=== PATIENT | male | born 1950 | race Caucasian/White ===

== ENCOUNTER 2020-03-07 14:01 | Outpatient (REF) | payer MEDICARE, OTHER, SELFPAY ==
[2020-03-07 15:26] LABS: Prostate Specific Antigen 0.39 ng/mL (<0.05-4.0)
[2020-03-13 20:18] LABS: Testosterone, Total <1 ng/dL (250-1100)
== END 2020-03-07 14:02 | disposition home or self-care (01) ==
LOC: HO.LAB 14:01
PROVIDERS: PCP Physician Assistant; Visit Provider Urology
DX: C61 Malignant neoplasm of prostate (principal)
CPT/HCPCS: 84153; 84403

== ENCOUNTER → 2020-03-20 15:09 | Outpatient (BNVA) | payer MEDICARE, OTHER, SELFPAY | PROVIDERS: PCP Physician Assistant; Visit Provider Urology | DX: C61 Malignant neoplasm of prostate (principal); C79.51 Secondary malignant neoplasm of bone; N13.30 Unspecified hydronephrosis | CPT/HCPCS: Q3014 ==

== ENCOUNTER 2020-06-08 15:48 | Outpatient (REF) | payer MEDICARE, OTHER, SELFPAY ==
[2020-06-08 16:59] LABS: Prostate Specific Antigen 0.42 ng/mL (<0.05-4.0)
[2020-06-14 02:31] LABS: Testosterone, Total <1 ng/dL (250-1100)
== END 2020-06-08 15:49 | disposition home or self-care (01) ==
LOC: HO.LAB 15:48
PROVIDERS: PCP Physician Assistant; Visit Provider Urology
DX: N40.1 Benign prostatic hyperplasia with lower urinary tract symptoms (principal); N13.8 Other obstructive and reflux uropathy; C61 Malignant neoplasm of prostate
CPT/HCPCS: 36415; 84153; 84403

== ENCOUNTER → 2020-06-13 10:55 | Outpatient (REF) | payer MEDICARE, OTHER, SELFPAY ==
--- NOTE | ~2020-06-13 | NM_ITS ---
EXAMINATION: NM BONE SCAN OF THE WHOLE BODY CLINICAL INFORMATION: Malignant neoplasm of prostate. COMPARISON: The previous bone scans dated 12/15/2019 and 12/02/2018 are available for comparison. No recent radiographs are available for comparison. TECHNIQUE: Multiple gamma scintillation camera images of the whole body were performed 3 hours following the intravenous administration of 35 mCi Tc-99m MDP. FINDINGS: In the head, there is a small mild focus of increased activity present in the left frontal skull bilaterally. Mild foci of increased activity are present bilaterally in the mandible, likely due to dental disease. In the thoracic cage and upper extremities, small foci of mildly increased activity are present in adjacent regions in the posterior left eighth and ninth ribs and the posterior medial right 10th rib. Another small mild focus is present in the anterolateral aspect of the left seventh rib, well seen only on the GUYANESE spot view. There is a focus of moderately increased activity along lateral margin of the lower sternum at the level of the fourth rib. In the spine, a mild thoracolumbar scoliosis is present with lumbar convexity to the left. There is mildly increased activity in the mid thoracic spine diffusely without a discrete focal component, involving approximately the T7-T10 levels. In the pelvis, there is a small focus of mildly increased activity present in the lateral aspect of the left iliac crest. There is a minimal Bilateral prominence of the medial aspects of the superior pubic rami bilaterally is suggested. In the lower extremities, a tiny small focus of mildly increased activity is present in the medial compartment of the left knee. No other definite bony abnormalities are noted. The urinary bladder and faint visualization of both kidneys are noted. Compared to the previous bone scan dated 12/15/2019, there has not been a significant change except for bilaterally increased activity in foci in the mandible which are most likely due to dental disease and much more prominent than minimal abnormalities possibly present in these regions previously. NM/NM bone scan whole body IMPRESSION: Stable metastatic tumor involvement of bone. There has not been a significant change in the bone scan appearance since 12/15/2019, but the bone scan appearance on both the current and most recent study are markedly improved compared to the less recent 12/02/2018 bone scan. No new metastases are visualized. Increased activity in foci in the mandible bilaterally are likely due to dental disease.
== END ==
LOC: HO.NUCMED 10:55
PROVIDERS: Visit Provider Urology
DX: C61 Malignant neoplasm of prostate (principal); C79.51 Secondary malignant neoplasm of bone
CPT/HCPCS: 78306; A9503

== ENCOUNTER → 2020-06-14 08:59 | Outpatient (BNVA) | payer MEDICARE, OTHER, SELFPAY | PROVIDERS: Visit Provider Urology | DX: M85.80 Other specified disorders of bone density and structure, unspecified site (principal) | CPT/HCPCS: 96402; 99212; J9217 ==

== ENCOUNTER 2020-09-25 09:31 | Outpatient (REF) | payer MEDICARE, OTHER, SELFPAY ==
[2020-09-25 10:52] LABS: Hematocrit 37.1 % (42-52); Hemoglobin 11.7 g/dl (14.0-18.0); Mean Corpuscular HGB Conc 31.5 g/dl (31.0-36.0); Mean Corpuscular Hemoglobin 29.2 pg (27.0-33.0); Mean Corpuscular Volume 92.5 fL (80-98); Mean Platelet Volume 9.4 fL (9.4-12.4); Platelet Count 245 X10*3/uL (160-400); Red Blood Count 4.01 X10*6/uL (4.60-5.80); Red Cell Distribution Width 17.3 % (11.0-16.0); White Blood Count 6.3 X10*3/uL (4.8-10.8)
[2020-09-25 10:55] LABS: Estimated Average Glucose 114 mg/dL; Hemoglobin A1c % 5.6 %
[2020-09-25 11:20] LABS: Alanine Aminotransferase 12 U/L (0-40); Albumin Level 3.9 g/dL (3.5-5.0); Alkaline Phosphatase 98 U/L (39-117); Anion Gap 12 (12-20); Aspartate Amino Transferase 13 U/L (5-37); Bilirubin Total 0.2 mg/dL (0.0-1.0); Blood Urea Nitrogen 14 mg/dL (9-16); Carbon Dioxide 28 mmol/L (22-29); Chloride 106 mmol/L (96-108); Cholesterol 233 mg/dL; Estimated Glomerular Filt Rate > 60; Glucose Fasting 95 mg/dL (60-99); HDL Cholesterol 61 mg/dL; LDL Cholesterol Calculated 145 mg/dl; Potassium 4.2 mmol/L (3.3-5.1); Sodium 142 mmol/L (135-145); Total Protein 6.2 g/dL (6.5-8.0); Triglycerides 138 mg/dL
[2020-09-25 11:33] LABS: Prostate Specific Antigen 0.32 ng/mL (<0.05-4.0)
[2020-09-25 11:38] LABS: TSH reflex Free T4 1.45 uIU/mL (0.32-4.0)
[2020-09-29 11:32] LABS: Testosterone, Total 6 ng/dL (250-1100)
== END 2020-09-25 09:32 | disposition home or self-care (01) ==
LOC: HO.LAB 09:31
PROVIDERS: Absent Provider Physician Assistant; PCP Physician Assistant; Visit Provider Urology
DX: Z12.5 Encounter for screening for malignant neoplasm of prostate (principal); Z13.29 Encounter for screening for other suspected endocrine disorder; Z13.220 Encounter for screening for lipoid disorders; C61 Malignant neoplasm of prostate; C79.51 Secondary malignant neoplasm of bone; N13.8 Other obstructive and reflux uropathy; N40.1 Benign prostatic hyperplasia with lower urinary tract symptoms; I10 Essential (primary) hypertension; Z00.00 Encounter for general adult medical examination without abnormal findings
CPT/HCPCS: 36415; 80053; 80061; 83036; 84153; 84403; 84443; 85027

== ENCOUNTER → 2020-12-21 13:56 | Outpatient (BNVA) | payer MEDICARE, OTHER, SELFPAY | PROVIDERS: PCP Physician Assistant; Visit Provider Urology | DX: C61 Malignant neoplasm of prostate (principal); C79.51 Secondary malignant neoplasm of bone | CPT/HCPCS: 96402; 99212; J9217 ==

== ENCOUNTER 2021-01-15 14:56 | Outpatient (REF) | payer MEDICARE, OTHER, SELFPAY ==
--- NOTE | ~2021-01-15 | MM_ITS ---
EXAMINATION: BONE DENSITOMETRY CLINICAL INDICATION: Other specified disorders of bone density and structure, unspecified site. COMPARISON: Baseline BD dated 06/17/2019. TECHNIQUE: Using a [employer] DXA System (software version: 13.1) manufactured by [employer], dual-energy x-ray absorptiometry was performed of the lumbar spine and left hip. The images are of good technical quality. Summary results are attached. FINDINGS: AP SPINE L1-L4: Current: BMD 1.245 g/cm2, Z-score 0.0, T-score 0.2, normal, 7.4% decrease from baseline (<5% change is not significant). Baseline: BMD 1.344 g/cm2. LEFT FEMUR, NECK: Current: BMD 0.942 g/cm2, Z-score -0.3, T-score -1.0, normal. Baseline: BMD 0.982 g/cm2. LEFT FEMUR, TOTAL: Current: BMD 1.004 g/cm2, Z-score -0.5, T-score -0.7, normal, 5.9% decrease from baseline (<5% change is not significant). Baseline: BMD 1.067 g/cm2. IDENTIFIED RISK FACTORS: History of fracture (adult), glucocorticoids (chronic). HISTORY OF FRACTURE: Ankle. MEDICATIONS: ERT/SERMS. MM/XR DEXA axial skeleton IMPRESSION: 1. DIAGNOSIS: Normal bone density based on the lowest T-score value of -1.0 in the femoral neck applying World Health Organization criteria. 2. 10-YEAR FRACTURE RISK PREDICTION, FRAX: Major osteoporotic fracture (clinical spine, forearm, hip or shoulder) 12.1%. Hip fracture 1.8%. 3. Treatment Recommendations: NOF guidelines recommend consideration for treatment in postmenopausal women and men age 50 and older presenting with the following: -A hip or vertebral (clinical or morphometric) fracture. -T-score less than or equal to -2.5 at the femoral neck or spine after appropriate evaluation to exclude secondary causes. -Low bone mass at the hip or spine and a 10-year fracture probability by FRAX of greater than or equal to 3% for hip fracture or greater than or equal to 20% for major osteoporotic fracture based on the [place] adapted WHO algorithm. 4. Other Recommendations: All treatment decisions require clinical judgment and consideration of individual patient factors, including patient preferences, comorbidities, previous drug use, risk factors not captured in the FRAX model (e.g. frailty, falls, vitamin D deficiency, increased bone turnover, interval significant decline in bone density) and possible under or overestimation of fracture risk by FRAX. FUTURE SCAN RECOMMENDATION: People with diagnosed cases of osteoporosis or at high risk for fracture should have regular bone mineral density tests. For patients eligible for Medicare, routine testing is allowed once every 2 years. The testing frequency can be increased to one year for patients who have rapidly progressing disease, those who are receiving or discontinuing medical therapy to restore bone mass, or have additional risk factors.
== END 2021-01-15 14:57 | disposition home or self-care (01) ==
LOC: HO.MAMMO 14:56
PROVIDERS: PCP Physician Assistant; Visit Provider Urology
DX: Z13.820 Encounter for screening for osteoporosis (principal); M85.88 Other specified disorders of bone density and structure, other site; C61 Malignant neoplasm of prostate; C79.51 Secondary malignant neoplasm of bone; E27.49 Other adrenocortical insufficiency; T38.905 Adverse effect of unspecified hormone antagonists; Z87.81 Personal history of (healed) traumatic fracture
CPT/HCPCS: 77080

== ENCOUNTER → 2021-02-14 10:53 | Outpatient (REF) | payer MEDICARE, OTHER, SELFPAY ==
--- NOTE | ~2021-02-14 | NM_ITS ---
EXAMINATION: NM BONE SCAN OF THE WHOLE BODY CLINICAL INFORMATION: Prostate cancer. Hip pain and lower back pain. COMPARISON: The previous bone scan dated 06/13/2020 is available for comparison. No recent radiographs are available for comparison. TECHNIQUE: Multiple gamma scintillation camera images of the whole body were performed 3 hours following the intravenous administration of 40 mCi Tc-99m MDP. FINDINGS: In the head, mild foci of increased activity in the frontal calvarium bilaterally present on the 06/13/2020 study are only equivocally visualized on the current study. Mild to moderately intense abnormalities in the mandible bilaterally likely due to dental disease are unchanged since 06/13/2020. In the thoracic cage and upper extremities, there is a focus of mildly increased activity along the left lateral margin of the lower sternum at the level of the fourth rib slightly less intense than on 06/13/2020. 2 faint foci of increased activity are present in the posterior left eighth and ninth ribs in the posterior medial right 10th rib, all slightly less intense than on the 06/13/2020 but the change is minimal. There is mildly increased activity stable from the prior study in the acromioclavicular joints bilaterally likely arthritic. In the spine, there is a mild thoracolumbar scoliosis with lumbar convexity to the left. There is a focus of mildly increased activity in the right paramidline region of L1, not present on 06/13/2020. No other spine abnormalities are present. In the pelvis, the previously visualized mild focus in the posterior left iliac crest is now only barely visualized and is considered now equivocal. No other pelvis abnormalities are present. In the lower extremities, a small tiny faint focus in the medial left tibial plateau is noted, unchanged from 06/13/2020. No other definite bony abnormalities are noted. The urinary bladder and faint visualization of both kidneys are noted. NM/NM bone scan whole body IMPRESSION: A single subtle new abnormality is suggested in the L1 vertebral body. This this is suspicious for a new metastasis at this site. No other new abnormalities are noted. The other abnormalities appear overall slightly decreased in intensity but the change is subtle.
== END ==
LOC: HO.NUCMED 10:53
PROVIDERS: PCP Physician Assistant; Visit Provider Urology
DX: C61 Malignant neoplasm of prostate (principal); C79.51 Secondary malignant neoplasm of bone
CPT/HCPCS: 78306; A9503

== ENCOUNTER 2021-03-15 11:29 | Outpatient (REF) | payer MEDICARE, OTHER, SELFPAY ==
[2021-03-15 12:59] LABS: Prostate Specific Antigen 0.27 ng/mL (<0.05-4.0)
[2021-03-24 08:16] LABS: Testosterone, Total <1 ng/dL (250-1100)
== END 2021-03-15 11:30 | disposition home or self-care (01) ==
LOC: HO.LAB 11:29
PROVIDERS: PCP Physician Assistant; Visit Provider Urology
DX: Z12.5 Encounter for screening for malignant neoplasm of prostate (principal); C61 Malignant neoplasm of prostate; C79.51 Secondary malignant neoplasm of bone
CPT/HCPCS: 36415; 84153; 84403

== ENCOUNTER → 2021-03-20 12:45 | Outpatient (BNVA) | payer MEDICARE, OTHER, SELFPAY | PROVIDERS: PCP Physician Assistant; Visit Provider Urology | DX: C61 Malignant neoplasm of prostate (principal); C79.51 Secondary malignant neoplasm of bone | CPT/HCPCS: Q3014 ==

== ENCOUNTER 2021-06-07 12:57 | Outpatient (REF) | payer MEDICARE, OTHER, SELFPAY ==
--- NOTE | ~2021-06-07 | CT_ITS ---
EXAMINATION: CT PELVIS WITHOUT CONTRAST CLINICAL INFORMATION: Prostate cancer COMPARISON: Previous CT of the abdomen and pelvis October 2018 and renal ultrasound November 2019 and bone scan January 2021 TECHNIQUE: Helical scanning was performed with submillimeter collimation through the pelvis. Sagittal and coronal multiplanar 2-D reconstructions were obtained. This CT examination was performed using dose optimization techniques as appropriate, variously including the following: *Automated exposure control *Adjustment of mA and/or kV according to patient size (this includes techniques or standardized protocols for targeted exams where dose is matched to indication/reason for exam; i.e. extremities or head) *Use of iterative reconstruction technique DLP: 74 mGy-cm FINDINGS: The prostate gland does not appear enlarged and is decreased in size from October 2018. No soft tissue mass in the pelvis is seen. There are small retroperitoneal lymph nodes. There are no enlarged lymph nodes. The bladder is not optimally distended. There is question of mild diffuse bladder wall thickening. There is diverticulosis of the colon. The visualized bowel is otherwise unremarkable. There is evidence of atherosclerotic disease. There is a small umbilical hernia containing fat and small bilateral inguinal hernias containing fat. There are degenerative changes of the spine. There is a 5 mm sclerotic lesion in the left inferior pubic ramus. This is unchanged from October 2018 and did not demonstrate increased uptake on bone scan. The previously identified small sclerotic lesions in the right iliac bone near the sacroiliac joint and right inferior pubic ramus and not appreciated. CT/CT pelvis wo con IMPRESSION: Normal size prostate gland. No pelvic mass or enlarged lymph nodes seen. Question diffuse bladder wall thickening. Diverticulosis.
== END 2021-06-07 12:58 | disposition home or self-care (01) ==
LOC: HO.CT 12:57
PROVIDERS: Visit Provider Urology
DX: C61 Malignant neoplasm of prostate (principal); C79.51 Secondary malignant neoplasm of bone
CPT/HCPCS: 72192

== ENCOUNTER 2021-06-25 14:10 | Outpatient (REF) | payer MEDICARE, OTHER, SELFPAY ==
[2021-06-25 14:58] LABS: Hematocrit 35.8 % (42.0-52.0); Hemoglobin 11.6 g/dl (14.0-18.0); Mean Corpuscular HGB Conc 32.4 g/dl (31.0-36.0); Mean Corpuscular Hemoglobin 32.3 pg (27.0-33.0); Mean Corpuscular Volume 99.7 fL (80.0-98.0); Mean Platelet Volume 9.1 fL (9.4-12.4); Platelet Count 275 X10*3/uL (160-400); Red Blood Count 3.59 X10*6/uL (4.60-5.80); Red Cell Distribution Width 13.2 % (11.0-16.0); White Blood Count 6.6 X10*3/uL (4.8-10.8)
[2021-06-25 15:25] LABS: Iron 111 mcg/dL (45-160)
[2021-06-25 15:26] LABS: Estimated Average Glucose 105 mg/dL; Hemoglobin A1c % 5.3 %
[2021-06-25 15:36] LABS: Percent Iron Saturation 30 % (15-50); Total Iron Binding Capacity 372 mcg/dL (228-428); Unsaturated Iron Binding 261 ug/dL
[2021-06-25 15:43] LABS: Prostate Specific Antigen 0.21 ng/mL (<0.05-4.0)
[2021-07-03 11:37] LABS: Testosterone, Total 4 ng/dL (250-1100)
== END 2021-06-25 14:11 | disposition home or self-care (01) ==
LOC: HO.LAB 14:10
PROVIDERS: PCP Physician Assistant; Visit Provider Urology
DX: Z12.5 Encounter for screening for malignant neoplasm of prostate (principal); Z13.29 Encounter for screening for other suspected endocrine disorder; C61 Malignant neoplasm of prostate; C79.51 Secondary malignant neoplasm of bone; D50.9 Iron deficiency anemia, unspecified; D64.9 Anemia, unspecified
CPT/HCPCS: 36415; 83036; 83540; 84153; 84403; 84443; 85027

== ENCOUNTER → 2021-06-27 10:53 | Outpatient (BNVA) | payer MEDICARE, OTHER, SELFPAY | PROVIDERS: PCP Physician Assistant; Visit Provider Urology | DX: C61 Malignant neoplasm of prostate (principal); C79.51 Secondary malignant neoplasm of bone | CPT/HCPCS: 96402; 99212; J9217 ==

== ENCOUNTER → 2021-09-05 10:52 | Outpatient (REF) | payer MEDICARE, OTHER, SELFPAY ==
--- NOTE | ~2021-09-05 | NM_ITS ---
EXAMINATION: NM BONE SCAN OF THE WHOLE BODY CLINICAL INFORMATION: Malignant neoplasm of the prostate. COMPARISON: CT of the pelvis dated 06/07/2020. Previous bone scan dated 02/14/2021. TECHNIQUE: Multiple gamma scintillation camera images of the whole body were performed 2.75 hours following the intravenous administration of 40 mCi Tc-99m MDP. FINDINGS: In the head there is once again uptake in the mandibular region, left greater than right, is similar to previous. This may well represent dental disease. In the thoracic cage and upper extremities there is once again uptake along the 10th rib posterior on the right and the 9th and 8th rib on the left posterior. Also, once again, uptake in an anterior low rib on the left similar to previous. Stable appearing uptake in the [id number]-ft-eiwyr sternum on the left. In the spine there is mottled uptake once again seen in thoracic spine, which is likely degenerative in nature. Similar mottled uptake in the lower lumbar sacral region is similar to previous. Previous visualized uptake in the L1 vertebral body is less conspicuous here. In the pelvis, no suspicious focus. In the lower extremities once again uptake in the medial compartment of the left knee is likely degenerative. No other definite bony abnormalities are noted. The urinary bladder and faint visualization of both kidneys are noted. NM/NM bone scan whole body IMPRESSION: This exam is felt to be stable from previous. Areas of uptake seen previously are once again visualized. No new focus is seen. Areas described at L1 on the last exam are less apparent here.
== END ==
LOC: HO.NUCMED 10:52
PROVIDERS: PCP Physician Assistant; Visit Provider Urology
DX: C61 Malignant neoplasm of prostate (principal); C79.51 Secondary malignant neoplasm of bone
CPT/HCPCS: 78306; A9503

== ENCOUNTER 2021-09-23 10:37 | Outpatient (REF) | payer MEDICARE, OTHER, SELFPAY ==
[2021-09-23 11:11] LABS: Hematocrit 35.5 % (42.0-52.0); Hemoglobin 11.5 g/dl (14.0-18.0); Mean Corpuscular HGB Conc 32.4 g/dl (31.0-36.0); Mean Corpuscular Hemoglobin 31.8 pg (27.0-33.0); Mean Corpuscular Volume 98.1 fL (80.0-98.0); Mean Platelet Volume 9.1 fL (9.4-12.4); Platelet Count 227 X10*3/uL (160-400); Red Blood Count 3.62 X10*6/uL (4.60-5.80); Red Cell Distribution Width 13.4 % (11.0-16.0); White Blood Count 5.2 X10*3/uL (4.8-10.8)
[2021-09-23 12:39] LABS: Prostate Specific Antigen 0.19 ng/mL (<0.05-4.0)
[2021-09-23 13:00] LABS: Alanine Aminotransferase 11 U/L (0-40); Albumin Level 3.9 g/dL (3.5-5.0); Alkaline Phosphatase 96 U/L (39-117); Anion Gap 13 (12-20); Aspartate Amino Transferase 12 U/L (5-37); Bilirubin Total 0.5 mg/dL (0.0-1.0); Blood Urea Nitrogen 17 mg/dL (9-16); Calcium 8.5 mg/dL (8.4-10.2); Carbon Dioxide 28 mmol/L (22-29); Chloride 105 mmol/L (96-108); Cholesterol 238 mg/dL; Estimated Glomerular Filt Rate > 60; Glucose Fasting 108 mg/dL (60-99); HDL Cholesterol 58 mg/dL; LDL Cholesterol Calculated 147 mg/dl; Potassium 4.7 mmol/L (3.3-5.1); Sodium 141 mmol/L (135-145); Total Protein 6.2 g/dL (6.5-8.0); Triglycerides 167 mg/dL
[2021-10-01 13:36] LABS: Testosterone, Total <1 ng/dL (250-1100)
== END 2021-09-23 10:38 | disposition home or self-care (01) ==
LOC: HO.LAB 10:37
PROVIDERS: Internal Medicine; Absent Provider Physician Assistant; PCP Physician Assistant; Visit Provider Urology
DX: C61 Malignant neoplasm of prostate (principal); C79.51 Secondary malignant neoplasm of bone; D64.9 Anemia, unspecified; E66.9 Obesity, unspecified; Z86.711 Personal history of pulmonary embolism; Z13.220 Encounter for screening for lipoid disorders; Z13.1 Encounter for screening for diabetes mellitus; Z12.5 Encounter for screening for malignant neoplasm of prostate
CPT/HCPCS: 36415; 80053; 80061; 84153; 84403; 85027

== ENCOUNTER → 2021-09-27 11:26 | Outpatient (BNVA) | payer MEDICARE, OTHER, SELFPAY | PROVIDERS: PCP Physician Assistant; Visit Provider Urology | DX: C61 Malignant neoplasm of prostate (principal); C79.51 Secondary malignant neoplasm of bone | CPT/HCPCS: Q3014 ==

== ENCOUNTER → 2021-12-20 09:54 | Outpatient (REF) | payer MEDICARE, OTHER, SELFPAY ==
--- NOTE | ~2021-12-20 | NM_ITS ---
EXAMINATION: NM BONE SCAN OF THE WHOLE BODY CLINICAL INFORMATION: Malignant neoplasm of the prostate. COMPARISON: CT of the pelvis done on 06/07/2021 and whole-body bone scan done on 09/15/2021, and 02/14/2021. TECHNIQUE: Multiple gamma scintillation camera images of the whole body were performed 3 hours following the intravenous administration of 41 mCi Tc-99m MDP. The radiotracer was injected through left antecubital superficial vein, without complications. FINDINGS: In the head, persistent mild focal increased radiotracer activities are noted on either side of the midline involving the mandible, may represent odontogenic disease. In the thoracic cage and upper extremities, persistent stable linear abnormal increased radiotracer activities are noted involving the left eighth and ninth and the right 10th ribs, remain suspicious for osseous metastasis. Persistent stable linear lower left parasternal increased radiotracer activity is also noted, remain suspicious for osseous metastasis as well. In the spine, persistent stable mild thoracolumbar dextroscoliosis without any superimposed suspicious focal lesion, unchanged since prior study. Previously described L1 vertebral body abnormality is not reproduced in the current study. In the pelvis, no focal abnormalities. In the lower extremities, persistent mild focal increased radiotracer activity along the medial subarticular aspect of the proximal tibia likely represent degenerative and/or posttraumatic changes, unchanged. No other definite bony abnormalities are noted. The urinary bladder and faint visualization of both kidneys are noted. NM/NM bone scan whole body IMPRESSION: Stable scintigraphic appearance of the skeleton, unchanged since 09/05/2021. Previously documented multifocal osseous abnormalities, presumably representing metastatic disease involving the thoracic cage including the sternum appear stable. No suspicious new focal osseous abnormalities since the prior study.
== END ==
LOC: HO.NUCMED 09:54
PROVIDERS: PCP Physician Assistant; Visit Provider Urology
DX: C61 Malignant neoplasm of prostate (principal); C79.51 Secondary malignant neoplasm of bone
CPT/HCPCS: 78306; A9503

== ENCOUNTER 2021-12-26 15:01 | Outpatient (REF) | payer MEDICARE, OTHER, SELFPAY ==
[2021-12-26 16:06] LABS: Prostate Specific Antigen 0.15 ng/mL (<0.05-4.0)
[2022-01-03 12:11] LABS: Testosterone, Total <1 ng/dL (250-1100)
== END 2021-12-26 15:02 | disposition home or self-care (01) ==
LOC: HO.LAB 15:01
PROVIDERS: PCP Physician Assistant; Visit Provider Urology
DX: Z12.5 Encounter for screening for malignant neoplasm of prostate (principal); C61 Malignant neoplasm of prostate; C79.51 Secondary malignant neoplasm of bone
CPT/HCPCS: 36415; 84153; 84403

== ENCOUNTER → 2022-01-01 15:09 | Outpatient (BNVA) | payer MEDICARE, OTHER, SELFPAY | PROVIDERS: PCP Physician Assistant; Visit Provider Urology | DX: C61 Malignant neoplasm of prostate (principal); C79.51 Secondary malignant neoplasm of bone; Z86.711 Personal history of pulmonary embolism; Z79.01 Long term (current) use of anticoagulants | CPT/HCPCS: 96402; 99212; J9217 ==

== ENCOUNTER 2022-01-04 11:16 | Emergency (ER) | payer MEDICARE, OTHER, SELFPAY ==
[2022-01-04 11:22] VITALS: BP 168/67; PULSE 65; RESP 17; TEMP 35.6; O2SAT 95; BMI 36.1
[2022-01-04 11:32] LABS: MANUAL DIFF FLAG NO
[2022-01-04 11:34] LABS: Basophils Percent Auto 0.5 % (0-2); Eosinophils Absolute Auto 0.1 X10*3/uL (0.0-0.4); Eosinophils Percent Auto 2.3 % (0-4); Hematocrit 36.2 % (42.0-52.0); Hemoglobin 11.8 g/dl (14.0-18.0); Imm Gran Abs Auto 0.03 X10*3/uL (0.00-0.03); Imm Gran Pct Auto 0.5 % (0.0-0.4); Lymphocytes Absolute Auto 0.7 X10*3/uL (1.2-4.9); Lymphocytes Percent Auto 11.7 % (20-40); Mean Corpuscular HGB Conc 32.6 g/dl (31.0-36.0); Mean Corpuscular Hemoglobin 31.7 pg (27.0-33.0); Mean Corpuscular Volume 97.3 fL (80.0-98.0); Mean Platelet Volume 8.8 fL (9.4-12.4); Monocytes Absolute Auto 0.4 X10*3/uL (0.1-1.2); Neutrophils Absolute Auto 4.3 x10*3/uL (2.0-8.3); Platelet Count 212 X10*3/uL (160-400); Red Blood Count 3.72 X10*6/uL (4.60-5.80); Red Cell Distribution Width 13.3 % (11.0-16.0); White Blood Count 5.6 X10*3/uL (4.8-10.8)
[2022-01-04 11:43] LABS: Partial Thromboplastin Time 40.3 SEC (26.0-36.4)
[2022-01-04 11:55] LABS: Alanine Aminotransferase 10 U/L (0-40); Alkaline Phosphatase 95 U/L (39-117); Anion Gap 14 (12-20); Aspartate Amino Transferase 17 U/L (5-37); Bilirubin Total 0.9 mg/dL (0.0-1.0); Blood Urea Nitrogen 9 mg/dL (9-16); Calcium 8.9 mg/dL (8.4-10.2); Carbon Dioxide 27 mmol/L (22-29); Chloride 103 mmol/L (96-108); Creatinine Clr Calc Pharmacy 114.6; Estimated Glomerular Filt Rate > 60; Glucose Random 101 mg/dL (60-115); Potassium 4.2 mmol/L (3.3-5.1); Sodium 140 mmol/L (135-145); Total Protein 6.3 g/dL (6.5-8.0)
--- NOTE | 2022-01-04 13:19 | ED.EXTPRO ---
HPI - Extremity Problem General Chief complaint: Extremity Problem Stated complaint: leg swollen, ultrasound Time Seen by Provider: 01/04/22 12:42 Source: patient Mode of arrival: ambulatory Limitations: no limitations History of Present Illness HPI Narrative: Patient presents to the emergency department as a referral from urgent care for evaluation of left lower extremity redness and swelling x2 days. Was advised to come to emergency department to evaluate for DVT. Patient states that there is some mild pain associated with this. He felt that it got significantly worse yesterday. Denies fevers, chills, chest pain, palpitations, shortness of breath, difficulty breathing, injury to the extremity, numbness or tingling to the extremity, cold sensation to the extremity or foot. Denies any known insect bite, or past history of cellulitis. States he has been compliant with his Eliquis, which he is on for a right lower extremity DVT and pulmonary embolism in June of 2020. Related Data Home Medications Medication Instructions Recorded Confirmed abiraterone 250 mg tablet 1,000 mg PO DAILY 03/20/20 01/01/22 prednisone 5 mg tablet mg PO 03/20/20 01/01/22 ferrous sulfate 325 mg (65 mg 325 mg PO DAILY 10/02/20 01/01/22 iron) tablet (FeroSul) omeprazole 20 mg capsule,delayed 20 mg PO DAILY 04/04/21 01/01/22 release cholecalciferol (vitamin D3) 10 20 mcg PO DAILY 06/27/21 01/01/22 mcg (400 unit) tablet (Vitamin D3) Previous Rx's Medication Instructions Recorded cholecalciferol (vitamin D3) 10 800 unit PO DAILY 90 days #180 caps 03/20/21 mcg (400 unit) capsule apixaban 5 mg tablet (Eliquis) 5 mg PO BID #180 tabs 07/24/21 calcium carbonate 500 mg calcium 500 mg PO BID Prostate cancer 90 09/26/21 (1,250 mg) chewable tablet days #180 tabs (Calcium 500) cephalexin 500 mg capsule 500 mg PO QID 7 days #28 caps 01/04/22 doxycycline hyclate 100 mg capsule 100 mg PO BID 7 days #14 caps 01/04/22 Allergies Allergy/AdvReac Type Severity Reaction Status Date / Time Iodinated Contrast Media Allergy Unknown Unknown Verified 12/30/21 11:33 Lobster Allergy Unknown unknown Verified 12/30/21 11:33 Review of Systems Review of Systems: Constitutional: No weight loss, fever, chills, weakness or fatigue. Skin: No rash or itching. Positive left lower extremity redness Cardiovascular: No chest pain, chest pressure or chest discomfort. No palpitations Respiratory: No shortness of breath, cough or sputum production. Gastrointestinal: No nausea, vomiting or diarrhea. No abdominal pain Genitourinary: No burning micturition. No urinary frequency or incontinence. Musculoskeletal: No muscle pain, back pain, joint pain or stiffness. Psychiatric: No depression or anxiety. Yes all other systems are reviewed and are negative [facility] Past Medical History Attestation statement: The following information was validated with the patient. Source: old records reviewed Medical History Anemia Prostate cancer Pulmonary embolism Surgical History History of cataract surgery History of colonoscopy History of endoscopy Family History Family History Father CVD (cardiovascular disease) Cancer Heart problem Mother Hypertension Brother Prostate cancer Sister No problems noted. Daughter In good health Social History Social History Housing: House Alcohol intake: current Alcohol intake frequency: a few times a week Patient Tobacco Use Status: Never used Tobacco e-Cigarette/Vaping Use: Never Used Advance Directives: No Advance Directives Information Provided: Yes Current occupational status: retired Physical Exam Vital Signs: Vital Signs: Last Vital Signs Temp 96.0 F L 01/04/22 11:22 Pulse 65 01/04/22 11:22 Resp 17 01/04/22 11:22 BP 168/67 H 01/04/22 11:22 Pulse Ox 95 01/04/22 11:22 O2 Del Method 01/04/22 11:22 BMI result Body Mass Index 36.1 Appearance: Alert.?Oriented to person, place and time. No acute distress.?Normal affect. Eyes: Pupils equal, round and reactive to light.? ENT: Pharynx normal.?? Neck: Normal inspection.? Neck supple.?? CVS: Heart sounds normal. Normal heart rate and rhythm.? Pulses normal.?? Respiratory: No respiratory distress.? Lung sounds clear to auscultation bilaterally?? Abdomen: Soft and non-tender. Normoactive bowel sounds. No pulsatile mass.?? Skin: Skin warm and dry.? Normal skin color.? Normal skin turgor.?? Extremities: No lower extremity edema.?Left lower extremity with circumferential erythema to the calf from just below the knee to above the ankle, warmth and mild tenderness upon palpation. Neuro: Moves all extremities spontaneously. Sensation intact bilaterally. Ambulates with normal steady gait. Course Course Course Narrative: Patient is a 71-year-old male with a past medical history pulmonary embolism, DVT, osteopenia, prostate cancer. Presents to the emergency department with referral from urgent care for rule out DVT. Physical exam notable for circumferential left lower extremity erythema and warmth between knee and ankle. Full AROM to left knee and left ankle. Extremities neurovascularly intact distally. Ultrasound obtained from triage reveals no evidence of DVT, subcutaneous tissue edema without local fluid collection, and there is incidental finding of a left popliteal fossa cyst. At this time appears most consistent with cellulitis. Discussed plan of care for discharge home, oral antibiotics, skin marked at line of erythema, reviewed worsening signs symptoms to return back to emergency department for. Outpatient follow-up with his primary care provider in 3-5 days. All questions were answered, patient was discharged home in stable condition. MDM - Extremity (Nontraumatic) Medical Records Attestation: I reviewed the patient's medical records. Lab Data Attestation: I reviewed the patient's lab results. Result diagrams: 01/04/22 11:28 01/04/22 11:28 Labs: Lab Results 01/04/22 01/04/22 01/04/22 Range/Units 11:28 11:28 11:28 WBC 5.6 (4.8-10.8) X10*3/uL RBC 3.72 L (4.60-5.80) X10*6/uL Hgb 11.8 L (14.0-18.0) g/dl Hct 36.2 L (42.0-52.0) % MCV 97.3 (80.0-98.0) fL MCH 31.7 (27.0-33.0) pg MCHC 32.6 (31.0-36.0) g/dl RDW 13.3 (11.0-16.0) % Plt Count 212 (160-400) X10*3/uL MPV 8.8 L (9.4-12.4) fL Immature Gran % (Auto) 0.5 H (0.0-0.4) % Neut % (Auto) 78.0 H (45-73) % Lymph % (Auto) 11.7 L (20-40) % Clinch % (Auto) 7.0 (2-11) % Eos % (Auto) 2.3 (0-4) % Baso % (Auto) 0.5 (0-2) % Lymph # (Auto) 0.7 L (1.2-4.9) X10*3/uL Clinch # (Auto) 0.4 (0.1-1.2) X10*3/uL Eos # (Auto) 0.1 (0.0-0.4) X10*3/uL Baso # (Auto) 0.0 (0.0-0.2) X10*3/uL Abs Immat Gran (auto) 0.03 (0.00-0.03) X10*3/uL Absolute Neuts (auto) 4.3 (2.0-8.3) x10*3/uL Absolute Nucleated RBC 0.000 (0.0-0.012) X10*3/uL Nucleated RBC % (auto) 0.0 (0.0-0.2) /100WBC APTT 40.3 H (26.0-36.4) SEC Sodium 140 (135-145) mmol/L Potassium 4.2 (3.3-5.1) mmol/L Chloride 103 (96-108) mmol/L Carbon Dioxide 27 (22-29) mmol/L Anion Gap 14 (12-20) BUN 9 (9-16) mg/dL Creatinine 0.77 (0.5-1.4) mg/dL Estim Creat Clear Calc 114.6 Estimated GFR > 60 Random Glucose 101 (60-115) mg/dL Calcium 8.9 (8.4-10.2) mg/dL Total Bilirubin 0.9 (0.0-1.0) mg/dL AST 17 D (5-37) U/L ALT 10 (0-40) U/L Alkaline Phosphatase 95 (39-117) U/L Total Protein 6.3 L (6.5-8.0) g/dL Albumin 4.0 (3.5-5.0) g/dL Imaging Data Venous US: Radiologist's impression: US/US venous duplex LE LT IMPRESSION: No DVT demonstrated in the left lower extremity. Edema of the subcutaneous tissue in the left, is seen without focal fluid collection. A 2.4 cm left popliteal fossa cyst. Discharge Plan Discharge Clinical Impression: Cellulitis of left lower extremity Patient Disposition: Home, Self-Care Instructions: Cellulitis (ED) Additional Instructions: You have a been given a prescription for two antibiotics, please complete this entire course to treat the cellulitis of your leg. As discussed, the ultrasound did not reveal evidence of a DVT. Your skin was marked at the line of redness, if the redness or swelling exceeds these markers, as discussed, it should be re-evaluated. You may return to the emergency department with any new or worsening symptoms or concerns, such as severe worsening pain, redness, fevers, chills, numbness or tingling of the leg. Follow-up with your primary care provider next week. Prescriptions: New cephalexin 500 mg capsule 500 mg PO QID 7 Days Qty: 28 0RF doxycycline hyclate 100 mg capsule 100 mg PO BID 7 Days Qty: 14 0RF No Action Eliquis 5 mg tablet 5 mg PO BID Qty: 180 1RF calcium carbonate [Calcium 500] 500 mg calcium (1,250 mg) tablet,chewable 500 mg PO BID 90 Days Qty: 180 1RF ferrous sulfate [FeroSul] 325 mg (65 mg iron) tablet 325 mg PO DAILY omeprazole 20 mg capsule,delayed release(DR/EC) 20 mg PO DAILY prednisone 5 mg tablet PO abiraterone 250 mg tablet 1,000 mg PO DAILY cholecalciferol (vitamin D3) 10 mcg (400 unit) capsule 800 unit PO DAILY 90 Days Qty: 180 1RF cholecalciferol (vitamin D3) [Vitamin D3] 10 mcg (400 unit) tablet 20 mcg PO DAILY Referrals: Celso Butterfield PA-C [Primary Care Provider] - Interventions: ED Discharge Assessment Last Done: 01/04/22 14:12 Discharge Date/Time: 01/04/22 14:28
== END 2022-01-04 14:28 | disposition home or self-care (01) ==
PROVIDERS: Emergency Provider Emergency Medicine; PCP Physician Assistant
DX: L03.116 Cellulitis of left lower limb (principal); M79.662 Pain in left lower leg; M71.22 Synovial cyst of popliteal space [Baker], left knee; C61 Malignant neoplasm of prostate; C79.51 Secondary malignant neoplasm of bone; Z86.718 Personal history of other venous thrombosis and embolism; Z79.01 Long term (current) use of anticoagulants
CPT/HCPCS: 36415; 80053; 85025; 85730; 93971; 99282; 99284

== ENCOUNTER 2022-01-22 20:41 | Inpatient (IN) | payer MEDICARE, OTHER, SELFPAY ==
--- NOTE | ~2022-01-22 | CT_ITS ---
EXAMINATION: CT ABDOMEN AND PELVIS WITHOUT CONTRAST CLINICAL INFORMATION: llq pain, diarrhea . COMPARISON: 06/07/2021 CT scan. TECHNIQUE: Multidetector volumetric imaging was performed from the superior aspect of the liver through the pubic symphysis without contrast per request. Sagittal and coronal reformatted images were obtained on the technologist workstation. This CT examination was performed using dose optimization techniques as appropriate, variously including the following: *Automated exposure control *Adjustment of mA and/or kV according to patient size (this includes techniques or standardized protocols for targeted exams where dose is matched to indication/reason for exam; i.e. extremities or head) *Use of iterative reconstruction technique DLP: 867 mGy-cm. FINDINGS: LUNG BASES: The visualized lung bases are unremarkable. Small moderate-sized hiatal hernia LIVER, GALLBLADDER, BILIARY TREE: Scattered low-attenuation probable cysts in the liver. No biliary ductal dilatation. The gallbladder is unremarkable with no evidence of radiopaque gallstones, gallbladder wall thickening, or obvious pericholecystic inflammatory changes. PANCREAS: Unremarkable. SPLEEN: Unremarkable. ADRENAL GLANDS: Unremarkable. KIDNEYS AND URETERS: Low-attenuation cortical cyst in the lateral aspect of the right kidney. Otherwise the kidneys are normal in size, shape, and attenuation. No hydronephrosis, hydroureter, or calculi seen. No perinephric stranding. BLADDER: Decompressed GASTROINTESTINAL TRACT: Scattered colonic diverticulosis more so in the sigmoid colon where there is focal colonic wall thickening and pericolonic inflammatory change consistent with focal diverticulitis. No obstructive changes seen to the more proximal bowel ABDOMINAL WALL: Tiny fat-containing umbilical hernia LYMPHOVASCULAR STRUCTURES: Vascular calcification within the aorta iliac system. PELVIC VISCERA: Unremarkable. OSSEUS STRUCTURES: Multilevel degenerative changes spine CT/CT abdomen pelvis wo IV con IMPRESSION: Scattered diverticulosis with focal diverticulitis in the sigmoid colon.
--- NOTE | ~2022-01-22 | XR_ITS ---
EXAMINATION: XR CHEST CLINICAL INFORMATION: Abdominal pain and edema COMPARISON: None TECHNIQUE: Frontal view of the chest was obtained. FINDINGS: The heart is mildly enlarged. A moderate-sized hiatal hernia may be present. No infiltrates, large effusions or lung masses are seen. XR/XR chest 1V IMPRESSION: Cardiomegaly. No acute intrathoracic disease.
[2022-01-22 20:49] VITALS: BP 162/78; PULSE 73; RESP 18; TEMP 36.6; O2SAT 94; BMI 35.9
--- NOTE | 2022-01-22 20:57 | ED_ITS ---
HPI - Abdominal Pain General Chief Complaint: Nausea/Vomiting/Diarrhea Stated Complaint: lower abdominal pain Time Seen by Provider: 01/22/22 20:51 Source: patient and EMS Mode of arrival: EMS Limitations: no limitations History of Present Illness HPI narrative: 71-year-old male presents for evaluation of abdominal pain, nausea, vomiting and diarrhea. Patient reports several days of abdominal pain however has had diarrhea for about 3 weeks. He was treated for cellulitis, which has resolved. Patient has not eaten any food today because of his nauseousness and abdominal pain. He feels weak, tired, but denies chest pain and pressure, palpitations, shortness of breath, abdominal distention, inability to pass flatus, dysuria, hematuria, and chills. MD elicited complaint: abdominal pain Pertinent past history: none Onset (ago): week(s) Pain Consistency: constant Location: LLQ Severity: moderate Pain scale (0-10): 6 Quality: aching Radiation: none Migration to: no migration Exacerbating factors: eating and vomiting Relieving factors: nothing Context: recent antibiotic use Associated symptoms: nausea, vomiting, diarrhea, chills and anorexia Related Data Home Medications Medication Instructions Recorded Confirmed abiraterone 250 mg tablet 1,000 mg PO DAILY 03/20/20 01/09/22 prednisone 5 mg tablet mg PO 03/20/20 01/09/22 ferrous sulfate 325 mg (65 mg 325 mg PO DAILY 10/02/20 01/09/22 iron) tablet (FeroSul) omeprazole 20 mg capsule,delayed 20 mg PO DAILY 04/04/21 01/09/22 release cholecalciferol (vitamin D3) 10 20 mcg PO DAILY 06/27/21 01/09/22 mcg (400 unit) tablet (Vitamin D3) Previous Rx's Medication Instructions Recorded cholecalciferol (vitamin D3) 10 800 unit PO DAILY 90 days #180 caps 03/20/21 mcg (400 unit) capsule apixaban 5 mg tablet (Eliquis) 5 mg PO BID #180 tabs 07/24/21 calcium carbonate 500 mg calcium 500 mg PO BID Prostate cancer 90 09/26/21 (1,250 mg) chewable tablet days #180 tabs (Calcium 500) cephalexin 500 mg capsule 500 mg PO QID 7 days #28 caps 01/04/22 doxycycline hyclate 100 mg capsule 100 mg PO BID 7 days #14 caps 01/04/22 Allergies Allergy/AdvReac Type Severity Reaction Status Date / Time Iodinated Contrast Media Allergy Unknown Unknown Verified 01/09/22 14:15 Lobster Allergy Unknown unknown Verified 01/09/22 14:15 Review of Systems Review of Systems Constitutional: No Weight loss, No Fever, positive Chills, No Night Sweats, positive Fatigue, No Malaise ENT/Mouth: No Hearing loss, No Ear Pain, No Nasal Congestion, No Sinus Pain, No Hoarseness, No sore throat, No Rhinorrhea, No Swallowing Difficulty Eyes: No Eye Pain, No Swelling, No Redness, No Foreign Body, No Discharge, No Vision Changes Cardiovascular: No Chest Pain, No SOB, No Dyspnea on Exertion, No Orthopnea, No Edema, No Palpitations Respiratory: No Cough, No Sputum, No Wheezing, No Smoke Exposure, No Dyspnea Gastrointestinal: Positive Nausea, Positive Vomiting, positive Diarrhea, positive abdominal Pain, No Hematochezia, No Melena Genitourinary: no irregular bleeding, No Dysuria, No Urinary Frequency, No Hematuria, No Urinary Incontinence, No Urgency, No Flank Pain, No Urinary Flow Changes, No Hesitancy Musculoskeletal: No joint pain, No Myalgias, No Joint Swelling Skin: No Skin Lesions, No rash Neuro: No Weakness, No Numbness, No Paresthesias, No Loss of Consciousness, No Dizziness, No Headache Psych: No Anxiety/Panic, No Depression, No SI/HI/AH/VH, No Social Issues Heme/Lymph: No Bruising, No Bleeding,No Lymphadenopathy Endocrine: No Polyuria, No Polydipsia, No Temperature Intolerance Yes all other systems are reviewed and are negative FORMERLY [facility], [facility] Past Medical History Attestation statement: The following information was validated with the patient. Source: old records reviewed Medical History Anemia Prostate cancer Pulmonary embolism Surgical History History of cataract surgery History of colonoscopy History of endoscopy Family History Family History Father CVD (cardiovascular disease) Cancer Heart problem Mother Hypertension Brother Prostate cancer Sister No problems noted. Daughter In good health Social History Social History Housing: House Alcohol intake: current Alcohol intake frequency: a few times a week Patient Tobacco Use Status: Never used Tobacco e-Cigarette/Vaping Use: Never Used Advance Directives: No Advance Directives Information Provided: No Current occupational status: retired Cognitive needs: No Hearing needs: No Vision needs: No Physical Exam ED Vital Signs: Vital Signs - 24 hr 01/22/22 20:49 01/22/22 22:23 01/23/22 00:06 Temperature 97.8 F 98.7 F 99.2 F Pulse Rate 73 76 88 Respiratory Rate 18 18 18 Blood Pressure 162/78 H 130/69 147/72 H Pulse Oximetry 94 94 93 Oxygen Delivery Method Room Air Room Air Room Air BMI result Body Mass Index 35.9 Appearance: Alert. Oriented X3. Moderate distress. Appears fatigued. Eyes: Pupils equal, round and reactive to light. Sclera nonicteric. ENT: Pharynx normal. Moist mucous membranes. Neck: Normal inspection. Neck supple. CVS: Normal heart rate and rhythm. Pulses normal. Respiratory: No respiratory distress. Breath sounds normal. Abdomen: Soft and left lower quadrant tenderness to palpation. Negative Espinal McBurney. No rigidity or distention. Skin: Skin warm and dry. Normal skin color. Normal skin turgor. Extremities: +1 bilateral lower extremity edema. Moves all extremities against resistance. Neuro: No motor deficit. No sensory deficit. Cranial nerves 2-12 intact Course Course Course Narrative: 71-year-old male with past medical history of PE on Eliquis, history of prostate cancer and osteopenia presents for evaluation for abdominal pain, nausea, vomiting, and chills. Was treated for cellulitis on 01/05/2020 to with doxycycline and Keflex and has had intermittent diarrhea since. Patient has had poor p.o. intake today, and appears tired, with hemodynamically stable vital signs. Physical exam positive for left lower quadrant abdominal tenderness to palpation, without rigidity or distention. Considering patient has had intermittent diarrhea, anorexia, chills, and weakness will order CT scan of abdomen and pelvis. Will order EKG, BNP, trop. 23:55 CT scan abdomen pelvis indicates diverticulitis. BNP 111, lactic 0.8, troponin 6.5 with a negative EKG, low likelihood of ACS at this time. Patient is not septic, afebrile, has white count of 9.8, patient does not feel well enough to go home, is having a difficult time walking because left lower quadrant abdominal pain and has significant fears of doing poorly and falling. Considering patient has not had adequate p.o. intake today, patient feels insecure about eating and drinking at this time. Patient states that his pain is manageable at this time and does not require IV pain medications. I did discuss this with the hospitalist. Plan of care is to give IV Levaquin, Flagyl, 1 L of fluids, and admit for observation for diverticulitis. Consultations Consultation #1: [place] Time: 23:55 MDM - Abdominal Pain Differential Diagnosis Differential diagnosis: Likely abdominal pain, acute appendicitis, bowel perforation, calculus of kidney, constipation, diverticulitis, pancreatitis and small bowel obstruction Medical Records Attestation: I reviewed the patient's medical records. Lab Data Attestation: I reviewed the patient's lab results. Result diagrams: 01/22/22 21:40 01/22/22 21:40 Labs: Lab Results 01/22/22 01/22/22 01/22/22 Range/Units 21:40 21:40 21:40 WBC 9.5 (4.8-10.8) X10*3/uL RBC 3.80 L (4.60-5.80) X10*6/uL Hgb 11.6 L (14.0-18.0) g/dl Hct 35.4 L (42.0-52.0) % MCV 93.2 (80.0-98.0) fL MCH 30.5 (27.0-33.0) pg MCHC 32.8 (31.0-36.0) g/dl RDW 12.7 (11.0-16.0) % Plt Count 276 D (160-400) X10*3/uL MPV 8.8 L (9.4-12.4) fL Immature Gran % (Auto) 0.4 (0.0-0.4) % Neut % (Auto) 79.1 H (45-73) % Lymph % (Auto) 12.8 L (20-40) % Door % (Auto) 5.9 (2-11) % Eos % (Auto) 1.4 (0-4) % Baso % (Auto) 0.4 (0-2) % Lymph # (Auto) 1.2 (1.2-4.9) X10*3/uL Door # (Auto) 0.6 (0.1-1.2) X10*3/uL Eos # (Auto) 0.1 (0.0-0.4) X10*3/uL Baso # (Auto) 0.0 (0.0-0.2) X10*3/uL Abs Immat Gran (auto) 0.04 H (0.00-0.03) X10*3/uL Absolute Neuts (auto) 7.5 (2.0-8.3) x10*3/uL Absolute Nucleated RBC 0.000 (0.0-0.012) X10*3/uL Nucleated RBC % (auto) 0.0 (0.0-0.2) /100WBC PT 14.1 H (10.0-13.1) SEC INR 1.2 H (0.9-1.1) APTT 37.2 H (26.0-36.4) SEC Sodium 141 (135-145) mmol/L Potassium 4.0 (3.3-5.1) mmol/L Chloride 104 (96-108) mmol/L Carbon Dioxide 25 (22-29) mmol/L Anion Gap 16 (12-20) BUN 8 L (9-16) mg/dL Creatinine 0.79 (0.5-1.4) mg/dL Estim Creat Clear Calc 111.2 Estimated GFR > 60 Random Glucose 108 (60-115) mg/dL Lactic Acid (0.5-2.0) mmol/L Calcium 9.0 (8.4-10.2) mg/dL Magnesium 1.9 (1.6-2.6) mg/dL Total Bilirubin 0.7 (0.0-1.0) mg/dL Direct Bilirubin 0.3 (0.0-0.5) mg/dL AST 17 (5-37) U/L ALT 14 (0-40) U/L Alkaline Phosphatase 72 D (39-117) U/L Troponin I High Sens (<3.5-35.0) ng/L B-Natriuretic Peptide (<100) pg/mL Total Protein 6.3 L (6.5-8.0) g/dL Albumin 3.8 (3.5-5.0) g/dL Lipase 27 (8-78) U/L Influenza Type A (PCR) (Negative) Influenza Type B (PCR) (Negative) RSV RNA Qual (PCR) (Negative) SARS-CoV-2 RNA (RT-PCR) (Negative) 01/22/22 01/22/22 01/22/22 Range/Units 21:40 21:40 22:14 WBC (4.8-10.8) X10*3/uL RBC (4.60-5.80) X10*6/uL Hgb (14.0-18.0) g/dl Hct (42.0-52.0) % MCV (80.0-98.0) fL MCH (27.0-33.0) pg MCHC (31.0-36.0) g/dl RDW (11.0-16.0) % Plt Count (160-400) X10*3/uL MPV (9.4-12.4) fL Immature Gran % (Auto) (0.0-0.4) % Neut % (Auto) (45-73) % Lymph % (Auto) (20-40) % Door % (Auto) (2-11) % Eos % (Auto) (0-4) % Baso % (Auto) (0-2) % Lymph # (Auto) (1.2-4.9) X10*3/uL Door # (Auto) (0.1-1.2) X10*3/uL Eos # (Auto) (0.0-0.4) X10*3/uL Baso # (Auto) (0.0-0.2) X10*3/uL Abs Immat Gran (auto) (0.00-0.03) X10*3/uL Absolute Neuts (auto) (2.0-8.3) x10*3/uL Absolute Nucleated RBC (0.0-0.012) X10*3/uL Nucleated RBC % (auto) (0.0-0.2) /100WBC PT (10.0-13.1) SEC INR (0.9-1.1) APTT (26.0-36.4) SEC Sodium (135-145) mmol/L Potassium (3.3-5.1) mmol/L Chloride (96-108) mmol/L Carbon Dioxide (22-29) mmol/L Anion Gap (12-20) BUN (9-16) mg/dL Creatinine (0.5-1.4) mg/dL Estim Creat Clear Calc Estimated GFR Random Glucose (60-115) mg/dL Lactic Acid 0.8 (0.5-2.0) mmol/L Calcium (8.4-10.2) mg/dL Magnesium (1.6-2.6) mg/dL Total Bilirubin (0.0-1.0) mg/dL Direct Bilirubin (0.0-0.5) mg/dL AST (5-37) U/L ALT (0-40) U/L Alkaline Phosphatase (39-117) U/L Troponin I High Sens 6.5 (<3.5-35.0) ng/L B-Natriuretic Peptide 111 H (<100) pg/mL Total Protein (6.5-8.0) g/dL Albumin (3.5-5.0) g/dL Lipase (8-78) U/L Influenza Type A (PCR) NEGATIVE (Negative) Influenza Type B (PCR) NEGATIVE (Negative) RSV RNA Qual (PCR) NEGATIVE (Negative) SARS-CoV-2 RNA (RT-PCR) NEGATIVE (Negative) Imaging Data CT scan - abdomen: Attestation: I personally reviewed and interpreted this imaging study as follows: Radiologist's impression: FINDINGS: LUNG BASES: The visualized lung bases are unremarkable. Small moderate-sized hiatal hernia LIVER, GALLBLADDER, BILIARY TREE: Scattered low-attenuation probable cysts in the liver. No biliary ductal dilatation.? The gallbladder is unremarkable with no evidence of radiopaque gallstones, gallbladder wall thickening, or obvious pericholecystic inflammatory changes. PANCREAS: Unremarkable. SPLEEN: Unremarkable. ADRENAL GLANDS: Unremarkable. KIDNEYS AND URETERS: Low-attenuation cortical cyst in the lateral aspect of the right kidney. Otherwise the kidneys are normal in size, shape, and attenuation. No hydronephrosis, hydroureter, or calculi seen. No perinephric stranding. BLADDER: Decompressed GASTROINTESTINAL TRACT: Scattered colonic diverticulosis more so in the sigmoid colon where there is focal colonic wall thickening and pericolonic inflammatory change consistent with focal diverticulitis. No obstructive changes seen to the more proximal bowel ABDOMINAL WALL: Tiny fat-containing umbilical hernia LYMPHOVASCULAR STRUCTURES: Vascular calcification within the aorta iliac system. PELVIC VISCERA: Unremarkable. OSSEUS STRUCTURES: Multilevel degenerative changes spine CT/CT abdomen pelvis wo IV con IMPRESSION: Scattered diverticulosis with focal diverticulitis in the sigmoid colon. ? Chest x-ray: Attestation: I personally reviewed and interpreted this imaging study as follows: Radiologist's impression: EXAMINATION: XR CHEST CLINICAL INFORMATION: Abdominal pain and edema COMPARISON: None TECHNIQUE: Frontal view of the chest was obtained. FINDINGS: The heart is mildly enlarged. A moderate-sized hiatal hernia may be present. No infiltrates, large effusions or lung masses are seen. XR/XR chest 1V IMPRESSION: Cardiomegaly. No acute intrathoracic disease ECG Data Attestation: I personally reviewed and interpreted this ECG as follows: ECG interpretation date: 01/22/22 ECG interpretation time: 21:38 Prior ECG tracings: not available for review Interpretation: Vent. rate 74 BPM VT interval 176 ms QRS duration 92 ms QT/QTc 382/424 ms P-R-T axes 19 -47 40 Normal sinus rhythm Left anterior fascicular block ST & T wave abnormality, consider anterior ischemia Abnormal ECG No previous ECGs available Critical Care Time Critical Care Time Critical Care Time: Yes Total Critical Care Time: 35 Attestation: I have personally provided critical care time exclusive of time spent on separately billable procedures. Time includes review of laboratory data, radiology results, discussion with consultants, and monitoring for potential decompensation. Interventions were performed as documented. Discharge Plan Discharge Clinical Impression: Diverticulitis Patient Disposition: Admitted as Observation
--- NOTE | 2022-01-22 20:58 | ECG_ITS ---
Test Reason : EDEMA Blood Pressure : / mmHG Vent. Rate : 074 BPM Atrial Rate : 074 BPM P-R Int : 176 ms QRS Dur : 092 ms QT Int : 382 ms P-R-T Axes : 019 -47 040 degrees QTc Int : 424 ms Normal sinus rhythm Left anterior fascicular block ST & T wave abnormality, consider anterior ischemia Abnormal ECG No previous ECGs available Referred By: Meghan Menendez Electronically Signed By:JACQUELINE PERALES MD
[2022-01-22 21:49] LABS: MANUAL DIFF FLAG NO
[2022-01-22 21:51] LABS: Basophils Percent Auto 0.4 % (0-2); Eosinophils Absolute Auto 0.1 X10*3/uL (0.0-0.4); Eosinophils Percent Auto 1.4 % (0-4); Hematocrit 35.4 % (42.0-52.0); Hemoglobin 11.6 g/dl (14.0-18.0); Imm Gran Abs Auto 0.04 X10*3/uL (0.00-0.03); Imm Gran Pct Auto 0.4 % (0.0-0.4); Lymphocytes Absolute Auto 1.2 X10*3/uL (1.2-4.9); Lymphocytes Percent Auto 12.8 % (20-40); Mean Corpuscular HGB Conc 32.8 g/dl (31.0-36.0); Mean Corpuscular Hemoglobin 30.5 pg (27.0-33.0); Mean Corpuscular Volume 93.2 fL (80.0-98.0); Mean Platelet Volume 8.8 fL (9.4-12.4); Monocytes Absolute Auto 0.6 X10*3/uL (0.1-1.2); Monocytes Percent Auto 5.9 % (2-11); Neutrophils Absolute Auto 7.5 x10*3/uL (2.0-8.3); Neutrophils Percent Auto 79.1 % (45-73); Platelet Count 276 X10*3/uL (160-400); Red Cell Distribution Width 12.7 % (11.0-16.0); White Blood Count 9.5 X10*3/uL (4.8-10.8)
[2022-01-22 21:57] LABS: INTERNATIONAL NORM RATIO 1.2 (0.9-1.1); Prothrombin Time 14.1 SEC (10.0-13.1)
[2022-01-22 22:00] LABS: Partial Thromboplastin Time 37.2 SEC (26.0-36.4)
[2022-01-22 22:16] LABS: Alanine Aminotransferase 14 U/L (0-40); Albumin Level 3.8 g/dL (3.5-5.0); Alkaline Phosphatase 72 U/L (39-117); Anion Gap 16 (12-20); Aspartate Amino Transferase 17 U/L (5-37); Bilirubin Direct 0.3 mg/dL (0.0-0.5); Bilirubin Total 0.7 mg/dL (0.0-1.0); Blood Urea Nitrogen 8 mg/dL (9-16); Carbon Dioxide 25 mmol/L (22-29); Chloride 104 mmol/L (96-108); Creatinine Clr Calc Pharmacy 111.2; Estimated Glomerular Filt Rate > 60; Glucose Random 108 mg/dL (60-115); Lipase 27 U/L (8-78); Magnesium 1.9 mg/dL (1.6-2.6); Sodium 141 mmol/L (135-145); Total Protein 6.3 g/dL (6.5-8.0)
[2022-01-22 22:23] VITALS: BP 130/69; PULSE 76; RESP 18; TEMP 37.1; O2SAT 94
[2022-01-22 22:25] LABS: B Type Natriuretic Peptide 111 pg/mL (<100); Troponin-I High Sensitivity 6.5 ng/L (<3.5-35.0)
[2022-01-22 22:28] LABS: Influenza A PCR NEGATIVE (Negative); Influenza B PCR NEGATIVE (Negative); Resp Syncy Virus RNA Qual PCR NEGATIVE (Negative); SARS COV2 PCR INHOUSE NEGATIVE (Negative)
[2022-01-22 22:33] LABS: Lactic Acid 0.8 mmol/L (0.5-2.0)
--- NOTE | 2022-01-22 23:49 | PC.NURSE ---
Patient endorsing +nausea and let-sided abdominal pain. MD made aware.
[2022-01-22] MEDS: levoFLOXacin/D5W 750 MG/150 ML PIGGYBACK 100 MG IV (23:59)
[2022-01-23] MEDS: ondansetron HCL 4 MG/2 ML VIAL IVPUSH ×2 (00:01→15:57)
[2022-01-23] MEDS: 0.9 % Sodium Chloride 1,000 ML 999 ML IVCONT (00:02)
[2022-01-23 00:06] VITALS: BP 147/72; PULSE 88; RESP 18; TEMP 37.3; O2SAT 93
--- NOTE | 2022-01-23 00:23 | P.HPHOSP_ITS ---
History of Present Illness Date of Service: 01/23/22 Chief Complaint: Abdominal Pain This is a 71-year-old male with a pertinent history of PE on Eliquis, prostate cancer who presents to the emergency department with complaints of abdominal pain. Patient states his abdominal pain worsened in the last 2 days, left- sided, constant and worse with p.o. intake. No relieving factors. Also had associated nonbloody diarrhea, about 4 episodes in a day. Denies fever or chills. Patient recently finished antibiotics for cellulitis of left lower extremity. Patient denies chest discomfort, palpitation, shortness of breath, nausea, vomiting, changes in urinary habits. No history of similar complaints in the past. Patient did not receive radiation or surgery for prostate cancer and is currently of abiraterone and prednisone. He is compliant with his Eliquis for PE In the emergency department, imaging was concerning for sigmoid diverticulitis. Review of Systems Review of Systems: All 13 review of systems are negative except as noted in [facility] Medical History Anemia Prostate cancer Pulmonary embolism Family History Father CVD (cardiovascular disease) Cancer Heart problem Mother Hypertension Brother Prostate cancer Sister No problems noted. Daughter In good health Surgical History History of cataract surgery History of colonoscopy History of endoscopy Social History Housing: House Alcohol intake: current Alcohol intake frequency: a few times a week Patient Tobacco Use Status: Never used Tobacco e-Cigarette/Vaping Use: Never Used Advance Directives: No Advance Directives Information Provided: No Current occupational status: retired Cognitive needs: No Hearing needs: No Vision needs: No Meds Allergies Allergy/AdvReac Type Severity Reaction Status Date / Time Iodinated Contrast Media Allergy Unknown Unknown Verified 01/09/22 14:15 Lobster Allergy Unknown unknown Verified 01/09/22 14:15 Active Medications: Current Medications Acetaminophen (Acetaminophen 325 Mg Tablet) 650 mg PO Q6H PRN PRN Reason: Pain, Mild (Pain Scale 1-3) Enoxaparin Sodium (Enoxaparin Sodium 40 Mg/0.4 Ml Syringe) 40 mg SUBCUT Q24H NORA Levofloxacin (Levaquin) 750 mg in 150 mls @ 100 mls/hr IV ONCE ONE Stop: 01/23/22 01:20 Last Admin: 01/22/22 23:59 Dose: 100 mls/hr Metronidazole (Flagyl) 500 mg in 100 mls @ 100 mls/hr IV ONCE ONE Stop: 01/23/22 00:50 Sodium Chloride (Ns) 1,000 mls @ 999 mls/hr IVCONT .Q1H1M [facility] Stop: 01/23/22 00:45 Last Admin: 01/23/22 00:02 Dose: 999 mls/hr Levofloxacin (Levaquin) 750 mg in 150 mls @ 100 mls/hr IV Q24H NORA Metronidazole (Flagyl) 500 mg in 100 mls @ 100 mls/hr IV Q8H NORA Melatonin (Melatonin 3 Mg Tablet) 6 mg PO BEDTIME PRN PRN Reason: Insomnia Morphine Sulfate (Morphine Sulfate 4 Mg/Ml Cartridge) 4 mg IVPUSH Q4H PRN; Protocol PRN Reason: Pain, Severe (Pain Scale 7-10) Ondansetron HCl (Ondansetron Hcl 4 Mg/2 Ml Vial) 4 mg IVPUSH Q8H PRN PRN Reason: Nausea and Vomiting Sodium Chloride (0.9 % Sodium Chloride Flush 3 Ml Syringe) 3 ml IVFLUSH QSHIFT [facility] Home Medications Medication Instructions Recorded Confirmed Last Taken Type abiraterone 250 mg tablet 1,000 mg PO DAILY 03/20/20 01/09/22 Unknown History prednisone 5 mg tablet mg PO 03/20/20 01/09/22 Unknown History ferrous sulfate 325 mg (65 mg 325 mg PO DAILY 10/02/20 01/09/22 Unknown History iron) tablet (FeroSul) omeprazole 20 mg capsule,delayed 20 mg PO DAILY 04/04/21 01/09/22 Unknown Hi story release cholecalciferol (vitamin D3) 10 20 mcg PO DAILY 06/27/21 01/09/22 Unknown Hist ory mcg (400 unit) tablet (Vitamin D3) Physical Exam Vital Signs and Narrative: Vital Signs: Last Vital Signs Temp 99.2 F 01/23/22 00:06 Pulse 88 01/23/22 00:06 Resp 18 01/23/22 00:06 BP 147/72 H 01/23/22 00:06 Pulse Ox 93 01/23/22 00:06 O2 Del Method 01/23/22 00:06 BMI result Body Mass Index 35.9 Middle-aged male lying in bed in no distress Neck supple, no JVD Regular rate and rhythm, S1-S2 heard Regular breath sounds bilaterally, no wheezing or crackles appreciated Left-sided abdominal tenderness with minimal palpation, no guarding, no rigidity, no rebound tenderness Patient is awake, alert and oriented to self, place, time and person ; no focal motor deficit Psych: Normal mood No pedal edema Results Labs CBC and Chem 7: 01/22/22 21:40 01/22/22 21:40 Labs: Laboratory Results - last 24 hr 01/22/22 01/22/22 01/22/22 21:40 21:40 21:40 MCV 93.2 MCH 30.5 MCHC 32.8 RDW 12.7 Plt Count 276 D MPV 8.8 L Immature Gran % (Auto) 0.4 Neut % (Auto) 79.1 H Lymph % (Auto) 12.8 L [place] % (Auto) 5.9 Eos % (Auto) 1.4 Baso % (Auto) 0.4 Lymph # (Auto) 1.2 Ross # (Auto) 0.6 Eos # (Auto) 0.1 Baso # (Auto) 0.0 Abs Immat Gran (auto) 0.04 H Absolute Neuts (auto) 7.5 Absolute Nucleated RBC 0.000 Nucleated RBC % (auto) 0.0 PT 14.1 H INR 1.2 H APTT 37.2 H Anion Gap 16 Estim Creat Clear Calc 111.2 Estimated GFR > 60 Random Glucose 108 Lactic Acid Calcium 9.0 Magnesium 1.9 Total Bilirubin 0.7 Direct Bilirubin 0.3 AST 17 ALT 14 Alkaline Phosphatase 72 D Troponin I High Sens B-Natriuretic Peptide Total Protein 6.3 L Albumin 3.8 Lipase 27 Influenza Type A (PCR) Influenza Type B (PCR) RSV RNA Qual (PCR) SARS-CoV-2 RNA (RT-PCR) 01/22/22 01/22/22 01/22/22 21:40 21:40 22:14 MCV MCH MCHC RDW Plt Count MPV Immature Gran % (Auto) Neut % (Auto) Lymph % (Auto) Ross % (Auto) Eos % (Auto) Baso % (Auto) Lymph # (Auto) Ross # (Auto) Eos # (Auto) Baso # (Auto) Abs Immat Gran (auto) Absolute Neuts (auto) Absolute Nucleated RBC Nucleated RBC % (auto) PT INR APTT Anion Gap Estim Creat Clear Calc Estimated GFR Random Glucose Lactic Acid 0.8 Calcium Magnesium Total Bilirubin Direct Bilirubin AST ALT Alkaline Phosphatase Troponin I High Sens 6.5 B-Natriuretic Peptide 111 H Total Protein Albumin Lipase Influenza Type A (PCR) NEGATIVE Influenza Type B (PCR) NEGATIVE RSV RNA Qual (PCR) NEGATIVE SARS-CoV-2 RNA (RT-PCR) NEGATIVE Imaging Radiologist's Impressions: Impressions Chest X-Ray 01/22/22 21:06 IMPRESSION: Cardiomegaly. No acute intrathoracic disease. Abdomen/Pelvis CT 01/22/22 21:26 IMPRESSION: Scattered diverticulosis with focal diverticulitis in the sigmoid colon. Assessment and Plan (1) Diverticulitis: Status: Acute (2) Pulmonary embolism: Qualifiers: Pulmonary embolism type: unspecified Chronicity: acute Acute cor pulmonale presence: without acute cor pulmonale Qualified Code(s): I26.99 - Other pulmonary embolism without acute cor pulmonale Status: Acute (3) Prostate cancer: Status: Acute Plan This is a 71-year-old male with a pertinent history of PE on Eliquis, prostate cancer who presents to the emergency department with complaints of abdominal pain. #. Acute uncomplicated sigmoid diverticulitis -will admit patient as he has significant abdominal discomfort. Initiate IV antibiotics to cover Gram-negative rods and anaerobic organisms. Symptomatic treatment with IV Zofran and IV morphine p.r.n.. Clear liquid diet and advanced as tolerated #. History of pulmonary embolism -continue Eliquis #. Chronic normocytic anemia -likely due to chronic inflammation in the setting of cancer. hemoglobin above transfusion threshold #. Prostate cancer -no longer on abiraterone or prednisone DVT prophylaxis: Eliquis Full code Diet: Clear liquid Patient will require two night minimum hospital stay for need for IV antibiotics and close monitoring with advancement of diet Quality Stroke Does the patient have a stroke diagnosis?: No VTE Prior VTE?: No VTE Risk Level:: Medical - moderate - high VTE Device Contraindication: Treatment Not Indicated VTE Drug Contraindication: N/A - Med Ordered
[2022-01-23] MEDS: Apixaban 5 MG TABLET PO ×3 (00:47→21:57)
[2022-01-23] MEDS: metroNIDAZOLE/NS 500 MG/100 ML PIGGYBACK 100 MG IV ×3 (01:36→17:56)
[2022-01-23 03:17] VITALS: BMI 37.2
[2022-01-23 04:00] VITALS: BP 137/64; PULSE 72; RESP 17; TEMP 36.3; O2SAT 93
[2022-01-23 07:16] LABS: MANUAL DIFF FLAG NO
[2022-01-23 07:22] LABS: Basophils Percent Auto 0.4 % (0-2); Eosinophils Absolute Auto 0.1 X10*3/uL (0.0-0.4); Hematocrit 32.4 % (42.0-52.0); Hemoglobin 10.6 g/dl (14.0-18.0); Imm Gran Abs Auto 0.03 X10*3/uL (0.00-0.03); Imm Gran Pct Auto 0.3 % (0.0-0.4); Lymphocytes Absolute Auto 1.2 X10*3/uL (1.2-4.9); Lymphocytes Percent Auto 13.8 % (20-40); Mean Corpuscular HGB Conc 32.7 g/dl (31.0-36.0); Mean Corpuscular Hemoglobin 30.8 pg (27.0-33.0); Mean Corpuscular Volume 94.2 fL (80.0-98.0); Mean Platelet Volume 9.2 fL (9.4-12.4); Monocytes Absolute Auto 0.7 X10*3/uL (0.1-1.2); Monocytes Percent Auto 7.3 % (2-11); Neutrophils Absolute Auto 6.9 x10*3/uL (2.0-8.3); Neutrophils Percent Auto 77.2 % (45-73); Platelet Count 278 X10*3/uL (160-400); Red Blood Count 3.44 X10*6/uL (4.60-5.80); Red Cell Distribution Width 12.9 % (11.0-16.0); White Blood Count 8.9 X10*3/uL (4.8-10.8)
[2022-01-23 07:40] LABS: Anion Gap 14 (12-20); Blood Urea Nitrogen 8 mg/dL (9-16); Calcium 8.4 mg/dL (8.4-10.2); Carbon Dioxide 25 mmol/L (22-29); Chloride 104 mmol/L (96-108); Creatinine Clr Calc Pharmacy 119.4; Estimated Glomerular Filt Rate > 60; Glucose Random 110 mg/dL (60-115); Potassium 3.9 mmol/L (3.3-5.1); Sodium 139 mmol/L (135-145)
[2022-01-23 08:00] VITALS: BP 145/74; PULSE 76; RESP 16; TEMP 38; O2SAT 94
[2022-01-23] MEDS: 0.9 % Sodium Chloride Flush 3 ML SYRINGE IVFLUSH ×2 (08:06→21:49)
[2022-01-23] MEDS: Acetaminophen 325 MG TABLET 650 MG PO ×2 (08:10→15:57)
--- NOTE | 2022-01-23 09:01 | PHA.MEDREC ---
Pharmacy Consult ? Medication Reconciliation Pharmacy has completed the medication reconciliation. Confirmed medication list with patient. Most of his prior medications have been dc'd and he is only currently on 2 maintenance medications at home.
[2022-01-23 12:00] VITALS: BP 132/74; PULSE 72; RESP 16; TEMP 36.6; O2SAT 95
--- NOTE | 2022-01-23 15:31 | P.PNIM_ITS ---
Subjective Subjective Date of Service: 01/23/22 Interval History: seen and examined this morning follow up for diverticulitis still with some left lower abdominal pain, low grade fever tolerating clear liquids without vomiting Review of Systems Review of Systems: Yes all other systems are reviewed and are negative Constitutional Constitutional: Denies chills and Denies fever(s) ENT Ears, Nose, Mouth, and Throat: Denies dizziness Cardiovascular Cardiovascular: Denies chest pain, Denies palpitations and Denies dyspnea Respiratory Respiratory: Denies cough and Denies dyspnea Gastrointestinal Gastrointestinal: Reports abdominal pain, Denies nausea and Denies vomiting Neurologic Neurologic: Denies dizziness Endocrine Endocrine: Denies palpitations Physical Exam Vital Signs: Vital Signs: Last Vital Signs Temp 97.8 F 01/23/22 12:00 Pulse 72 01/23/22 12:00 Resp 16 01/23/22 12:00 BP 132/74 01/23/22 12:00 Pulse Ox 95 01/23/22 12:00 O2 Del Method 01/23/22 12:00 BMI result Body Mass Index 37.2 Const: General: cooperative, comfortable, alert and awake Orientation/consciousness: patient oriented x3 Resp: Effort & Inspection: normal respiratory effort and able to speak in complete sentences Auscultation: clear to auscultation bilaterally Cardio: Rate: regular rate Heart sounds: S1 normal heart sound present and S2 normal heart sound present GI: Other: left lower quadrant Inspection: No distended Palpation (GI): Soft to palpation Neuro: General: patient oriented x3 Extrem: Other: able to move all 4 extremities General: Yes no pedal edema Objective Data Active Medications Acetaminophen (Acetaminophen 325 Mg Tablet) 650 mg PO Q6H PRN PRN Reason: Pain, Mild (Pain Scale 1-3) Last Admin: 01/23/22 08:10 Dose: 650 mg Documented By: JENNIFER Apixaban (Apixaban 5 Mg Tablet) 5 mg PO BID [facility] Last Admin: 01/23/22 08:07 Dose: 5 mg Documented By: JENNIFER Levofloxacin (Levaquin) 750 mg in 150 mls @ 100 mls/hr IV Q24H NORA Metronidazole (Flagyl) 500 mg in 100 mls @ 100 mls/hr IV Q8H [facility] Last Infusion: 01/23/22 10:57 Dose: 0 mls/hr Documented By: JENNIFER Melatonin (Melatonin 3 Mg Tablet) 6 mg PO BEDTIME PRN PRN Reason: Insomnia Morphine Sulfate (Morphine Sulfate 4 Mg/Ml Cartridge) 4 mg IVPUSH Q4H PRN; Pro tocol PRN Reason: Pain, Severe (Pain Scale 7-10) Ondansetron HCl (Ondansetron Hcl 4 Mg/2 Ml Vial) 4 mg IVPUSH Q8H PRN PRN Reason: Nausea and Vomiting Pharmacy Consult (Consult Rx Perform Med Rec) 1 each MISCELLANE ONCE PRN PRN Reason: Consult order Sodium Chloride (0.9 % Sodium Chloride Flush 3 Ml Syringe) 3 ml IVFLUSH QSHIFT [facility] Last Admin: 01/23/22 08:06 Dose: 3 ml Documented By: JENNIFER Labs CBC & Chem 7: 01/23/22 06:26 01/23/22 06:26 Labs: Laboratory Results - last 24 hr 01/22/22 01/22/22 01/22/22 21:40 21:40 21:40 MCV 93.2 MCH 30.5 MCHC 32.8 RDW 12.7 Plt Count 276 D MPV 8.8 L Immature Gran % (Auto) 0.4 Neut % (Auto) 79.1 H Lymph % (Auto) 12.8 L [place] % (Auto) 5.9 Eos % (Auto) 1.4 Baso % (Auto) 0.4 Lymph # (Auto) 1.2 [place] # (Auto) 0.6 Eos # (Auto) 0.1 Baso # (Auto) 0.0 Abs Immat Gran (auto) 0.04 H Absolute Neuts (auto) 7.5 Absolute Nucleated RBC 0.000 Nucleated RBC % (auto) 0.0 PT 14.1 H INR 1.2 H APTT 37.2 H Anion Gap 16 Estim Creat Clear Calc 111.2 Estimated GFR > 60 Random Glucose 108 Lactic Acid Calcium 9.0 Magnesium 1.9 Total Bilirubin 0.7 Direct Bilirubin 0.3 AST 17 ALT 14 Alkaline Phosphatase 72 D Troponin I High Sens B-Natriuretic Peptide Total Protein 6.3 L Albumin 3.8 Lipase 27 Influenza Type A (PCR) Influenza Type B (PCR) RSV RNA Qual (PCR) SARS-CoV-2 RNA (RT-PCR) 01/22/22 01/22/22 01/22/22 21:40 21:40 22:14 MCV MCH MCHC RDW Plt Count MPV Immature Gran % (Auto) Neut % (Auto) Lymph % (Auto) [place] % (Auto) Eos % (Auto) Baso % (Auto) Lymph # (Auto) [place] # (Auto) Eos # (Auto) Baso # (Auto) Abs Immat Gran (auto) Absolute Neuts (auto) Absolute Nucleated RBC Nucleated RBC % (auto) PT INR APTT Anion Gap Estim Creat Clear Calc Estimated GFR Random Glucose Lactic Acid 0.8 Calcium Magnesium Total Bilirubin Direct Bilirubin AST ALT Alkaline Phosphatase Troponin I High Sens 6.5 B-Natriuretic Peptide 111 H Total Protein Albumin Lipase Influenza Type A (PCR) NEGATIVE Influenza Type B (PCR) NEGATIVE RSV RNA Qual (PCR) NEGATIVE SARS-CoV-2 RNA (RT-PCR) NEGATIVE 01/23/22 01/23/22 06:26 06:26 MCV 94.2 MCH 30.8 MCHC 32.7 RDW 12.9 Plt Count 278 MPV 9.2 L Immature Gran % (Auto) 0.3 Neut % (Auto) 77.2 H Lymph % (Auto) 13.8 L [place] % (Auto) 7.3 Eos % (Auto) 1.0 Baso % (Auto) 0.4 Lymph # (Auto) 1.2 [place] # (Auto) 0.7 Eos # (Auto) 0.1 Baso # (Auto) 0.0 Abs Immat Gran (auto) 0.03 Absolute Neuts (auto) 6.9 Absolute Nucleated RBC 0.000 Nucleated RBC % (auto) 0.0 PT INR APTT Anion Gap 14 Estim Creat Clear Calc 119.4 Estimated GFR > 60 Random Glucose 110 Lactic Acid Calcium 8.4 D Magnesium Total Bilirubin Direct Bilirubin AST ALT Alkaline Phosphatase Troponin I High Sens B-Natriuretic Peptide Total Protein Albumin Lipase Influenza Type A (PCR) Influenza Type B (PCR) RSV RNA Qual (PCR) SARS-CoV-2 RNA (RT-PCR) Assessment and Plan (1) Diverticulitis: Status: Acute Plan This is a 71-year-old male with a pertinent history of PE on Eliquis, prostate cancer who presents to the emergency department with complaints of abdominal pain. Acute uncomplicated sigmoid diverticulitis no evidence of sepsis continue IV levofloxacin, IV Flagyl Clear liquid diet and advanced as tolerated blood cultures pending History of pulmonary embolism -continue Eliquis Chronic normocytic anemia H/H at baseline Prostate cancer -no longer on abiraterone or prednisone DVT prophylaxis: Shaheed Full code Attending - dr. forrester requires ongoing inpatient hospitalization for management diverticulitis in need for IV antibiotics Quality Stroke Does the patient have a stroke diagnosis?: No VTE Prior VTE?: No VTE Risk Level:: Medical - moderate - high VTE Device Contraindication: Treatment Not Indicated VTE Drug Contraindication: N/A - Med Ordered
[2022-01-23 16:00] VITALS: BP 183/79; PULSE 75; RESP 16; TEMP 37
--- NOTE | 2022-01-23 16:04 | MHC.CM.PN ---
EMR REVIEWED, CM MET W/PT W/ AND DTR AT BEDSIDE, PT REPORTS HE'S INDEPENDENT W/ALL CARE, DENIES USE OF DME/HOME SERVICES, PT DENIES NEED FOR VNA IF RECOMMENDED HIS DTR IS A NURSE, PT VERIFIES PFIZER X4, PCP [facility] AND PT COMPLETED A HCP W/CM NAMING HIS DTR ANTONIA GARSIA [phone] HIS [facility] AND HIS JAMES [phone] HIS ALTERNATE, PT RECEIVED EDUCATIONAL INFO, ORIGINAL AND TWO COPIES, COPY UPLOADED TO [facility] [place] AND PLACED IN CHART W/PT PERMISSION. ANTIC PT WILL D/C HOME NO SERVICES W/FAMILY FOR TRANSPORT WHEN MEDICALLY CLEARED.
[2022-01-23 19:00] VITALS: BP 147/69; PULSE 74; RESP 16; TEMP 37.1; O2SAT 91
[2022-01-23] MEDS: levoFLOXacin/D5W 750 MG/150 ML PIGGYBACK 100 MG IV (21:49)
[2022-01-24] VITALS: BP 132/67; PULSE 75; RESP 18; TEMP 36.5; O2SAT 94
[2022-01-24] MEDS: metroNIDAZOLE/NS 500 MG/100 ML PIGGYBACK 100 MG IV ×3 (02:04→17:09)
[2022-01-24 03:40] VITALS: BP 126/69; PULSE 70; RESP 18; TEMP 36.3; O2SAT 92
[2022-01-24 07:34] VITALS: BP 140/81; PULSE 70; RESP 18; TEMP 36.3; O2SAT 93
[2022-01-24] MEDS: 0.9 % Sodium Chloride Flush 3 ML SYRINGE IVFLUSH ×2 (07:36→21:09)
[2022-01-24] MEDS: Apixaban 5 MG TABLET PO ×2 (07:36→21:08)
[2022-01-24 11:01] VITALS: BP 155/85; PULSE 61; RESP 17; TEMP 36.3; O2SAT 94
[2022-01-24 16:00] VITALS: BP 152/70; PULSE 61; RESP 17; TEMP 36.3; O2SAT 95
--- NOTE | 2022-01-24 16:36 | P.PNIM_ITS ---
Subjective Subjective Date of Service: 01/24/22 Interval History: seen and examined this morning Follow-up for diverticulitis Denies fever, chills Still will left lower quadrant abdominal pain, improving. No diarrhea Review of Systems Review of Systems: Yes all other systems are reviewed and are negative Constitutional Constitutional: Denies chills and Denies fever(s) Cardiovascular Cardiovascular: Denies chest pain, Denies palpitations and Denies dyspnea Respiratory Respiratory: Denies cough and Denies dyspnea Gastrointestinal Gastrointestinal: Reports abdominal pain, Denies diarrhea, Denies nausea and Denies vomiting Endocrine Endocrine: Denies palpitations Physical Exam Vital Signs: Vital Signs: Last Vital Signs Temp 97.3 F 01/24/22 16:00 Pulse 61 01/24/22 16:00 Resp 17 01/24/22 16:00 BP 152/70 H 01/24/22 16:00 Pulse Ox 95 01/24/22 16:00 O2 Del Method 01/24/22 16:00 BMI result Body Mass Index 37.2 Const: General: cooperative, comfortable, alert and awake Orientation/consciousness: patient oriented x3 Resp: Effort & Inspection: normal respiratory effort and able to speak in complete sentences Auscultation: clear to auscultation bilaterally Cardio: Rate: regular rate Heart sounds: S1 normal heart sound present and S2 normal heart sound present GI: Other: left lower quadrant Inspection: No distended Palpation (GI): Soft to palpation Neuro: General: patient oriented x3 Extrem: Other: able to move all 4 extremities General: Yes no pedal edema Objective Data Active Medications Acetaminophen (Acetaminophen 325 Mg Tablet) 650 mg PO Q6H PRN PRN Reason: Pain, Mild (Pain Scale 1-3) Last Admin: 01/23/22 15:57 Dose: 650 mg Documented By: JENNIFER Apixaban (Apixaban 5 Mg Tablet) 5 mg PO BID [facility] Last Admin: 01/24/22 07:36 Dose: 5 mg Documented By: JENNIFER Levofloxacin (Levaquin) 750 mg in 150 mls @ 100 mls/hr IV Q24H [facility] Last Infusion: 01/23/22 23:27 Dose: 0 mls/hr Documented By: TIAN Metronidazole (Flagyl) 500 mg in 100 mls @ 100 mls/hr IV Q8H [facility] Last Infusion: 01/24/22 11:09 Dose: 0 mls/hr Documented By: JENNIFER Melatonin (Melatonin 3 Mg Tablet) 6 mg PO BEDTIME PRN PRN Reason: Insomnia Morphine Sulfate (Morphine Sulfate 4 Mg/Ml Cartridge) 4 mg IVPUSH Q4H PRN; Protocol PRN Reason: Pain, Severe (Pain Scale 7-10) Ondansetron HCl (Ondansetron Hcl 4 Mg/2 Ml Vial) 4 mg IVPUSH Q8H PRN PRN Reason: Nausea and Vomiting Last Admin: 01/23/22 15:57 Dose: 4 mg Documented By: JENNIFER Pharmacy Consult (Consult Rx Perform Med Rec) 1 each MISCELLANE ONCE PRN PRN Reason: Consult order Sodium Chloride (0.9 % Sodium Chloride Flush 3 Ml Syringe) [facility] Last Admin: 01/24/22 07:36 Dose: 3 ml Documented By: JENNIFER Labs CBC & Chem 7: 01/23/22 06:26 01/23/22 06:26 Microbiology Microbiology Results: Microbiology 01/22/22 21:51 Blood Culture - Preliminary Blood - Venous No growth after 24 hours. 01/22/22 21:41 Blood Culture - Preliminary Blood - Venous No growth after 24 hours. Assessment and Plan (1) Diverticulitis: Status: Acute Plan This is a 71-year-old male with a pertinent history of PE on Eliquis, prostate cancer who presents to the emergency department with complaints of abdominal pain. Acute uncomplicated sigmoid diverticulitis no evidence of sepsis still with abdominal pain continue IV levofloxacin, IV Flagyl advance to bland diet blood cultures negative History of pulmonary embolism -continue Eliquis Chronic normocytic anemia H/H at baseline Prostate cancer -no longer on abiraterone or prednisone DVT prophylaxis: Eliquis Full code Attending - dr. forrester requires ongoing inpatient hospitalization for management diverticulitis in need for IV antibiotics Quality Stroke Does the patient have a stroke diagnosis?: No VTE Prior VTE?: No VTE Risk Level:: Medical - moderate - high VTE Device Contraindication: Treatment Not Indicated VTE Drug Contraindication: N/A - Med Ordered
--- NOTE | 2022-01-24 17:11 | PC.NURSE ---
Patient had diarrhea, reports less bloating and feels better. Denies pain, tolerating solids
[2022-01-24 20:00] VITALS: BP 147/70; PULSE 60; RESP 17; TEMP 36.3; O2SAT 95
[2022-01-24] MEDS: levoFLOXacin/D5W 750 MG/150 ML PIGGYBACK 100 MG IV (21:08)
[2022-01-25] VITALS: BP 144/77; PULSE 70; RESP 17; TEMP 36.2; O2SAT 95
[2022-01-25] MEDS: metroNIDAZOLE/NS 500 MG/100 ML PIGGYBACK 100 MG IV ×2 (01:24→08:10)
[2022-01-25 04:00] VITALS: BP 137/77; PULSE 62; RESP 17; TEMP 36.4; O2SAT 94
[2022-01-25 07:03] VITALS: BP 134/72; PULSE 60; RESP 14; TEMP 37.1; O2SAT 95
--- NOTE | 2022-01-25 07:38 | MHC.CM.PN ---
CM RECEIVED MESSAGE FROM [facility] THAT PT'S INSURANCE WILL NOT AUTH ACUTE REHAB, [facility] HAS REQUESTED [facility] RESUBMIT FOR AUTH, CM WILL CONTACT DTR TO UPDATE HER LATER THIS AM.
[2022-01-25] MEDS: Apixaban 5 MG TABLET PO (08:09)
[2022-01-25] MEDS: 0.9 % Sodium Chloride Flush 3 ML SYRINGE IVFLUSH (08:21)
[2022-01-25 11:17] VITALS: BP 140/63; PULSE 65; RESP 16; TEMP 36.9; O2SAT 95
--- NOTE | 2022-01-25 13:48 | PM.DS ---
DS: Providers Provider Date of Service: 01/25/22 Date of admission: 01/23/22 00:17 Primary care physician: Celso Butterfield PA-C Attending physician on discharge: Coleman Martinez Discharging clinician: Bere Velez DS: Diagnosis Discharge Diagnosis (1) Diverticulitis: Status: Acute DS: Summary Hospital Course Hospital Course: HP as per admitting provider This is a 71-year-old male with a pertinent history of PE on Eliquis, prostate cancer who presents to the emergency department with complaints of abdominal pain.? Patient states his abdominal pain worsened in the last 2 days, left-sided, constant and worse with p.o. intake.? No relieving factors.? Also had associated nonbloody diarrhea, about 4 episodes in a day.? Denies fever or chills.? Patient recently finished antibiotics for cellulitis of left lower extremity.? Patient denies chest discomfort, palpitation, shortness of breath, nausea, vomiting, changes in urinary habits.? No history of similar complaints in the past.? Patient did not receive radiation or surgery for prostate cancer and is currently of abiraterone and prednisone.? He is compliant with his Eliquis for PE. In the emergency department, imaging was concerning for sigmoid diverticulitis . Acute uncomplicated sigmoid diverticulitis no evidence of sepsis abd pain resolved Treated with IV levofloxacin, IV Flagyl, home with oral for total 10 days diet advanced blood cultures negative History of pulmonary embolism continue Eliquis Chronic normocytic anemia H/H at baseline Prostate cancer no longer on abiraterone or prednisone Time Spent with Patient Time attestation: Total time spent providing and/or coordinating discharge services: Discharge coordination time: Greater than 30 minutes Quality: Safe Use of Opioids Does Pt have an Active Cancer Diagnosis on the Problem List?: No Quality: Stroke Does the patient have a stroke diagnosis?: No Physical Exam Vital Signs: Vital Signs: Last Vital Signs Temp 98.5 F 01/25/22 11:17 Pulse 65 01/25/22 11:17 Resp 16 01/25/22 11:17 BP 140/63 H 01/25/22 11:17 Pulse Ox 95 01/25/22 11:17 O2 Del Method 01/25/22 11:17 BMI result Body Mass Index 37.2 Appearing in no acute distress head is normocephalic atraumatic eyes pupils are PERRLA sclera is anicteric mouth throat mucous membranes are intact and moist neck is supple no lymphadenopathy, no JVD noted lung sounds are clear to auscultation heart regular rate rhythm, clear S1, S2 positive bowel sounds, abdomen is soft, nontender neuro patient is alert x3, no focal deficits DS: Data Data Completed and Pending Labs on day of discharge: Preliminary micro results at discharge 01/22/22 21:51 Blood Culture - Preliminary Blood - Venous No growth after 48 hours. 01/22/22 21:41 Blood Culture - Preliminary Blood - Venous No growth after 48 hours. Discharge Plan Discharge Anticipated Discharge Date/Time: 01/25/22 13:41 Patient Disposition: Home, Self-Care Discharge Diagnosis: Diverticulitis Referrals: Celso Butterfield PA-C [Primary Care Provider] - 1 Week Discharge Medications: New levofloxacin 750 mg tablet 750 mg PO DAILY Qty: 7 0RF metronidazole 500 mg tablet 500 mg PO Q8H Qty: 21 0RF Continued Eliquis 5 mg tablet 5 mg PO BID Qty: 180 1RF omeprazole 20 mg capsule,delayed release(DR/EC) 20 mg PO Q OTHER DAY Discharge Orders: Discharge Order (Routine); Ordered 01/25/22 Ordered By: Bere Velez Diet: Advance to usual diet Activity on Discharge: As tolerated Stand Alone Forms: Patient Portal Discharge page Care Plan Goals: Complete resolution of symptoms Health Concerns: Diverticulitis Plan of Treatment: Follow up with your primary care provider Take all medications as prescribed including antibiotics Assessment: See discharge summary
== END 2022-01-25 14:24 | disposition home or self-care (01) | DRG 392 ==
LOC: HO.ED 01-23 01:25 → HO.EDOVER 01-23 01:45 → HO.S3 01-23 02:33
PROVIDERS: Nurse Practitioner Family; Admitting Provider Student in an Organized Health Care Education/Training Program; Emergency Provider Internal Medicine; PCP Physician Assistant; Visit Provider Nurse Practitioner Acute Care
DX: K57.32 Diverticulitis of large intestine without perforation or abscess without bleeding (principal); C61 Malignant neoplasm of prostate; D64.9 Anemia, unspecified; D63.0 Anemia in neoplastic disease; E66.9 Obesity, unspecified; Z68.37 Body mass index [BMI] 37.0-37.9, adult; Z20.822 Contact with and (suspected) exposure to COVID-19; Z86.711 Personal history of pulmonary embolism; Z91.041 Radiographic dye allergy status; Z91.013 Allergy to seafood; Z79.01 Long term (current) use of anticoagulants; Z79.899 Other long term (current) drug therapy
CPT/HCPCS: 0241U; 36415; 71045; 74176; 80048; 80076; 83605; 83690; 83735; 83880; 84484; 85025; 85610; 85730; 87040; 93005; 99285; J1956; J2405

== ENCOUNTER 2022-03-20 09:40 | Outpatient (REF) | payer MEDICARE, OTHER, SELFPAY ==
[2022-03-20 11:51] LABS: Prostate Specific Antigen < 0.10 ng/mL (<0.05-4.0)
[2022-03-26 12:39] LABS: Testosterone, Total 4 ng/dL (250-1100)
== END 2022-03-20 09:41 | disposition home or self-care (01) ==
LOC: HO.LAB 09:40
PROVIDERS: Absent Provider Urology; PCP Physician Assistant; Visit Provider Physician Assistant
DX: Z12.5 Encounter for screening for malignant neoplasm of prostate (principal); C61 Malignant neoplasm of prostate; C79.51 Secondary malignant neoplasm of bone
CPT/HCPCS: 36415; 84153; 84403

== ENCOUNTER → 2022-04-02 14:58 | Outpatient (BNVA) | payer MEDICARE, OTHER, SELFPAY | PROVIDERS: PCP Physician Assistant; Visit Provider Urology | DX: C61 Malignant neoplasm of prostate (principal); C79.51 Secondary malignant neoplasm of bone | CPT/HCPCS: 99212 ==

== ENCOUNTER 2022-04-03 15:25 | Outpatient (REF) | payer MEDICARE, OTHER, SELFPAY ==
--- NOTE | ~2022-04-03 | XR_ITS ---
EXAMINATION: XR KNEE AP STANDING CLINICAL INFORMATION: Primary osteoarthritis COMPARISON: None TECHNIQUE: AP bilateral standing view of the knees was obtained. FINDINGS: Mild-moderate medial compartment joint space narrowing bilaterally. No acute fractures seen. No destructive bony lesion seen. XR/XR knee standing BI IMPRESSION: Mild-moderate medial compartment arthritis in bilateral knees.
== END 2022-04-03 15:26 | disposition home or self-care (01) ==
LOC: HO.XRAY 15:25
PROVIDERS: PCP Physician Assistant; Visit Provider Physician Assistant
DX: M17.0 Bilateral primary osteoarthritis of knee (principal)
CPT/HCPCS: 73565

== ENCOUNTER 2022-06-09 15:00 | Outpatient (RCR) | payer MEDICARE, OTHER, SELFPAY ==
--- NOTE | 2022-04-25 12:50 | MHC.PT.EP ---
[facility] [place] Office [place] Office [place] Office [address] [phone] F: [phone] F: [phone] F: [phone] F: [phone] Physical Therapy Plan of Care Date of Evaluation: Date of Surgery: N/A Diagnosis: Unspecified thoracic, thoracolumbar and lumbosacral intervertebral disc disorder Bilateral primary osteoarthritis of knee Assessment: Pt is a pleasant and motivated 71yo M with PMH including anemia, prostate cancer and PE on Eliquis who presents to PT with back and B knee pain. He presents to PT with current impairments in pain, decreased lumbar ROM, decreased knee ROM, decreased LE strength, decreased core stabilization, decreased muscle length, decreased balance and impaired gait. He is limited functionally by sit<>stand transitions, prolonged standing, walking, and stair navigation. He is an excellent candidate for skilled PT in order to address current impairments to facilitate return to PLOF. He is recommended to be seen 2x/week for 4 weeks and will be reassessed at that time. Frequency and Duration: The patient will be seen 2x/week for 4 weeks Short Term Goals: Pt will be I with HEP to promote self management of symptoms Pt will improve L knee flexion by at least 5 degrees Longterm Goals: Pt will improve B quad strength to at least 4+/5 B to assist with stair navigation Pt will tolerate standing and walking > 30 min with minimal to no discomfort Treatment Plan: Modalities to reduce pain, spasms and effusion. Manual therapy to restore motion and function. Therapeutic exercise to improve strength and flexibility. Neuromuscular re-education for posture and balance. Therapeutic activities to return to functional activities of daily living. Electronically signed by: Poonam Silva, PT, DPT Please sign and return to therapist. Thank you for your referral.
--- NOTE | 2022-06-09 16:07 | MHC.PT.DC ---
[facility] [place] Office [place] Office [place] Office [address] Danica Jacobsen [address] [phone] F: [phone] F: [phone] F: [phone] F: [phone] Physical Therapy Discharge Report Diagnosis: Unspecified thoracic, thoracolumbar and lumbosacral intervertebral disc disorder Bilateral primary osteoarthritis of knee Date of Surgery: N/A Date of Evaluation: 04/24/22 Date of Discharge: 06/09/22 Treatments to Date: 10 Cancellations to Date: No Shows to Date: Discharge Status: Improved Function Independent with HEP Recommend MD Follow-up Discharge Summary: Pt has made good progress since SOC. He continues to have pain in B knees however he demonstrates improvements in LE strength and activity tolerance since SOC. Pt is I with HEP and performs with good mechanics. Pt is being D/C from skilled PT at this time as he has reached functional plateau. Provided pt with printed, updated copy of HEP and pt verbalized understanding. I recommend pt perform HEP consistently for a few weeks and if pain persists he should follow up with his doctor. Pt has no further questions or concerns for PT at this time. Electronically signed by: Poonam Silva, PT, DPT Please sign and return to therapist. Thank you for your referral.
== END 2022-06-09 16:07 | disposition home or self-care (01) ==
LOC: HO.PT 15:00
PROVIDERS: PCP Physician Assistant; Visit Provider Physician Assistant
DX: M51.9 Unspecified thoracic, thoracolumbar and lumbosacral intervertebral disc disorder (principal); M17.0 Bilateral primary osteoarthritis of knee
CPT/HCPCS: 97110; 97162

== ENCOUNTER → 2022-06-19 10:57 | Outpatient (REF) | payer MEDICARE, OTHER, SELFPAY ==
--- NOTE | ~2022-06-19 | NM_ITS ---
EXAMINATION: NM BONE SCAN OF THE WHOLE BODY CLINICAL INFORMATION: A 71-year-old male with known clinical diagnosis of prostate cancer and knee pain. COMPARISON: Baseline whole-body bone scan done on 12/02/2018 and most recent prior whole-body bone scan done on 12/20/2021. TECHNIQUE: Multiple gamma scintillation camera images of the whole body were performed 2.5 hours following the intravenous administration of 36 mCi Tc-99m MDP. FINDINGS: In the head, subtle focal area of increased radiotracer activity is noted at the left frontal skull, new since the prior study dated 12/20/2021. In the thoracic cage and upper extremities, linear increased radiotracer activity involving the left side of the body of the sternum and bilateral ribs appear less apparent without resolution on the current study. No new abnormalities. In the spine, mild increased radiotracer activity is present at L4 on the left, appear new since the prior study. In the pelvis, no new abnormalities. In the lower extremities, likely arthritic changes around both knees and both feet, appears to have progressed on the left and new on the right the prior study. No other definite bony abnormalities are noted. The urinary bladder and faint visualization of both kidneys are noted. NM/NM bone scan whole body IMPRESSION: 1. Interval development of subtle focal area of increased radiotracer activity is noted at the left frontal skull. 2. Interval development of mild increased radiotracer activity is noted at L4 to the left of the midline. 3. Mild interval increase in radiotracer activity involving the medial aspect of the left knee and disease involving the medial aspect of the right knee likely represent progressive arthritic changes. 4. Interval improvement without resolution at the sites of previously documented disease involving the sternum and bilateral ribs. Follow-up PSMA PET/CT study may be considered for further full detail evaluation, if clinically appropriate.
== END ==
LOC: HO.NUCMED 10:57
PROVIDERS: PCP Physician Assistant; Visit Provider Urology
DX: C61 Malignant neoplasm of prostate (principal); C79.51 Secondary malignant neoplasm of bone
CPT/HCPCS: 78306; A9503

== ENCOUNTER 2022-06-23 14:14 | Outpatient (REF) | payer MEDICARE, OTHER, SELFPAY ==
[2022-06-23 16:08] LABS: Prostate Specific Antigen < 0.10 ng/mL (<0.05-4.0)
[2022-06-27 15:28] LABS: Testosterone, Total 7 ng/dL (250-1100)
== END 2022-06-23 14:15 | disposition home or self-care (01) ==
LOC: HO.LAB 14:14
PROVIDERS: PCP Physician Assistant; Visit Provider Urology
DX: C61 Malignant neoplasm of prostate (principal); C79.51 Secondary malignant neoplasm of bone; Z12.5 Encounter for screening for malignant neoplasm of prostate
CPT/HCPCS: 36415; 84153; 84403

== ENCOUNTER → 2022-07-03 11:07 | Outpatient (BNVA) | payer MEDICARE, OTHER, SELFPAY | PROVIDERS: PCP Physician Assistant; Visit Provider Urology | DX: C61 Malignant neoplasm of prostate (principal); C79.51 Secondary malignant neoplasm of bone | CPT/HCPCS: 96402; 99212; J9217 ==

== ENCOUNTER → 2022-08-08 08:24 | Outpatient (BNVA) | payer MEDICARE, OTHER, SELFPAY | PROVIDERS: PCP Physician Assistant; Visit Provider Student in an Organized Health Care Education/Training Program | DX: M17.0 Bilateral primary osteoarthritis of knee (principal); M67.919 Unspecified disorder of synovium and tendon, unspecified shoulder; Z79.52 Long term (current) use of systemic steroids | CPT/HCPCS: 99202 ==

== ENCOUNTER 2022-09-25 10:49 | Outpatient (REF) | payer MEDICARE, OTHER, SELFPAY ==
[2022-09-25 11:13] LABS: Hematocrit 37.3 % (42.0-52.0); Hemoglobin 12.5 g/dl (14.0-18.0); Mean Corpuscular HGB Conc 33.5 g/dl (31.0-36.0); Mean Corpuscular Hemoglobin 30.3 pg (27.0-33.0); Mean Corpuscular Volume 90.3 fL (80.0-98.0); Mean Platelet Volume 9.1 fL (9.4-12.4); Platelet Count 252 X10*3/uL (160-400); Red Blood Count 4.13 X10*6/uL (4.60-5.80); Red Cell Distribution Width 14.6 % (11.0-16.0); White Blood Count 4.6 X10*3/uL (4.8-10.8)
[2022-09-25 11:32] LABS: Estimated Average Glucose 100 mg/dL; Hemoglobin A1c % 5.1 %
[2022-09-25 11:48] LABS: Alanine Aminotransferase 11 U/L (0-40); Alkaline Phosphatase 96 U/L (39-117); Anion Gap 12 (12-20); Aspartate Amino Transferase 15 U/L (5-37); Bilirubin Total 0.6 mg/dL (0.0-1.0); Blood Urea Nitrogen 10 mg/dL (9-16); Calcium 9.4 mg/dL (8.4-10.2); Carbon Dioxide 26 mmol/L (22-29); Chloride 107 mmol/L (96-108); Cholesterol 201 mg/dL; Estimated Glomerular Filt Rate > 60; Glucose Fasting 95 mg/dL (60-99); HDL Cholesterol 51 mg/dL; LDL Cholesterol Calculated 122 mg/dl; Potassium 4.1 mmol/L (3.3-5.1); Sodium 141 mmol/L (135-145); Total Protein 6.6 g/dL (6.5-8.0); Triglycerides 143 mg/dL
[2022-09-25 11:57] LABS: TSH reflex Free T4 2.31 uIU/mL (0.32-4.0)
== END 2022-09-25 10:50 | disposition home or self-care (01) ==
LOC: HO.LAB 10:49
PROVIDERS: PCP Physician Assistant; Visit Provider Physician Assistant
DX: R73.01 Impaired fasting glucose (principal); E78.9 Disorder of lipoprotein metabolism, unspecified; E78.00 Pure hypercholesterolemia, unspecified; E66.9 Obesity, unspecified; I48.91 Unspecified atrial fibrillation
CPT/HCPCS: 36415; 80053; 80061; 83036; 84443; 85027

== ENCOUNTER 2022-10-31 14:09 | Outpatient (AMB) | payer MEDICARE, OTHER, SELFPAY ==
--- NOTE | 2022-10-31 14:14 | A.OFFVIS_ITS ---
Intake Intake Visit Reasons: 3m/pet (set) /bone density Intake Note: Patient is present for Follow Up PET Urology Med: None Antibiotic Allergy: None Blood Thinner: Apixaban (Eliquis) [facility]acy: [facility] Allergies Iodinated Contrast Media Allergy (Unknown, Verified 11/10/22 16:27) Unknown Lobster Allergy (Unknown, Verified 11/10/22 16:27) unknown Medication List - Last Reconciled 10/31/22 by Sammy Ortega MD acetaminophen (Tylenol Extra Strength) 500 mg PO Q6H PRN apixaban (Eliquis) 5 mg PO BID diclofenac sodium 1% (Aspercreme Arthritis Pain) 2 grams topical QID hydroxyzine HCl 25 mg PO BEDTIME PRN omeprazole 20 mg PO Q OTHER DAY triamcinolone acetonide 0.1% 1 appl topical BID HPI HPI Comments History of Present Illness Details Rohan godoy is a pleasant male. He is a patient Dr. Butterfield. He is seen for the following urologic conditions. - prostate cancer - metastatic Stable disease on imaging. Will need updated DEXA Three month follow-up lab work 10/19 PET-CT no metabolically active lymp h nodes, prostate active 06/19 GnRH P <0.1, T 7 Imagin. Interval development of subtle focal area of increased radiotracer activity is noted at the left frontal skull. 2. Interval development of mild increased radiotracer activity is noted at L4 to the left of the midline. 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 Diagnosis was reached by needle biopsy, for elevated PSA, PSA at diagnosis 19, size at TRUS 60cc. The [place] grade is October 2018 - 03/10 cores Gl , 4+4 = 8, 4+5 = 9, 60- 90%, + PNI. TNM Classification of Malignant Tumours (TNM) T2b - palpable bilateral. The D'Amari (NCCN) risk category is High Risk (PSA > 20, Gl 8+, T3) - Group 5 on biopsy. Initial therapy included Primary treatment - bicalutamide, dutasteride, plan for GnRH 12/09/18 - GnRH 1xt dose given, stop bicalutamide in 7 days Recent labs included PSA 03/18 0.4 - T 03/18 <1 - 06/17 PSA .4, T <1, 12/18 PSA 0.3, T 6, 03/19 0.3, 06/18 0.2, 09/18 0.2, 12/19 0.15, 03/20 <0.1 Recent imaging included - 11/15 , a CT (computed tomography) scan - mild hydroureteronephrosis bilateral with 1cm sclerotic lesion in ileum, 1.5 cm iliac nodes, bladder wall thickening - 12/16 CT scan with bilateral mild to moderate hydroureteral nephrosis - 06/18 CT with minimal lymphadenopathy and resolution of majority of bone island sclerosis - 01/18 CT with no evidence of lymphadenopathy Dexa Scan - 06/16 NAD, 01/17 NAD Bone Scan - 12/16 , a bone scan sclerotic lesion on ileum and calvarium with scattered rib lesions - 12/17 bone scan. Improvement with sclerotic lesion on ileum and calvarium. Significant improvement compared to prior study. Renal ultrasound no evidence of calculus or bilateral hydronephrosis - 03/19 bone scan with overall relatively stable disease, question of subtle change on T1 - 12/19 bone scan with stable disease Associated conditions erectile dysfunction Yes hematuria No hot flashes Yes Therapeutic plan: Continue hormone therapy. 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 Lower Urinary Tract Symptoms: Doing well. Current visit is for further evaluation of, lower urinary tract symptoms, predominate obstructive symptoms. Prior treatments include 01/15 , procedure, laser procedure. Symptoms include 12/16 , nocturia (>2), weak stream, and are progressing. Prostate volume 50+gm. Treatment plan pvr each visit. 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 Daughter In good health Social History Household Members: Spouse Housing: House Do you presently have visiting nurse or other home services: No Alcohol intake: current Alcohol intake frequency: a few times a week Patient Tobacco Use Status: Never used Tobacco e-Cigarette/Vaping Use: Never Used Substance Use Type: Marijuana service: No Current occupational status: retired Cognitive needs: No Hearing needs: No Vision needs: Yes (glasses ) Review of Systems Const Denies chills and Denies fever(s) Card Reports no additional complaints and Denies syncope Resp Denies cough GI Denies abdominal pain and Denies heartburn Reports as per HPI and Denies change in libido Neuro Denies syncope Psych Denies change in libido Endo Denies change in libido Physical Exam Const General: cooperative, healthy appearing, comfortable and no acute distress Orientation/consciousness: patient oriented x3 HEENT Face and sinus: Yes normal facial exam Mouth: moist mucous membranes Neck Neck: Yes normal visual inspection, Yes full ROM and Yes trachea midline Chest Chest palpation & inspection: normal inspection of the chest Resp Effort & Inspection: normal respiratory effort, able to speak in complete sentences and no respiratory distress GI Inspection: Yes normal to inspection Back/Spine/Pelvis Cervical Spine: normal cervical lordosis Thoracic/Lumbar Spine: thoracic and lumbar spine normal to inspection Skin General skin exam: no rashes or lesions noted Neuro General: patient oriented x3, gait normal, tone normal and moves all extremities Extrem General: Yes normal to inspection and Yes capillary refill normal Assessment & Plan Assessment & Plan (1) Prostate cancer metastatic to bone: Comment: Group 5 metastatic to bone October 2018 Code(s): C61 - Malignant neoplasm of prostate; C79.51 - Secondary malignant neoplasm of bone Plan Continue 3 month labs surveillance Orders: Orders Prostate Specific Antigen 3 Months C61 - Malignant neoplasm of prostate, C79.51 - Secondary malignant neoplasm of bone Testosterone, Total 3 Months C61 - Malignant neoplasm of prostate, C79.51 - Secondary malignant neoplasm of bone Patient Instructions: Imaging studies, laboratory and physical exam results were discussed and reviewed in detail. No major barriers to patient understanding were identified. An opportunity to ask questions regarding the treatment plan was provided. All questions were answered. The patient expressed understanding and agreement with the above treatment plan. The patient is aware they should contact our office by phone for worsening of their current condition or the appearance of new urologic symptoms. Compliance is encouraged with any medications and followup testing that is ordered. It is a privilege to participate in the urologic care of your patient. If you have any questions or concerns regarding treatment for the above conditions, or other urologic issues, please do not hesitate to contact me. The office telephone contact is [phone]. This note is constructed using voice recognition software. While every effort has been made to ensure accuracy financial operations clerk errors may have been included. Yours sincerely, Dr Sammy Ortega MD, [facility] Providers of Expert, Compassionate Care for the Genitourinary System Coding Level of Care Code Est Pt Level 3 (85828) Diagnoses Prostate cancer metastatic to bone C61; C79.51
== END 2022-10-31 14:53 | disposition home or self-care (01) ==
PROVIDERS: Visit Provider Urology
DX: C61 Malignant neoplasm of prostate (principal); C79.51 Secondary malignant neoplasm of bone
CPT/HCPCS: 99213

== ENCOUNTER → 2022-10-31 14:09 | Outpatient (BNVA) | payer MEDICARE, OTHER, SELFPAY | PROVIDERS: Visit Provider Urology | DX: C61 Malignant neoplasm of prostate (principal); C79.51 Secondary malignant neoplasm of bone; Z79.899 Other long term (current) drug therapy | CPT/HCPCS: 99212 ==

== ENCOUNTER 2022-11-07 14:24 | Outpatient (AMB) | payer MEDICARE, OTHER, SELFPAY ==
--- NOTE | 2022-11-07 14:32 | A.OFFVIS_ITS ---
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: No Allergies Iodinated Contrast Media Allergy (Unknown, Verified 11/07/22 14:37) Unknown Lobster Allergy (Unknown, Verified 11/07/22 14:37) unknown Medication List - Last Reconciled 11/07/22 by Zehra Keene MD acetaminophen (Tylenol Extra Strength) 500 mg PO Q6H PRN apixaban (Eliquis) 5 mg PO BID diclofenac sodium 1% (Aspercreme Arthritis Pain) 2 grams topical QID hydroxyzine HCl 25 mg PO BEDTIME PRN omeprazole 20 mg PO Q OTHER DAY triamcinolone acetonide 0.1% 1 appl topical BID PRN HPI HPI Comments History of Present Illness Details 71-year-old male past medical history prostate cancer and bilateral knee osteoarthritis returns for follow-up. Most recent PET scan showed residual cancer and there is no metastasis. Patient states that he will be referred to [facility]. Continues to have bilateral knee pain, worse with walking. It does significantly interfere with his quality of life. Requesting bilateral knee cortisone injections. Initial history: This is a 71-year-old male who presents for evaluation of bilateral knee and shoulder pain. Of note patient was diagnosed with prostate cancer a few years ago and was started on hormonal treatment and prednisone 10 mg daily for about 3 years, course of treatment was discontinued in December of 2021. Patient stated that he has lost 35 lb since stopping the treatment. The knee pain started soon after prednisone was stopped. His knee pain is worse with standing up and walking for longer distances. He is unaware of any swelling. He has tried physical therapy for his knees without improvement. He takes Tylenol which provided some relief, cannot take NSAIDs as he is on Eliquis for DVT. Also applies Aspercreme and CBD oil which provide some relief. Denies any significant morning stiffness. He believes that prednisone was masking the pain. He also has bilateral shoulder pain worse with any activity. He has difficulty golfing due to the shoulder pain. His father had psoriasis and psoriatic arthritis. Patient does not have psoriasis. Unaware of any family history of autoimmune rheumatic disease other than his father. [facility] Medical History Anemia Prostate cancer Pulmonary embolism Surgical History History of cataract surgery History of colonoscopy History of endoscopy Family History Father CVD (cardiovascular disease) Cancer Heart problem Psoriatic arthritis Mother Hypertension Brother Prostate cancer Sister No problems noted. Daughter In good health Social History Household Members: Spouse Housing: House Do you presently have visiting nurse or other home services: No Alcohol intake: current Alcohol intake frequency: a few times a week Patient Tobacco Use Status: Never used Tobacco e-Cigarette/Vaping Use: Never Used Substance Use Type: Marijuana service: No Current occupational status: retired Cognitive needs: No Hearing needs: No Vision needs: Yes (glasses ) Review of Systems [facility] Reports arthralgias and Reports stiffness Physical Exam Vital Signs: Last Vital Signs Temp 97.9 F 11/07/22 14:33 Pulse 55 11/07/22 14:33 BP 136/74 11/07/22 14:33 Pulse Ox 95 11/07/22 14:33 Oxygen Delivery Method Room Air 11/07/22 14:33 BMI result Body Mass Index 33.5 Const General: cooperative, healthy appearing and comfortable Nutritional Appearance: obese Orientation/consciousness: patient oriented x3 Limitations: no limitations HEENT Head: Yes normocephalic and Yes atraumatic Mouth: moist mucous membranes Resp Effort & Inspection: normal respiratory effort and able to speak in complete sentences GI Inspection: No distended Palpation (GI): Soft to palpation and nontender Neuro General: patient oriented x3 Extrem Other: Bilateral knee pain with full flexion No swollen or tender joints Patient is kyphotic Office Procedures Joint Injection/Drain Joint Injection/Drain Primary Site: right knee Secondary Site: left knee Prep: site was prepped using sterile technique and ethochloride spray was applied Injected: 40 mg of, Kenalog and other (2 mL of 1% lidocaine) Procedure: The patient tolerated the procedure well Coding Details: With the patient's consent the right knee was prepped with ChloraPrep and alcohol. The skin was anesthetized with 2 cc of 1% lidocaine. The knee was then injected with 40 mg of triamcinolone and 1 cc of I % lidocaine. The patient tolerated the procedure with no immediate adverse effects. With the patient's consent the left knee was prepped with ChloraPrep and alcohol. The skin was anesthetized with 2 cc of 1% lidocaine. The knee was then injected with 40 mg of triamcinolone and 1 cc of I % lidocaine. The patient tolerated the procedure with no immediate adverse effects. 99866 - Large joint Procedure code (CPT) selection complete Assessment & Plan Assessment & Plan (1) Osteoarthritis, knee: Comment: Bilateral Code(s): M17.9 - Osteoarthritis of knee, unspecified Qualifiers: Osteoarthritis type: primary Laterality: bilateral Qualified Code(s): M17.0 - Bilateral primary osteoarthritis of knee Plan: This is a 71-year-old male who presents for evaluation of bilateral knee pain. Picture consistent with bilateral knee osteoarthritis. Physical therapy did not help. Patient tried using Voltaren gel and Tylenol Arthritis and continues to have significant bilateral knee pain. It does interfere with his quality of life. With patient's consent both knees were injected with Kenalog today Follow-up in 4 months Orders: Orders AMB Joint Injection/Aspiration Today M17.9 - Osteoarthritis of knee, unspecified Coding Level of Care Code Est Pt Level 3 (80272) Diagnoses Osteoarthritis, knee M17.0 Osteoarthritis type: primary Laterality: bilateral CPT Codes Coding - Large joint: 38203 - Large joint ([id number])
[2022-11-07 14:33] VITALS: BP 136/74; PULSE 55; TEMP 36.6; O2SAT 95; BMI 33.5
== END 2022-11-07 15:15 | disposition home or self-care (01) ==
PROVIDERS: PCP Physician Assistant; Visit Provider Student in an Organized Health Care Education/Training Program
DX: M17.0 Bilateral primary osteoarthritis of knee (principal)
CPT/HCPCS: 20610; 99213

== ENCOUNTER → 2022-11-07 14:24 | Outpatient (BNVA) | payer MEDICARE, OTHER, SELFPAY | PROVIDERS: PCP Physician Assistant; Visit Provider Student in an Organized Health Care Education/Training Program | DX: M17.0 Bilateral primary osteoarthritis of knee (principal) | CPT/HCPCS: 20610; 99212; J3301 ==

== ENCOUNTER 2022-11-10 15:40 | Outpatient (AMB) | payer MEDICARE, OTHER, SELFPAY ==
[2022-11-10 15:45] VITALS: BP 130/88; PULSE 54; O2SAT 98; BMI 33.3
--- NOTE | 2022-11-10 15:45 | MHC.PC.OV ---
Vital Signs 11/10/22 15:45 Height 5 ft 10 in Weight 232 lb 4 oz BMI 33.3 BP 130/88 Blood Pressure Location Lt brachial Position Sitting Pulse 54 Pulse Source Pulse Oximeter Pulse Oximetry (%) 98 Oxygen Delivery Method Room Air Intake Visit Reasons: f/u HLD / Arthritis Allergies Iodinated Contrast Media Allergy (Unknown, Verified 11/10/22 16:27) Unknown Lobster Allergy (Unknown, Verified 11/10/22 16:27) unknown Medication List - Last Reconciled 11/10/22 by Celso Butterfield PA-C acetaminophen (Tylenol Extra Strength) 500 mg PO Q6H PRN apixaban (Eliquis) 5 mg PO BID diclofenac sodium 1% (Aspercreme Arthritis Pain) 2 grams topical QID hydroxyzine HCl 25 mg PO BEDTIME PRN omeprazole 20 mg PO Q OTHER DAY triamcinolone acetonide 0.1% 1 appl topical BID PRN Tobacco use date assessed: 11/10/22 HPI f/u HLD / Arthritis HPI Details Patient is a 71-year-old male here today for follow-up visit.? Patient has a past medical history significant for borderline high total cholesterol, prostate cancer, obesity, history of diverticulitis, history of pulmonary embolism. 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 Has been more mobile .. Prostate cancer:? Patient continues to follow urologist and oncologist. Has metastatic disease.? Testosterone levels are followed patient continues on hormonal treatment.? Most recent testosterone level low and PSA? <0.10 Of note he will following up with [facility] .. Pulmonary embolism:? Had a venous embolism in 2020 and was thus placed on anticoagulation.? Unclear if this was provoked by active malignancy verses unprovoked.? Will continue indefinitely on anticoagulation . Borderline Hyperlipidemia: Patient's most recent fasting lipid panel showing total cholesterol much improved at 201.? He has been working on lifestyle modifications to reduce his cholesterol.? Of note has been able to lose weight .. Obesity:? Patient does understand his BMI is over 30.? Has loss weight since last office visit.? 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 Daughter In good health Social History Household Members: Spouse Housing: House Do you presently have visiting nurse or other home services: No Alcohol intake: current Alcohol intake frequency: a few times a week Patient Tobacco Use Status: Never used Tobacco e-Cigarette/Vaping Use: Never Used Substance Use Type: Marijuana service: No Current occupational status: retired Cognitive needs: No Hearing needs: No Vision needs: Yes (glasses ) Questionnaire PHQ-9 Over the last 2 weeks, how often have you been bothered by any of the following problems? 1. Little interest or pleasure in doing things: not at all 2. Feeling down, depressed, or hopeless: not at all 3. Trouble falling or staying asleep, or sleeping too much: not at all 4. Feeling tired or having little energy: not at all 5. Poor appetite or overeating: not at all 6. Feeling bad about yourself - or that you are a failure or have let yourself or your family down: not at all 7. Trouble concentrating on things, such as reading the newspaper or watching television: not at all 8. Moving or speaking so slowly that other people could have noticed. Or the opposite - being so fidgety or restless that you have been moving around a lot more than usual: not at all 9. Thoughts that you would be better off or of hurting yourself in some way: not at all Total score: 0 Depression Screening Interpretation: Negative 77120 - PHQ-9 Billing: Yes Source: Developed by Drs. Cullen Carlos, Pearl Pantoja, Prmio Girard and colleagues, with an educational tarsha from [employer]. Thrive Questionnaire Date Thrive assessed: 11/10/22 I am a: Patient What is your living situation today?: I have a steady place to live Within the past 12 months, did the food you bought not last and you didn't have the money to get more?: Never true Within the past 12 months, did you worry whether your food would run out before you got money to buy more?: Never true Currently or been in a relationship where the following occur: no concerns reported AUDIT C Alcohol Use Questionnaire (AUDIT-C) 1. How often do you have a drink containing alcohol?: 2-3 times a week 2. How many drinks containing alcohol do you have on a typical day when you are drinking?: 1 or 2 3. How often do you have six or more drinks on one occasion?: Never Total Score: 3 TAMIR-7 AMB Questionnaire TAMIR-7 Date TAMIR - 7 assessed: 10/03/22 Feeling nervous, anxious, or on edge: 0 = Not at all Not being able to stop or control worryin = Not at all Worrying too much about different things: 0 = Not at all Trouble relaxin = Not at all Being so restless that it is hard to sit still: 0 = Not at all Becoming easily annoyed or irritable: 0 = Not at all Feeling afraid as if something awful might happen: 0 = Not at all Total TAMIR-7 score (0-4 normal; 5-9 mild; 10-14 moderate; 15-21 severe): 0 Source: Developed by Drs. Cullen Carlos, Pearl Pantoja, Primo Girard and colleagues, with an educational tarsha from [employer]. TAMIR-7 Assessment Billing TAMIR-7 Assessment Tool: TAMIR-7 Assessment 33272 Review of Systems Const Denies headache(s) Eyes Denies loss of vision ENT Denies vertigo, Denies dizziness, Denies headache(s) and Denies sore throat Card Denies chest pain, Denies leg edema and Denies lightheadedness Resp Denies cough, Denies hemoptysis and Denies wheezing GI Denies abdominal pain, Denies melena, Denies constipation, Denies diarrhea and Denies vomiting Denies dysuria, Denies urinary frequency and Denies urinary urgency Musc Denies arthralgias, Denies joint swelling, Denies numbness and Denies tingling Neuro Denies Abnormal speech present, Denies behavioral changes, Denies vertigo, Denies dizziness, Denies headache(s), Denies loss of vision, Denies memory loss, Denies numbness and Denies tingling Psych Denies anxiety, Denies behavioral changes, Denies depression, Denies memory loss and Denies panic attacks Néstor/Lymph Denies easy bleeding and Denies easy bruising Aller/Immun Denies wheezing Physical exam (Primary Care) Vital Signs: Last Vital Signs Pulse 54 11/10/22 15:45 BP 130/88 11/10/22 15:45 Pulse Ox 98 11/10/22 15:45 Oxygen Delivery Method Room Air 11/10/22 15:45 BMI result Body Mass Index 33.3 BMI Assessment/Plan discussion: High Tobacco/Smoking Status: Tobacco use Status Tobacco use date assessed 11/10/22 11/10/22 15:51 Patient Tobacco Use Status Never used Tobacco 11/10/22 15:51 e-Cigarette/Vaping Use Never Used 11/10/22 15:51 PHQ-9: PHQ-9 Score PHQ-9: Total score 0 11/10/22 16:29 Depression Screening Interpretation: Negative Thrive Assessment: Date of Thrive Assessment Date Thrive assessed 11/10/22 11/10/22 15:51 Currently or been in a relationship where the following occur: no concerns reported Const General: healthy appearing, no acute distress, alert and awake Nutritional Appearance: well nourished Orientation/consciousness: oriented to person, oriented to place and oriented to time HENMT Ears: TM's normal bilaterally General nose exam: Normal nasal mucous membranes and turbinates present Eyes Conjunctivae: conjunctivae normal Sclerae: sclerae normal Pupils: Equal, round and reactive pupils present Neck Neck: Yes no lymphadenopathy and Yes no JVD Thyroid: Thyroid normal Carotids: no bruits Resp Effort & Inspection: normal respiratory effort and not tachypneic Auscultation: no crackles, no rales, no rhonchi and no wheezes Cardio Rate: regular rate Rhythm: regular rhythm Heart sounds: no murmurs and normal S1 and S2 GI Palpation (GI): Soft to palpation, nontender, no hepatomegaly and no splenomegaly Auscultation: normal bowel sounds Skin General skin exam: no rashes or lesions noted and dry skin Neuro General: oriented to person, oriented to place and oriented to time Cranial nerves: Yes Equal, round and reactive pupils present Speech: No Abnormal speech present Gait exam (Neuro): Normal gait present Motor exam (neuro): no tremor noted Extrem Right upper extremity: full ROM Left upper extremity: full ROM Right lower extremity: full ROM; no edema Left lower extremity: full ROM; no edema Psych Mental Status: mental status grossly normal Speech and movement: Normal speech and movement present Affect: normal affect Attitude: cooperative Thought process: Normal thought process present Assessment and Plan Assessment & Plan (1) Prostate cancer metastatic to bone: Comment: Group 5 metastatic to bone October 2018 Code(s): C61 - Malignant neoplasm of prostate; C79.51 - Secondary malignant neoplasm of bone Plan: Patient continues to follow urology for his prostate cancer with metastatic bone lesion. Cancer found to be hormone positive. He will be following up with [facility] as well in near future. (2) Osteoarthritis, knee: Comment: Bilateral Code(s): M17.9 - Osteoarthritis of knee, unspecified Qualifiers: Laterality: bilateral Osteoarthritis type: primary Qualified Code(s): M17.0 - Bilateral primary osteoarthritis of knee Plan: Patient reports his knees feel much better after cortisone injections. (3) Pulmonary embolism: Code(s): I26.99 - Other pulmonary embolism without acute cor pulmonale Qualifiers: Acute cor pulmonale presence: without acute cor pulmonale Chronicity: acute Pulmonary embolism type: unspecified Qualified Code(s): I26.99 - Other pulmonary embolism without acute cor pulmonale Plan: Unclear of provoked pulmonary embolism in 2020(active malignancy). Continues on Eliquis indefinitely at this time. (4) Borderline high cholesterol: Code(s): E78.9 - Disorder of lipoprotein metabolism, unspecified Plan: Patient's most recent fasting lipid panel showing much improved total cholesterol. Will continue on lifestyle modifications on reducing high cholesterol foods in his diet. (5) Obese: Code(s): E66.9 - Obesity, unspecified Qualifiers: Obesity type: due to excess calories Obesity classification: adult class 1 (BMI 30 - 34.9) Serious obesity comorbidity presence: without serious comorbidity Body mass index: BMI 33.0-33.9 Qualified Code(s): E66.09 - Other obesity due to excess calories; Z68.33 - Body mass index [BMI] 33.0-33.9, adult Plan: Patient does understand his BMI is over 30 will work on being more physically active and adapting to better eating habits to reduce his weight Coding Level of Care Code Est Pt Level 4 (98030) Diagnoses Prostate cancer metastatic to bone C61; C79.51 Osteoarthritis, knee M17.0 Laterality: bilateral Osteoarthritis type: primary Pulmonary embolism I26.99 Acute cor pulmonale presence: without acute cor pulmonale Chronicity: acute Pulmonary embolism type: unspecified Borderline high cholesterol E78.9 Obese E66.09; Z68.33 Obesity type: due to excess calories Obesity classification: adult class 1 (BMI 30 - 34.9) Serious obesity comorbidity presence: without serious comorbidity Body mass index: BMI 33.0-33.9 Additional Codes TAMIR-7 Assessment Billing - TAMIR-7 Assessment Tool: TAMIR-7 Assessment 37200 ([id number])
== END 2022-11-10 16:38 | disposition home or self-care (01) ==
PROVIDERS: PCP Physician Assistant; Visit Provider Physician Assistant
DX: C61 Malignant neoplasm of prostate (principal); C79.51 Secondary malignant neoplasm of bone; E66.09 Other obesity due to excess calories; Z68.33 Body mass index [BMI] 33.0-33.9, adult; I26.99 Other pulmonary embolism without acute cor pulmonale; M17.0 Bilateral primary osteoarthritis of knee; E78.9 Disorder of lipoprotein metabolism, unspecified
CPT/HCPCS: 99214

== ENCOUNTER 2023-01-27 13:54 | Outpatient (REF) | payer MEDICARE, OTHER, SELFPAY ==
--- NOTE | ~2023-01-27 | MM_ITS ---
EXAMINATION: BONE DENSITOMETRY CLINICAL INDICATION: Adverse effect of unspecified hormone antagonists, initial encounter. COMPARISON: Previous BD dated 01/15/2021 and baseline BD dated 06/17/2019. TECHNIQUE: Using a [employer] DXA System (software version: 13.1) manufactured by [employer], dual-energy x-ray absorptiometry was performed of the lumbar spine and left hip. The images are of good technical quality. Summary results are attached. FINDINGS: LEFT FEMUR, NECK: Current: BMD 0.865 g/cm2, Z-score -0.8, T-score -1.6, osteopenia. Prior: BMD 0.942 g/cm2. Baseline: BMD 0.982 g/cm2. LEFT FEMUR, TOTAL: Current: BMD 0.903 g/cm2, Z-score -1.1, T-score -1.4, osteopenia, 10.1% decrease from previous, 15.4% decrease from baseline (<5% change is not significant). Prior: BMD 1.004 g/cm2. Baseline: BMD 1.067 g/cm2. AP SPINE L1-L3 (excluding L4): The data of L1-L4 has been changed to exclude the L4 vertebral body, because degenerative sclerosis at this level may cause overestimation of lumbar spine density. Current: BMD 0.908 g/cm2, Z-score -2.7, T-score -2.5, osteoporosis, 24.1% decrease from previous, 29.7% decrease from baseline (<5% change is not significant). Prior: BMD 1.196 g/cm2. Baseline: BMD 1.292 g/cm2. IDENTIFIED RISK FACTORS: Height loss, history of fracture (adult), secondary osteoporosis, glucocorticoids. HISTORY OF FRACTURE: Other. MEDICATIONS: ERT/SERMS. MM/XR DEXA axial skeleton IMPRESSION: 1. DIAGNOSIS: Osteoporosis based on the lowest T-score value of -2.5 in the lumbar spine applying World Health Organization criteria. 2. 10-YEAR FRACTURE RISK PREDICTION, FRAX: According to the guidelines, FRAX calculation should only be performed on patients in the osteopenia bone density category. Therefore, FRAX was not performed on this patient. 3. Treatment Recommendations: NOF guidelines recommend consideration for treatment in postmenopausal women and men age 50 and older presenting with the following: -A hip or vertebral (clinical or morphometric) fracture. -T-score less than or equal to -2.5 at the femoral neck or spine after appropriate evaluation to exclude secondary causes. -Low bone mass at the hip or spine and a 10-year fracture probability by FRAX of greater than or equal to 3% for hip fracture or greater than or equal to 20% for major osteoporotic fracture based on the [place] adapted WHO algorithm. 4. Other Recommendations: All treatment decisions require clinical judgment and consideration of individual patient factors, including patient preferences, comorbidities, previous drug use, risk factors not captured in the FRAX model (e.g. frailty, falls, vitamin D deficiency, increased bone turnover, interval significant decline in bone density) and possible under or overestimation of fracture risk by FRAX. Additional medical evaluation for secondary cause of low bone mineral density may be appropriate. FUTURE SCAN RECOMMENDATION: People with diagnosed cases of osteoporosis or at high risk for fracture should have regular bone mineral density tests. For patients eligible for Medicare, routine testing is allowed once every 2 years. The testing frequency can be increased to one year for patients who have rapidly progressing disease, those who are receiving or discontinuing medical therapy to restore bone mass, or have additional risk factors.
== END 2023-01-27 13:55 | disposition home or self-care (01) ==
LOC: HO.MAMMO 13:54
PROVIDERS: PCP Physician Assistant; Visit Provider Urology
DX: Z13.820 Encounter for screening for osteoporosis (principal); M85.80 Other specified disorders of bone density and structure, unspecified site; T38.905 Adverse effect of unspecified hormone antagonists; Z79.52 Long term (current) use of systemic steroids
CPT/HCPCS: 77080

== ENCOUNTER 2023-03-04 13:38 | Outpatient (AMB) | payer MEDICARE, OTHER, SELFPAY ==
[2023-03-04 13:42] VITALS: BP 100/70; PULSE 60; TEMP 36.1; O2SAT 95; BMI 35.4
--- NOTE | 2023-03-04 13:42 | MHC.OFFVIS ---
Intake Vital Signs 03/04/23 13:42 Height 5 ft 10 in Weight 246 lb 11.156 oz BMI 35.4 BP 100/70 Blood Pressure Location Lt brachial Position Sitting Pulse 60 Pulse Source Pulse Oximeter Temp 97 F Temp Source Skin Pulse Oximetry (%) 95 Oxygen Delivery Method Room Air Intake Visit Reasons: OA Intake Note: Pt last seen 11/07/22, presents today for follow up. Bl knee injection last visit. Workday Senior Associate Required: No Accompanied by: Self / Same As Patient Allergies Iodinated Contrast Media Allergy (Unknown, Verified 03/04/23 13:42) Unknown Lobster Allergy (Unknown, Verified 03/04/23 13:42) unknown Medication List - Last Reconciled 03/04/23 by Zehra Keene MD acetaminophen (Tylenol Extra Strength) 500 mg PO Q6H PRN apixaban (Eliquis) 5 mg PO BID diclofenac sodium 1% (Aspercreme Arthritis Pain) 2 grams topical QID hydroxyzine HCl 25 mg PO BEDTIME PRN omeprazole 20 mg PO Q OTHER DAY triamcinolone acetonide 0.1% 1 appl topical BID PRN HPI HPI Comments History of Present Illness Details 72-year-old male past medical history prostate cancer and bilateral knee osteoarthritis returns for follow-up. States that the bilateral knee steroid injection provided good relief and lasted 3-4 months. He is requesting repeat injections. Initial history: This is a 71-year-old male who presents for evaluation of bilateral knee and shoulder pain. Of note patient was diagnosed with prostate cancer a few years ago and was started on hormonal treatment and prednisone 10 mg daily for about 3 years, course of treatment was discontinued in December of 2021. Patient stated that he has lost 35 lb since stopping the treatment. The knee pain started soon after prednisone was stopped. His knee pain is worse with standing up and walking for longer distances. He is unaware of any swelling. He has tried physical therapy for his knees without improvement. He takes Tylenol which provided some relief, cannot take NSAIDs as he is on Eliquis for DVT. Also applies Aspercreme and CBD oil which provide some relief. Denies any significant morning stiffness. He believes that prednisone was masking the pain. He also has bilateral shoulder pain worse with any activity. He has difficulty golfing due to the shoulder pain. His father had psoriasis and psoriatic arthritis. Patient does not have psoriasis. Unaware of any family history of autoimmune rheumatic disease other than his father. 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 Daughter In good health Social History Household Members: Spouse Housing: House Do you presently have visiting nurse or other home services: No Alcohol intake: current Alcohol intake frequency: a few times a week Patient Tobacco Use Status: Never used Tobacco e-Cigarette/Vaping Use: Never Used Substance Use Type: Marijuana service: No Current occupational status: retired Cognitive needs: No Hearing needs: No Vision needs: Yes (glasses ) Review of Systems Musc Reports arthralgias and Reports stiffness Physical Exam Vital Signs: Last Vital Signs Temp 97 F 03/04/23 13:42 Pulse 60 03/04/23 13:42 BP 100/70 03/04/23 13:42 Pulse Ox 95 03/04/23 13:42 Oxygen Delivery Method Room Air 03/04/23 13:42 BMI result Body Mass Index 35.4 Office Procedures Joint Injection/Drain Joint Injection/Drain Primary Site: right knee Secondary Site: left knee Prep: site was prepped using sterile technique and ethochloride spray was applied Injected: 40 mg of, Kenalog and other (2 mL of 1% lidocaine) Approach Used: medial parapatellar Procedure: The patient tolerated the procedure well Coding Details: With the patient's consent the right knee was prepped with ChloraPrep and alcohol. The skin was anesthetized with 2 cc of 1% lidocaine. The knee was then injected with 40 mg of triamcinolone and 1 cc of I % lidocaine. The patient tolerated the procedure with no immediate adverse effects. With the patient's consent the left knee was prepped with ChloraPrep and alcohol. The skin was anesthetized with 2 cc of 1% lidocaine. The knee was then injected with 40 mg of triamcinolone and 1 cc of I % lidocaine. The patient tolerated the procedure with no immediate adverse effects. 63940 - Large joint (X2 ) Procedure code (CPT) selection complete Assessment & Plan Assessment & Plan (1) Osteoarthritis, knee: Comment: Bilateral Code(s): M17.9 - Osteoarthritis of knee, unspecified Qualifiers: Osteoarthritis type: primary Laterality: bilateral Qualified Code(s): M17.0 - Bilateral primary osteoarthritis of knee Plan: This is a 72-year-old male with bilateral knee osteoarthritis who presents for follow. Bilateral knee steroid injections done last visit helped for 3-4 months. Today patient is requesting repeat injections. With patient's consent, both knees were injected with Kenalog today. Follow-up in 4 months Plan I spent 16 minutes reviewing patient's chart, evaluating patient, counseling patient and documenting in the chart Orders: Orders AMB Joint Injection/Aspiration Today M17.9 - Osteoarthritis of knee, unspecified Coding Level of Care Code Est Pt Level 3 (19980) Diagnoses Primary osteoarthritis of both knees M17.0 Osteoarthritis type: primary Laterality: bilateral CPT Codes Coding - 11385 Large joint: 96584 - Large joint ([id number])
== END 2023-03-04 14:15 | disposition home or self-care (01) ==
PROVIDERS: PCP Physician Assistant; Visit Provider Student in an Organized Health Care Education/Training Program
DX: M17.0 Bilateral primary osteoarthritis of knee (principal)
CPT/HCPCS: 20610; 99213

== ENCOUNTER → 2023-03-04 13:38 | Outpatient (BNVA) | payer MEDICARE, OTHER, SELFPAY | PROVIDERS: PCP Physician Assistant; Visit Provider Student in an Organized Health Care Education/Training Program | DX: M17.0 Bilateral primary osteoarthritis of knee (principal) | CPT/HCPCS: 20610; 99212 ==

== ENCOUNTER 2023-04-17 13:17 | Outpatient (REF) | payer MEDICARE, OTHER, SELFPAY ==
[2023-04-17 15:10] LABS: Prostate Specific Antigen 2.64 ng/mL (<0.05-4.0)
[2023-04-21 15:32] LABS: Testosterone, Total 253 ng/dL (250-1100)
== END 2023-04-17 13:18 | disposition home or self-care (01) ==
LOC: HO.LAB 13:17
PROVIDERS: PCP Physician Assistant; Visit Provider Urology
DX: C61 Malignant neoplasm of prostate (principal); C79.51 Secondary malignant neoplasm of bone; Z12.5 Encounter for screening for malignant neoplasm of prostate
CPT/HCPCS: 36415; 84153; 84403

== ENCOUNTER 2023-05-01 09:41 | Outpatient (AMB) | payer MEDICARE, OTHER, SELFPAY ==
--- NOTE | 2023-05-01 09:41 | A.OFFVIS_ITS ---
Intake Intake Visit Reasons: PSA/Testosterone(set) Intake Note: Patient presents today for a follow-up Meds- None Allergies to Antibiotic- No Known Allergies Blood Thinner- Eliquis Program Planner Required: No Allergies Iodinated Contrast Media Allergy (Unknown, Verified 05/01/23 09:43) Unknown Lobster Allergy (Unknown, Verified 05/01/23 09:43) unknown HPI HPI Comments History of Present Illness Details Rohan godoy is a pleasant male. He is a patient Dr. Butterfield. He is seen for the following urologic conditions. - prostate cancer - metastatic Telemedicine Evaluation 15 min Consultation [facility] Video attempted Three-month follow-up Discussed DEXA result encourage Citracal Discussed PSA recurrence will reinitiate GnRH plus abiraterone at PSA threshold 4 Will obtain bone scan prior to next visit 04/22 PSA 2.6 T 253 DEXA Osteroporosis 10/19 PET-CT no metabolically active lymp h nodes, prostate active 06/19 GnRH P <0.1, T 7 Imagin. Interval development of subtle focal area of increased radiotracer activity is noted at the left frontal skull. 2. Interval development of mild increased radiotracer activity is noted at L4 to the left of the midline. 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 Diagnosis was reached by needle biopsy, for elevated PSA, PSA at diagnosis 19, size at TRUS 60cc. The Purdum grade is October 2018 - 03/10 cores Gl , 4+4 = 8, 4+5 = 9, 60- 90%, + PNI. TNM Classification of Malignant Tumours (TNM) T2b - palpable bilateral. The D'Amari (NCCN) risk category is High Risk (PSA > 20, Gl 8+, T3) - Group 5 on biopsy. Initial therapy included Primary treatment - bicalutamide, dutasteride, plan for GnRH 12/09/18 - GnRH 1xt dose given, stop bicalutamide in 7 days Recent labs included PSA 03/18 0.4 - T 03/18 <1 - 06/17 PSA .4, T <1, 12/18 PSA 0.3, T 6, 03/19 0.3, 06/18 0.2, 09/18 0.2, 12/19 0.15, 03/20 <0.1 Recent imaging included - 11/15 , a CT (computed tomography) scan - mild hydroureteronephrosis bilateral with 1cm sclerotic lesion in ileum, 1.5 cm iliac nodes, bladder wall thickening - 12/16 CT scan with bilateral mild to moderate hydroureteral nephrosis - 06/18 CT with minimal lymphadenopathy and resolution of majority of bone island sclerosis - 01/18 CT with no evidence of lymphadenopathy Dexa Scan - 06/16 NAD, 01/17 NAD Bone Scan - 12/16 , a bone scan sclerotic lesion on ileum and calvarium with scattered rib lesions - 12/17 bone scan. Improvement with sclerotic lesion on ileum and calvarium. Significant improvement compared to prior study. Renal ultrasound no evidence of calculus or bilateral hydronephrosis - 03/19 bone scan with overall relatively stable disease, question of subtle change on T1 - 12/19 bone scan with stable disease Associated conditions erectile dysfunction Yes hematuria No hot flashes Yes Therapeutic plan: Continue hormone therapy. 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 Lower Urinary Tract Symptoms: Doing well. Current visit is for further evaluation of, lower urinary tract symptoms, predominate obstructive symptoms. Prior treatments include 01/15 , procedure, laser procedure. Symptoms include 12/16 , nocturia (>2), weak stream, and are progressing. Prostate volume 50+gm. Treatment plan pvr each visit. [facility] Medical History [facility] systemic steroid user Tendinopathy of rotator cuff Eczema Anemia Pulmonary embolism Prostate cancer Surgical History History of cataract surgery History of colonoscopy History of endoscopy Family History Father CVD (cardiovascular disease) Cancer Heart problem Psoriatic arthritis Mother Hypertension Brother Prostate cancer Sister No problems noted. Daughter In good health Social History Household Members: Spouse Housing: House Do you presently have visiting nurse or other home services: No Alcohol intake: current Alcohol intake frequency: a few times a week Patient Tobacco Use Status: Never used Tobacco e-Cigarette/Vaping Use: Never Used Substance Use Type: Marijuana service: No Current occupational status: retired Cognitive needs: No Hearing needs: No Vision needs: Yes (glasses ) Review of Systems Const All systems reviewed & are unremarkable except as noted in HPI and below Reports no additional complaints Resp Reports no additional complaints GI Reports no additional complaints Reports as per HPI Musc Reports no additional complaints Physical Exam Telemedicine evaluation Appropriate responses Regular breathing rate and rhythm HEENT Head: Yes normal to inspection Ears: hearing grossly normal bilaterally Eyes General: appearance normal, both eyes and all related structures Neck Neck: Yes normal visual inspection Chest Chest palpation & inspection: normal inspection of the chest Resp Effort & Inspection: normal respiratory effort and able to speak in complete sentences Assessment & Plan Assessment & Plan (1) Osteoporosis due to androgen therapy: Code(s): M81.8 - Other osteoporosis without current pathological fracture; T38.7X5A - Adverse effect of androgens and anabolic congeners, initial encounter (2) Prostate cancer metastatic to bone: Comment: Group 5 metastatic to bone October 2018 Code(s): C61 - Malignant neoplasm of prostate; C79.51 - Secondary malignant neoplasm of bone Plan Three-month follow-up lab work, bone scan Orders: Orders NM bone scan whole body 3 Months C61 - Malignant neoplasm of prostate, C79.51 - Secondary malignant neoplasm of bone PSA,Total (Free>4and<10) 3 Months C61 - Malignant neoplasm of prostate, C79.51 - Secondary malignant neoplasm of bone Testosterone, Total 3 Months C61 - Malignant neoplasm of prostate, C79.51 - Secondary malignant neoplasm of bone Patient Instructions: Imaging studies, laboratory and physical exam results were discussed and reviewed in detail. No major barriers to patient understanding were identified. An opportunity to ask questions regarding the treatment plan was provided. All questions were answered. The patient expressed understanding and agreement with the above treatment plan. The patient is aware they should contact our office by phone for worsening of their current condition or the appearance of new urologic symptoms. Compliance is encouraged with any medications and followup testing that is ordered. It is a privilege to participate in the urologic care of your patient. If you have any questions or concerns regarding treatment for the above conditions, or other urologic issues, please do not hesitate to contact me. The office telephone contact is [phone]. This note is constructed using voice recognition software. While every effort has been made to ensure accuracy field assistant errors may have been included. Yours sincerely, Dr Sammy Ortega MD, [facility] - Urology Providers of Expert, Compassionate Care for the Genitourinary System Telehealth Telehealth Location of provider rendering services: practice address Location of patient: address on file Patient Identification confirmed using: Name, : Yes Telehealth method: video Patient verbally consented to treatment: Yes Patient verbally consented to billing insurance company: Yes Patient informed of any privacy concerns related to visit: Yes Coding Level of Care Code Tele Est Pt Level 4 (39111) Diagnoses Osteoporosis due to androgen therapy M81.8; T38.7X5A Prostate cancer metastatic to bone C61; C79.51
== END 2023-05-01 11:27 | disposition home or self-care (01) ==
LOC: HO.HUSH 09:41
PROVIDERS: PCP Physician Assistant; Visit Provider Urology
DX: M81.8 Other osteoporosis without current pathological fracture (principal); T38.7X5A Adverse effect of androgens and anabolic congeners, initial encounter; C61 Malignant neoplasm of prostate; C79.51 Secondary malignant neoplasm of bone
CPT/HCPCS: 99213

== ENCOUNTER → 2023-05-01 09:41 | Outpatient (BNVA) | payer MEDICARE, OTHER, SELFPAY | PROVIDERS: PCP Physician Assistant; Visit Provider Urology ==

== ENCOUNTER 2023-05-12 10:09 | Outpatient (AMB) | payer MEDICARE, OTHER, SELFPAY ==
[2023-05-12 10:05] VITALS: BMI 34.7
--- NOTE | 2023-05-12 10:05 | MHC.PC.OV ---
Vital Signs 05/12/23 10:05 Height 5 ft 10 in Weight 242 lb BMI 34.7 Intake Visit Reasons: 6 month f/u Airline Pilot/First Officer Required: No Accompanied by: Self / Same As Patient Allergies Iodinated Contrast Media Allergy (Unknown, Verified 05/12/23 10:32) Unknown Lobster Allergy (Unknown, Verified 05/12/23 10:32) unknown Medication List - Last Reconciled 05/12/23 by Celso Butterfield PA-C acetaminophen (Tylenol Extra Strength) 500 mg PO Q6H PRN apixaban (Eliquis) 5 mg PO BID diclofenac sodium 1% (Aspercreme Arthritis Pain) 2 grams topical QID hydroxyzine HCl 25 mg PO BEDTIME PRN omeprazole 20 mg PO Q OTHER DAY triamcinolone acetonide 0.1% 1 appl topical BID PRN Tobacco use date assessed: 05/12/23 Fall risk assessment: No Falls in past year Last assessed Fall Risk: 05/12/23 Dental Screening Dental Screen Date: 05/12/23 Did you have a dental visit in the last 12 months?: No Did you have a dental problem in the last 6 months where you did not have access to dental care?: No Was dental information given to patient?: Patient has dentist HPI 6 month f/u HPI Details Patient is a 72-year-old male being evaluated today via telephone only.? Patient has a past medical history significant for borderline high total cholesterol, prostate cancer, obesity, history of diverticulitis, history of pulmonary embolism. Lateral knee Arthritis: Has recently seen gas manager has gotten cortisone injections and reports his knees feel much better. Has been more mobile. .. Prostate cancer:? Patient continues to follow urologist and oncologist. Has metastatic disease.? Testosterone levels are followed, has been taken off of hormone treatment. Most recent PSA at 2. Testosterone levels above 200. Continues to be followed at [facility] as well. .. Pulmonary embolism:? Had a venous embolism in 2020 and was thus placed on anticoagulation.? Unclear if this was provoked by active malignancy verses unprovoked.? Will continue indefinitely on anticoagulation. He denies any overt signs of bleeding . Borderline Hyperlipidemia: Patient's most recent fasting lipid panel showing total cholesterol much improved at 201.? He has been working on lifestyle modifications to reduce his cholesterol.? Of note has been able to lose weight .. Laboratory Tests 09/25/22 04/17/23 04/17/23 10:57 13:25 13:25 Cholesterol 201 Prostate Specific Ag 2.64 Total Testosterone 253 PFSH Medical History (Updated 05/12/23 @ 10:41 by Celso Butterfield PA-C) Eczema nursing home systemic steroid user Tendinopathy of rotator cuff Anemia Pulmonary embolism Prostate cancer Surgical History History of cataract surgery History of colonoscopy History of endoscopy Family History Father CVD (cardiovascular disease) Cancer Heart problem Psoriatic arthritis Mother Hypertension Brother Prostate cancer Sister No problems noted. Daughter In good health Social History Household Members: Spouse Housing: House Do you presently have visiting nurse or other home services: No Alcohol intake: current Alcohol intake frequency: a few times a week Patient Tobacco Use Status: Never used Tobacco e-Cigarette/Vaping Use: Never Used Substance Use Type: Marijuana service: No Current occupational status: retired Cognitive needs: No Hearing needs: No Vision needs: Yes (glasses ) Questionnaire PHQ-9 Over the last 2 weeks, how often have you been bothered by any of the following problems? 1. Little interest or pleasure in doing things: not at all 2. Feeling down, depressed, or hopeless: not at all 3. Trouble falling or staying asleep, or sleeping too much: not at all 4. Feeling tired or having little energy: not at all 5. Poor appetite or overeating: not at all 6. Feeling bad about yourself - or that you are a failure or have let yourself or your family down: not at all 7. Trouble concentrating on things, such as reading the newspaper or watching television: not at all 8. Moving or speaking so slowly that other people could have noticed. Or the opposite - being so fidgety or restless that you have been moving around a lot more than usual: not at all 9. Thoughts that you would be better off or of hurting yourself in some way: not at all Total score: 0 Depression Screening Interpretation: Negative Depression Screening Done: Yes 12199 - PHQ-9 Billing: Yes Source: Developed by Drs. Cullen Carlos, Pearl Pantoja, Primo Girard and colleagues, with an educational tarsha from [employer]. Thrive Questionnaire Date Thrive assessed: 05/12/23 I am a: Patient What is your living situation today?: I have a steady place to live Within the past 12 months, did the food you bought not last and you didn't have the money to get more?: Never true Within the past 12 months, did you worry whether your food would run out before you got money to buy more?: Never true Do you have trouble paying for medicines?: No Do you have trouble getting transportation to medical appointments?: No Do you have trouble paying your heating and electricity bill?: No Do you have trouble taking care of your child, family member or friend?: No Do you have trouble with day-to-day activities such as bathing, preparing meals, shopping, managing finances, etc.?: No Are you currently unemployed and looking for a job?: No Are you interested in more education?: No Please select the resources that you would like help with: None Currently or been in a relationship where the following occur: no concerns reported THRIVE Score: 0 AUDIT C Alcohol Use Questionnaire (AUDIT-C) 1. How often do you have a drink containing alcohol?: 2-3 times a week 2. How many drinks containing alcohol do you have on a typical day when you are drinking?: 1 or 2 3. How often do you have six or more drinks on one occasion?: Never Total Score: 3 TAMIR-7 AMB Questionnaire TAMIR-7 Date TAMIR - 7 assessed: 05/12/23 Feeling nervous, anxious, or on edge: 0 = Not at all Not being able to stop or control worryin = Not at all Worrying too much about different things: 0 = Not at all Trouble relaxin = Not at all Being so restless that it is hard to sit still: 0 = Not at all Becoming easily annoyed or irritable: 0 = Not at all Feeling afraid as if something awful might happen: 0 = Not at all Total TAMIR-7 score (0-4 normal; 5-9 mild; 10-14 moderate; 15-21 severe): 0 Source: Developed by Drs. Cullen Carlos, Pearl Pantoja, Primo Girard and colleagues, with an educational tarsha from [employer]. TAMIR-7 Assessment Billing TAMIR-7 Assessment Tool: TAMIR-7 Assessment 76973 Review of Systems Const Denies headache(s) Eyes Denies loss of vision ENT Denies vertigo, Denies dizziness, Denies headache(s) and Denies sore throat Card Denies chest pain, Denies leg edema and Denies lightheadedness Resp Denies cough, Denies hemoptysis and Denies wheezing GI Denies abdominal pain, Denies melena, Denies constipation, Denies diarrhea and Denies vomiting Denies dysuria, Denies urinary frequency and Denies urinary urgency Musc Denies arthralgias, Denies joint swelling, Denies numbness and Denies tingling Neuro Denies behavioral changes, Denies vertigo, Denies dizziness, Denies headache(s), Denies loss of vision, Denies memory loss, Denies numbness and Denies tingling Psych Denies anxiety, Denies behavioral changes, Denies depression, Denies memory loss and Denies panic attacks Néstor/Lymph Denies easy bleeding and Denies easy bruising Aller/Immun Denies wheezing Physical exam (Primary Care) BMI result Body Mass Index 34.7 Tobacco/Smoking Status: Tobacco use Status Tobacco use date assessed 05/12/23 05/12/23 10:08 Patient Tobacco Use Status Never used Tobacco 05/12/23 10:08 e-Cigarette/Vaping Use Never Used 05/12/23 10:08 PHQ-9: PHQ-9 Score PHQ-9: Total score 0 05/12/23 10:34 Depression Screening Interpretation: Negative Thrive Assessment: Date of Thrive Assessment Date Thrive assessed 05/12/23 05/12/23 10:08 Currently or been in a relationship where the following occur: no concerns reported Telehealth Telehealth Location of provider rendering services: practice address Location of patient: address on file Patient Identification confirmed using: Name, : Yes Telehealth method: voice only Patient verbally consented to treatment: Yes Patient verbally consented to billing insurance company: Yes Patient informed of any privacy concerns related to visit: Yes Minutes spent on Phone/Video with Pt.: 11 Assessment and Plan Assessment & Plan (1) Prostate cancer metastatic to bone: Comment: Group 5 metastatic to bone October 2018 Code(s): C61 - Malignant neoplasm of prostate; C79.51 - Secondary malignant neoplasm of bone Plan: Patient continues to follow urology for his prostate cancer with metastatic bone lesion. Cancer found to be hormone positive. He has been taken off of hormone treatment. Most recent PSA slightly elevated and testosterone level above 200 He will be following up with [facility] [place] as well in near future. (2) Osteoarthritis, knee: Comment: Bilateral Code(s): M17.9 - Osteoarthritis of knee, unspecified Qualifiers: Laterality: bilateral Osteoarthritis type: primary Qualified Code(s): M17.0 - Bilateral primary osteoarthritis of knee Plan: Patient reports his knees feel much better after cortisone injections. (3) Pulmonary embolism: Code(s): I26.99 - Other pulmonary embolism without acute cor pulmonale Qualifiers: Acute cor pulmonale presence: without acute cor pulmonale Chronicity: acute Pulmonary embolism type: unspecified Qualified Code(s): I26.99 - Other pulmonary embolism without acute cor pulmonale Plan: Unclear of provoked pulmonary embolism in 2020(active malignancy). Continues on Eliquis indefinitely at this time. He denies any overt signs of bleeding. (4) Borderline high cholesterol: Code(s): E78.9 - Disorder of lipoprotein metabolism, unspecified Plan: Patient's most recent fasting lipid panel showing much improved total cholesterol. Will continue on lifestyle modifications on reducing high cholesterol foods in his diet. (5) Eczema: Code(s): L30.9 - Dermatitis, unspecified Qualifiers: Eczema type: intrinsic Qualified Code(s): L20.84 - Intrinsic (allergic) eczema Plan: Would like a refill on a steroid cream Orders: Orders Lipid Panel Today E78.9 - Disorder of lipoprotein metabolism, unspecified Comprehensive [place]. Panel Fast Today Z13.1 - Encounter for screening for diabetes mellitus Complete Blood Count no Diff Today Z13.1 - Encounter for screening for diabetes mellitus Medications: Changed From triamcinolone acetonide 0.1% 1 appl topical BID PRN L29.9 - Pruritus, unspecified, L30.9 - Dermatitis, unspecified To triamcinolone acetonide 0.1% 1 appl topical BID 30 days 80 grams 1RF L29.9 - Pruritus, unspecified, L30.9 - Dermatitis, unspecified Refilled apixaban (Eliquis) 5 mg PO BID 180 tabs 2RF Coding Level of Care Code Tele Est Pt Level 4 (06531) Diagnoses Prostate cancer metastatic to bone C61; C79.51 Primary osteoarthritis of both knees M17.0 Laterality: bilateral Osteoarthritis type: primary Acute pulmonary embolism without acute cor pulmonale, unspecified pulmonary embolism type I26.99 Acute cor pulmonale presence: without acute cor pulmonale Chronicity: acute Pulmonary embolism type: unspecified Borderline high cholesterol E78.9 Intrinsic eczema L20.84 Eczema type: intrinsic Additional Codes TAMIR-7 Assessment Billing - TAMIR-7 Assessment Tool: TAMIR-7 Assessment [id number] ([id number])
== END 2023-05-12 11:15 | disposition home or self-care (01) ==
PROVIDERS: PCP Physician Assistant; Visit Provider Physician Assistant
DX: C61 Malignant neoplasm of prostate (principal); C79.51 Secondary malignant neoplasm of bone; I26.99 Other pulmonary embolism without acute cor pulmonale; M17.0 Bilateral primary osteoarthritis of knee; E78.9 Disorder of lipoprotein metabolism, unspecified; L20.84 Intrinsic (allergic) eczema
CPT/HCPCS: 99442

== ENCOUNTER 2023-07-07 14:01 | Outpatient (AMB) | payer MEDICARE, OTHER, SELFPAY ==
[2023-07-07 14:09] VITALS: BP 132/68; PULSE 62; O2SAT 97; BMI 35.4
--- NOTE | 2023-07-07 14:09 | A.OFFVIS_ITS ---
Intake Vital Signs 07/07/23 14:09 Height 5 ft 10 in Weight 246 lb 14.684 oz BMI 35.4 BP 132/68 Blood Pressure Location Rt brachial Position Sitting Pulse 62 Pulse Source Pulse Oximeter Pulse Oximetry (%) 97 Oxygen Delivery Method Room Air Intake Visit Reasons: OA/unable to reached Intake Note: Patient last seen 03/04/23 presents today for follow up. 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 Accompanied by: Self / Same As Patient Allergies Iodinated Contrast Media Allergy (Unknown, Verified 07/07/23 14:12) Unknown Lobster Allergy (Unknown, Verified 07/07/23 14:12) unknown Medication List - Last Reconciled 07/07/23 by Zehra Keene MD acetaminophen (Tylenol Extra Strength) 500 mg PO Q6H PRN apixaban (Eliquis) 5 mg PO BID diclofenac sodium 1% (Aspercreme Arthritis Pain) 2 grams topical QID hydroxyzine HCl 25 mg PO BEDTIME PRN omeprazole 20 mg PO Q OTHER DAY triamcinolone acetonide 0.1% 1 appl topical BID 30 days HPI HPI Comments History of Present Illness Details 72-year-old male past medical history pr ostate cancer and bilateral knee osteoarthritis returns for follow-up. States that the bilateral knee steroid injection provided good relief and lasted 3 months. He is requesting repeat injections. Initial history: This is a 71-year-old male who presents for evaluation of bilateral knee and shoulder pain. Of note patient was diagnosed with prostate cancer a few years ago and was started on hormonal treatment and prednisone 10 mg daily for about 3 years, course of treatment was discontinued in December of 2021. Patient stated that he has lost 35 lb since stopping the treatment. The knee pain started soon after prednisone was stopped. His knee pain is worse with standing up and walking for longer distances. He is unaware of any swelling. He has tried physical therapy for his knees without improvement. He takes Tylenol which provided some relief, cannot take NSAIDs as he is on Eliquis for DVT. Also applies Aspercreme and CBD oil which provide some relief. Denies any significant morning stiffness. He believes that prednisone was masking the pain. He also has bilateral shoulder pain worse with any activity. He has difficulty golfing due to the shoulder pain. His father had psoriasis and psoriatic arthritis. Patient does not have psoriasis. Unaware of any family history of autoimmune rheumatic disease other than his father. 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 Daughter In good health Social History Household Members: Spouse Housing: House Do you presently have visiting nurse or other home services: No Alcohol intake: current Alcohol intake frequency: a few times a week Patient Tobacco Use Status: Never used Tobacco e-Cigarette/Vaping Use: Never Used Substance Use Type: Marijuana service: No Current occupational status: retired Cognitive needs: No Hearing needs: No Vision needs: Yes (glasses ) Review of Systems [facility] [place]ralgias and Reports stiffness Physical Exam Vital Signs: Last Vital Signs Pulse 62 07/07/23 14:09 BP 132/68 07/07/23 14:09 Pulse Ox 97 07/07/23 14:09 Oxygen Delivery Method Room Air 07/07/23 14:09 BMI result Body Mass Index 35.4 Const General: cooperative, healthy appearing and comfortable Nutritional Appearance: obese Orientation/consciousness: patient oriented x3 Limitations: no limitations HEENT Head: Yes normocephalic and Yes atraumatic Resp Effort & Inspection: normal respiratory effort and able to speak in complete sentences Neuro General: patient oriented x3 Extrem Other: Bilateral knee pain with full flexion No swollen or tender joints Patient is kyphotic Office Procedures Joint Injection/Drain Joint Injection/Drain Primary Site: right knee Secondary Site: left knee Prep: site was prepped using sterile technique and ethochloride spray was applied Injected: 40 mg of, Kenalog and other (2 mL of 1% lidocaine) Approach Used: medial parapatellar Procedure: The patient tolerated the procedure well Coding Details: With the patient's consent the right knee was prepped with ChloraPrep and alcohol. The skin was anesthetized with 2 cc of 1% lidocaine. The knee was then injected with 40 mg of triamcinolone and 1 cc of I % lidocaine. The patient tolerated the procedure with no immediate adverse effects. Then, the left knee was prepped with ChloraPrep and alcohol. The skin was anesthetized with 2 cc of 1% lidocaine. The knee was then injected with 40 mg of triamcinolone and 1 cc of I % lidocaine. The patient tolerated the procedure with no immediate adverse effects. 74510 - Large joint (Large joint x2) Procedure code (CPT) selection complete Assessment & Plan Assessment & Plan (1) Osteoarthritis, knee: Comment: Bilateral Code(s): M17.9 - Osteoarthritis of knee, unspecified Qualifiers: Osteoarthritis type: primary Laterality: bilateral Qualified Code(s): M17.0 - Bilateral primary osteoarthritis of knee Plan: This is a 72-year-old male with bilateral knee osteoarthritis who presents for follow. Bilateral knee steroid injections done last visit helped for 3 months. Today patient is requesting repeat injections. Patient has not had any side effects related to injections previously. With patient's consent, both knees were injected with Kenalog today. Follow-up in 3-4 months Plan I spent 16 minutes reviewing patient's chart, evaluating patient, counseling patient and documenting in the chart Orders: Orders AMB Joint Injection/Aspiration Today M17.0 - Bilateral primary osteoarthritis of knee Coding Level of Care Code Est Pt Level 3 (41279) Diagnoses Primary osteoarthritis of both knees M17.0 Osteoarthritis type: primary Laterality: bilateral CPT Codes Coding - 03145 Large joint: 66452 - Large joint ([id number])
== END 2023-07-07 14:38 | disposition home or self-care (01) ==
PROVIDERS: PCP Physician Assistant; Visit Provider Student in an Organized Health Care Education/Training Program
DX: M17.0 Bilateral primary osteoarthritis of knee (principal)
CPT/HCPCS: 20610; 99213

== ENCOUNTER → 2023-07-07 14:01 | Outpatient (BNVA) | payer MEDICARE, OTHER, SELFPAY | PROVIDERS: PCP Physician Assistant; Visit Provider Student in an Organized Health Care Education/Training Program | DX: M17.0 Bilateral primary osteoarthritis of knee (principal) | CPT/HCPCS: 20610; 99212 ==

== ENCOUNTER → 2023-07-14 10:56 | Outpatient (REF) | payer MEDICARE, OTHER, SELFPAY ==
--- NOTE | ~2023-07-14 | NM_ITS ---
EXAMINATION: NM BONE SCAN OF THE WHOLE BODY CLINICAL INFORMATION: Prostate cancer metastatic to bone. COMPARISON: Multiple prior bone scans are available for comparison, the most recent dated 06/19/2022. No recent radiographs TECHNIQUE: Multiple gamma scintillation camera images of the whole body were performed 2.5 hours following the intravenous administration of 37 mCi Tc-99m MDP. FINDINGS: In the head, at least 2 discrete foci of abnormal activity are present in the calvarium, the most intense just anterior to the skull vertex in the right frontoparietal skull. An additional prominent abnormality is present in the left frontal skull. There is an additional subtle abnormality in the right posterior parietal region adjacent to the lateral aspect of the lambdoidal suture on the right. This is difficult to localize and may be due to bone agent uptake in the underlying cerebral cortex. Additional mild abnormality is suggested in the clivus, but this is also difficult to localize and may be due to increased activity in the overlying temporomandibular joints bilaterally, and the latter is suggested on the anterior view of the skull. There are additional small foci bilaterally in the mandible which are likely due to dental disease. In the thoracic cage and upper extremities, a few small mild rib abnormalities are present. The most prominent of these is in the posterior medial aspect of the right 10th rib but there are additional foci of mildly increased activity in adjacent regions of the posterior left eighth and ninth ribs, and in the anterolateral aspect of the left seventh rib. There is an additional focus of mildly increased activity in the medial shaft of the left clavicle. Very mildly increased activity in the acromioclavicular joints bilaterally is present and is likely arthritic. In the spine, there is a minimal well compensated S-shaped thoracolumbar scoliosis with lumbar convexity to the left. There is a focus of mildly increased activity in the right posterior elements of the lower cervical spine, probably due to facet arthropathy. Is also minimally increased activity in the left side of L4 and L5, probably in the posterior elements. In the pelvis, no definite abnormalities are present. In the lower extremities, no definite abnormalities are present. No other definite bony abnormalities are noted. The urinary bladder and faint visualization of both kidneys are noted. Compared to the previous bone scan dated 06/19/2022 the ribbon calvarial abnormalities are new. However the baseline bone scan dated 12/02/2018 showed intense abnormalities at correspond to the calvarial abnormalities described above as well as several additional abnormalities not present on the current study. The rib abnormalities were all present previously. In addition, not present on the current study wasn't intense abnormality in the left side of the lower sternum, several pelvic lesions, and the lesion in the proximal right femur. A lesion in the mid to medial shaft of the left clavicle was also present on this study and is now much less intense and smaller in size. NM/NM bone scan whole body IMPRESSION: Recurrent metastatic tumor involvement of bone. There has been a significant but mild progression in the bone scan appearance since the most recent 06/19/2022 study. All of the lesions on the current study were present on the baseline 12/02/2018 study, and many other lesions present on that study have now resolved, and all of the current lesions are significantly less intense than on that study.
== END ==
LOC: HO.NUCMED 10:56
PROVIDERS: PCP Physician Assistant; Visit Provider Urology
DX: C61 Malignant neoplasm of prostate (principal); C79.51 Secondary malignant neoplasm of bone
CPT/HCPCS: 78306; A9503

== ENCOUNTER 2023-07-23 13:46 | Outpatient (REF) | payer MEDICARE, OTHER, SELFPAY ==
[2023-07-23 16:36] LABS: PSA,Total (Free>4and<10) 6.02 ng/mL (0.00-4.00)
[2023-07-27 10:38] LABS: Free Prostate Spec Ag 0.7 ng/mL; Percent Free Prostate Spec Ag 15 % (calc) (>25); Prostate Specific Ag Total 4.8 ng/mL (< OR = 4.0)
[2023-07-28 02:03] LABS: Testosterone, Total 300 ng/dL (250-1100)
== END 2023-07-23 13:47 | disposition home or self-care (01) ==
LOC: HO.LAB 13:46
PROVIDERS: PCP Physician Assistant; Visit Provider Urology
DX: C61 Malignant neoplasm of prostate (principal); C79.51 Secondary malignant neoplasm of bone; Z12.5 Encounter for screening for malignant neoplasm of prostate
CPT/HCPCS: 36415; 84153; 84154; 84403

== ENCOUNTER 2023-07-31 14:35 | Outpatient (AMB) | payer MEDICARE, OTHER, SELFPAY ==
--- NOTE | 2023-07-31 14:45 | MHC.OFFVIS ---
Intake Visit Reasons: 3m/bone scan/labs(Pending) Intake Note: Patient is Present for Follow Up Urology Medication: none Antibiotic Allergies:none Blood Thinners:Eliquis Allergies Iodinated Contrast Media Allergy (Unknown, Verified 07/07/23 14:12) Unknown Lobster Allergy (Unknown, Verified 07/07/23 14:12) unknown Medication List - Last Reconciled 07/31/23 by Sammy Ortega MD abiraterone 1,000 mg (4 x 250 mg) PO DAILY 30 days acetaminophen (Tylenol Extra Strength) 500 mg PO Q6H PRN apixaban (Eliquis) 5 mg PO BID diclofenac sodium 1% (Aspercreme Arthritis Pain) 2 grams topical QID hydroxyzine HCl 25 mg PO BEDTIME PRN omeprazole 20 mg PO Q OTHER DAY prednisone 2.5 mg PO BID 30 days triamcinolone acetonide 0.1% 1 appl topical BID 30 days HPI Comments Details: Rohan godoy is a pleasant male. He is a patient Dr. Butterfield. He is seen for the following urologic conditions. 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 There has been a significant but mild progression in the bone scan appearance since the most recent 06/19/2022 study 18 months since completed therapy 04/22 PSA 2.6 T 253 DEXA Osteroporosis 10/19 PET-CT no metabolically active lymph nodes, prostate active 06/19 GnRH P <0.1, T 7 Imagin. Interval development of subtle focal area of increased radiotracer activity is noted at the left frontal skull. 2. Interval development of mild increased radiotracer activity is noted at L4 to the left of the midline. 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 Diagnosis was reached by needle biopsy, for elevated PSA, PSA at diagnosis 19, size at TRUS 60cc. The Dutton grade is October 2018 - 03/10 cores Gl , 4+4 = 8, 4+5 = 9, 60-90%, + PNI. TNM Classification of Malignant Tumours (TNM) T2b - palpable bilateral. The D'Amari (NCCN) risk category is High Risk (PSA > 20, Gl 8+, T3) - Group 5 on biopsy. Initial therapy included Primary treatment - bicalutamide, dutasteride, plan for GnRH 12/09/18 - GnRH 1xt dose given, stop bicalutamide in 7 days Recent labs included PSA 03/18 0.4 - T 03/18 <1 - 06/17 PSA .4, T <1, 12/18 PSA 0.3, T 6, 03/19 0.3, 06/18 0.2, 09/18 0.2, 12/19 0.15, 03/20 <0.1 Recent imaging included - 11/15 , a CT (computed tomography) scan - mild hydroureteronephrosis bilateral with 1cm sclerotic lesion in ileum, 1.5 cm iliac nodes, bladder wall thickening - 12/16 CT scan with bilateral mild to moderate hydroureteral nephrosis - 06/18 CT with minimal lymphadenopathy and resolution of majority of bone island sclerosis - 01/18 CT with no evidence of lymphadenopathy Dexa Scan - 06/16 NAD, 01/17 NAD Bone Scan - 12/16 , a bone scan sclerotic lesion on ileum and calvarium with scattered rib lesions - 12/17 bone scan. Improvement with sclerotic lesion on ileum and calvarium. Significant improvement compared to prior study. Renal ultrasound no evidence of calculus or bilateral hydronephrosis - 03/19 bone scan with overall relatively stable disease, question of subtle change on T1 - 12/19 bone scan with stable disease Associated conditions erectile dysfunction Yes hematuria No hot flashes Yes Therapeutic plan: Continue hormone therapy. 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 Lower Urinary Tract Symptoms: Doing well. Current visit is for further evaluation of, lower urinary tract symptoms, predominate obstructive symptoms. Prior treatments include 01/15 , procedure, laser procedure. Symptoms include 12/16 , nocturia (>2), weak stream, and are progressing. Prostate volume 50+gm. Treatment plan pvr each visit. 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 Daughter In good health Social History Household Members: Spouse Housing: House Do you presently have visiting nurse or other home services: No Alcohol intake: current Alcohol intake frequency: a few times a week Patient Tobacco Use Status: Never used Tobacco e-Cigarette/Vaping Use: Never Used Substance Use Type: Marijuana service: No Current occupational status: retired Cognitive needs: No Hearing needs: No Vision needs: Yes (glasses ) Review of Systems Const Denies chills and Denies fever(s) Card Reports no additional complaints and Denies syncope Resp Denies cough GI Denies abdominal pain and Denies heartburn Reports as per HPI and Denies change in libido Neuro Denies syncope Psych Denies change in libido Endo Denies change in libido Physical Exam Const General: cooperative, healthy appearing, comfortable and no acute distress Orientation/consciousness: patient oriented x3 HEENT Face and sinus: Yes normal facial exam Mouth: moist mucous membranes Neck Neck: Yes normal visual inspection, Yes full ROM and Yes trachea midline Chest Chest palpation & inspection: normal inspection of the chest Resp Effort & Inspection: normal respiratory effort, able to speak in complete sentences and no respiratory distress GI Inspection: Yes normal to inspection Back/Spine/Pelvis Cervical Spine: normal cervical lordosis Thoracic/Lumbar Spine: thoracic and lumbar spine normal to inspection Skin General skin exam: no rashes or lesions noted Neuro General: patient oriented x3, gait normal, tone normal and moves all extremities Extrem General: Yes normal to inspection and Yes capillary refill normal Assessment & Plan Assessment & Plan (1) Osteoporosis due to androgen therapy: Code(s): M81.8 - Other osteoporosis without current pathological fracture; T38.7X5A - Adverse effect of androgens and anabolic congeners, initial encounter Category: Medical (2) Prostate cancer metastatic to bone: Comment: Group 5 metastatic to bone October 2018 Code(s): C61 - Malignant neoplasm of prostate; C79.51 - Secondary malignant neoplasm of bone Category: Medical Plan Restart GnRH Abiraterone with prednisone Xgeva Medications: New abiraterone must be taken on empty stomach, at least 1 hr before or 2 hrs after a meal/food 1,000 mg (4 x 250 mg) PO DAILY 30 days 120 tabs 5RF C61 - Malignant neoplasm of prostate, C79.51 - Secondary malignant neoplasm of bone, R97.21 - Rising PSA following treatment for malignant neoplasm of prostate prednisone 2.5 mg PO BID 30 days 60 tabs 5RF C61 - Malignant neoplasm of prostate, C79.51 - Secondary malignant neoplasm of bone Patient Instructions: Imaging studies, laboratory and physical exam results were discussed and reviewed in detail. No major barriers to patient understanding were identified. An opportunity to ask questions regarding the treatment plan was provided. All questions were answered. The patient expressed understanding and agreement with the above treatment plan. The patient is aware they should contact our office by phone for worsening of their current condition or the appearance of new urologic symptoms. Compliance is encouraged with any medications and followup testing that is ordered. It is a privilege to participate in the urologic care of your patient. If you have any questions or concerns regarding treatment for the above conditions, or other urologic issues, please do not hesitate to contact me. The office telephone contact is [phone]. This note is constructed using voice recognition software. While every effort has been made to ensure accuracy commercial carpet installer errors may have been included. Yours sincerely, Dr Sammy Ortega MD, [facility] - Urology Providers of Expert, Compassionate Care for the Genitourinary System Coding Level of Care Code Est Pt Level 4 (08056) Diagnoses Osteoporosis due to androgen therapy M81.8; T38.7X5A Prostate cancer metastatic to bone C61; C79.51
== END 2023-07-31 15:24 | disposition home or self-care (01) ==
PROVIDERS: PCP Physician Assistant; Visit Provider Urology
DX: C61 Malignant neoplasm of prostate (principal); C79.51 Secondary malignant neoplasm of bone; M81.8 Other osteoporosis without current pathological fracture; T38.7X5A Adverse effect of androgens and anabolic congeners, initial encounter
CPT/HCPCS: 99214

== ENCOUNTER → 2023-07-31 14:35 | Outpatient (BNVA) | payer MEDICARE, OTHER, SELFPAY | PROVIDERS: PCP Physician Assistant; Visit Provider Urology | DX: C61 Malignant neoplasm of prostate (principal); C79.51 Secondary malignant neoplasm of bone; M81.8 Other osteoporosis without current pathological fracture; T38.7X5A Adverse effect of androgens and anabolic congeners, initial encounter | CPT/HCPCS: 99212 ==

== ENCOUNTER 2023-08-18 13:26 | Outpatient (AMB) | payer MEDICARE, OTHER, SELFPAY ==
--- NOTE | 2023-08-18 13:36 | AM.OFFVISNUR ---
Intake Intake Visit Reasons: GnRH/Xgeva(PA Set) Allergies Iodinated Contrast Media Allergy (Unknown, Verified 07/07/23 14:12) Unknown Lobster Allergy (Unknown, Verified 07/07/23 14:12) unknown Office Meds Xgeva 120 mg/1.7 mL (70 mg/mL) subcutaneous solution Performing Provider: Sammy Ortega MD Performing Location: [facility] [place] [facility] Administered by: Paulina Polanco RN on 08/18/23 13:46 Dose Route Admin Location Dispensed Lot Number Expiration Date [facility] Electric Cell Tender 120 mg subcut left arm 1.7 mL [id number] 09/26/25 95984-038-07 [employer]GEN Eligard (6 month) 45 mg (6 month) subcutaneous syringe Performing Provider: Sammy Ortega MD Performing Location: [facility] [place] [facility] Administered by: Paulina Polanco RN on 08/18/23 13:46 Dose Route Admin Location Dispensed Lot Number Expiration Date [facility] Electric Cell Tender 45 mg subcut right arm 45 mg [id number] 07/29/23 01803-322-34 [employer]. Coding Assessment & Plan Assessment & Plan Orders: Orders AMB Denosumab Injection Practice Supplied Today C61 - Malignant neoplasm of prostate, C79.51 - Secondary malignant neoplasm of bone, M81.8 - Other osteoporosis without current pathological fracture, T38.7X5A - Adverse effect of androgens and anabolic congeners, initial encounter AMB Leuprolide Injection - Practice Supplied Today C61 - Malignant neoplasm of prostate, C79.51 - Secondary malignant neoplasm of bone Medications: New Eligard (6 month) (leuprolide acetate (6 month)) 45 mg subcut ONCE 1 ea 0RF NS C61 - Malignant neoplasm of prostate, C79.51 - Secondary malignant neoplasm of bone Xgeva (denosumab) 120 mg (1.7 mL) subcut ONCE 1.7 mL 0RF NS C61 - Malignant neoplasm of prostate, C79.51 - Secondary malignant neoplasm of bone, M81.8 - Other osteoporosis without current pathological fracture, T38.7X5A - Adverse effect of androgens and anabolic congeners, initial encounter
== END 2023-08-18 13:58 | disposition home or self-care (01) ==
PROVIDERS: PCP Physician Assistant; Visit Provider Urology
DX: M81.8 Other osteoporosis without current pathological fracture (principal); T38.7X5A Adverse effect of androgens and anabolic congeners, initial encounter; C61 Malignant neoplasm of prostate; C79.51 Secondary malignant neoplasm of bone

== ENCOUNTER → 2023-08-18 13:26 | Outpatient (BNVA) | payer MEDICARE, OTHER, SELFPAY | PROVIDERS: PCP Physician Assistant; Visit Provider Urology | DX: C61 Malignant neoplasm of prostate (principal); C79.51 Secondary malignant neoplasm of bone; M81.8 Other osteoporosis without current pathological fracture; T38.7X5A Adverse effect of androgens and anabolic congeners, initial encounter | CPT/HCPCS: 96372; 96402; J0897; J9217 ==

== ENCOUNTER 2023-09-18 14:03 | Outpatient (AMB) | payer MEDICARE, OTHER, SELFPAY ==
--- NOTE | 2023-09-18 14:10 | AM.OFFVISNUR ---
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 Worker 60 mg subcut right arm 1.7 mL [id number] 11/27/25 01301-405-81 Coding Assessment & Plan Assessment & Plan Orders: Orders AMB Denosumab Injection Practice Supplied Today C61 - Malignant neoplasm of prostate, C79.51 - Secondary malignant neoplasm of bone, M81.8 - Other osteoporosis without current pathological fracture, T38.7X5A - Adverse effect of androgens and anabolic congeners, initial encounter Medications: New Prolia (denosumab) 60 mg subcut ONCE 1 mL 0RF NS C61 - Malignant neoplasm of prostate, C79.51 - Secondary malignant neoplasm of bone, M81.8 - Other osteoporosis without current pathological fracture, T38.7X5A - Adverse effect of androgens and anabolic congeners, initial encounter
== END 2023-09-18 14:33 | disposition home or self-care (01) ==
PROVIDERS: PCP Physician Assistant; Visit Provider Urology
DX: M81.8 Other osteoporosis without current pathological fracture (principal); T38.7X5A Adverse effect of androgens and anabolic congeners, initial encounter; C61 Malignant neoplasm of prostate; C79.51 Secondary malignant neoplasm of bone

== ENCOUNTER → 2023-09-18 14:03 | Outpatient (BNVA) | payer MEDICARE, OTHER, SELFPAY | PROVIDERS: PCP Physician Assistant; Visit Provider Urology | DX: C61 Malignant neoplasm of prostate (principal); C79.51 Secondary malignant neoplasm of bone; M81.8 Other osteoporosis without current pathological fracture; T38.7X5A Adverse effect of androgens and anabolic congeners, initial encounter | CPT/HCPCS: 96372; J0897 ==

== ENCOUNTER 2023-10-06 08:38 | Outpatient (REF) | payer MEDICARE, OTHER, SELFPAY ==
[2023-10-06 09:28] LABS: Hematocrit 32.8 % (42.0-52.0); Hemoglobin 9.8 g/dl (14.0-18.0); Mean Corpuscular HGB Conc 29.9 g/dl (31.0-36.0); Mean Corpuscular Hemoglobin 24.7 pg (27.0-33.0); Mean Corpuscular Volume 82.8 fL (80.0-98.0); Mean Platelet Volume 9.2 fL (9.4-12.4); Platelet Count 291 X10*3/uL (160-400); Red Blood Count 3.96 X10*6/uL (4.60-5.80); Red Cell Distribution Width 18.6 % (11.0-16.0); White Blood Count 5.3 X10*3/uL (4.8-10.8)
[2023-10-06 10:04] LABS: Alanine Aminotransferase 14 U/L (0-40); Albumin Level 3.9 g/dL (3.5-5.0); Alkaline Phosphatase 87 U/L (39-117); Anion Gap 11 (12-20); Aspartate Amino Transferase 15 U/L (5-37); Bilirubin Total 0.4 mg/dL (0.0-1.0); Blood Urea Nitrogen 13 mg/dL (9-16); Calcium 8.1 mg/dL (8.4-10.2); Carbon Dioxide 26 mmol/L (22-29); Chloride 109 mmol/L (96-108); Cholesterol 190 mg/dL (<200); Estimated Glomerular Filt Rate > 60; Glucose Fasting 104 mg/dL (60-99); HDL Cholesterol 50 mg/dL (>40); LDL Cholesterol Calculated 110 mg/dL (<100); Potassium 4.5 mmol/L (3.3-5.1); Sodium 141 mmol/L (135-145); Total Protein 6.4 g/dL (6.5-8.0); Triglycerides 152 mg/dL (<150)
[2023-10-06 11:33] LABS: Prostate Specific Antigen 0.29 ng/mL (<0.05-4.0)
[2023-10-11 22:49] LABS: Testosterone, Total <1 ng/dL (250-1100)
== END 2023-10-06 08:39 | disposition home or self-care (01) ==
LOC: HO.LAB 08:38
PROVIDERS: Urology; PCP Physician Assistant; Visit Provider Physician Assistant
DX: E78.9 Disorder of lipoprotein metabolism, unspecified (principal); Z13.1 Encounter for screening for diabetes mellitus; C61 Malignant neoplasm of prostate; C79.51 Secondary malignant neoplasm of bone; Z12.5 Encounter for screening for malignant neoplasm of prostate
CPT/HCPCS: 36415; 80053; 80061; 84153; 84403; 85027

== ENCOUNTER 2023-10-12 14:23 | Outpatient (AMB) | payer MEDICARE, OTHER, SELFPAY ==
[2023-10-12 14:40] VITALS: BP 144/68; PULSE 67; O2SAT 98; BMI 35.0
--- NOTE | 2023-10-12 14:44 | AM.OFFVISMDC ---
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: No Accompanied by: Self / Same As Patient Allergies Iodinated Contrast Media Allergy (Unknown, Verified 10/12/23 14:48) Unknown Lobster Allergy (Unknown, Verified 10/12/23 14:48) unknown Medication List - Last Reconciled 10/12/23 by Celso Butterfield PA-C abiraterone 1,000 mg (4 x 250 mg) PO DAILY 30 days acetaminophen (Tylenol Extra Strength) 500 mg PO Q6H PRN apixaban (Eliquis) 5 mg PO BID diclofenac sodium 1% (Aspercreme Arthritis Pain) 2 grams topical QID hydroxyzine HCl 25 mg PO BEDTIME PRN omeprazole 20 mg PO Q OTHER DAY prednisone 2.5 mg PO BID 30 days triamcinolone acetonide 0.1% 1 appl topical BID 30 days HPI SWV G0439 HPI Details Patient is a 72-year-old male here today for an annual wellness visit.? Patient has a past medical history significant for borderline high total cholesterol, prostate cancer, obesity, history of diverticulitis, history of pulmonary embolism. today we reviewed his kenaitze of care, end of life planning ect, given a MOLST for.. .. prostate canCeR: has been in remission, followed by Oncology and Urology. Continues on anti hormonal medications. Testosterone level less than 1, PSA 0.2 Colorectal cancer screening: Up-to-date with colonoscopy done [place] [address] Dr. Jin polyp found repeat 5 years Vaccines: Up-to-date with COVID vaccine, up-to-date with pneumonia vaccine. UTD with shingles Laboratory Tests 10/06/23 08:42 Fasting Glucose 104 H Cholesterol 190 LDL Cholesterol, C alc 110 H Prostate Specific Ag 0.29 Total Testosterone <1 L HPI Comments History of Present Illness Details reviewed past medical history- yes reviewed surgical / hospitalization history- yes reviewed current medications- yes reviewed family history- yes home safety throw rugs? grab bars? raised toilet seat? working smoke detectors? activities of daily living difficulty bathing or showering? difficulty dressing? difficulty using the toilet? difficulty getting in and out of bed? difficulty walking? receives help from other person's with any of the above tasks? instrumental activities of daily living uses telephone - gets to place out of walking distance- go shopping for groceries- repairs own meals- does own minor home maintenance- does own laundry- does own housework- manages own money- currently takes medication- end of life planning discussed advanced directives- yes advanced directives on file? discussed wishes expressed in advanced directives. fall risk have you had any falls with injuries in the past year? have you had 2 or more falls in the past year? 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 Daughter In good health Social History Household Members: Spouse Housing: House Do you presently have visiting nurse or other home services: No Alcohol intake: current Alcohol intake frequency: a few times a week Patient Tobacco Use Status: Never used Tobacco e-Cigarette/Vaping Use: Never Used Substance Use Type: Marijuana service: No Current occupational status: retired Cognitive needs: No Hearing needs: No Vision needs: Yes (glasses ) Questionnaire Medicare Wellness Checkup [age] What gender do you identify with?: male During the past 4 weeks, how much have you been bothered by emotional problems such as feeling anxious, depressed, irritable, sad or downhearted, and blue?: not at all During the past 4 weeks, has your physical & emotional health limited your social activities with family, friends, neighbors, or groups?: not at all During the past 4 weeks, how much bodily pain have you generally had?: very mild pain During the past 4 weeks, was someone available to help you if you needed & wanted help?: yes, as much as I wanted During the past 4 weeks, what was the hardest physical activity you could do for at least 2 minutes?: light Can you get to places out of walking distance without help? (For eg., can you travel alone on buses, taxis or drive your car?): Yes Can you go shopping for groceries or clothes without someone's help?: Yes Can you prepare your own meals?: Yes Can you do your housework without help?: Yes Because of any health problems, do you need the help of another person with your personal care needs such as eating, bathing, dressing or getting around the house?: No Can you handle your own money without help?: Yes During the past 4 weeks, how would you rate your health in general?: very good During the past 4 weeks how have things been going for you?: pretty well Are you having difficulties driving your car?: no Do you always fasten your seat belt when you are in a car?: yes, usually During past 4 weeks, have you been bothered by the following: never: Falling or dizzy when standing up, Sexual problems?, Trouble eating well?, Teeth or denture problems?, Problems using the telephone? and Tiredness or fatigue? Have you fallen 2 or more times in the past year?: No Are you a smoker?: no During the past 4 weeks, how many drinks of wine, beer, or other alcoholic beverages did you have?: 2-5 drinks per week Do you exercise for about 20 minutes 3 or more times a week?: yes, most of the time Have you been given information to help with the following?: no: Hazards in your house that might hurt you? and no: Keeping track of your medications? How often do you have trouble taking medicines the way you have been told to take them?: I always take medicine as prescribed How confident are you that you can control & manage most of your health problems?: very confident What is your race?: White Mini Mental State Exam (MMSE) Orientation What is the (year) (season) (date) (day) (month)?: season Where are we (state) (county) (town or city) (hospital) (floor)?: state, county and town or city Attention & Calculation (CHOOSE ONE) Ask pt to begin with 100 & count backward by 7. Stop after 5 repeats. If pt cannot ask them to spell the word WORLD backward.: 93, 86, 79, 72 and 65 Spell WORLD backwards (DLROW): 5 letters Score Score: 14 Activity of Daily Living Bathing - sponge bath, tub bath or shower: receives no assistance (gets in/out by self, if usual bathing means Dressing - getting clothes from closets & drawers, including inner/outer garments & fasteners.: gets clothes & gets completely dressed without help Toileting - going to the 'toilet room' for urine/bowel elimination & cleaning self/arranging clothes: goes to toilet room, cleans self, arranges clothes without help Transfer: moves in & out of bed and chair without help (may use support object) Continence: controls urination/bowel movements completely by self Feeding: feeds self without help Total Score: 0 Information obtained from: patient Using telephone: independent Traveling: independent Shopping: independent Preparing meals: independent Housework: independent Taking medicine: independent Managing money: independent PHQ-9 Over the last 2 weeks, how often have you been bothered by any of the following problems? 1. Little interest or pleasure in doing things: not at all 2. Feeling down, depressed, or hopeless: not at all 3. Trouble falling or staying asleep, or sleeping too much: not at all 4. Feeling tired or having little energy: not at all 5. Poor appetite or overeating: not at all 6. Feeling bad about yourself - or that you are a failure or have let yourself or your family down: not at all 7. Trouble concentrating on things, such as reading the newspaper or watching television: not at all 8. Moving or speaking so slowly that other people could have noticed. Or the opposite - being so fidgety or restless that you have been moving around a lot more than usual: not at all 9. Thoughts that you would be better off or of hurting yourself in some way: not at all Total score: 0 Depression Screening Interpretation: Negative Depression Screening Done: Yes [id number] - PHQ-9 Billing: Yes Source: Developed by Drs. Cullen Carlos, Pearl B.W. Primo Pantoja and colleagues, with an educational tarsha from [employer]. Physical Exam Vital Signs: Last Vital Signs Pulse 67 10/12/23 14:40 BP 144/68 H 10/12/23 14:40 Pulse Ox 98 10/12/23 14:40 Oxygen Delivery Method Room Air 10/12/23 14:40 BMI result Body Mass Index 3.5 HEENT Other: hearing screening whisper test- pass Eyes Other: vision screening- 20/20 OS OD OU Other: urinary incontinence? no Neuro Other: balance Romberg- normal tandem walk test- able walk-in turned test-able rise from sit to stand- within 2 seconds Assessment & Plan Assessment & Plan (1) Medicare annual wellness visit, subsequent: Code(s): Z00.00 - Encounter for general adult medical examination without abnormal findings Plan: As per [facility] Quality Reporting (2020) Depression/Bipolar (159/160/161/177) PHQ-9: Total score: 0 Coding Level of Care Code Medicare Subsequent (G0439) Diagnoses Medicare annual wellness visit, subsequent Z00.00 CPT Codes Advance Care Planning - Time spent: 1-15 minutes, not on file ([id number]) Advance Care Planning Advance Care Planning discussion: Exists, not on file Date of discussion: 10/12/23 Forms completed: GAVIN Time spent: 1-15 minutes, not on file Actual minutes spent: 5
== END 2023-10-12 15:10 | disposition home or self-care (01) ==
PROVIDERS: PCP Physician Assistant; Visit Provider Physician Assistant
DX: Z00.00 Encounter for general adult medical examination without abnormal findings (principal)
CPT/HCPCS: 1124F; G0439

== ENCOUNTER 2023-10-14 13:15 | Outpatient (AMB) | payer MEDICARE, OTHER, SELFPAY ==
--- NOTE | 2023-10-14 13:17 | A.OFFVIS_ITS ---
Vital Signs 10/14/23 13:23 Height 5 ft 10 in Weight 241 lb 6.499 oz BMI 34.6 BP 142/64 H Blood Pressure Location Rt brachial Position Sitting Respiration 18 Pulse 75 Pulse Source Pulse Oximeter Pulse Oximetry (%) 97 Oxygen Delivery Method Room Air Intake Visit Reasons: knee OA/inj/lm Intake Note: Patient presents for knee OA/Inj. Allergies Iodinated Contrast Media Allergy (Unknown, Verified 10/14/23 13:23) Unknown Lobster Allergy (Unknown, Verified 10/14/23 13:23) unknown Medication List - Last Reconciled 10/14/23 by Zehra Keene MD abiraterone 1,000 mg (4 x 250 mg) PO DAILY 30 days acetaminophen (Tylenol Extra Strength) 500 mg PO Q6H PRN apixaban (Eliquis) 5 mg PO BID diclofenac sodium 1% (Aspercreme Arthritis Pain) 2 grams topical QID hydroxyzine HCl 25 mg PO BEDTIME PRN omeprazole 20 mg PO Q OTHER DAY prednisone 2.5 mg PO BID 30 days triamcinolone acetonide 0.1% 1 appl topical BID 30 days HPI Comments Details: 72-year-old male past medical history prostate cancer and bilateral knee osteoarthritis returns for follow-up. That he is doing reasonably well. He was restarted on hormonal therapy for his cancer. Bilateral knee steroid injections done last visit helped him quite a bit. No the side effects reported. Today he is requesting repeat knee injections. Initial history: This is a 71-year-old male who presents for evaluation of bilateral knee and shoulder pain. Of note patient was diagnosed with prostate cancer a few years ago and was started on hormonal treatment and prednisone 10 mg daily for about 3 years, course of treatment was discontinued in December of 2021. Patient stated that he has lost 35 lb since stopping the treatment. The knee pain started soon after prednisone was stopped. His knee pain is worse with standing up and walking for longer distances. He is unaware of any swelling. He has tried physical therapy for his knees without improvement. He takes Tylenol which provided some relief, cannot take NSAIDs as he is on Eliquis for DVT. Also applies Aspercreme and CBD oil which provide some relief. Denies any significant morning stiffness. He believes that prednisone was masking the pain. He also has bilateral shoulder pain worse with any activity. He has difficulty golfing due to the shoulder pain. His father had psoriasis and psoriatic arthritis. Patient does not have psoriasis. Unaware of any family history of autoimmune rheumatic disease other than his father. 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 Daughter In good health Social History Household Members: Spouse Housing: House Do you presently have visiting nurse or other home services: No Alcohol intake: current Alcohol intake frequency: a few times a week Patient Tobacco Use Status: Never used Tobacco e-Cigarette/Vaping Use: Never Used Substance Use Type: Marijuana service: No Current occupational status: retired Cognitive needs: No Hearing needs: No Vision needs: Yes (glasses ) Review of Systems [facility] [place], [place] Reports arthralgias and Reports stiffness Physical Exam Vital Signs: Last Vital Signs Pulse 75 10/14/23 13:23 Resp 18 10/14/23 13:23 BP 142/64 H 10/14/23 13:23 Pulse Ox 97 10/14/23 13:23 Oxygen Delivery Method Room Air 10/14/23 13:23 BMI result Body Mass Index 34.6 Const General: cooperative, healthy appearing and comfortable Nutritional Appearance: obese Orientation/consciousness: patient oriented x3 Limitations: no limitations HEENT Head: Yes normocephalic and Yes atraumatic Resp Effort & Inspection: normal respiratory effort and able to speak in complete sentences Neuro General: patient oriented x3 Extrem Other: Bilateral knee pain with full flexion No swollen or tender joints Patient is kyphotic Office Procedures Joint Injection/Drain Joint Injection/Drain Primary Site: right knee Secondary Site: left knee Prep: site was prepped using sterile technique Injected: 40 mg of, Kenalog, with 1 mL of, 1% plain lidocaine and in the joint Approach Used: medial parapatellar Procedure: The patient tolerated the procedure well Coding Details: With the patient's consent the right knee was prepped with ChloraPrep and alcohol. The skin was anesthetized with 2 cc of 1% lidocaine. The knee was then injected with 40 mg of triamcinolone and 1 cc of I % lidocaine. Then, the left knee was prepped with ChloraPrep and alcohol. The skin was anesthetized with 2 cc of 1% lidocaine. The knee was then injected with 40 mg of triamcinolone and 1 cc of I % lidocaine. Patient tolerated both procedures well with no apparent immediate adverse events 84817 - Large joint (X2) Procedure code (CPT) selection complete Assessment & Plan Assessment & Plan (1) Osteoarthritis, knee: Comment: Bilateral Code(s): M17.9 - Osteoarthritis of knee, unspecified Category: Medical Qualifiers: Osteoarthritis type: primary Laterality: bilateral Qualified Code(s): M17.0 - Bilateral primary osteoarthritis of knee Plan: This is a 72-year-old male with bilateral knee osteoarthritis who presents for follow. Bilateral knee steroid injections done last visit helped for 3 months. Today patient is requesting repeat injections. Patient has not had any side effects related to injections previously. With patient's consent, both knees were injected with Kenalog today. Follow-up in 4 months Plan I spent 16 minutes reviewing patient's chart, evaluating patient, counseling patient and documenting in the chart Orders: Orders AMB Joint Injection/Aspiration Today M17.0 - Bilateral primary osteoarthritis of knee Coding Level of Care Code Est Pt Level 3 (80106) Diagnoses Primary osteoarthritis of both knees M17.0 Osteoarthritis type: primary Laterality: bilateral CPT Codes Coding - 03706 Large joint: 66530 - Large joint ([id number])
[2023-10-14 13:23] VITALS: BP 142/64; PULSE 75; RESP 18; O2SAT 97; BMI 34.6
== END 2023-10-14 13:53 | disposition home or self-care (01) ==
PROVIDERS: PCP Physician Assistant; Visit Provider Student in an Organized Health Care Education/Training Program
DX: M17.0 Bilateral primary osteoarthritis of knee (principal)
CPT/HCPCS: 20610; 99213

== ENCOUNTER → 2023-10-14 13:15 | Outpatient (BNVA) | payer MEDICARE, OTHER, SELFPAY | PROVIDERS: PCP Physician Assistant; Visit Provider Student in an Organized Health Care Education/Training Program | DX: M17.0 Bilateral primary osteoarthritis of knee (principal) | CPT/HCPCS: 20610; 99212; J2003; J3301 ==

== ENCOUNTER 2023-10-20 13:50 | Outpatient (AMB) | payer MEDICARE, OTHER, SELFPAY ==
--- NOTE | 2023-10-20 14:12 | AM.OFFVISNUR ---
Intake Visit Reasons: XGEVA Allergies Iodinated Contrast Media Allergy (Unknown, Verified 10/14/23 13:23) Unknown Lobster Allergy (Unknown, Verified 10/14/23 13:23) unknown Office Meds Xgeva 120 mg/1.7 mL (70 mg/mL) subcutaneous solution Performing Provider: Sammy Ortega MD Performing Location: [facility] [place] [facility] Administered by: Karl Crabtree LPN on 10/20/23 14:12 Dose Route Admin Location Dispensed Lot Number Expiration Date [facility] Fruit [employer] Vegetable Packer 120 mg subcut right arm 1.7 mL [id number] 11/27/25 55869-737-31 AMGEN Assessment & Plan Assessment & Plan Orders: Orders AMB Denosumab Injection Practice Supplied Today C61 - Malignant neoplasm of prostate, C79.51 - Secondary malignant neoplasm of bone, M81.8 - Other osteoporosis without current pathological fracture, T38.7X5A - Adverse effect of androgens and anabolic congeners, initial encounter Medications: New Xgeva (denosumab) 120 mg (1.7 mL) subcut ONCE 1.7 mL 0RF NS C61 - Malignant neoplasm of prostate, C79.51 - Secondary malignant neoplasm of bone, M81.8 - Other osteoporosis without current pathological fracture, T38.7X5A - Adverse effect of androgens and anabolic congeners, initial encounter
== END 2023-10-20 14:57 | disposition home or self-care (01) ==
PROVIDERS: PCP Physician Assistant; Visit Provider Urology
DX: M81.8 Other osteoporosis without current pathological fracture (principal); T38.7X5A Adverse effect of androgens and anabolic congeners, initial encounter; C61 Malignant neoplasm of prostate; C79.51 Secondary malignant neoplasm of bone

== ENCOUNTER → 2023-10-20 13:50 | Outpatient (BNVA) | payer MEDICARE, OTHER, SELFPAY | PROVIDERS: PCP Physician Assistant; Visit Provider Urology | DX: C61 Malignant neoplasm of prostate (principal); C79.51 Secondary malignant neoplasm of bone; M81.8 Other osteoporosis without current pathological fracture; T38.7X5A Adverse effect of androgens and anabolic congeners, initial encounter | CPT/HCPCS: 96372; J0897 ==

== ENCOUNTER 2023-11-20 13:24 | Outpatient (AMB) | payer MEDICARE, OTHER, SELFPAY ==
--- NOTE | 2023-11-20 13:27 | AM.OFFVISNUR ---
Intake Visit Reasons: Xgeva Allergies Iodinated Contrast Media Allergy (Unknown, Verified 10/14/23 13:23) Unknown Lobster Allergy (Unknown, Verified 10/14/23 13:23) unknown Office Meds Xgeva 120 mg/1.7 mL (70 mg/mL) subcutaneous solution Performing Provider: Smamy Ortega MD Performing Location: [facility] [place] [facility] Administered by: Karl Crabtree LPN on 11/20/23 13:27 Dose Route Admin Location Dispensed Lot Number Expiration Date [facility] Ncr Operator 120 mg subcut left arm 1.7 mL [id number] 11/27/25 79264-348-04 AMGEN Assessment & Plan Assessment & Plan Orders: Orders AMB Denosumab Injection Practice Supplied Today C61 - Malignant neoplasm of prostate, C79.51 - Secondary malignant neoplasm of bone Medications: New Xgeva (denosumab) 120 mg (1.7 mL) subcut ONCE 1.7 mL 0RF NS C61 - Malignant neoplasm of prostate, C79.51 - Secondary malignant neoplasm of bone
== END 2023-11-20 13:41 | disposition home or self-care (01) ==
PROVIDERS: PCP Physician Assistant; Visit Provider Urology
DX: C61 Malignant neoplasm of prostate (principal); C79.51 Secondary malignant neoplasm of bone

== ENCOUNTER → 2023-11-20 13:24 | Outpatient (BNVA) | payer MEDICARE, OTHER, SELFPAY | PROVIDERS: PCP Physician Assistant; Visit Provider Urology | DX: C61 Malignant neoplasm of prostate (principal); C79.51 Secondary malignant neoplasm of bone | CPT/HCPCS: 96372; J0897 ==

== ENCOUNTER 2023-12-23 13:52 | Outpatient (AMB) | payer MEDICARE, OTHER, SELFPAY ==
--- NOTE | 2023-12-23 14:06 | AM.OFFVISNUR ---
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 120 mg subcut right arm 1.7 mL [id number] 04/29/26 90392-284-26 AMGEN Assessment & Plan Assessment & Plan Orders: Orders AMB Denosumab Injection Practice Supplied Today C61 - Malignant neoplasm of prostate, C79.51 - Secondary malignant neoplasm of bone, M81.8 - Other osteoporosis without current pathological fracture, T38.7X5A - Adverse effect of androgens and anabolic congeners, initial encounter Medications: New Xgeva (denosumab) 120 mg (1.7 mL) subcut ONCE 1.7 mL 0RF NS C61 - Malignant neoplasm of prostate, C79.51 - Secondary malignant neoplasm of bone, M81.8 - Other osteoporosis without current pathological fracture, T38.7X5A - Adverse effect of androgens and anabolic congeners, initial encounter
== END 2023-12-23 14:19 | disposition home or self-care (01) ==
PROVIDERS: PCP Physician Assistant; Visit Provider Urology
DX: M81.8 Other osteoporosis without current pathological fracture (principal); T38.7X5A Adverse effect of androgens and anabolic congeners, initial encounter; C61 Malignant neoplasm of prostate; C79.51 Secondary malignant neoplasm of bone

== ENCOUNTER → 2023-12-23 13:52 | Outpatient (BNVA) | payer MEDICARE, OTHER, SELFPAY | PROVIDERS: PCP Physician Assistant; Visit Provider Urology | DX: C61 Malignant neoplasm of prostate (principal); C79.51 Secondary malignant neoplasm of bone; M81.8 Other osteoporosis without current pathological fracture; T38.7X5A Adverse effect of androgens and anabolic congeners, initial encounter | CPT/HCPCS: 96372; J0897 ==

== ENCOUNTER 2024-01-26 13:24 | Outpatient (AMB) | payer MEDICARE, OTHER, SELFPAY ==
--- NOTE | 2024-01-26 13:45 | AM.OFFVISNUR ---
Intake Visit Reasons: Xgeva(PA Set) Allergies Iodinated Contrast Media Allergy (Unknown, Verified 10/14/23 13:23) Unknown Lobster Allergy (Unknown, Verified 10/14/23 13:23) unknown Office Meds Xgeva 120 mg/1.7 mL (70 mg/mL) subcutaneous solution Performing Provider: Sammy Ortega MD Performing Location[facility] [place] [facility] Administered by: Arthur Juárez RN on 01/26/24 13:45 Dose Route Admin Location Dispensed Lot Number Expiration Date [facility] Chief Clinical Officer 120 mg subcut right arm 1.7 mL [id number] 06/27/26 78155-617-04 AMGEN Comments: patient consented for Xgeva injection and tolerated well. Assessment & Plan Assessment & Plan Orders: Orders AMB Denosumab Injection Practice Supplied Today C61 - Malignant neoplasm of prostate, C79.51 - Secondary malignant neoplasm of bone, M81.8 - Other osteoporosis without current pathological fracture, T38.7X5A - Adverse effect of androgens and anabolic congeners, initial encounter Medications: New Xgeva (denosumab) 120 mg (1.7 mL) subcut ONCE 1.7 mL 0RF NS C61 - Malignant neoplasm of prostate, C79.51 - Secondary malignant neoplasm of bone, M81.8 - Other osteoporosis without current pathological fracture, T38.7X5A - Adverse effect of androgens and anabolic congeners, initial encounter
== END 2024-01-26 13:47 | disposition home or self-care (01) ==
LOC: HO.HUSH 13:25
PROVIDERS: PCP Physician Assistant; Visit Provider Urology
DX: M81.8 Other osteoporosis without current pathological fracture (principal); T38.7X5A Adverse effect of androgens and anabolic congeners, initial encounter; C61 Malignant neoplasm of prostate; C79.51 Secondary malignant neoplasm of bone

== ENCOUNTER → 2024-01-26 13:24 | Outpatient (BNVA) | payer MEDICARE, OTHER, SELFPAY | PROVIDERS: PCP Physician Assistant; Visit Provider Urology | DX: C61 Malignant neoplasm of prostate (principal); C79.51 Secondary malignant neoplasm of bone; M81.8 Other osteoporosis without current pathological fracture; Z79.620 Long term (current) use of immunosuppressive biologic; T38.7X5A Adverse effect of androgens and anabolic congeners, initial encounter | CPT/HCPCS: 96372; J0897 ==

== ENCOUNTER 2024-03-04 14:54 | Outpatient (REF) | payer MEDICARE, OTHER, SELFPAY ==
[2024-03-04 15:58] LABS: Prostate Specific Antigen 0.22 ng/mL (<0.05-4.0)
== END 2024-03-04 14:55 | disposition home or self-care (01) ==
LOC: HO.LAB 14:54
PROVIDERS: PCP Physician Assistant; Visit Provider Urology
DX: C61 Malignant neoplasm of prostate (principal); C79.51 Secondary malignant neoplasm of bone; Z12.5 Encounter for screening for malignant neoplasm of prostate
CPT/HCPCS: 36415; 84153

== ENCOUNTER 2024-03-11 09:55 | Outpatient (AMB) | payer MEDICARE, OTHER, SELFPAY ==
--- NOTE | 2024-03-11 09:58 | A.OFFVIS_ITS ---
Intake Visit Reasons: Xgeva/GnRH/Follow up(PA Set) Intake Note: Patient is present for XGEVA/GNRH F/U Urology Medication:PREDNISONE,ABIRATERONE Antibiotic Allergy:NONE Blood Thinner:APIXABAN Personal Care Attendant Required: No Allergies Iodinated Contrast Media Allergy (Unknown, Verified 03/11/24 09:59) Unknown Lobster Allergy (Unknown, Verified 03/11/24 09:59) unknown HPI Comments Details: Rohan godoy is a pleasant male. He is a patient Dr. Butterfield. He is seen for the following urologic conditions. 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 There has been a significant but mild progression in the bone scan appearance since the most recent 06/19/2022 study 18 months since completed therapy 04/22 PSA 2.6 T 253 DEXA Osteroporosis 10/19 PET-CT no metabolically active lymph nodes, prostate active 06/19 GnRH P <0.1, T 7 Imagin. Interval development of subtle focal area of increased radiotracer activity is noted at the left frontal skull. 2. Interval development of mild increased radiotracer activity is noted at L4 to the left of the midline. 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 Diagnosis was reached by needle biopsy, for elevated PSA, PSA at diagnosis 19, size at TRUS 60cc. The Tiffany grade is October 2018 - 03/10 cores Gl , 4+4 = 8, 4+5 = 9, 60- 90%, + PNI. TNM Classification of Malignant Tumours (TNM) T2b - palpable bilateral. The D'Amari (NCCN) risk category is High Risk (PSA > 20, Gl 8+, T3) - Group 5 on biopsy. Initial therapy included Primary treatment - bicalutamide, dutasteride, plan for GnRH 12/09/18 - GnRH 1xt dose given, stop bicalutamide in 7 days Recent labs included PSA 03/18 0.4 - T 03/18 <1 - 06/17 PSA .4, T <1, 12/18 PSA 0.3, T 6, 03/19 0.3, 06/18 0.2, 09/18 0.2, 12/19 0.15, 03/20 <0.1 Recent imaging included - 11/15 , a CT (computed tomography) scan - mild hydroureteronephrosis bilateral with 1cm sclerotic lesion in ileum, 1.5 cm iliac nodes, bladder wall thickening - 12/16 CT scan with bilateral mild to moderate hydroureteral nephrosis - 06/18 CT with minimal lymphadenopathy and resolution of majority of bone island sclerosis - 01/18 CT with no evidence of lymphadenopathy Dexa Scan - 06/16 NAD, 01/17 NAD Bone Scan - 12/16 , a bone scan sclerotic lesion on ileum and calvarium with scattered rib lesions - 12/17 bone scan. Improvement with sclerotic lesion on ileum and calvarium. Significant improvement compared to prior study. Renal ultrasound no evidence of calculus or bilateral hydronephrosis - 03/19 bone scan with overall relatively stable disease, question of subtle change on T1 - 12/19 bone scan with stable disease Associated conditions erectile dysfunction Yes hematuria No hot flashes Yes Therapeutic plan: Continue hormone therapy. 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 Lower Urinary Tract Symptoms: Doing well. Current visit is for further evaluation of, lower urinary tract symptoms, predominate obstructive symptoms. Prior treatments include 01/15 , procedure, laser procedure. Symptoms include 12/16 , nocturia (>2), weak stream, and are progressing. Prostate volume 50+gm. Treatment plan pvr each visit. 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 Daughter In good health Social History Household Members: Spouse Housing: House Do you presently have visiting nurse or other home services: No Alcohol intake: current Alcohol intake frequency: a few times a week Patient Tobacco Use Status: Never used Tobacco e-Cigarette/Vaping Use: Never Used Substance Use Type: Marijuana service: No Current occupational status: retired Cognitive needs: No Hearing needs: No Vision needs: Yes (glasses ) Review of Systems Const Denies chills and Denies fever(s) Card Reports no additional complaints and Denies syncope Resp Denies cough GI Denies abdominal pain and Denies heartburn Reports as per HPI and Denies change in libido Neuro Denies syncope Psych Denies change in libido Endo Denies change in libido Physical Exam Const General: cooperative, healthy appearing, comfortable and no acute distress Orientation/consciousness: patient oriented x3 HEENT Face and sinus: Yes normal facial exam Mouth: moist mucous membranes Neck Neck: Yes normal visual inspection, Yes full ROM and Yes trachea midline Chest Chest palpation & inspection: normal inspection of the chest Resp Effort & Inspection: normal respiratory effort, able to speak in complete sentences and no respiratory distress GI Inspection: Yes normal to inspection Back/Spine/Pelvis Cervical Spine: normal cervical lordosis Thoracic/Lumbar Spine: thoracic and lumbar spine normal to inspection Skin General skin exam: no rashes or lesions noted Neuro General: patient oriented x3, gait normal, tone normal and moves all extremities Extrem General: Yes normal to inspection and Yes capillary refill normal Office Meds Xgeva 120 mg/1.7 mL (70 mg/mL) subcutaneous solution Performing Provider: Sammy Ortega MD Performing Location: [facility] Administered by: Karl Crabtree LPN on 03/11/24 10:07 Dose Route Admin Location Dispensed Lot Number Expiration Date NDC Manager Delivery 120 mg subcut left arm 1.7 mL [id number] 06/27/26 03845-758-04 [employer] Eligard (6 month) 45 mg (6 month) subcutaneous syringe Performing Provider: Sammy Ortega MD Performing Location: [facility] Administered by: Karl Crabtree LPN on 03/11/24 10:07 Dose Route Admin Location Dispensed Lot Number Expiration Date ND Manager Delivery 45 mg subcut right arm 45 mg [id number] 02/27/25 43232-728-37 [employer]. Assessment & Plan Assessment & Plan (1) Prostate cancer metastatic to bone: Comment: Group 5 metastatic to bone October 2018 Code(s): C61 - Malignant neoplasm of prostate; C79.51 - Secondary malignant neoplasm of bone Category: Medical Plan Continue therapy for minimum of 18 months Orders: Orders AMB Leuprolide Injection - Practice Supplied Today C61 - Malignant neoplasm of prostate, C79.51 - Secondary malignant neoplasm of bone AMB Denosumab Injection Practice Supplied Today C61 - Malignant neoplasm of prostate, C79.51 - Secondary malignant neoplasm of bone Testosterone, Total 3 Months C61 - Malignant neoplasm of prostate, C79.51 - Secondary malignant neoplasm of bone NM bone scan whole body 3 Months C61 - Malignant neoplasm of prostate, C79.51 - Secondary malignant neoplasm of bone Prostate Specific Antigen 3 Months C61 - Malignant neoplasm of prostate, C79.51 - Secondary malignant neoplasm of bone Patient Instructions: Imaging studies, laboratory and physical exam results were discussed and rev iewed in detail. No major barriers to patient understanding were identified. An opportunity to ask questions regarding the treatment plan was provided. All questions were answered. The patient expressed understanding and agreement with the above treatment plan. The patient is aware they should contact our office by phone for worsening of their current condition or the appearance of new urologic symptoms. Compliance is encouraged with any medications and followup testing that is ordered. It is a privilege to participate in the urologic care of your patient. If you have any questions or concerns regarding treatment for the above conditions, or other urologic issues, please do not hesitate to contact me. The office telephone contact is [phone]. This note is constructed using voice recognition software. While every effort has been made to ensure accuracy er registrar errors may have been included. Yours sincerely, Dr Sammy Ortega MD, [facility] - Urology Providers of Expert, Compassionate Care for the Genitourinary System Coding Level of Care Code Est Pt Level 3 (98389) Diagnoses Prostate cancer metastatic to bone C61; C79.51
== END 2024-03-11 10:20 | disposition home or self-care (01) ==
PROVIDERS: PCP Physician Assistant; Visit Provider Urology
DX: C61 Malignant neoplasm of prostate (principal); C79.51 Secondary malignant neoplasm of bone
CPT/HCPCS: 99213

== ENCOUNTER → 2024-03-11 09:55 | Outpatient (BNVA) | payer MEDICARE, OTHER, SELFPAY | PROVIDERS: PCP Physician Assistant; Visit Provider Urology | DX: C61 Malignant neoplasm of prostate (principal); C79.51 Secondary malignant neoplasm of bone | CPT/HCPCS: 96372; 96402; 99212; J0897; J9217 ==

== ENCOUNTER 2024-04-12 14:24 | Outpatient (AMB) | payer MEDICARE, OTHER, SELFPAY ==
--- NOTE | 2024-04-12 14:45 | AM.OFFVISNUR ---
Intake Visit Reasons: nurse follow up Allergies Iodinated Contrast Media Allergy (Unknown, Verified 03/11/24 09:59) Unknown Lobster Allergy (Unknown, Verified 03/11/24 09:59) unknown Office Meds Xgeva 120 mg/1.7 mL (70 mg/mL) subcutaneous solution Performing Provider: Sammy Ortega MD [facility] Administered by: Karl Crabtree LPN on 04/12/24 14:45 Dose Route Admin Location Dispensed Lot Number Expiration Date [facility] Industrial Painter 120 mg subcut right arm 1.7 mL [id number] 04/29/26 46808-042-20 AMGEN Assessment & Plan Assessment & Plan Orders: Orders AMB Denosumab Injection Practice Supplied Today M81.8 - Other osteoporosis without current pathological fracture, T38.7X5A - Adverse effect of androgens and anabolic congeners, initial encounter Medications: New Xgeva (denosumab) 120 mg (1.7 mL) subcut ONCE 1.7 mL 0RF NS M81.8 - Other osteoporosis without current pathological fracture, T38.7X5A - Adverse effect of androgens and anabolic congeners, initial encounter
== END 2024-04-12 14:40 | disposition home or self-care (01) ==
PROVIDERS: PCP Physician Assistant; Visit Provider Urology
DX: M81.8 Other osteoporosis without current pathological fracture (principal); T38.7X5A Adverse effect of androgens and anabolic congeners, initial encounter

== ENCOUNTER → 2024-04-12 14:24 | Outpatient (BNVA) | payer MEDICARE, OTHER, SELFPAY | PROVIDERS: PCP Physician Assistant; Visit Provider Urology | DX: M81.8 Other osteoporosis without current pathological fracture (principal); T38.7X5A Adverse effect of androgens and anabolic congeners, initial encounter | CPT/HCPCS: 96372; J0897 ==

== ENCOUNTER 2024-04-13 14:56 | Outpatient (AMB) | payer MEDICARE, OTHER, SELFPAY ==
--- NOTE | 2024-04-13 14:57 | MHC.PC.OV ---
Vital Signs 04/13/24 15:22 Height 5 ft 10 in Weight 237 lb 6 oz BMI 34.1 BP 140/70 H Blood Pressure Location Lt brachial Position Sitting Pulse 78 Pulse Source Pulse Oximeter Temp 97.1 F Temp Source Temporal Artery Scan Pulse Oximetry (%) 97 Oxygen Delivery Method Room Air Intake Visit Reasons: 6mth f/u Aviculturist Required: No Accompanied by: Self / Same As Patient Allergies Iodinated Contrast Media Allergy (Unknown, Verified 04/13/24 15:28) Unknown Lobster Allergy (Unknown, Verified 04/13/24 15:28) unknown Medication List - Last Reconciled 04/13/24 by Celso Butterfield PA-C abiraterone 1,000 mg (4 x 250 mg) PO DAILY 30 days acetaminophen (Tylenol Extra Strength) 500 mg PO Q6H PRN apixaban (Eliquis) 5 mg PO BID diclofenac sodium 1% (Aspercreme Arthritis Pain) 2 grams topical QID hydroxyzine HCl 25 mg PO BEDTIME PRN omeprazole 20 mg PO Q OTHER DAY prednisone 2.5 mg PO BID 30 days triamcinolone acetonide 0.1% 1 appl topical BID 30 days Tobacco use date assessed: 04/13/24 Fall risk assessment: No Falls in past year Last assessed Fall Risk: 04/13/24 Dental Screening Dental Screen Date: 04/13/24 Did you have a dental visit in the last 12 months?: Yes Did you have a dental problem in the last 6 months where you did not have access to dental care?: No Was dental information given to patient?: Patient has dentist HPI 6mth f/u HPI Details Patient is a 73-year-old male here today for follow-up visit.? Patient has a past medical history significant for borderline high total cholesterol, prostate cancer, obesity, history of diverticulitis, history of pulmonary embolism. Lateral knee Arthritis: Has recently seen occupational therapy department chair has gotten cortisone injections and reports his knees feel much better. Has been more mobile. .. Elevated blood pressure readings: Noted slightly elevated blood pressure readings today in office and at previous office visits. He has not monitored his blood pressure at home. He otherwise is asymptomatic without any headaches, dizziness or chest discomforts. He will try to monitor his blood pressure at home .. Prostate cancer:? Patient continues to follow urologist and oncologist. Has metastatic disease.? Testosterone levels are followed, has been taken off of hormone treatment. Most recent PSA at 2. Testosterone levels above 200. Continues to be followed at [facility] as well. .. Pulmonary embolism:? Had a venous embolism in 2020 and was thus placed on anticoagulation.? Unclear if this was provoked by active malignancy verses unprovoked.? Will continue indefinitely on anticoagulation. He denies any overt signs of bleeding . Borderline Hyperlipidemia: Patient's most recent fasting lipid panel showing total cholesterol much improved at 201.? He has been working on lifestyle modifications to reduce his cholesterol.? Of note has been able to lose weight Laboratory Tests 10/06/23 03/04/24 08:42 15:04 Prostate Specific Ag 0.29 0.22 PFSH Medical History Eczema [facility] systemic steroid user Tendinopathy of rotator cuff Anemia Pulmonary embolism Prostate cancer Surgical History History of cataract surgery History of colonoscopy History of endoscopy Family History Father CVD (cardiovascular disease) Cancer Heart problem Psoriatic arthritis Mother Hypertension Brother Prostate cancer Sister No problems noted. Daughter In good health Social History Household Members: Spouse Housing: House Do you presently have visiting nurse or other home services: No Alcohol intake: current Alcohol intake frequency: a few times a week Patient Tobacco Use Status: Never used Tobacco e-Cigarette/Vaping Use: Never Used Substance Use Type: Marijuana service: No Current occupational status: retired Cognitive needs: No Hearing needs: No Vision needs: Yes (glasses ) Questionnaire PHQ-9 Over the last 2 weeks, how often have you been bothered by any of the following problems? 1. Little interest or pleasure in doing things: not at all 2. Feeling down, depressed, or hopeless: not at all 3. Trouble falling or staying asleep, or sleeping too much: not at all 4. Feeling tired or having little energy: not at all 5. Poor appetite or overeating: not at all 6. Feeling bad about yourself - or that you are a failure or have let yourself or your family down: not at all 7. Trouble concentrating on things, such as reading the newspaper or watching television: not at all 8. Moving or speaking so slowly that other people could have noticed. Or the opposite - being so fidgety or restless that you have been moving around a lot more than usual: not at all 9. Thoughts that you would be better off or of hurting yourself in some way: not at all Total score: 0 Depression Screening Interpretation: Negative Depression Screening Done: Yes 72770 - PHQ-9 Billing: Yes Source: Developed by Drs. Cullen Carlos, Pearl Pantoja, Primo Girard and colleagues, with an educational tarsha from [employer]. Thrive Questionnaire Date Thrive assessed: 04/13/24 I am a: Patient What is your living situation today?: I have a steady place to live Within the past 12 months, did the food you bought not last and you didn't have the money to get more?: Never true Within the past 12 months, did you worry whether your food would run out before you got money to buy more?: Never true Do you have trouble paying for medicines?: No Do you have trouble getting transportation to medical appointments?: No Do you have trouble paying your heating and electricity bill?: No Do you have trouble taking care of your child, family member or friend?: No Do you have trouble with day-to-day activities such as bathing, preparing meals, shopping, managing finances, etc.?: No Are you currently unemployed and looking for a job?: No Are you interested in more education?: No Please select the resources that you would like help with: None Currently or been in a relationship where the following occur: No concerns reported THRIVE Score: 0 AUDIT C Alcohol Use Questionnaire (AUDIT-C) 1. How often do you have a drink containing alcohol?: 2-3 times a week 2. How many drinks containing alcohol do you have on a typical day when you are drinking?: 1 or 2 3. How often do you have six or more drinks on one occasion?: Never Total Score: 3 TAMIR-7 AMB Questionnaire TAMIR-7 Date TAMIR - 7 assessed: 04/13/24 Feeling nervous, anxious, or on edge: 0 = Not at all Not being able to stop or control worryin = Not at all Worrying too much about different things: 0 = Not at all Trouble relaxin = Not at all Being so restless that it is hard to sit still: 0 = Not at all Becoming easily annoyed or irritable: 0 = Not at all Feeling afraid as if something awful might happen: 0 = Not at all Total TAMIR-7 score (0-4 normal; 5-9 mild; 10-14 moderate; 15-21 severe): 0 Source: Developed by Drs. Cullen Carlos, Pearl Pantoja, Primo Girard and colleagues, with an educational tarsha from [employer]. TAMIR-7 Assessment Billing TAMIR-7 Assessment Tool: TAMIR-7 Assessment 86150 Review of Systems Const Denies headache(s) Eyes Denies loss of vision ENT Denies vertigo, Denies dizziness, Denies headache(s) and Denies sore throat Card Denies chest pain, Denies leg edema and Denies lightheadedness Resp Denies cough, Denies hemoptysis and Denies wheezing GI Denies abdominal pain, Denies melena, Denies constipation, Denies diarrhea and Denies vomiting Denies dysuria, Denies urinary frequency and Denies urinary urgency Musc Denies arthralgias, Denies joint swelling, Denies numbness and Denies tingling Neuro Denies Abnormal speech present, Denies behavioral changes, Denies vertigo, Denies dizziness, Denies headache(s), Denies loss of vision, Denies memory loss, Denies numbness and Denies tingling Psych Denies anxiety, Denies behavioral changes, Denies depression, Denies memory loss and Denies panic attacks Néstor/Lymph Denies easy bleeding and Denies easy bruising Aller/Immun Denies wheezing Physical exam (Primary Care) Vital Signs: Last Vital Signs Temp 97.1 F 04/13/24 15:22 Pulse 78 04/13/24 15:22 BP 140/70 H 04/13/24 15:22 Pulse Ox 97 04/13/24 15:22 Oxygen Delivery Method Room Air 04/13/24 15:22 BMI result Body Mass Index 34.1 BMI Assessment/Plan discussion: High BMI High, discussed plan: lifestyle, weight reduction, dietary and physical activity Tobacco/Smoking Status: Tobacco use Status Tobacco use date assessed 04/13/24 04/13/24 15:24 Patient Tobacco Use Status Never used Tobacco 04/13/24 14:57 e-Cigarette/Vaping Use Never Used 04/13/24 14:57 PHQ-9: PHQ-9 Score PHQ-9: Total score 0 04/13/24 15:20 Depression Screening Interpretation: Negative Thrive Assessment: Date of Thrive Assessment Date Thrive assessed 04/13/24 04/13/24 15:23 Currently or been in a relationship where the following occur: No concerns reported Const General: healthy appearing, no acute distress, alert and awake Nutritional Appearance: well nourished Orientation/consciousness: oriented to person, oriented to place and oriented to time HENMT Ears: TM's normal bilaterally General nose exam: Normal nasal mucous membranes and turbinates present Eyes Conjunctivae: conjunctivae normal Sclerae: sclerae normal Pupils: Equal, round and reactive pupils present Neck Neck: Yes no lymphadenopathy and Yes no JVD Thyroid: Thyroid normal Carotids: no bruits Resp Effort & Inspection: normal respiratory effort and not tachypneic Auscultation: no crackles, no rales, no rhonchi and no wheezes Cardio Rate: regular rate Rhythm: regular rhythm Heart sounds: no murmurs and normal S1 and S2 GI Palpation (GI): Soft to palpation, nontender, no hepatomegaly and no splenomegaly Auscultation: normal bowel sounds Skin General skin exam: no rashes or lesions noted and dry skin Neuro General: oriented to person, oriented to place and oriented to time Cranial nerves: Yes Equal, round and reactive pupils present Speech: No Abnormal speech present Gait exam (Neuro): Normal gait present Motor exam (neuro): no tremor noted Extrem Right upper extremity: full ROM Left upper extremity: full ROM Right lower extremity: full ROM; no edema Left lower extremity: full ROM; no edema Psych Mental Status: mental status grossly normal Speech and movement: Normal speech and movement present Affect: normal affect Attitude: cooperative Thought process: Normal thought process present Coding Level of Care Code Est Pt Level 4 (12751) Diagnoses Prostate cancer metastatic to bone C61; C79.51 Acute pulmonary embolism without acute cor pulmonale, unspecified pulmonary embolism type I26.99 Pulmonary embolism type: unspecified Chronicity: acute Acute cor pulmonale presence: without acute cor pulmonale Elevated fasting blood sugar R73.01 Class 1 obesity E66.811 Borderline high cholesterol E78.9 Elevated blood pressure reading in office without diagnosis of hypertension R03.0 Additional Codes TAMIR-7 Assessment Billing - TAMIR-7 Assessment Tool: TAMIR-7 Assessment 04360 ([id number]) PHQ-9 - 06402 - PHQ-9 Billing: Yes ([id number]) Assessment & Plan Assessment & Plan (1) Prostate cancer metastatic to bone: Comment: Group 5 metastatic to bone October 2018 Code(s): C61 - Malignant neoplasm of prostate; C79.51 - Secondary malignant neoplasm of bone Category: Medical Plan: Followed by Oncology and Urology. PSAs has been stable. Continues on anti hormonal injection. (2) Pulmonary embolism: Code(s): I26.99 - Other pulmonary embolism without acute cor pulmonale Category: Medical Qualifiers: Pulmonary embolism type: unspecified Chronicity: acute Acute cor pulmonale presence: without acute cor pulmonale Qualified Code(s): I26.99 - Other pulmonary embolism without acute cor pulmonale Plan: Continues on anticoagulation with Eliquis without any overt signs of bleeding. Will check CBC to ensure normal. (3) Elevated fasting blood sugar: Code(s): R73.01 - Impaired fasting glucose Category: Medical Plan: Has a history of elevated blood sugars. Has been working on dietary modifications. (4) Class 1 obesity: Code(s): E66.811 - Obesity, class 1 Category: Medical Plan: Patient does understand his BMI is over 30 will work on being more physically active and adapting to better eating habits to reduce his weight (5) Borderline high cholesterol: Code(s): E78.9 - Disorder of lipoprotein metabolism, unspecified Category: Medical Plan: Most recent lipid panel showing borderline high cholesterol. Again working on dietary modifications. Goal LDL to be below 130 (6) Elevated blood pressure reading in office without diagnosis of hypertension: Code(s): R03.0 - Elevated blood-pressure reading, without diagnosis of hypertension Category: Medical Plan: Noted slightly elevated blood pressure readings today in office. We did discuss perhaps starting low-dose blood pressure medication though patient declines. He would like to continue working on lifestyle modifications and monitor his blood pressure at home. Goal blood pressures to be below 140/90 Orders: Orders Hemoglobin A1c Today R73.01 - Impaired fasting glucose Comprehensive [place]. Panel Fast Today R73.01 - Impaired fasting glucose Lipid Panel Today E78.9 - Disorder of lipoprotein metabolism, unspecified Complete Blood Count no Diff Today C61 - Malignant neoplasm of prostate, C79.51 - Secondary malignant neoplasm of bone Medications: Refilled triamcinolone acetonide 0.1% 1 appl topical BID 30 days 80 grams 1RF L29.9 - Pruritus, unspecified, L30.9 - Dermatitis, unspecified Patient Instructions: Goal: Blood pressure to be below 140/90, LDL to be below 130 Barriers: Adherence to physical activity and healthy eating habits
[2024-04-13 15:22] VITALS: BP 140/70; PULSE 78; TEMP 36.2; O2SAT 97; BMI 34.1
== END 2024-04-13 15:39 | disposition home or self-care (01) ==
PROVIDERS: PCP Physician Assistant; Visit Provider Physician Assistant
DX: C61 Malignant neoplasm of prostate (principal); C79.51 Secondary malignant neoplasm of bone; I26.99 Other pulmonary embolism without acute cor pulmonale; E66.811 Obesity, class 1; Z68.34 Body mass index [BMI] 34.0-34.9, adult; R73.01 Impaired fasting glucose; E78.9 Disorder of lipoprotein metabolism, unspecified; R03.0 Elevated blood-pressure reading, without diagnosis of hypertension

== ENCOUNTER → 2024-04-13 14:56 | Outpatient (BNVA) | payer MEDICARE, OTHER, SELFPAY | PROVIDERS: PCP Physician Assistant; Visit Provider Physician Assistant | DX: R03.0 Elevated blood-pressure reading, without diagnosis of hypertension (principal); C61 Malignant neoplasm of prostate; C79.51 Secondary malignant neoplasm of bone; I26.99 Other pulmonary embolism without acute cor pulmonale; R73.01 Impaired fasting glucose; E66.811 Obesity, class 1; E78.9 Disorder of lipoprotein metabolism, unspecified; Z86.711 Personal history of pulmonary embolism; Z68.34 Body mass index [BMI] 34.0-34.9, adult | CPT/HCPCS: 96127; 99212 ==

== ENCOUNTER 2024-04-27 12:43 | Outpatient (AMB) | payer MEDICARE, OTHER, SELFPAY ==
[2024-04-27 12:45] VITALS: BP 140/80; PULSE 85; O2SAT 96; BMI 33.2
--- NOTE | 2024-04-27 12:45 | A.OFFVIS_ITS ---
Vital Signs 04/27/24 12:45 Height 5 ft 10 in Weight 231 lb 7.766 oz BMI 33.2 BP 140/80 H Blood Pressure Location Rt brachial Position Sitting Pulse 85 Pulse Source Pulse Oximeter Pulse Oximetry (%) 96 Oxygen Delivery Method Room Air Intake Visit Reasons: Knee OA Intake Note: Patient presents here today for a follow-up on Osteoarthritis, Knee: Chief Of Field Operations Required: No Accompanied by: Self / Same As Patient Allergies Iodinated Contrast Media Allergy (Unknown, Verified 04/27/24 12:47) Unknown Lobster Allergy (Unknown, Verified 04/27/24 12:47) unknown Medication List - Last Reconciled 04/27/24 by Danitza Womack MD abiraterone 1,000 mg (4 x 250 mg) PO DAILY 30 days acetaminophen (Tylenol Extra Strength) 500 mg PO Q6H PRN apixaban (Eliquis) 5 mg PO BID diclofenac sodium 1% (Aspercreme Arthritis Pain) 2 grams topical QID omeprazole 20 mg PO Q OTHER DAY prednisone 2.5 mg PO BID 30 days triamcinolone acetonide 0.1% 1 appl topical BID 30 days HPI Comments Details: Patient is a 73 y.o. male with prostate cancer on hormonal treatment and prednisone who is here today for follow up for bilateral knee osteoarthritis Interval History: Patient last seen 10/14/[address] Keene. At that time he received bilateral knee steroid injections. He states that the injections served him well and he was supposed to follow up in January however he canceled the appointment because his knees continued to do well. 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 Daughter In good health Social History Household Members: Spouse Housing: House Do you presently have visiting nurse or other home services: No Alcohol intake: current Alcohol intake frequency: a few times a week Patient Tobacco Use Status: Never used Tobacco e-Cigarette/Vaping Use: Never Used Substance Use Type: Marijuana service: No Current occupational status: retired Cognitive needs: No Hearing needs: No Vision needs: Yes (glasses ) Review of Systems Const Details: Review of Systems Constitutional: Denies fever, chills, weight loss ENT: Denies vision changes, eye pain or eye redness, dental caries, dry mouth GI: Denies nausea, vomiting, diarrhea, abdominal pain, change in BM Pulm: Denies SOB, RAHMAN, hemoptysis, wheezing Cards: Denies chest pain, palpitations Skin: Denies Raynaud's, rash, nail changes, photosensitivity, SUPERVISOR [employer]: Denies headaches, weakness, paresthesias, recurrent falls MSK: as per HPI All other systems reviewed and are unremarkable except noted above Physical Exam Vital Signs: Last Vital Signs Pulse 85 04/27/24 12:45 BP 140/80 H 04/27/24 12:45 Pulse Ox 96 04/27/24 12:45 Oxygen Delivery Method Room Air 04/27/24 12:45 BMI result Body Mass Index 33.2 Vital signs reviewed Physical Examination CONSTITUITIONAL Patient alert and cooperative. Well appearing and in no apparent painful distress MSK Hands: ?Good civil cadd technician strength bilaterally. No deformities noted. ?No synovitis noted to the MCPs, PIPs or DIPs. ?No tenderness to palpation of these joints. Wrists: ?Full range of motion at the wrists without pain. ?No tenderness to palpation or synovitis noted to the wrists. Elbows: Full range of motion without pain. No tenderness, weakness, swelling, increased warmth or erythema. Shoulders: Full range of motion without pain. No tenderness, weakness, swelling, increased warmth or erythema. Hips: Full range of motion without pain. Knees: ?Full range of motion. ?No tenderness, swelling, increased warmth or erythema.? Bilateral crepitations right worse than left SKIN Skin intact without rashes. Results Reviewed Results Reviewed: Knee XR 03/2022 FINDINGS: Mild-moderate medial compartment joint space narrowing bilaterally. No acute fractures seen. No destructive bony lesion seen. Assessment & Plan Assessment & Plan (1) Osteoarthritis, knee: Comment: Bilateral Code(s): M17.9 - Osteoarthritis of knee, unspecified Category: Medical Qualifiers: Laterality: bilateral Osteoarthritis type: primary Qualified Code(s): M17.0 - Bilateral primary osteoarthritis of knee Plan: #Bilateral Knee OA Patient with bilateral knee OA that gets periodic steroid injection Last injection 09/2023 Bilateral knees injected with 40 mg Kenalog today Plan - RTC 6 months or sooner - Continue topical diclofenac 1% qid Plan I spent 20 minutes reviewing the record and labs, taking a history, examining the patient, discussing the treatment plan and documenting in the medical record Orders: Orders AMB Joint Injection/Aspiration Today M17.0 - Bilateral primary osteoarthritis of knee AMB Joint Injection/Aspiration Today M17.0 - Bilateral primary osteoarthritis of knee Medications: New lidocaine (PF) 10 mg intra-articular ONCE 2 mL 0RF M17.0 - Bilateral primary osteoarthritis of knee lidocaine (PF) 10 mg intra-articular ONCE 2 mL 0RF M17.0 - Bilateral primary osteoarthritis of knee Kenalog (triamcinolone acetonide) 40 mg intra-articular ONCE 1 mL 0RF NS M17.0 - Bilateral primary osteoarthritis of knee Kenalog (triamcinolone acetonide) 40 mg intra-articular ONCE 1 mL 0RF NS M17.0 - Bilateral primary osteoarthritis of knee Coding Level of Care Code Est Pt Level 3 (72879) Diagnoses Primary osteoarthritis of both knees M17.0 Laterality: bilateral Osteoarthritis type: primary
--- OUTSIDE RECORDS SUMMARY | 2024-04-27 14:50 | XMS_ITS | Patient Health Record ---
Author Organization [facility] Address [address] [place] [address] Care Team Providers Care Mechanical Engineering Draftsperson Name Role Phone Celso Butterfield Primary Care Provider UnavailCullen Power Unavailable [phone] ALLERGIES Allergen (clinical drug ingredient) Drug/Non Drug Allergy documented on EMR Reaction Allergy Type Onset Date Status Shellfish (FN) lobster (uncoded) Unknown Allergy Active REASON FOR REFERRAL No Information MEDICATIONS Medication SIG (Take, Route, Frequency, Duration) Notes Start Date End Date Status predniSONE 5 MG 1 Orally BID A ctive Abiraterone Acetate Cheno for th e prostate camcer Active Iron 06/19/2020 Active Lupron Depot (6-Month) 45 MG as directed Intramuscular Active IMMUNIZATIONS Vaccine Route Administration Date Status Comme nts Influenza Unknown 04/30/2019 Administered Influenza Unknown 12/28/2018 Refused SOCIAL HISTORY Tobacco Use: Social History Observation Description Date Details (start date - stop date) Never Smoker NA - NA Sex Assigned At : Social History Observation Description Sex Assigned At Unknown Tobacco Use/Smoking Question Answer Notes Patient is a nonsmoker Alcohol Screen Question Answer Notes Did you have a drink contain ing alcohol in the past year? Yes How often did you have a dri nk containing alcohol in the past year? 4 or more times a week (4 points) How many drinks did you have on a typical day when you were drinking in the past year? 5 or 6 drinks (2 points) How often did you have 6 or more drinks on one occasion in the past year? Never (0 point) Points 6 Interpretation Positive PROBLEMS Problem Type ICD Code Onset Dates Problem Status W/U Status Risk SNOMED Code Notes Problem Encounter for screening for malignant neoplasm of colon (Z12.11) Active confirmed 682183367 Problem Preprocedural examination (Z01.818) Active confirmed 421657289979719 Problem GERD (gastroesophagea l reflux disease) (K21.9) Active confirmed Gastroesoph ageal reflux disease (128568774) Problem Iron deficiency anemia (D50.9) Active confirmed Iron deficien cy anemia (49113841) PLAN OF TREATMENT Future Test Test Name Order Date COLONOSCOPY 12/28/2018 UPPER GI ENDOSCOPY 06/22/2020 COLONOSCOPY 06/22/2020 Insurance Providers Payer Name Payer Address Payer Phone Subscriber Number Group Number Insured Name Patient Relationship to Insured Coverage Start Date Coverage End Date MEDICARE OF [place] [address] [facility] [place] [address] [id number] AILYN GARSIA Self - patient is the insured [facility] [address] [place] [phone] [id number] AILYN GARSIA Self - patient is the insured MEDICAL (GENERAL) HISTORY Medical History History ICD Code 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 Jimbo Montes De [place],DM,CVA,Lung disease,renal dise ase Neg colonoscopy in 2006 Colonoscopy 02/2019 with 2 small tubular adenomas removed GERD COVID 04/2020 Surgical History Surgery Date(Month/Year) Cataract right eye 03/2019
--- OUTSIDE RECORDS SUMMARY | 2024-04-27 14:50 | XMS_ITS | Clinical Summary ---
Author Organization [facility] Address [address] [place] [phone] Phone Care Team Providers Care All Source Intelligence Name Role Phone Celso Butterfield Primary Care Provider Allergies Active Allergy Reactions Criticality Noted Date Comments Sulfa (Sulfonamide Antibiotics) 11/29 Medications Medication Sig Dispensed Refills Start Date End Date Status abiraterone (ZYTIGA) 250 mg TAKE 4 TABLETS (1,000MG) BY MOUTH ONCE DAILY ON AN EMPTY STOMACH 1 HOUR BEFORE OR 2 HOURS AFTER A MEAL 01/22/2022 Active abiraterone (ZYTIGA) 500 mg Take 2 tablets (1,000 mg total) by mouth daily Active apixaban (ELIQUIS) 5 mg tablet Take by mouth every 12 (twelve) hours. Active cholecalciferol (VITAMIN D-3) 25 mcg (1,000 unit) tablet Take 1 tablet (25 mcg total) by mouth daily. Active omeprazole (PriLOSEC) [address] capsule Take 1 capsule (20 mg total) by mouth every other day. Active predniSONE (DELTASONE) 5 mg tablet TAKE 1 TABLET BY MOUTH TWICE A DAY 06/03/2022 Active CALCIUM CARBONATE ORAL Take by mouth. Active FERROUS SULFATE ORAL Take by mouth. Active LEUPROLIDE ACETATE, 6 MONTH, IM Inject under the skin. Active Active Problems Problem Noted Date Diagnosed Date Prostate cancer metastatic to multiple sites Social History Tobacco Use Types Packs/Day Years Used Date Smoking Tobacco: Never Smokeless Tobacco: Never Alcohol Use Standard Drinks/Week Comments Yes 0 (1 standard drink = 0.6 oz pur e alcohol) Sex and Gender Information Value Date Recorded Sex Assigned at Not on file Gender Identity Not on file Sexual Orientation Not on file Job Start Date Occupation Industry Not on file Not on file Not on file Obstetrics History Last Filed Vital Signs Vital Sign Reading Time Taken Comments Blood Pressure 147/63 12/08/2023 2:04 PM EDT Sitting Left arm Pulse 67 12/08/2023 2:04 PM EDT Temperature - - Respiratory Rate - - Oxygen Saturation - - Inhaled Oxygen Concentration - - Weight 109 kg (241 lb) 12/08/2023 2:04 PM EDT Height 177.8 cm (5' 10 ) 12/08/2023 2:0 4 PM EDT Body Mass Index 34.58 12/08/2023 2:04 PM EDT Plan of Treatment Upcoming Encounters Date Type Department Care Team (Late st Contact Info) Description 05/12/2024 2:15 PM EST Office Visit [facility] Hematology Oncology [address] [place] [phone] Danyell Isidro, [address] [place] [address] Health Maintenance Due Date Last Done Comments COVID-19 Vaccine (#1) 1955 DTaP,Tdap,and Td Vaccines (1 - Tdap) 12/22/1971 Zoster Vaccines (1 of 2) 12/22/1971 RSV Immunization Patients 60 + Years Old (1 - Risk 60-74 years 1-dose series) 2012 Pneumococcal Vaccine: 65+ Years (2 of 2 - PCV) 10/02/2021 10/02/2020 Cholesterol Screening (Lipid Panel) 03/06/2022 Colorectal Cancer Screening: Colonoscopy 03/06/2022 Depression Screening 03/06/2022 Falls Risk Assessment 03/06/2022 Hepatitis C Screening 03/06/2022 Social Influencers of Health Screening 03/06/2022 Medicare Annual Wellness Visit 10/04/2023 10/03/2022 Influenza Vaccine (#1) 2023 2, 05/27/2019 HIB Vaccines Aged Out No longer eligi ble based on patient's age to complete this topic HPV Vaccines Aged Out No longer eligi ble based on patient's age to complete this topic Hepatitis A Vaccines Aged Out No long er eligible based on patient's age to complete this topic Hepatitis B Vaccines Aged Out No long er eligible based on patient's age to complete this topic IPV Vaccines Aged Out No longer eligi ble based on patient's age to complete this topic MMR Vaccines Aged Out No longer eligi ble based on patient's age to complete this topic Meningococcal ACWY Vaccine Aged Out N o longer eligible based on patient's age to complete this topic RSV Immunization Patients Under 20 months Aged Out No longer eligible b ased on patient's age to complete this topic Varicella Vaccines Aged Out No longer eligible based on patient's age to complete this topic Advance Directives Documents on File Type Date Recorded Patient Mailroom Messenger Expl anation Health Care Decision (hx) 06/30/2020 AD WATKINS DIRECTIVE Health Care Decision (hx) 06/30/2020 AD WATKINS DIRECTIVE Health Care Decision (hx) 06/30/2020 AD WATKINS DIRECTIVE Health Care Decision (hx) 06/30/2020 AD WATKINS DIRECTIVE Health Care Decision (hx) 06/30/2020 AD WATKINS DIRECTIVE Health Care Decision (hx) 06/30/2020 AD WATKINS DIRECTIVE Health Care Decision (hx) 06/30/2020 AD WATKINS DIRECTIVE Health Care Decision (hx) 06/30/2020 AD WATKINS DIRECTIVE Health Care Decision (hx) 06/30/2020 AD WATKINS DIRECTIVE Health Care Decision (hx) 06/30/2020 AD WATKINS DIRECTIVE Health Care Decision (hx) 06/30/2020 AD WATKINS DIRECTIVE Health Care Decision (hx) 06/30/2020 AD WATKINS DIRECTIVE Health Care Decision (hx) 06/30/2020 AD WATKINS DIRECTIVE Health Care Decision (hx) 06/30/2020 AD WATKINS DIRECTIVE Care Teams All Source Intelligence Relationship Specialty Start Date End Date Celso Butterfield PA [address] [place] [address] PCP - General Internal Medicine 07/12/20
== END 2024-04-27 13:15 | disposition home or self-care (01) ==
PROVIDERS: PCP Physician Assistant; Visit Provider Student in an Organized Health Care Education/Training Program
DX: M17.0 Bilateral primary osteoarthritis of knee (principal)
CPT/HCPCS: 20610; 99213

== ENCOUNTER → 2024-04-27 12:43 | Outpatient (BNVA) | payer MEDICARE, OTHER, SELFPAY | PROVIDERS: PCP Physician Assistant; Visit Provider Student in an Organized Health Care Education/Training Program | DX: M17.0 Bilateral primary osteoarthritis of knee (principal) | CPT/HCPCS: 20610; 99212; J2003; J3300 ==

== ENCOUNTER → 2024-05-19 14:04 | Outpatient (REF) | payer MEDICARE, OTHER, SELFPAY ==
--- NOTE | 2024-05-19 14:09 | ECG_ITS ---
Test Reason : R00.2 - Palpitations Blood Pressure : */* mmHG Vent. Rate : 70 BPM Atrial Rate : 70 BPM P-R Int : 182 ms QRS Dur : 98 ms QT Int : 452 ms P-R-T Axes : 48 -42 22 degrees QTcB Int : 488 ms Sinus rhythm with frequent Premature ventricular complexes Left axis deviation Nonspecific ST abnormality Prolonged QT Abnormal ECG When compared with ECG of 22-Jan-2022 21:38, Premature ventricular complexes are now Present QT has lengthened Referred By: Celso Butterfield Electronically Signed By: ALLAN HURLEY
--- OUTSIDE RECORDS SUMMARY | 2024-05-19 15:09 | XMS_ITS | Encounter Summary ---
Author Organization [facility] Address [address] [place] [address] Care Team Providers Care Router Tender Name Role Phone Celso Butterfield Primary Care Provider [phone] Reason for Visit * Reason Comments Follow-up Encounter Details Date Type Department Care Team (Late st Contact Info) Description 05/12/2024 2:15 PM EST Office Visit [facility] Hematology Oncology [address] [place] [phone] Danyell Isidro, DO [address] [place] [address] Prostate cancer metastatic to multiple sites (CMS/HCC) (Primary Dx) Social History Tobacco Use Types Packs/Day Years Used Date Smoking Tobacco: Never Smokeless Tobacco: Never Tobacco Cessation:Counseling Given: Not Answered Alcohol Use Standard Drinks/Week Comments Yes 0 (1 standard drink = 0.6 oz pur e alcohol) Sex and Gender Information Value Date Recorded Sex Assigned at Not on file Legal Sex Male 3:50 PM EST Gender Identity Not on file Sexual Orientation Not on file documented as of this encounter Last Filed Vital Signs Vital Sign Reading Time Taken Comments Blood Pressure 137/58 05/12/2024 2:25 PM EST Pulse 54 05/12/2024 2:25 PM EST Temperature 36.2 ??C (97.2 ??F) 05/12/2024 2:25 PM ES T Respiratory Rate - - Oxygen Saturation 100% 05/12/2024 2:25 PM EST Inhaled Oxygen Concentration - - Weight 106 kg (233 lb) 05/12/2024 2:25 PM EST Height 177.8 cm (5' 10 ) 05/12/2024 2:25 PM EST Body Mass Index 33.43 05/12/2024 2:25 PM EST documented in this encounter Progress Notes * Danyell Isidro DO - 05/12/2024 2:15 PM EST Call your urologist in regards to your scan Call your PCP about your irregular heart beat If you develop chest pain or shortness of breath or your heart beat is very fast, please go to the ER * Danyell Isidro DO - 05/12/2024 2:15 PM EST Hematology/Oncology Progress Note 05/12/24 Subjective Patient identifier: 73-year-old male with history of metastatic prostate cancer Interim history: The patient presents today for follow up Over past couple weeks has noted palpitations and heart racing. Also intermittent dizziness. He denies any new back pain or bone pain. Says he continues to take the abiraterone. He reports he was due for his imaging with urology but has not yet heard about the appointment time. Constitutional:see above Resp/CV: No cough, shortness of breath, chest pain GI: No nausea, vomiting, Skin: No rashes Neuro: No headaches, dizziness, neuropathy Musculoskeletal: No bone pain, no joint pain. Hem/Lymph : No palpable lymph nodes, no bleeding or easy bruising Oncology history: The patient first presented after screening PSA in summer was elevated at 19.18 . He underwent a [address] scan of the chest abdomen and pelvis which showed hydronephrosis, bladder wall thickening, prostatomegaly. . He underwent prostate biopsy which confirmed a Tiffany 4+4 and Hermleigh 4+5 prostatic adenocarcinoma in all the cores. He subsequently underwent a nuclear bone scan which showed multip le osseous metastases. He was seen at [facility] for second opinion consultation. He was started on therapy with leuprolide and abiraterone and prednisone. He has remained on this since then. He continues to do quite well on this. The abiraterone was stopped as per Dr. Sammy Ortgea in December 2021. PSA started rising, Zytiga was then restarted 2023. Objective Last Vitals Vitals: 05/12/24 1425 BP: 137/58 Pulse: 54 Temp: 36.2 ??C (97.2 ??F) SpO2: 100% ECO General: well nourished older male, in no acute distress HEENT: no scleral icterus, pupils equal bilaterally Resp: Normal inspiratory effort bilaterally Cardio: occasional irregular beat, no murmur. Not tachycardic. Abdomen: soft non tender Neuro: A and O x 3, normal speech Medications Current Outpatient Medications: abiraterone (ZYTIGA) 250 mg, TAKE 4 TABLETS (1,000MG) BY MOUTH ONCE DAILY ON AN EMPTY STOMACH 1 HOUR BEFORE OR 2 HOURS AFTER A MEAL, Disp: , Rfl: abiraterone (ZYTIGA) 500 mg, Take 2 tablets (1,000 mg total) by mouth daily, Disp: , Rfl: apixaban (ELIQUIS) 5 mg tablet, Take by mouth every 12 (twelve) hours., Disp: , Rfl: CALCIUM CARBONATE ORAL, Take by mouth., Disp: , Rfl: cholecalciferol (VITAMIN D-3) 25 mcg (1,000 unit) tablet, Take 1 tablet (25 mcg total) by mouth daily., Disp: , Rfl: FERROUS SULFATE ORAL, Take by mouth., Disp: , Rfl: LEUPROLIDE ACETATE, 6 MONTH, IM, Inject under the skin., Disp: , Rfl: omeprazole (PriLOSEC) [address] capsule, Take 1 capsule (20 mg total) by mouth every other day., Disp: , Rfl: predniSONE (DELTASONE) 5 mg tablet, TAKE 1 TABLET BY MOUTH TWICE A DAY, Disp: , Rfl: Allergies Sulfa Antibiotics Past medical history, past surgical history, and family history reviewed. Medical history DVT and PE GERD Surgical history Tonsillectomy Cataract surgery Family history Brother- prostate cancer dx age 49, still alive Dad- lung cancer Social history He is lives with his . 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 He has two sons and a daughter. Non smoker. Labs: Lab Results Component Value Date WBC 9.3 05/09/2024 RBC 4.10 (L) 05/09/2024 HGB 9.5 (L) 05/09/2024 HCT 32.6 (L) 05/09/2024 MCV 80.5 05/09/2024 MCHC 29.1 (L) 05/09/2024 RDW 18.6 (H) 05/09/2024 PLT 376 05/09/2024 MPV 9.7 05/09/2024 NRBC 0.0 05/09/2024 Lab Results Component Value Date NA 141 05/09/2024 K 4.1 05/09/2024 CL 109 05/09/2024 CO2 22 05/09/2024 GLUCOSE 104 (H) 05/09/2024 BUN 15 05/09/2024 CREATININE 0.80 05/09/2024 CALCIUM 8.8 05/09/2024 PROT 6.4 05/09/2024 ALBUMIN 3.5 05/09/2024 ALBUMIN 3.5 05/09/2024 BILITOT 0.4 05/09/2024 AST 13 05/09/2024 ALT 16 05/09/2024 ALKPHOS 99 05/09/2024 EGFR 95 05/09/2024 Lab Results Component Value Date PSA 0.38 05/09/2024 Assessment & Plan 73-year-old male with a 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 He was on abiraterone and prednisone with response of PSA from 19 down to less than 0.1. Then he opted to be monitored off ADT. Then due to rising PSA earlier this year he was resumed on ADT and Zytiga. PSA last in the fall was 0.4 now is down to 0.38. Metastatic prostate cancer Continue on abiraterone and prednisone (this is prescribed by urologist) Also remains on leuprolide at urology office Continue with calcium and vitamin D Monitor for side effects of cancer treatment Return here in 3 to 4 months for follow-up Palpitations Recommend he call PCP to discuss further If occurs again and along with chest pain or dyspnea or remains HR > 120 then he should go to ER Family history of cancer Negative ambry testing Normocytic anemia Monitor blood counts with each lab check , no intervention needed Sign Natalya Isidro DO - Hematology/Oncology [facility] CC: Celso Butterfield, Sammy Carlton MD documented in this encounter Plan of Treatment Upcoming Encounters Date Type Department Care Team (Late st Contact Info) Description 09/12/2024 2:15 PM EDT Office Visit [facility] Hematology Oncology [address] [place] [phone] Danyell Isidro, [address] [place] [address] documented as of this encounter Visit Diagnoses Diagnosis Prostate cancer metastatic to multiple sites (CMS/HCC)- Primary documented in this encounter Care Teams Router Tender Relationship Specialty Start Date End Date Celso Butterfield PA [address] [place] [phone] PCP - General Internal Medicine 07/12/20 documented as of this encounter
--- OUTSIDE RECORDS SUMMARY | 2024-05-19 15:09 | XMS_ITS | Clinical Summary ---
Author Organization [facility] Address [address] [place] [address] Phone Care Team Providers Care Steam Shovel Runner Name Role Phone Celso Butterfield Primary Care Provider Allergies Active Allergy Reactions Criticality Noted Date Comments Sulfa (Sulfonamide Antibiotics) 11/29 Medications abiraterone (ZYTIGA) 250 mg TAKE 4 TABLETS [...] Date Prostate cancer metastatic to multiple sites Encounters Date Type Department Care Team Description 05/12/2024 2:15 PM EST Office Visit [facility] Hematology Oncology [address] [place] [address] Danyell Isidro DO Prostate cancer metastatic to multiple sites (CMS/HCC) (Primary Dx) from Last 3 Months Social History Tobacco Use Types Packs/Day Years [...] on file Sexual Orientation Not on file Obstetrics History Last Filed [...] Mass Index 33.43 05/12/2024 2:25 PM EST Plan of Treatment Upcoming Encounters Date Type Department Care Team (Late st Contact Info) Description 09/12/2024 2:15 PM EDT Office Visit [facility] Hematology Oncology [address] [place] [phone] Danyell Isidro DO [address] [place] [address] Health Maintenance Due Date Last Done Comments DTaP,Tdap,and Td Vaccines (1 - Tdap) 12/22/1971 RSV Immunization Patients 60+ Years Old (1 - Risk 60-74 years 1-dose series) 2012 Pneumococcal Vaccine: 50+ Years (2 of 2 - PCV) 10/02/2021 10/02/2020 Cholesterol Screening (Lipid Panel) 03/06/2022 Colorectal Cancer Screening: Colonoscopy 03/06/2022 Depression Screening 03/06/2022 Falls Risk Assessment 03/06/2022 Hepatitis C Screening 03/06/2022 Social Influencers of Health Screening 03/06/2022 Medicare Annual Wellness Visit 10/04/2023 10/03/2022 Zoster Vaccines Completed 02/11/2023, 10/22/2022 COVID-19 Vaccine Completed 02/01/2024, , 01/15/2022, Additional history exists Influenza Vaccine Completed 02/01/2024, , 01/15/2022, Additional history exists HIB Vaccines Aged Out No longer eligi [...] patient's age to complete this topic Meningococcal B Vacine Aged Out No lo nger eligible based on patient's age to complete this topic RSV Immunization Patients Under 20 months Aged Out No longer eligible based on patient's age to complete this topic Varicella Vaccines Aged Out No longer eligible based on patient's age to complete this topic Procedures Procedure Name Priority Date/Time Associated Diagnosis Comments COMPLETE BLOOD COUNT Routine 05/09/2024 3:05 PM EST Malignant neoplasm of prostate (CMS/HCC) Anemia, unspecified Personal history of PE (pulmonary embolism) PROSTATE SPECIFIC ANTIGEN DIAGNOSTIC Routine 05/09/2024 3:05 PM EST Malignant neoplasm of prostate (CMS/HCC) Anemia, unspecified Personal history of PE (pulmonary embolism) TESTOSTERONE FREE, BIOAVAILABLE AND TOTAL Routine 05/09/2024 3:05 PM EST Malignant neoplasm of prostate (CMS/HCC) Anemia, unspecified Personal history of PE (pulmonary embolism) LACTATE DEHYDROGENASE Routine 05/09/2024 3:05 PM EST Malignant neoplasm of prostate (CMS/HCC) Anemia, unspecified Personal history of PE (pulmonary embolism) COMPREHENSIVE METABOLIC PANEL Routine 05/09/2024 3:05 PM EST Malignant neoplasm of prostate (CMS/HCC) Anemia, unspecified Personal history of PE (pulmonary embolism) from Last 3 Months Results * (ABNORMAL) Testosterone free, bioavailable and total (05/09/2024 3:05 PM EST) Testosterone <7(L) 229 - 902 ng/dL LAB CHEMISTRY METHOD 05/09/2024 5:25 PM EST [facility] Testosterone, Free LAB CHEMISTRY METHOD 05/09/2024 5:25 PM EST [facility] Comment:Unable to Calculate Testosterone, Bioavailable LAB CHEMISTRY METHOD 05/09/2024 5:25 PM EST [facility] Comment:Unable to Calculate Sex Hormone Binding 68.5 See Comment nmol/L LAB CHEMISTRY METHOD 05/09/2024 5:25 PM EST [facility] Comment: FEMALES: ??pre-menopausal ?? 10.8 - >180 ??post-menopausal ??23.2 - 159.1 MALES: ?? 21-49 years ? 14.6 - 94.6 ?? 50-89 years ? 21.6 - 113.1 CHILDREN: ??No established reference range Over the counter supplements containing high doses of biotin may interfere with this assay. ??If interference is suspected, patients should be retested after refraining from biotin supplements for 72 hours. Albumin 3.5 3.2 - 5.0 g/dL LAB CHEMISTRY METHOD 05/09/2024 5:25 PM EST [facility] Blood Venous blood specimen / Unknown Venipuncture / Unknown 05/09/2024 3:05 PM EST 05/09/2024 4:40 PM EST us Danyell Isidro DO LAB BLOOD ORDERABLES Final Result [facility] [address] [place] [address], * Prostate specific antigen diagnostic (05/09/2024 3:05 PM EST) Pathologist [facility] [place] PSA 0.38 0.00 - 4.00 ng/mL LAB CHEMISTRY METHOD 05/09/2024 5:22 PM [facility] Blood Venous blood specimen / Unknown Venipuncture / Unknown 05/09/2024 3:05 PM EST 05/09/2024 4:40 PM EST [facility] - 05/09/2024 5:22 PM EST The Siemens Advia Centaur Chemiluminescent Immunoassay is used. Results obtained with different assay methods or kits cannot be used interchangeably. Results cannot be interpreted as absolute evidence of the presence or absence of malignant disease. us Danyell Isidro DO LAB BLOOD ORDERABLES Final Result [facility] [address] [place] [address], * (ABNORMAL) Complete blood count (05/09/2024 3:05 PM EST) Pathologist [facility] [place] WBC 9.3 4.8 - 10.8 K/mcL LAB HEMETOLOGY METHOD 05/09/2024 5:28 PM [facility] RBC 4.10(L) 4.50 - 5.50 M/mcL LAB HEMETOLOGY METHOD 05/09/2024 5:28 PM [facility] Hemoglobin 9.5(L) 13.5 - 17.5 g/dL LAB HEMETOLOGY METHOD 05/09/2024 5:28 PM [facility] Hematocrit 32.6(L) 42.0 - 54.0 % LAB HEMETOLOGY METHOD 05/09/2024 5:28 PM [facility] MCV 80.5 79.0 - 98.0 FL LAB HEMETOLOGY METHOD 05/09/2024 5:28 PM [facility] MCH 23.5(L) 27.0 - 32.0 pcg LAB HEMETOLOGY METHOD 05/09/2024 5:28 PM EST [facility] MCHC 29.1(L) 32.0 - 37.0 g/dL LAB HEMETOLOGY METHOD 05/09/2024 5:28 PM EST [facility] RDW 18.6(H) 11.0 - 15.0 % LAB HEMETOLOGY METHOD 05/09/2024 5:28 PM [facility] Platelets 376 130 - 400 K/mcL LAB HEMETOLOGY METHOD 05/09/2024 5:28 PM EST [facility] MPV 9.7 7.0 - 11.0 FL LAB HEMETOLOGY METHOD 05/09/2024 5:28 PM [facility] NRBC 0.0 <1.0 % LAB HEMETOLOGY METHOD 05/09/2024 5:28 PM EST [facility] NRBC Absolute 0.00 <0.10 K/mcL LAB HEMETOLOGY METHOD 05/09/2024 5:28 PM EST [facility] Blood Venous blood specimen / Unknown Venipuncture / Unknown 05/09/2024 3:05 PM EST 05/09/2024 4:40 PM EST us Danyell Isidro DO LAB BLOOD ORDERABLES Final Result [facility] [address] [place] [address], * Lactate dehydrogenase (05/09/2024 3:05 PM EST) LDH 185 120 - 246 unit/L LAB CHEMISTRY METHOD 05/09/2024 5:32 PM EST [facility] Blood Venous blood specimen / Unknown Venipuncture / Unknown 05/09/2024 3:05 PM EST 05/09/2024 4:40 PM EST us Danyell Aj Sanna DO LAB BLOOD ORDERABLES Final Result [facility] [address] [place] [address], [place] [phone] * (ABNORMAL) Comprehensive metabolic panel (05/09/2024 3:05 PM EST) Sodium 141 133 - 145 mmol/L LAB CHEMISTRY METHOD 05/09/2024 5:32 PM EST [facility] Potassium 4.1 3.5 - 5.5 mmol/L LAB CHEMISTRY METHOD 05/09/2024 5:32 PM [facility] Chloride 109 96 - 110 mmol/L LAB CHEMISTRY METHOD 05/09/2024 5:32 PM [facility] CO2 22 21 - 32 mmol/L LAB CHEMISTRY METHOD 05/09/2024 5:32 PM [facility] Anion Gap 10 3 - 11 LAB CHEMISTRY METHOD 05/09/2024 5:32 PM [facility] Glucose 104(H) 70 - 100 mg/dL LAB CHEMISTRY METHOD 05/09/2024 5:32 PM [facility] BUN 15 5 - 25 mg/dL LAB CHEMISTRY METHOD 05/09/2024 5:32 PM [facility] Creatinine 0.80 0.70 - 1.30 mg/dL LAB CHEMISTRY METHOD 05/09/2024 5:32 PM [facility] eGFR 95 >=60 mL/min/1. 73m2 LAB CHEMISTRY METHOD 05/09/2024 5:32 PM [facility] Comment:Calculation based on the??Chronic Kidney Disease Epidemiology Collaboration (CKD-EPI) equation refit??without adjustment for race. BUN/Creatinine Ratio 18.8 LAB CHEMISTRY METHOD 05/09/2024 5:32 PM [facility] Calcium 8.8 8.5 - 10.5 mg/dL LAB CHEMISTRY METHOD 05/09/2024 5:32 PM EST [facility] AST (SGOT) 13 10 - 42 unit/L LAB CHEMISTRY METHOD 05/09/2024 5:32 PM [facility] ALT (SGPT) 16 10 - 60 unit/L LAB CHEMISTRY METHOD 05/09/2024 5:32 PM [facility] Alkaline Phosphatase 99 42 - 121 unit/L LAB CHEMISTRY METHOD 05/09/2024 5:32 PM [facility] Total Protein 6.4 6.0 - 8.0 g/dL LAB CHEMISTRY METHOD 05/09/2024 5:32 PM [facility] Albumin 3.5 3.2 - 5.0 g/dL LAB CHEMISTRY METHOD 05/09/2024 5:32 PM [facility] Total Bilirubin 0.4 0.0 - 1.4 mg/dL LAB CHEMISTRY METHOD 05/09/2024 5:32 PM [facility] Blood Venous blood specimen / Unknown Venipuncture / Unknown 05/09/2024 3:05 PM EST 05/09/2024 4:40 PM EST us Danyell Isidro DO LAB BLOOD ORDERABLES Final Result [facility] [address] [place] [address], from Last 3 Months Insurance MED[employer] [place] MEDIC[place] [employer]VANT[place] Advance Directives Documents on File Type Date Recorded Patient Phlebotomy Program Coordinator Expl anation Health Care Decision (hx) 06/30/2020 [...] (hx) 06/30/2020 AD WATKINS DIRECTIVE Care Teams Steam Shovel Runner Relationship Specialty Start Date End Date Celso Butterfield PA [address] [place] [address] PCP - General Internal Medicine 07/12/20
--- OUTSIDE RECORDS SUMMARY | 2024-05-19 15:09 | XMS_ITS | Clinical Summary ---
Author Organization [facility] Address [address] [place] [address] Care Team Providers Care Blacksmith Apprentice Name Role Phone Celso Butterfield Primary Care Provider Allergies Active Allergy Reactions Criticality Noted Date Comments Sulfa Antibiotics 12/24/2018 Medications Medication Sig Dispensed Refills Start Date End Date Status abiraterone (ZYTIGA) 500 MG tablet Take 2 tablets (1,000 mg total) by mouth daily 0 Active apixaban (ELIQUIS) 5 MG TABS tablet Take by mouth every 12 (twelve) hours. 0 Active vitamin D3 (cholecalciferol) 25 MCG (1000 UT) tablet Take 1 tablet (25 mcg total) by mouth daily. 0 Active Calcium Carbonate (CALCIUM 500 PO) Take by mouth. 0 Acti ve Ferrous Sulfate (IRON PO) Take by mouth. 0 Active omeprazole (PriLOSEC) 20 MG capsule Take 1 capsule (20 mg total) by mouth every other day. 0 Active abiraterone (ZYTIGA) 250 MG tablet TAKE 4 TABLETS (1,000MG) BY MOUTH ONCE DAILY ON AN EMPTY STOMACH 1 HOUR BEFORE OR 2 HOURS AFTER A MEAL 120 tablet 6 01/22/2022 Active predniSONE (DELTASONE) 5 mg tablet TAKE 1 TABLET BY MOUTH TWICE A DAY 60 tablet 0 06/03/2022 Active Additional Information Patient taking differently: 2.5 mg 2 times daily, Reported on 09/07/2023 Leuprolide Acetate (ELIGARD SC) Inject under the skin. 0 Active Active Problems Problem Noted Date Diagnosed Date Prostate cancer metastatic to multiple sites 09/ History of pulmonary embolism 12/19/2021 Family history of cancer 12/19/2021 Social History Tobacco Use Types Packs/Day Years [...] file Not on file Not on file Last Filed Vital Signs Vital Sign Reading Time Taken Comments Blood Pressure 147/63 12/08/2023 2:04 PM EDT Pulse 67 12/08/2023 2:04 PM EDT Temperature 36.6 ??C (97.9 ??F) 12/08/2023 2:04 PM ED T Respiratory Rate - - Oxygen Saturation 98% 12/08/2023 2:04 PM EDT Inhaled Oxygen Concentration - - Weight 109.3 kg (241 lb) 12/08/2023 2:04 PM EDT Height 177.8 cm (5' 10 ) 12/08/2023 2:04 PM EDT Body Mass Index 34.58 12/08/2023 2:04 PM EDT Plan of Treatment Health Maintenance Due Date Last Done Comments Hepatitis C Screening 1950 Pneumococcal Vaccine (1 of 2 - PCV) 1958 Depression Screening 1964 BMI Counseling 1970 Preventative Health Evaluation 1970 DTap / Tdap / Td (1 - Tdap) 12/22/1971 Colon Cancer Screening (Colonoscopy) 1997 Fall Risk Assessment 2017 COVID-19 Vaccine (2 - Pfizer risk series) 02/06/2021 01/16/2021 Shingrix-Zoster Vaccine (2 of 2) 12/17/2022 10/23/19 23 Influenza Vaccine (#1) 2023 04/30/2019 RSV Adult > 60+ Yrs or Pregn ant (1 - 1-dose 75+ series) 12/22/2027 Hepatitis B Vaccines Aged Out No long er eligible based on patient's age to complete this topic RSV Ped < 20 months Aged Out No longe r eligible based on patient's age to complete this topic Care Teams Blacksmith Apprentice Relationship Specialty Start Date End Date Celso Butterfield PA [address] [facility] [place] [phone] PCP - General Physician Fish Hatchery Man 12/15/18 Morenita Vang MD [facility] [place] Consulting Physician Medical Oncology 12/27/18
--- OUTSIDE RECORDS SUMMARY | 2024-05-19 15:09 | XMS_ITS | Patient Health Record ---
Author Organization [facility] Address [address] [place] [address] Care Team Providers Care Global Sales Executive Name Role Phone Celso Butterfield Primary Care Provider UnavailCullen Power Unavailable [phone] ALLERGIES Allergen (clinical drug ingredient) Drug/Non Drug [...] malignant neoplasm of colon (Z12.11) Active confirmed 553354915 Problem Preprocedural examination (Z01.818) Active confirmed [id number] Problem GERD (gastroesophagea l reflux disease) (K21.9) Active confirmed Gastroesoph ageal reflux disease (369330065) Problem Iron deficiency anemia (D50.9) Active confirmed Iron deficien cy anemia (89004821) PLAN OF TREATMENT Future Test Test Name Order Date COLONOSCOPY 12/28/2018 UPPER GI ENDOSCOPY 06/22/2020 COLONOSCOPY 06/22/2020 Insurance Providers Payer Name Payer Address Payer Phone Subscriber Number Group Number Insured Name Patient Relationship to Insured Coverage Start Date Coverage End Date MEDICARE OF [place] [address] [facility] [place] [address] [id number] AILYN GARSIA Self - patient is the insured [facility] [address] [place] [address] [id number] AILYN GARSIA Self - patient is the insured MEDICAL (GENERAL) HISTORY Medical History History ICD Code 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 Jimbo Montes De [place]ca [place],DM,CVA,Lung disease,renal dise ase Neg colonoscopy in 2006 Colonoscopy 02/2019 with 2 small tubular adenomas removed GERD COVID 04/2020 Surgical History Surgery Date(Month/Year) Cataract right eye 03/2019
[2024-05-19 15:26] LABS: Hematocrit 28.5 % (42.0-52.0); Hemoglobin 8.6 g/dl (14.0-18.0); Mean Corpuscular HGB Conc 30.2 g/dl (31.0-36.0); Mean Corpuscular Hemoglobin 23.8 pg (27.0-33.0); Mean Corpuscular Volume 78.7 fL (80.0-98.0); Mean Platelet Volume 9.1 fL (9.4-12.4); Platelet Count 299 X10*3/uL (160-400); Red Blood Count 3.62 X10*6/uL (4.60-5.80); Red Cell Distribution Width 19.1 % (11.0-16.0)
[2024-05-19 15:38] LABS: Estimated Average Glucose 114 mg/dL; Hemoglobin A1C 84.9712 umol/L; Hemoglobin A1c % 5.6 % (<6.0); Total Hemoglobin (HGBA1C) 2268.4214 umol/L
[2024-05-19 15:53] LABS: Anion Gap 11 (12-20); Blood Urea Nitrogen 13 mg/dL (9-16); Calcium 8.3 mg/dL (8.4-10.2); Carbon Dioxide 25 mmol/L (22-29); Chloride 110 mmol/L (96-108); Estimated Glomerular Filt Rate > 60; Glucose Random 98 mg/dL (60-115); Potassium 3.7 mmol/L (3.3-5.1); Sodium 142 mmol/L (135-145)
== END ==
LOC: HO.CARD 14:04
PROVIDERS: PCP Physician Assistant; Visit Provider Physician Assistant
DX: R73.01 Impaired fasting glucose (principal); R00.2 Palpitations
CPT/HCPCS: 36415; 80048; 83036; 85027; 93005

== ENCOUNTER → 2024-05-19 14:09 | Outpatient (BNV) | payer MEDICARE, OTHER, SELFPAY | PROVIDERS: PCP Physician Assistant; Visit Provider Internal Medicine | DX: R00.2 Palpitations (principal); R94.31 Abnormal electrocardiogram [ECG] [EKG] | CPT/HCPCS: 93010 ==

== ENCOUNTER 2024-05-20 13:39 | Outpatient (AMB) | payer MEDICARE, OTHER, SELFPAY ==
--- NOTE | 2024-05-20 13:49 | AM.OFFVISNUR ---
Intake Visit Reasons: Injection Allergies Iodinated Contrast Media Allergy (Unknown, Verified 04/27/24 12:47) Unknown Lobster Allergy (Unknown, Verified 04/27/24 12:47) unknown Office Meds Xgeva 120 mg/1.7 mL (70 mg/mL) subcutaneous solution Performing Provider: Sammy Ortega MD [facility] Administered by: Karl Crabtree LPN on 05/20/24 13:49 Dose Route Admin Location Dispensed Lot Number Expiration Date [facility] Media Analyst 120 mg subcut right arm 1.7 mL [id number] 04/29/26 80204-781-19 AMGEN Assessment & Plan Assessment & Plan Orders: Orders AMB Denosumab Injection Practice Supplied Today C61 - Malignant neoplasm of prostate, C79.51 - Secondary malignant neoplasm of bone, M81.8 - Other osteoporosis without current pathological fracture, T38.7X5A - Adverse effect of androgens and anabolic congeners, initial encounter Medications: New Xgeva (denosumab) 120 mg (1.7 mL) subcut ONCE 1.7 mL 0RF NS C61 - Malignant neoplasm of prostate, C79.51 - Secondary malignant neoplasm of bone, M81.8 - Other osteoporosis without current pathological fracture, T38.7X5A - Adverse effect of androgens and anabolic congeners, initial encounter Coding
--- OUTSIDE RECORDS SUMMARY | 2024-05-20 14:08 | XMS_ITS | Clinical Summary ---
Author Organization [facility] Address [address] [place] [address] Phone Care Team Providers Care Destination Coordinator Name Role Phone Celso Butterfield Primary Care [...] Description 05/12/2024 2:15 PM EST Office Visit [facility] Hematology Oncology [address] [place] [address] Danyell Isidro DO Prostate cancer [...] Description 09/12/2024 2:15 PM EDT Office Visit [facility] Hematology Oncology [address] [place] [phone] Danyell Isidro DO [address] [place] [address] Health Maintenance Due Date Last Done Comments [...] LAB CHEMISTRY METHOD 05/09/2024 5:25 PM EST [facility] Testosterone, Free LAB CHEMISTRY METHOD 05/09/2024 5:25 PM EST [facility] Comment:Unable to Calculate Testosterone, Bioavailable LAB CHEMISTRY METHOD 05/09/2024 5:25 PM EST [facility] Comment:Unable to Calculate Sex Hormone Binding 68.5 See Comment nmol/L LAB CHEMISTRY METHOD 05/09/2024 5:25 PM EST [facility] Comment: FEMALES: ??pre-menopausal ?? 10.8 - [...] LAB CHEMISTRY METHOD 05/09/2024 5:25 PM EST [facility] Blood Venous blood specimen / Unknown Venipuncture / Unknown 05/09/2024 3:05 PM EST 05/09/2024 4:40 PM EST us Danyell Isidro DO LAB BLOOD ORDERABLES Final Result [facility] [address] [place] [address], * Prostate specific antigen diagnostic (05/09/2024 3:05 PM EST) Pathologist [facility] PSA 0.38 0.00 - 4.00 ng/mL LAB CHEMISTRY METHOD 05/09/2024 5:22 PM [facility] Blood Venous blood specimen / Unknown Venipuncture / Unknown 05/09/2024 3:05 PM EST 05/09/2024 4:40 PM EST [facility] - 05/09/2024 5:22 PM EST The Siemens Advia Centaur Chemiluminescent Immunoassay is used. Results obtained with different assay methods or kits cannot be used interchangeably. Results cannot be interpreted as absolute evidence of the presence or absence of malignant disease. us Danyell Isidro DO LAB BLOOD ORDERABLES Final Result [facility] [address] [place] [address], * (ABNORMAL) Complete blood count (05/09/2024 3:05 PM EST) Pathologist [facility] WBC 9.3 4.8 - 10.8 K/mcL LAB HEMETOLOGY METHOD 05/09/2024 5:28 PM [facility] RBC 4.10(L) 4.50 - 5.50 M/mcL LAB HEMETOLOGY METHOD 05/09/2024 5:28 PM [facility] Hemoglobin 9.5(L) 13.5 - 17.5 g/dL LAB HEMETOLOGY METHOD 05/09/2024 5:28 PM [facility] Hematocrit 32.6(L) 42.0 - 54.0 % LAB HEMETOLOGY METHOD 05/09/2024 5:28 PM [facility] MCV 80.5 79.0 - 98.0 FL LAB HEMETOLOGY METHOD 05/09/2024 5:28 PM [facility] MCH 23.5(L) 27.0 - 32.0 pcg LAB HEMETOLOGY METHOD 05/09/2024 5:28 PM EST [facility] MCHC 29.1(L) 32.0 - 37.0 g/dL LAB HEMETOLOGY METHOD 05/09/2024 5:28 PM EST [facility] RDW 18.6(H) 11.0 - 15.0 % LAB HEMETOLOGY METHOD 05/09/2024 5:28 PM [facility] Platelets 376 130 - 400 K/mcL LAB HEMETOLOGY METHOD 05/09/2024 5:28 PM EST [facility] MPV 9.7 7.0 - 11.0 FL LAB HEMETOLOGY METHOD 05/09/2024 5:28 PM [facility] NRBC 0.0 <1.0 % LAB HEMETOLOGY METHOD 05/09/2024 5:28 PM EST [facility] NRBC Absolute 0.00 <0.10 K/mcL LAB HEMETOLOGY METHOD 05/09/2024 5:28 PM EST [facility] Blood Venous blood specimen / Unknown Venipuncture / Unknown 05/09/2024 3:05 PM EST 05/09/2024 4:40 PM EST us Danyell Isidro DO LAB BLOOD ORDERABLES Final Result [facility] [address] [place] [address], * Lactate dehydrogenase (05/09/2024 3:05 PM EST) LDH 185 120 - 246 unit/L LAB CHEMISTRY METHOD 05/09/2024 5:32 PM EST [facility] Blood Venous blood specimen / Unknown Venipuncture / Unknown 05/09/2024 3:05 PM EST 05/09/2024 4:40 PM EST us Danyell Aj Sanna DO LAB BLOOD ORDERABLES Final Result [facility] [address] [place] [address], [place] [phone] * (ABNORMAL) Comprehensive metabolic panel (05/09/2024 3:05 PM EST) Sodium 141 133 - 145 mmol/L LAB CHEMISTRY METHOD 05/09/2024 5:32 PM EST [facility] Potassium 4.1 3.5 - 5.5 mmol/L LAB CHEMISTRY METHOD 05/09/2024 5:32 PM [facility] Chloride 109 96 - 110 mmol/L LAB CHEMISTRY METHOD 05/09/2024 5:32 PM [facility] CO2 22 21 - 32 mmol/L LAB CHEMISTRY METHOD 05/09/2024 5:32 PM [facility] Anion Gap 10 3 - 11 LAB CHEMISTRY METHOD 05/09/2024 5:32 PM [facility] Glucose 104(H) 70 - 100 mg/dL LAB CHEMISTRY METHOD 05/09/2024 5:32 PM [facility] BUN 15 5 - 25 mg/dL LAB CHEMISTRY METHOD 05/09/2024 5:32 PM [facility] Creatinine 0.80 0.70 - 1.30 mg/dL LAB CHEMISTRY METHOD 05/09/2024 5:32 PM [facility] eGFR 95 >=60 mL/min/1. 73m2 LAB CHEMISTRY METHOD 05/09/2024 5:32 PM [facility] Comment:Calculation based on the??Chronic Kidney Disease Epidemiology Collaboration (CKD-EPI) equation refit??without adjustment for race. BUN/Creatinine Ratio 18.8 LAB CHEMISTRY METHOD 05/09/2024 5:32 PM [facility] Calcium 8.8 8.5 - 10.5 mg/dL LAB CHEMISTRY METHOD 05/09/2024 5:32 PM EST [facility] AST (SGOT) 13 10 - 42 unit/L LAB CHEMISTRY METHOD 05/09/2024 5:32 PM [facility] ALT (SGPT) 16 10 - 60 unit/L LAB CHEMISTRY METHOD 05/09/2024 5:32 PM [facility] Alkaline Phosphatase 99 42 - 121 unit/L LAB CHEMISTRY METHOD 05/09/2024 5:32 PM [facility] Total Protein 6.4 6.0 - 8.0 g/dL LAB CHEMISTRY METHOD 05/09/2024 5:32 PM [facility] Albumin 3.5 3.2 - 5.0 g/dL LAB CHEMISTRY METHOD 05/09/2024 5:32 PM [facility] Total Bilirubin 0.4 0.0 - 1.4 mg/dL LAB CHEMISTRY METHOD 05/09/2024 5:32 PM [facility] Blood Venous blood specimen / Unknown Venipuncture / Unknown 05/09/2024 3:05 PM EST 05/09/2024 4:40 PM EST us Danyell Isidro DO LAB BLOOD ORDERABLES Final Result [facility] [address] [place] [address], from Last 3 Months Insurance MEDIC[place] [employer] MEDICARE ADVANTAGE Advance Directives Documents on File Type Date Recorded Patient Floatlight Powder Mixer Expl anation Health Care Decision (hx) 06/30/2020 [...] (hx) 06/30/2020 AD WATKINS DIRECTIVE Care Teams Destination Coordinator Relationship Specialty Start Date End Date Celso Butterfield PA [address] [place] [phone] PCP - General Internal Medicine 07/12/20
--- OUTSIDE RECORDS SUMMARY | 2024-05-20 14:08 | XMS_ITS | Encounter Summary ---
Author Organization [facility] Address [address] [place] [address] Care Team Providers Care Facility Manager Name Role Phone Celso Butterfield Primary Care Provider [phone] Reason for Visit * Reason Comments Follow-up Encounter Details Date Type Department Care Team (Late st Contact Info) Description 05/12/2024 2:15 PM EST Office Visit [facility] Hematology Oncology [address] [place] [phone] Danyell Isidro, DO [address] [place] [address] Prostate cancer metastatic to multiple sites (CMS/HCC) [...] biopsy which confirmed a Tiffany 4+4 and [place] 4+5 prostatic adenocarcinoma in all the cores. He subsequently underwent a nuclear bone scan which showed multip le osseous metastases. He was seen at [facility] for second opinion consultation. He was started on therapy with leuprolide and abiraterone and prednisone. He has remained on this since then. He continues to do quite well on this. The abiraterone was stopped as per Dr. Sammy Ortega in December 2021. PSA started rising, Zytiga [...] with his . 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 He has two sons and a daughter. [...] Sign Natalya Isidro DO - Hematology/Oncology [facility] CC: Celso Butterfield, Sammy Carlton MD documented in this encounter Plan of Treatment Upcoming Encounters Date Type Department Care Team (Late st Contact Info) Description 09/12/2024 2:15 PM EDT Office Visit [facility] Hematology Oncology [address] [place] [phone] Danyell Isidro, [address] [place] [address] documented as of this encounter Visit Diagnoses Diagnosis Prostate cancer metastatic to multiple sites (CMS/HCC)- Primary documented in this encounter Care Teams Facility Manager Relationship Specialty Start Date End Date Celso Butterfield PA [address] [place] [phone] PCP - General Internal Medicine 07/12/20 documented as of this encounter
--- OUTSIDE RECORDS SUMMARY | 2024-05-20 14:08 | XMS_ITS | Clinical Summary ---
Author Organization [facility] Address [address] [place] [address] Care Team Providers Care Distance Education Director Name Role Phone Celso Butterfield Primary Care Provider [phone] Allergies Active Allergy Reactions Criticality Noted Date [...] age to complete this topic Care Teams Distance Education Director Relationship Specialty Start Date End Date Celso Butterfield PA [address] [facility] [place] [phone] PCP - General Physician Metal Furniture Assembly Supervisor 12/15/18 Morenita Vang MD [facility] [place] Consulting Physician Medical Oncology 12/27/18
--- OUTSIDE RECORDS SUMMARY | 2024-05-20 14:08 | XMS_ITS | Patient Health Record ---
Author Organization [facility] Address [address] [place] [address] Care Team Providers Care Counter Clerk [employer] Name Role Phone Celso Butterfield Primary Care Provider [employer] Unavailable [phone] ALLERGIES Allergen (clinical drug ingredient) Drug/Non Drug [...] malignant neoplasm of colon (Z12.11) Active confirmed 561698010 Problem Preprocedural examination (Z01.818) Active confirmed [id number] Problem GERD (gastroesophagea l reflux disease) (K21.9) Active confirmed Gastroesoph ageal reflux disease (073303486) Problem Iron deficiency anemia (D50.9) Active confirmed Iron deficien cy anemia (37873000) PLAN OF TREATMENT Future Test Test Name Order Date COLONOSCOPY 12/28/2018 UPPER GI ENDOSCOPY 06/22/2020 COLONOSCOPY 06/22/2020 Insurance Providers Payer Name Payer Address Payer Phone Subscriber Number Group Number Insured Name Patient Relationship to Insured Coverage Start Date Coverage End Date MEDICARE OF [place] [address] [facility] [place] [address] [phone] [id number] AILYN GARSIA Self - patient is the insured [facility] [address] [place] [phone] [id number] AILYN GARSIA Self - patient is the insured MEDICAL (GENERAL) HISTORY Medical History History ICD Code 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 Jimbo Montes De [place],DM,CVA,Lung disease,renal dise ase Neg colonoscopy in 2006 Colonoscopy 02/2019 with 2 small tubular adenomas removed GERD COVID 04/2020 Surgical History Surgery Date(Month/Year) Cataract right eye 03/2019
== END 2024-05-20 14:07 | disposition home or self-care (01) ==
PROVIDERS: PCP Physician Assistant; Visit Provider Urology
DX: M81.8 Other osteoporosis without current pathological fracture (principal); T38.7X5A Adverse effect of androgens and anabolic congeners, initial encounter; C61 Malignant neoplasm of prostate; C79.51 Secondary malignant neoplasm of bone

== ENCOUNTER → 2024-05-20 13:39 | Outpatient (BNVA) | payer MEDICARE, OTHER, SELFPAY | PROVIDERS: PCP Physician Assistant; Visit Provider Urology | DX: C61 Malignant neoplasm of prostate (principal); C79.51 Secondary malignant neoplasm of bone; M81.8 Other osteoporosis without current pathological fracture; T38.7X5A Adverse effect of androgens and anabolic congeners, initial encounter | CPT/HCPCS: 96372; J0897 ==

== ENCOUNTER → 2024-05-24 13:20 | Outpatient (REF) | payer MEDICARE, OTHER, SELFPAY ==
--- OUTSIDE RECORDS SUMMARY | 2024-05-24 16:21 | XMS_ITS | Clinical Summary ---
Author Organization [facility] Address [address] [place] [address] Care Team Providers Care Television Actor Name Role Phone Celso Butterfield Primary Care [...] age to complete this topic Care Teams Television Actor Relationship Specialty Start Date End Date Celso Butterfield PA [address] [facility] [place] [phone] PCP - General Physician Risk Assessment Consultant 12/15/18 Morenita Vang MD [facility] [place] Consulting Physician Medical Oncology 12/27/18
--- OUTSIDE RECORDS SUMMARY | 2024-05-24 16:21 | XMS_ITS | Encounter Summary ---
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 He subsequently underwent a nuclear bone scan which showed multip le osseous metastases. He was seen at [facility] for second opinion consultation. He was started [...] with his . 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 He has two sons and a daughter. 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
--- OUTSIDE RECORDS SUMMARY | 2024-05-24 16:21 | XMS_ITS | Clinical Summary ---
Author Organization [facility] Address [address] [place] [address] Phone Care Team Providers Care Railroad Mechanic Name Role Phone Celso Butterfield Primary Care [...] Description 05/12/2024 2:15 PM EST Office Visit [facility] Hematology Oncology [address] [place] [address] Danyell Isidro DO Prostate cancer [...] Description 09/12/2024 2:15 PM EDT Office Visit [facility] Hematology Oncology [address] [place] [phone] Danyell Isidro DO [address] [place] [address] Health Maintenance Due Date Last Done Comments [...] LAB CHEMISTRY METHOD 05/09/2024 5:[address] [facility] Testosterone, Free LAB CHEMISTRY METHOD 05/09/2024 5:[address] [facility] Comment:Unable to Calculate Testosterone, Bioavailable LAB CHEMISTRY METHOD 05/09/2024 5:[address] [facility] Comment:Unable to Calculate Sex Hormone Binding 68.5 See Comment nmol/L LAB CHEMISTRY METHOD 05/09/2024 5:[address] [facility] Comment: FEMALES: ??pre-menopausal ?? 10.8 [...] LAB CHEMISTRY METHOD 05/09/2024 5:[address] [facility] Blood Venous blood specimen / Unknown Venipuncture / Unknown 05/09/2024 3:05 PM EST 05/09/2024 4:40 PM EST us Danyell Isidro DO LAB BLOOD ORDERABLES Final Result [facility] [address] [place] [address], * Prostate specific antigen diagnostic (05/09/2024 3:05 PM EST) Pathologist [facility] PSA 0.38 0.00 - 4.00 ng/mL LAB CHEMISTRY METHOD 05/09/2024 5:22 PM [facility] Blood Venous blood specimen / Unknown Venipuncture / Unknown 05/09/2024 3:05 PM EST 05/09/2024 4:[address] [facility] - 05/09/2024 5:22 PM EST The Siemens Advia Centaur Chemiluminescent Immunoassay is used. Results obtained with different assay methods or kits cannot be used interchangeably. Results cannot be interpreted as absolute evidence of the presence or absence of malignant disease. us Danyell Isidro DO LAB BLOOD ORDERABLES Final Result [facility] [address] [place] [address], * (ABNORMAL) Complete blood count (05/09/2024 3:05 PM EST) Pathologist [facility] WBC 9.3 4.8 - 10.8 K/mcL LAB HEMETOLOGY METHOD 05/09/2024 5:28 PM [facility] RBC 4.10(L) 4.50 - 5.50 M/mcL LAB HEMETOLOGY METHOD 05/09/2024 5:28 PM [facility] Hemoglobin 9.5(L) 13.5 - 17.5 g/dL LAB HEMETOLOGY METHOD 05/09/2024 5:28 PM [facility] Hematocrit 32.6(L) 42.0 - 54.0 % LAB HEMETOLOGY METHOD 05/09/2024 5:28 PM [facility] MCV 80.5 79.0 - 98.0 FL LAB HEMETOLOGY METHOD 05/09/2024 5:28 PM [facility] MCH 23.5(L) 27.0 - 32.0 pcg LAB HEMETOLOGY METHOD 05/09/2024 5:[address] [facility] MCHC 29.1(L) 32.0 - 37.0 g/dL LAB HEMETOLOGY METHOD 05/09/2024 5:[address] [facility] RDW 18.6(H) 11.0 - 15.0 % LAB HEMETOLOGY METHOD 05/09/2024 5:28 PM [facility] Platelets 376 130 - 400 K/mcL LAB HEMETOLOGY METHOD 05/09/2024 5:[address] [facility] MPV 9.7 7.0 - 11.0 FL LAB HEMETOLOGY METHOD 05/09/2024 5:28 PM [facility] NRBC 0.0 <1.0 % LAB HEMETOLOGY METHOD 05/09/2024 5:[address] [facility] NRBC Absolute 0.00 <0.10 K/mcL LAB HEMETOLOGY METHOD 05/09/2024 5:[address] [facility] Blood Venous blood specimen / Unknown Venipuncture / Unknown 05/09/2024 3:05 PM EST 05/09/2024 4:40 PM EST us Danyell Isidro DO LAB BLOOD ORDERABLES Final Result [facility] [address] [place] [address], * Lactate dehydrogenase (05/09/2024 3:05 PM EST) LDH 185 120 - 246 unit/L LAB CHEMISTRY METHOD 05/09/2024 5:[address] [facility] Blood Venous blood specimen / Unknown Venipuncture / Unknown 05/09/2024 3:05 PM EST 05/09/2024 4:40 PM EST us Danyell Aj Sanna DO LAB BLOOD ORDERABLES Final Result [facility] [address] [place] [address], [place] [phone] * (ABNORMAL) Comprehensive metabolic panel (05/09/2024 3:05 PM EST) Sodium 141 133 - 145 mmol/L LAB CHEMISTRY METHOD 05/09/2024 5:[address] [facility] Potassium 4.1 3.5 - 5.5 mmol/L LAB CHEMISTRY METHOD 05/09/2024 5:32 PM [facility] Chloride 109 96 - 110 mmol/L LAB CHEMISTRY METHOD 05/09/2024 5:32 PM [facility] CO2 22 21 - 32 mmol/L LAB CHEMISTRY METHOD 05/09/2024 5:32 PM [facility] Anion Gap 10 3 - 11 LAB CHEMISTRY METHOD 05/09/2024 5:32 PM [facility] Glucose 104(H) 70 - 100 mg/dL LAB CHEMISTRY METHOD 05/09/2024 5:32 PM [facility] BUN 15 5 - 25 mg/dL LAB CHEMISTRY METHOD 05/09/2024 5:32 PM [facility] Creatinine 0.80 0.70 - 1.30 mg/dL LAB CHEMISTRY METHOD 05/09/2024 5:32 PM [facility] eGFR 95 >=60 mL/min/1. 73m2 LAB CHEMISTRY METHOD 05/09/2024 5:32 PM [facility] Comment:Calculation based on the??Chronic Kidney Disease Epidemiology Collaboration (CKD-EPI) equation refit??without adjustment for race. BUN/Creatinine Ratio 18.8 LAB CHEMISTRY METHOD 05/09/2024 5:32 PM [facility] Calcium 8.8 8.5 - 10.5 mg/dL LAB CHEMISTRY METHOD 05/09/2024 5:[address] [facility] AST (SGOT) 13 10 - 42 unit/L LAB CHEMISTRY METHOD 05/09/2024 5:32 PM [facility] ALT (SGPT) 16 10 - 60 unit/L LAB CHEMISTRY METHOD 05/09/2024 5:32 PM [facility] Alkaline Phosphatase 99 42 - 121 unit/L LAB CHEMISTRY METHOD 05/09/2024 5:32 PM [facility] Total Protein 6.4 6.0 - 8.0 g/dL LAB CHEMISTRY METHOD 05/09/2024 5:32 PM [facility] Albumin 3.5 3.2 - 5.0 g/dL LAB CHEMISTRY METHOD 05/09/2024 5:32 PM [facility] Total Bilirubin 0.4 0.0 - 1.4 mg/dL LAB CHEMISTRY METHOD 05/09/2024 5:32 PM [facility] Blood Venous blood specimen / Unknown Venipuncture / Unknown 05/09/2024 3:05 PM EST 05/09/2024 4:40 PM EST us Danyell Isidro DO LAB BLOOD ORDERABLES Final Result [facility] [address] [place] [address], from Last 3 Months Insurance MED[employer] [place] MEDIC[place] [employer]VANT[place] Advance Directives Documents on File Type Date Recorded Patient Make Up Artist Expl anation Health Care Decision (hx) 06/30/2020 [...] (hx) 06/30/2020 AD WATKINS DIRECTIVE Care Teams Railroad Mechanic Relationship Specialty Start Date End Date Celso Butterfield PA [address] [place] [phone] PCP - General Internal Medicine 07/12/20
== END ==
LOC: HO.CARD 13:20
PROVIDERS: PCP Physician Assistant; Visit Provider Physician Assistant
DX: R00.2 Palpitations (principal)
CPT/HCPCS: 93242

== ENCOUNTER → 2024-05-24 13:22 | Outpatient (BNV) | payer MEDICARE, OTHER, SELFPAY | PROVIDERS: PCP Physician Assistant; Visit Provider Internal Medicine | DX: I47.10 Supraventricular tachycardia, unspecified (principal); I49.3 Ventricular premature depolarization | CPT/HCPCS: 93244 ==

== ENCOUNTER → 2024-06-15 14:56 | Outpatient (BNV) | payer MEDICARE, OTHER, SELFPAY | PROVIDERS: PCP Physician Assistant; Referring Provider Physician Assistant; Visit Provider Internal Medicine | DX: D50.9 Iron deficiency anemia, unspecified (principal); Z85.46 Personal history of malignant neoplasm of prostate; Z79.01 Long term (current) use of anticoagulants | CPT/HCPCS: 99204; G2211 ==

== ENCOUNTER 2024-06-28 13:26 | Outpatient (AMB) | payer MEDICARE, OTHER, SELFPAY ==
--- NOTE | 2024-06-28 13:40 | AM.OFFVISNUR ---
Intake Visit Reasons: xgeva Allergies Iodinated Contrast Media Allergy (Unknown, Verified 04/27/24 12:47) Unknown Lobster Allergy (Unknown, Verified 04/27/24 12:47) unknown Office Meds Xgeva 120 mg/1.7 mL (70 mg/mL) subcutaneous solution Performing Provider: Sammy Ortega [place] [facility] [place] [facility] Administered by: Karl Crabtree LPN on 06/28/24 13:40 Dose Route Admin Location Dispensed Lot Number Expiration Date [facility] Stuffer 120 mg subcut right arm 1.7 mL [id number] 06/27/26 12321-414-35 AMGEN Assessment & Plan Assessment & Plan Orders: Orders AMB Denosumab Injection Practice Supplied Today C61 - Malignant neoplasm of prostate, C79.51 - Secondary malignant neoplasm of bone, M81.8 - Other osteoporosis without current pathological fracture, T38.7X5A - Adverse effect of androgens and anabolic congeners, initial encounter Medications: New Xgeva (denosumab) 120 mg (1.7 mL) subcut ONCE 1.7 mL 0RF NS C61 - Malignant neoplasm of prostate, C79.51 - Secondary malignant neoplasm of bone, M81.8 - Other osteoporosis without current pathological fracture, T38.7X5A - Adverse effect of androgens and anabolic congeners, initial encounter Coding
--- OUTSIDE RECORDS SUMMARY | 2024-06-28 15:50 | XMS_ITS | Clinical Summary ---
Author Organization [facility] Address [address] [place] [address] Phone Care Team Providers Care Purchasing Coordinator Name Role Phone Celso Butterfield Primary [...] Description 05/12/2024 2:15 PM EST Office Visit [facility] Hematology Oncology [address] [place] [address] Danyell Isidro DO Prostate cancer [...] Description 09/12/2024 2:15 PM EDT Office Visit [facility] Hematology Oncology [address] [place] [phone] Danyell Isidro DO [address] [place] [address] Health Maintenance Due Date Last Done Comments [...] LAB CHEMISTRY METHOD 05/09/2024 5:25 PM EST [facility] Testosterone, Free LAB CHEMISTRY METHOD 05/09/2024 5:25 PM EST [facility] Comment:Unable to Calculate Testosterone, Bioavailable LAB CHEMISTRY METHOD 05/09/2024 5:25 PM EST [facility] Comment:Unable to Calculate Sex Hormone Binding 68.5 See Comment nmol/L LAB CHEMISTRY METHOD 05/09/2024 5:25 PM EST [facility] Comment: FEMALES: ??pre-menopausal ?? 10.8 [...] LAB CHEMISTRY METHOD 05/09/2024 5:25 PM EST [facility] Blood Venous blood specimen / Unknown Venipuncture / Unknown 05/09/2024 3:05 PM EST 05/09/2024 4:40 PM EST us Danyell Isidro DO LAB BLOOD ORDERABLES Final Result [facility] [address] [place] [address], * Prostate specific antigen diagnostic (05/09/2024 3:05 PM EST) Pathologist [facility] PSA 0.38 0.00 - 4.00 ng/mL LAB CHEMISTRY METHOD 05/09/2024 5:22 PM [facility] Blood Venous blood specimen / Unknown Venipuncture / Unknown 05/09/2024 3:05 PM EST 05/09/2024 4:40 PM EST [facility] - 05/09/2024 5:22 PM EST The Siemens Advia Centaur Chemiluminescent Immunoassay is used. Results obtained with different assay methods or kits cannot be used interchangeably. Results cannot be interpreted as absolute evidence of the presence or absence of malignant disease. us Danyell Isidro DO LAB BLOOD ORDERABLES Final Result [facility] [address] [place] [address], * (ABNORMAL) Complete blood count (05/09/2024 3:05 PM EST) [facility] WBC 9.3 4.8 - 10.8 K/mcL LAB HEMETOLOGY METHOD 05/09/2024 5:28 PM [facility] RBC 4.10(L) 4.50 - 5.50 M/mcL LAB HEMETOLOGY METHOD 05/09/2024 5:28 PM [facility] Hemoglobin 9.5(L) 13.5 - 17.5 g/dL LAB HEMETOLOGY METHOD 05/09/2024 5:28 PM [facility] Hematocrit 32.6(L) 42.0 - 54.0 % LAB HEMETOLOGY METHOD 05/09/2024 5:28 PM [facility] MCV 80.5 79.0 - 98.0 FL LAB HEMETOLOGY METHOD 05/09/2024 5:28 PM [facility] MCH 23.5(L) 27.0 - 32.0 pcg LAB HEMETOLOGY METHOD 05/09/2024 5:28 PM EST [facility] MCHC 29.1(L) 32.0 - 37.0 g/dL LAB HEMETOLOGY METHOD 05/09/2024 5:28 PM EST [facility] RDW 18.6(H) 11.0 - 15.0 % LAB HEMETOLOGY METHOD 05/09/2024 5:28 PM EST [facility] Platelets 376 130 - 400 K/mcL LAB HEMETOLOGY METHOD 05/09/2024 5:28 PM EST [facility] MPV 9.7 7.0 - 11.0 FL LAB HEMETOLOGY METHOD 05/09/2024 5:28 PM EST [facility] NRBC 0.0 <1.0 % LAB HEMETOLOGY METHOD 05/09/2024 5:28 PM EST [facility] NRBC Absolute 0.00 <0.10 K/mcL LAB HEMETOLOGY METHOD 05/09/2024 5:28 PM EST [facility] Blood Venous blood specimen / Unknown Venipuncture / Unknown 05/09/2024 3:05 PM EST 05/09/2024 4:40 PM EST us Danyell Isidro DO LAB BLOOD ORDERABLES Final Result [facility] [address] [place] [address], * Lactate dehydrogenase (05/09/2024 3:05 PM EST) LDH 185 120 - 246 unit/L LAB CHEMISTRY METHOD 05/09/2024 5:32 PM EST [facility] Blood Venous blood specimen / Unknown Venipuncture / Unknown 05/09/2024 3:05 PM EST 05/09/2024 4:40 PM EST us Danyell Aj Sanna DO LAB BLOOD ORDERABLES Final Result [facility] [address] [place] [address], * (ABNORMAL) Comprehensive metabolic panel (05/09/2024 3:05 PM EST) Sodium 141 133 - 145 mmol/L LAB CHEMISTRY METHOD 05/09/2024 5:32 PM [facility] Potassium 4.1 3.5 - 5.5 mmol/L LAB CHEMISTRY METHOD 05/09/2024 5:32 PM [facility] Chloride 109 96 - 110 mmol/L LAB CHEMISTRY METHOD 05/09/2024 5:32 PM [facility] CO2 22 21 - 32 mmol/L LAB CHEMISTRY METHOD 05/09/2024 5:32 PM [facility] Anion Gap 10 3 - 11 LAB CHEMISTRY METHOD 05/09/2024 5:32 PM [facility] Glucose 104(H) 70 - 100 mg/dL LAB CHEMISTRY METHOD 05/09/2024 5:32 PM [facility] BUN 15 5 - 25 mg/dL LAB CHEMISTRY METHOD 05/09/2024 5:32 PM [facility] Creatinine 0.80 0.70 - 1.30 mg/dL LAB CHEMISTRY METHOD 05/09/2024 5:32 PM [facility] eGFR 95 >=60 mL/min/1. 73m2 LAB CHEMISTRY METHOD 05/09/2024 5:32 PM [facility] Comment:Calculation based on the??Chronic Kidney Disease Epidemiology Collaboration (CKD-EPI) equation refit??without adjustment for race. BUN/Creatinine Ratio 18.8 LAB CHEMISTRY METHOD 05/09/2024 5:32 PM [facility] Calcium 8.8 8.5 - 10.5 mg/dL LAB CHEMISTRY METHOD 05/09/2024 5:32 PM EST [facility] AST (SGOT) 13 10 - 42 unit/L LAB CHEMISTRY METHOD 05/09/2024 5:32 PM [facility] ALT (SGPT) 16 10 - 60 unit/L LAB CHEMISTRY METHOD 05/09/2024 5:32 PM [facility] Alkaline Phosphatase 99 42 - 121 unit/L LAB CHEMISTRY METHOD 05/09/2024 5:32 PM [facility] Total Protein 6.4 6.0 - 8.0 g/dL LAB CHEMISTRY METHOD 05/09/2024 5:32 PM [facility] Albumin 3.5 3.2 - 5.0 g/dL LAB CHEMISTRY METHOD 05/09/2024 5:32 PM [facility] Total Bilirubin 0.4 0.0 - 1.4 mg/dL LAB CHEMISTRY METHOD 05/09/2024 5:32 PM [facility] Blood Venous blood specimen / Unknown Venipuncture / Unknown 05/09/2024 3:05 PM EST 05/09/2024 4:40 PM EST us Danyell Isidro DO LAB BLOOD ORDERABLES Final Result [facility] [address] [place] [address], from Last 3 Months Insurance [employer] [place] MEDICARE ADVANTAGE Advance Directives Documents on File Type Date Recorded Patient Machine Helper Expl anation Health Care Decision (hx) 06/30/2020 [...] (hx) 06/30/2020 AD WATKINS DIRECTIVE Care Teams Purchasing Coordinator Relationship Specialty Start Date End Date Celso Butterfield PA PCP - General Internal Medicine 07/12/20
--- OUTSIDE RECORDS SUMMARY | 2024-06-28 15:50 | XMS_ITS | Clinical Summary ---
Author Organization [facility] Address [address] [place] [address] Care Team Providers Care Freelance Patternmaker Name Role Phone Celso Butterfield Primary Care [...] age to complete this topic Care Teams Freelance Patternmaker Relationship Specialty Start Date End Date Celso Butterfield PA [address] [place] [phone] PCP - General Physician Manager Technical Sales 12/15/18 Morenita Vang MD [facility] [place] Consulting Physician Medical Oncology 12/27/18
--- OUTSIDE RECORDS SUMMARY | 2024-06-28 15:50 | XMS_ITS | Patient Health Record ---
Author Organization [facility] Address [address] [place] [address] Care Team Providers Care R D Internship Name Role Phone Celso Butterfield Primary Care Provider UnavailCullen Power Unavailable [phone] Allergies Allergen (clinical drug ingredient) Drug/Non Drug Allergy documented on EMR Reaction Allergy Type Onset Date Status Shellfish (FN) lobster (uncoded) Unknown Allergy Active Reason For Referral No Information Medications Medication SIG (Take, Route, Frequency, Duration) Notes Start Date End Date Status predniSONE 5 MG 1 Orally BID A ctive Abiraterone Acetate Cheno for th e prostate camcer Active Iron 06/19/2020 Active Lupron Depot (6-Month) 45 MG as directed Intramuscular Active Immunizations Vaccine Route Administration Date Status Comme nts Influenza Unknown 04/30/2019 Administered Influenza Unknown 12/28/2018 Refused Social History Tobacco Use: Social History Observation Description Date Details (start date - stop date) Never Smoker NA - NA Tobacco Use/Smoking Question Answer Notes Patient is [...] Never (0 point) Points 6 Interpretation Positive Section Notes: Nonsmoker; 5-6 drinks QD Nonsmoker; 1-2 drinks QD Problems Problem Type SNOMED Code ICD Code Onset Dates Problem Status W/U Status Risk Notes Problem [id number] Encounter for screening for malignant neoplasm of colon (Z12.11) Active confirmed Problem Iron deficiency anemia (44527554) Iron deficiency anemia (D50.9) Active confirmed Problem [id number] Preprocedural examination (Z01.818) Active confirmed Problem Gastroesophageal reflux disease (029267193) GERD (gastroesophagea l reflux disease) (K21.9) Active confirmed Plan Of Treatment Future Test Test Name Order Date COLONOSCOPY 12/28/2018 UPPER GI ENDOSCOPY 06/22/2020 COLONOSCOPY 06/22/2020 Insurance Providers Payer Name Payer Address Payer Phone Subscriber Number Group Number Insured Name Patient Relationship to Insured Coverage Start Date Coverage End Date MEDICARE OF [place] [address] [facility] [place] [address] [id number] AILYN GARSIA Self - patient is the insured [employer] [address] [place] [phone] [id number] AILYN GARSIA Self - patient is the insured Medical (General) History Medical History History ICD Code 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 Jimbo Montes De Oca [place],DM,CVA,Lung disease,renal dise ase Neg colonoscopy in 2006 Colonoscopy 02/2019 with 2 small tubular adenomas removed GERD COVID 04/2020 Surgical History Surgery Date(Month/Year) Cataract right eye 03/2019
== END 2024-06-28 13:46 | disposition home or self-care (01) ==
LOC: HO.HUSH 13:27
PROVIDERS: PCP Physician Assistant; Visit Provider Urology
DX: M81.8 Other osteoporosis without current pathological fracture (principal); T38.7X5A Adverse effect of androgens and anabolic congeners, initial encounter; C61 Malignant neoplasm of prostate; C79.51 Secondary malignant neoplasm of bone

== ENCOUNTER → 2024-06-28 13:26 | Outpatient (BNVA) | payer MEDICARE, OTHER, SELFPAY | PROVIDERS: PCP Physician Assistant; Visit Provider Urology | DX: C61 Malignant neoplasm of prostate (principal); C79.51 Secondary malignant neoplasm of bone; T38.7X5A Adverse effect of androgens and anabolic congeners, initial encounter; X58.XXXA Exposure to other specified factors, initial encounter; Y93.9 Activity, unspecified; Y92.9 Unspecified place or not applicable; Y99.9 Unspecified external cause status | CPT/HCPCS: 96372; J0897 ==

== ENCOUNTER → 2024-07-05 10:50 | Outpatient (REF) | payer MEDICARE, OTHER, SELFPAY ==
--- NOTE | ~2024-07-05 | NM_ITS ---
EXAMINATION: NM BONE SCAN OF THE WHOLE BODY CLINICAL INFORMATION: The prostate cancer. Metastatic bone disease. Follow-up. COMPARISON: Bone scan 07/14/2023 and 06/19/2022. TECHNIQUE: Multiple gamma scintillation camera images of the whole body were performed 3 hours following the intravenous administration of 37 mCi Tc-99m MDP. FINDINGS: In the head, there are 2 discrete foci of abnormal activity in the left parietal and right high parietal calvarium. These are unchanged. Mild focal activity in the right There posterior parietal region adjacent to the lambdoid suture stable. There are no new lesions seen. In the thoracic cage and upper extremities, there is mild activity seen in the left clavicle slightly more focal in the medial aspect, slightly more prominent than the previous exam. There are multiple bilateral rib activities involving right posterior 10th, left posterior ninth and eighth ribs, anterior left eighth rib. In the spine, there is mild S-shaped scoliosis of dorsolumbar spine. Mild focal activity in the right mid cervical spine likely facet arthropathy. No abnormal activity seen in lumbar spine region. In the pelvis, no abnormal activity seen. In the lower extremities, no definite abnormality seen No other definite bony abnormalities are noted. The urinary bladder and faint visualization of both kidneys are noted. NM/NM bone scan whole body IMPRESSION: Mild bone activity in bilateral posterior ribs, left clavicle, calvarium is stable. There are no new areas of metabolic activity seen suggestive of progression. Electronically signed by: Jhony Pennington MD 07/05/2024 04:52 PM EDT
--- OUTSIDE RECORDS SUMMARY | 2024-07-05 13:10 | XMS_ITS | Clinical Summary ---
Author Organization [facility] Address [address] [place] [address] Care Team Providers Care Air Director Name Role Phone Celso Butterfield Primary [...] age to complete this topic Care Teams Air Director Relationship Specialty Start Date End Date Celso Butterfield PA [address] [place] [phone] PCP - General Physician Hydrogenation Operator 12/15/18 Morenita Vang MD [facility] [place] Consulting Physician Medical Oncology 12/27/18
--- OUTSIDE RECORDS SUMMARY | 2024-07-05 13:10 | XMS_ITS | Clinical Summary ---
Author Organization [facility] Address [address] [place] [address] Phone Care Team Providers Care Windows Infrastructure Engineer Name Role Phone Celso Butterfield Primary Care [...] Description 05/12/2024 2:15 PM EST Office Visit [facility] Hematology Oncology [address] [place] [address] Danyell Isidro DO Prostate cancer [...] Description 09/12/2024 2:15 PM EDT Office Visit [facility] Hematology Oncology [address] [place] [phone] Danyell Isidro DO [address] [place] [address] Health Maintenance Due Date Last Done Comments DTaP,Tdap,and Td Vaccines (1 - Tdap) 12/22/1971 RSV Immunization Adult Patients (1 - Risk 60-74 years 1-dose series) [...] age to complete this topic Meningococcal B Vaccine Aged Out No l onger eligible based on patient's age to complete [...] LAB CHEMISTRY METHOD 05/09/2024 5:25 PM EST [facility] Testosterone, Free LAB CHEMISTRY METHOD 05/09/2024 5:25 PM EST [facility] Comment:Unable to Calculate Testosterone, Bioavailable LAB CHEMISTRY METHOD 05/09/2024 5:25 PM EST [facility] Comment:Unable to Calculate Sex Hormone Binding 68.5 See Comment nmol/L LAB CHEMISTRY METHOD 05/09/2024 5:25 PM EST [facility] Comment: FEMALES: ??pre-menopausal ?? 10.8 [...] LAB CHEMISTRY METHOD 05/09/2024 5:25 PM EST [facility] Blood Venous blood specimen / Unknown Venipuncture / Unknown 05/09/2024 3:05 PM EST 05/09/2024 4:40 PM EST us Danyell Isidro DO LAB BLOOD ORDERABLES Final Result [facility] [address] [place] [address], [place] [phone] * Prostate specific antigen diagnostic (05/09/2024 3:05 PM EST) Pathologist [facility] PSA 0.38 0.00 - 4.00 ng/mL LAB CHEMISTRY METHOD 05/09/2024 5:22 PM [facility] Blood Venous blood specimen / Unknown Venipuncture / Unknown 05/09/2024 3:05 PM EST 05/09/2024 4:40 PM EST [facility] - 05/09/2024 5:22 PM EST The Siemens Advia Centaur Chemiluminescent Immunoassay is used. Results obtained with different assay methods or kits cannot be used interchangeably. Results cannot be interpreted as absolute evidence of the presence or absence of malignant disease. Danyell Isidro DO LAB BLOOD ORDERABLES Final Result [facility] [address] [place] [address], * (ABNORMAL) Complete blood count (05/09/2024 3:05 PM EST) [facility] WBC 9.3 4.8 - 10.8 K/mcL LAB HEMETOLOGY METHOD 05/09/2024 5:28 PM [facility] RBC 4.10(L) 4.50 - 5.50 M/mcL LAB HEMETOLOGY METHOD 05/09/2024 5:28 PM [facility] Hemoglobin 9.5(L) 13.5 - 17.5 g/dL LAB HEMETOLOGY METHOD 05/09/2024 5:28 PM [facility] Hematocrit 32.6(L) 42.0 - 54.0 % LAB HEMETOLOGY METHOD 05/09/2024 5:28 PM [facility] MCV 80.5 79.0 - 98.0 FL LAB HEMETOLOGY METHOD 05/09/2024 5:28 PM [facility] MCH 23.5(L) 27.0 - 32.0 pcg LAB HEMETOLOGY METHOD 05/09/2024 5:28 PM EST [facility] MCHC 29.1(L) 32.0 - 37.0 g/dL LAB HEMETOLOGY METHOD 05/09/2024 5:28 PM EST [facility] RDW 18.6(H) 11.0 - 15.0 % LAB HEMETOLOGY METHOD 05/09/2024 5:28 PM EST [facility] Platelets 376 130 - 400 K/mcL LAB HEMETOLOGY METHOD 05/09/2024 5:28 PM EST [facility] MPV 9.7 7.0 - 11.0 FL LAB HEMETOLOGY METHOD 05/09/2024 5:28 PM EST [facility] NRBC 0.0 <1.0 % LAB HEMETOLOGY METHOD 05/09/2024 5:28 PM EST [facility] NRBC Absolute 0.00 <0.10 K/mcL LAB HEMETOLOGY METHOD 05/09/2024 5:28 PM EST [facility] Blood Venous blood specimen / Unknown Venipuncture / Unknown 05/09/2024 3:05 PM EST 05/09/2024 4:40 PM EST Danyell Isidro DO LAB BLOOD ORDERABLES Final Result [facility] [address] [place] [address], * Lactate dehydrogenase (05/09/2024 3:05 PM EST) LDH 185 120 - 246 unit/L LAB CHEMISTRY METHOD 05/09/2024 5:32 PM EST [facility] Blood Venous blood specimen / Unknown Venipuncture / Unknown 05/09/2024 3:05 PM EST 05/09/2024 4:40 PM EST us Danyell Aj Sanna DO LAB BLOOD ORDERABLES Final Result [facility] [address] [place] [address], [place] [phone] * (ABNORMAL) Comprehensive metabolic panel (05/09/2024 3:05 PM EST) Sodium 141 133 - 145 mmol/L LAB CHEMISTRY METHOD 05/09/2024 5:32 PM [facility] Potassium 4.1 3.5 - 5.5 mmol/L LAB CHEMISTRY METHOD 05/09/2024 5:32 PM [facility] Chloride 109 96 - 110 mmol/L LAB CHEMISTRY METHOD 05/09/2024 5:32 PM [facility] CO2 22 21 - 32 mmol/L LAB CHEMISTRY METHOD 05/09/2024 5:32 PM [facility] Anion Gap 10 3 - 11 LAB CHEMISTRY METHOD 05/09/2024 5:32 PM [facility] Glucose 104(H) 70 - 100 mg/dL LAB CHEMISTRY METHOD 05/09/2024 5:32 PM [facility] BUN 15 5 - 25 mg/dL LAB CHEMISTRY METHOD 05/09/2024 5:32 PM [facility] Creatinine 0.80 0.70 - 1.30 mg/dL LAB CHEMISTRY METHOD 05/09/2024 5:32 PM [facility] eGFR 95 >=60 mL/min/1. 73m2 LAB CHEMISTRY METHOD 05/09/2024 5:32 PM [facility] Comment:Calculation based on the??Chronic Kidney Disease Epidemiology Collaboration (CKD-EPI) equation refit??without adjustment for race. BUN/Creatinine Ratio 18.8 LAB CHEMISTRY METHOD 05/09/2024 5:32 PM [facility] Calcium 8.8 8.5 - 10.5 mg/dL LAB CHEMISTRY METHOD 05/09/2024 5:32 PM [facility] AST (SGOT) 13 10 - 42 unit/L LAB CHEMISTRY METHOD 05/09/2024 5:32 PM [facility] ALT (SGPT) 16 10 - 60 unit/L LAB CHEMISTRY METHOD 05/09/2024 5:32 PM [facility] Alkaline Phosphatase 99 42 - 121 unit/L LAB CHEMISTRY METHOD 05/09/2024 5:32 PM [facility] Total Protein 6.4 6.0 - 8.0 g/dL LAB CHEMISTRY METHOD 05/09/2024 5:32 PM [facility] Albumin 3.5 3.2 - 5.0 g/dL LAB CHEMISTRY METHOD 05/09/2024 5:32 PM [facility] Total Bilirubin 0.4 0.0 - 1.4 mg/dL LAB CHEMISTRY METHOD 05/09/2024 5:32 PM [facility] Blood Venous blood specimen / Unknown Venipuncture / Unknown 05/09/2024 3:05 PM EST 05/09/2024 4:40 PM EST us Danyell Isidro DO LAB BLOOD ORDERABLES Final Result [facility] [address] [place] [address], from Last 3 Months Insurance MEDICARE Member Subscriber Plan / Payer (Ef fective 2024-Present) Name:Carson Neumann Member ID:[id number] Relation to Subscriber:Self Name:Carson Neumann Subscriber ID:[id number] Payer ID:Not on file Group ID:Not on file Type:Medicare Address: [place] [id number] [employer] [place] [employer]AGE Advance Directives Documents on File Type Date Recorded 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
--- OUTSIDE RECORDS SUMMARY | 2024-07-05 13:10 | XMS_ITS | Patient Health Record ---
Author Organization [facility] Address [address] [place] [address] Care Team Providers Care Branch Director Name Role Phone Celso Butterfield Primary Care Provider UnavailCullen Power Unavailable [phone] Allergies Allergen (clinical drug ingredient) Drug/Non Drug [...] Problem Status W/U Status Risk Notes Problem [id number] Encounter for screening for malignant neoplasm of colon (Z12.11) Active confirmed Problem Iron deficiency anemia (34205420) Iron deficiency anemia (D50.9) Active confirmed Problem [id number] Preprocedural examination (Z01.818) Active confirmed Problem Gastroesophageal reflux disease (057889888) GERD (gastroesophagea l reflux disease) (K21.9) Active confirmed Plan Of Treatment Future Test Test Name Order Date COLONOSCOPY 12/28/2018 UPPER GI ENDOSCOPY 06/22/2020 COLONOSCOPY 06/22/2020 Insurance Providers Payer Name Payer Address Payer Phone Subscriber Number Group Number Insured Name Patient Relationship to Insured Coverage Start Date Coverage End Date MED[place]ARE OF [place] [address] [facility] [address] [id number] AILYN GARSIA Self - patient is the insured [facility] [address] [place] [address] [id number] AILYN GARSIA Self - patient is the insured Medical (General) History Medical History History ICD Code 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 Jimbo Montes De Oca [place],DM,CVA,Lung disease,renal dise ase Neg colonoscopy in 2006 Colonoscopy 02/2019 with 2 small tubular adenomas removed GERD COVID 04/2020 Surgical History Surgery Date(Month/Year) Cataract right eye 03/2019
== END ==
LOC: HO.NUCMED 10:50
PROVIDERS: PCP Physician Assistant; Visit Provider Urology
DX: C61 Malignant neoplasm of prostate (principal); C79.51 Secondary malignant neoplasm of bone
CPT/HCPCS: 78306; A9503

== ENCOUNTER → 2024-07-05 10:52 | Outpatient (BNV) | payer MEDICARE, OTHER, SELFPAY | PROVIDERS: PCP Physician Assistant; Visit Provider Radiology Diagnostic Radiology | DX: C61 Malignant neoplasm of prostate (principal); C79.51 Secondary malignant neoplasm of bone | CPT/HCPCS: 78306 ==

== ENCOUNTER 2024-07-13 14:00 | Outpatient (RCR) | payer MEDICARE, OTHER, SELFPAY ==
[2024-06-21 14:34] VITALS: BP 157/73; PULSE 46; RESP 16; TEMP 36.7; O2SAT 96
[2024-06-21] MEDS: Iron Sucrose Complex 200 MG/10 ML VIAL IVPUSH (14:40)
[2024-06-21] MEDS: 0.9 % Sodium Chloride Flush 10 ML SYRINGE 5 ML IVFLUSH (14:42)
[2024-06-29 14:05] VITALS: BP 143/76; PULSE 49; RESP 14; TEMP 36.4; O2SAT 96
[2024-06-29] MEDS: Iron Sucrose Complex 200 MG/10 ML VIAL IVPUSH (14:16)
[2024-06-29] MEDS: 0.9 % Sodium Chloride Flush 10 ML SYRINGE 5 ML IVFLUSH (14:16)
[2024-07-06 14:06] VITALS: BP 153/81; PULSE 73; RESP 18; TEMP 37; O2SAT 96
[2024-07-06] MEDS: Iron Sucrose Complex 200 MG/10 ML VIAL IVPUSH (14:13)
[2024-07-13 13:55] VITALS: BP 154/61; PULSE 54; RESP 16; TEMP 36.9; O2SAT 97
[2024-07-13] MEDS: Iron Sucrose Complex 200 MG in 0.9 % Sodium Chloride 100 ML 440 MG IV (14:05)
== END 2024-07-13 15:00 | disposition home or self-care (01) ==
LOC: HO.INF 14:00
PROVIDERS: Visit Provider Internal Medicine
DX: D50.9 Iron deficiency anemia, unspecified (principal)
CPT/HCPCS: 96365; 96374; J1756

== ENCOUNTER 2024-07-26 13:22 | Outpatient (AMB) | payer MEDICARE, OTHER, SELFPAY ==
--- NOTE | 2024-07-26 13:31 | A.OFFVIS_ITS ---
Intake Visit Reasons: Xgeva Intake Note: Patient is present for XGEVA Urology Medication:VITAMIN B12 Antibiotic Allergy:NONE Blood Thinner:APIXABAN Spectacle Truer Required: No Allergies Iodinated Contrast Media Allergy (Unknown, Verified 07/26/24 13:32) Unknown Lobster Allergy (Unknown, Verified 07/26/24 13:32) unknown HPI Comments Details: Rohan godoy is a pleasant male. He is a patient Dr. Butterfield. He is seen for the following urologic conditions. 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 HbA1c 5.6 which is staying stable. Continues with abiraterone plus b.i.d. prednisone Bone scan shows stability 03/22 GNRH done PSA 0.2 - good response 07/21 PSA 6 - restart GnRH plus abiraterone (2.5mg daily) plus xgeva Bone Scan - Recurrent metastatic tumor involvement of bone. There has been a significant but mild progression in the bone scan appearance since the most recent 06/19/2022 study 18 months since completed therapy 04/22 PSA 2.6 T 253 DEXA Osteroporosis 10/19 PET-CT no metabolically active lymph nodes, prostate active 06/19 GnRH P <0.1, T 7 Imagin. Interval development of subtle focal area of increased radiotracer activity is noted at the left frontal skull. 2. Interval development of mild increased radiotracer activity is noted at L4 to the left of the midline. 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 Diagnosis was reached by needle biopsy, for elevated PSA, PSA at diagnosis 19, size at TRUS 60cc. The Tiffany grade is October 2018 - 03/10 cores Gl , 4+4 = 8, 4+5 = 9, 60- 90%, + PNI. TNM Classification of Malignant Tumours (TNM) T2b - palpable bilateral. The D'Amari (NCCN) risk category is High Risk (PSA > 20, Gl 8+, T3) - Group 5 on biopsy. Initial therapy included Primary treatment - bicalutamide, dutasteride, plan for GnRH 12/09/18 - GnRH 1xt dose given, stop bicalutamide in 7 days Recent labs included PSA 03/18 0.4 - T 03/18 <1 - 06/17 PSA .4, T <1, 12/18 PSA 0.3, T 6, 03/19 0.3, 06/18 0.2, 09/18 0.2, 12/19 0.15, 03/20 <0.1 Recent imaging included - 11/15 , a CT (computed tomography) scan - mild hydroureteronephrosis bilateral with 1cm sclerotic lesion in ileum, 1.5 cm iliac nodes, bladder wall thickening - 12/16 CT scan with bilateral mild to moderate hydroureteral nephrosis - 06/18 CT with minimal lymphadenopathy and resolution of majority of bone island sclerosis - 01/18 CT with no evidence of lymphadenopathy Dexa Scan - 06/16 NAD, 01/17 NAD Bone Scan - 12/16 , a bone scan sclerotic lesion on ileum and calvarium with scattered rib lesions - 12/17 bone scan. Improvement with sclerotic lesion on ileum and calvarium. Significant improvement compared to prior study. Renal ultrasound no evidence of calculus or bilateral hydronephrosis - 03/19 bone scan with overall relatively stable disease, question of subtle change on T1 - 12/19 bone scan with stable disease - 07/22 bone scan Mild bone activity in bilateral posterior ribs, left clavicle, calvarium is stable. There are no new areas of metabolic activity seen suggestive of progression. Associated conditions erectile dysfunction Yes hematuria No hot flashes Yes Therapeutic plan: Continue hormone therapy. Retired [employer], brother with prostate cancer - down filler in [place] for [place]. Lower Urinary Tract Symptoms: Doing well. Current visit is for further evaluation of, lower urinary tract symptoms, predominate obstructive symptoms. Prior treatments include 01/15 , procedure, laser procedure. Symptoms include 12/16 , nocturia (>2), weak stream, and are progressing. Prostate volume 50+gm. Treatment plan pvr each visit. [facility] Medical History Eczema FCI systemic steroid user Tendinopathy of rotator cuff Anemia Pulmonary embolism Prostate cancer Surgical History History of cataract surgery History of colonoscopy History of endoscopy Family History Father Psoriatic arthritis CVD (cardiovascular disease) Heart problem Cancer Mother Hypertension Brother Prostate cancer Sister No problems noted. Daughter In good health Social History (Updated 06/15/24 @ 15:13 by Brittani Padron) Household Members: Spouse Housing: House Do you presently have visiting nurse or other home services: No Alcohol intake: current Alcohol intake frequency: a few times a week Patient Tobacco Use Status: Never used Tobacco e-Cigarette/Vaping Use: Never Used Substance Use Type: Marijuana service: No Current occupational status: retired Cognitive needs: No Hearing needs: No Vision needs: Yes (glasses ) Review of Systems Const Denies chills and Denies fever(s) Card Reports no additional complaints and Denies syncope Resp Denies cough GI Denies abdominal pain and Denies heartburn Reports as per HPI and Denies change in libido Neuro Denies syncope Psych Denies change in libido Endo Denies change in libido Physical Exam Const General: cooperative, healthy appearing, comfortable and no acute distress Orientation/consciousness: patient oriented x3 HEENT Face and sinus: Yes normal facial exam Mouth: moist mucous membranes Neck Neck: Yes normal visual inspection, Yes full ROM and Yes trachea midline Chest Chest palpation & inspection: normal inspection of the chest Resp Effort & Inspection: normal respiratory effort, able to speak in complete sentences and no respiratory distress GI Inspection: Yes normal to inspection Back/Spine/Pelvis Cervical Spine: normal cervical lordosis Thoracic/Lumbar Spine: thoracic and lumbar spine normal to inspection Skin General skin exam: no rashes or lesions noted Neuro General: patient oriented x3, gait normal, tone normal and moves all extremities Extrem General: Yes normal to inspection and Yes capillary refill normal Office Meds Xgeva 120 mg/1.7 mL (70 mg/mL) subcutaneous solution Performing Provider: Sammy Ortega MD [facility] Administered by: Karl Crabtree LPN on 07/26/24 13:56 Dose Route Admin Location Dispensed Lot Number Expiration Date NDC Air Compressor Operator 120 mg subcut right arm 1.7 mL [id number] 06/27/26 11534-138-92 [facility] Assessment & Plan Assessment & Plan (1) Prostate cancer metastatic to bone: Comment: Group 5 metastatic to bone October 2018 Code(s): C61 - Malignant neoplasm of prostate; C79.51 - Secondary malignant neoplasm of bone Category: Medical (2) Osteoporosis due to androgen therapy: Code(s): M81.8 - Other osteoporosis without current pathological fracture; T38.7X5A - Adverse effect of androgens and anabolic congeners, initial encounter Category: Medical Plan Two month follow-up GnRH and lab work Orders: Orders AMB Denosumab Injection Practice Supplied Today C61 - Malignant neoplasm of prostate, C79.51 - Secondary malignant neoplasm of bone, M81.8 - Other osteoporosis without current pathological fracture, T38.7X5A - Adverse effect of androgens and anabolic congeners, initial encounter Testosterone, Total 2 Months C61 - Malignant neoplasm of prostate, C79.51 - Secondary malignant neoplasm of bone Prostate Specific Antigen 2 Months C61 - Malignant neoplasm of prostate, C79.51 - Secondary malignant neoplasm of bone Patient Instructions: This note is constructed using voice recognition software. While every effort has been made to ensure accuracy automotive salesperson errors may have been included. Imaging studies, laboratory and physical exam results were discussed and reviewed in detail. No major barriers to patient understanding were identified. An opportunity to ask questions regarding the treatment plan was provided. All questions were answered. The patient expressed understanding and agreement with the above treatment plan. The patient is aware they should contact our office by phone for worsening of their current condition or the appearance of new urologic symptoms. Compliance is encouraged with any medications and followup testing that is ordered. It is a privilege to participate in the urologic care of your patient. If you have any questions or concerns regarding treatment for the above conditions, or other urologic issues, please do not hesitate to contact me. The office telephone contact is [phone]. Sincerely, Dr Sammy Ortega MD, [facility] - Urology Compassionate Specialist Care for the Genitourinary System Coding Level of Care Code Est Pt Level 3 (63820) Complex EM visit Add On G2211 Diagnoses Prostate cancer metastatic to bone C61; C79.51 Osteoporosis due to androgen therapy M81.8; T38.7X5A
--- OUTSIDE RECORDS SUMMARY | 2024-07-26 15:26 | XMS_ITS | Clinical Summary ---
Author Organization [facility] Address [address] [place] [address] Care Team Providers Care Security Services Specialist Name Role Phone Celso Butterfield Primary Care [...] age to complete this topic Care Teams Security Services Specialist Relationship Specialty Start Date End Date Celso Butterfield PA [address] [facility] [id number] PCP - General Physician Solar Design Engineer 12/15/18 Morenita Vang MD [facility] [place] Consulting Physician Medical Oncology 12/27/18
--- OUTSIDE RECORDS SUMMARY | 2024-07-26 15:26 | XMS_ITS | Clinical Summary ---
Author Organization [facility] Address [address] [place] [address] Phone Care Team Providers Care Parking Patroller Name Role Phone Celso Butterfield Primary Care Provider [phone] Allergies Active Allergy Reactions Criticality Noted Date [...] Noted Date Diagnosed Date Prostate cancer metastatic t o multiple sites (CMS/HCC V24, CMS/HCC V28) 12/19/2021 Encounters Date Type Department Care Team Description 05/12/2024 2:15 PM EST Office Visit [facility] Hematology Oncology [address] [place] [phone] Danyell Isidro DO Prostate cancer metastatic to multiple sites (CMS/HCC V24, CMS/HCC V28) (Primary Dx) from Last 3 Months Social [...] Description 09/12/2024 2:15 PM EDT Office Visit [facility] Hematology Oncology [address] [place] [phone] Danyell Isidro DO [address] [place] [address] Health Maintenance Due Date Last Done Comments [...] 03/06/2022 Medicare Annual Wellness Visit 10/04/2023 10/03/2022 COVID-19 Vaccine (7 - Pfizer risk season) 2024 02/01/2024, 02/24/2023, 01/15/2022, Additional history exists Zoster Vaccines Completed 02/11/2023, 10/22/2022 Influenza Vaccine Completed 02/01/2024, , 01/15/2022, Additional [...] 3:05 PM EST Malignant neoplasm of prostate ([facility] V24, CMS/[facility] V28) Anemia, unspecified Personal history of PE (pulmonary embolism) PROSTATE SPECIFIC ANTIGEN DIAGNOSTIC Routine 05/09/2024 3:05 PM EST Malignant neoplasm of prostate (CMS/HCC V24, CMS/HCC V28) Anemia, unspecified Personal history of PE (pulmonary embolism) TESTOSTERONE FREE, BIOAVAILABLE AND TOTAL Routine 05/09/2024 3:05 PM EST Malignant neoplasm of prostate ([facility] V24, CMS/[facility] V28) Anemia, unspecified Personal history of PE (pulmonary embolism) LACTATE DEHYDROGENASE Routine 05/09/2024 3:05 PM EST Malignant neoplasm of prostate (CMS/HCC V24, CMS/HCC V28) Anemia, unspecified Personal history of PE (pulmonary embolism) COMPREHENSIVE METABOLIC PANEL Routine 05/09/2024 3:05 PM EST Malignant neoplasm of prostate (CMS/HCC V24, CMS/HCC V28) Anemia, unspecified Personal history of PE (pulmonary embolism) from Last 3 Months Results * (ABNORMAL) Testosterone free, bioavailable and total (05/09/2024 3:05 PM EST) Testosterone <7(L) 229 - 902 ng/dL LAB CHEMISTRY METHOD 05/09/2024 5:25 PM EST [facility] Testosterone, Free LAB CHEMISTRY METHOD 05/09/2024 5:25 PM [facility] Comment:Unable to Calculate Testosterone, Bioavailable LAB CHEMISTRY METHOD 05/09/2024 5:25 PM [facility] Comment:Unable to Calculate Sex Hormone Binding 68.5 See Comment nmol/L LAB CHEMISTRY METHOD 05/09/2024 5:25 PM [facility] Comment: FEMALES: ??pre-menopausal ?? 10.8 [...] g/dL LAB CHEMISTRY METHOD 05/09/2024 5:25 PM [facility] Blood Venous blood specimen / Unknown Venipuncture / Unknown 05/09/2024 3:05 PM EST 05/09/2024 4:40 PM EST Danyellramses Barrientosuliffe DO LAB BLOOD ORDERABLES Final Result [facility] [address] [place] [address], [place] [phone] * Prostate specific antigen diagnostic (05/09/2024 3:05 PM EST) PSA 0.38 0.00 - 4.00 ng/mL LAB CHEMISTRY METHOD 05/09/2024 5:22 PM EST [facility] Blood Venous blood specimen / Unknown Venipuncture / Unknown 05/09/2024 3:05 PM EST 05/09/2024 4:40 PM EST Narrative [facility] - 05/09/2024 5:22 PM EST The Siemens Advia TrillTipaur Chemiluminescent Immunoassay is used. Results obtained with different assay methods or kits cannot be used interchangeably. Results cannot be interpreted as absolute evidence of the presence or absence of malignant disease. Danyellramses Romeroie Sanna DO LAB BLOOD ORDERABLES Final Result [facility] [address] [place] [address], [place] [phone] * (ABNORMAL) Complete blood count (05/09/2024 3:05 PM EST) WBC 9.3 4.8 - 10.8 K/mcL LAB HEMETOLOGY METHOD 05/09/2024 5:28 PM [facility] RBC 4.10(L) 4.50 - 5.50 M/mcL LAB HEMETOLOGY METHOD 05/09/2024 5:28 PM [facility] Hemoglobin 9.5(L) 13.5 - 17.5 g/dL LAB HEMETOLOGY METHOD 05/09/2024 5:28 PM [facility] Hematocrit 32.6(L) 42.0 - 54.0 % LAB HEMETOLOGY METHOD 05/09/2024 5:28 PM EST [facility] MCV 80.5 79.0 - 98.0 FL LAB HEMETOLOGY METHOD 05/09/2024 5:28 PM EST [facility] MCH 23.5(L) 27.0 - 32.0 pcg LAB HEMETOLOGY METHOD 05/09/2024 5:28 PM EST [facility] MCHC 29.1(L) 32.0 - 37.0 g/dL LAB HEMETOLOGY METHOD 05/09/2024 5:28 PM [facility] RDW 18.6(H) 11.0 - 15.0 % LAB HEMETOLOGY METHOD 05/09/2024 5:28 PM [facility] Platelets 376 130 - 400 K/mcL LAB HEMETOLOGY METHOD 05/09/2024 5:28 PM EST [facility] MPV 9.7 7.0 - 11.0 FL LAB HEMETOLOGY METHOD 05/09/2024 5:28 PM EST [facility] NRBC 0.0 <1.0 % LAB HEMETOLOGY METHOD 05/09/2024 5:28 PM [facility] NRBC Absolute 0.00 <0.10 K/mcL LAB HEMETOLOGY METHOD 05/09/2024 5:28 PM [facility] Blood Venous blood specimen / Unknown Venipuncture / Unknown 05/09/2024 3:05 PM EST 05/09/2024 4:40 PM EST us Danyell Isidro DO LAB BLOOD ORDERABLES Final Result [facility] [address] [place] [address], * Lactate dehydrogenase (05/09/2024 3:05 PM EST) LDH 185 120 - 246 unit/L LAB CHEMISTRY METHOD 05/09/2024 5:32 PM [facility] Blood Venous blood specimen / Unknown Venipuncture / Unknown 05/09/2024 3:05 PM EST 05/09/2024 4:40 PM EST us Danyell Madai Isidro DO LAB BLOOD ORDERABLES Final Result [facility] [address] [place] [address], [place] [phone] * (ABNORMAL) Comprehensive metabolic panel (05/09/2024 3:05 PM EST) Sodium 141 133 - 145 mmol/L LAB CHEMISTRY METHOD 05/09/2024 5:32 PM [facility] Potassium 4.1 3.5 - 5.5 mmol/L LAB CHEMISTRY METHOD 05/09/2024 5:32 PM [facility] Chloride 109 96 - 110 mmol/L LAB CHEMISTRY METHOD 05/09/2024 5:32 PM [facility] CO2 22 21 - 32 mmol/L LAB CHEMISTRY METHOD 05/09/2024 5:32 PM [facility] Anion Gap 10 3 - 11 LAB CHEMISTRY METHOD 05/09/2024 5:32 PM [facility] Glucose 104(H) 70 - 100 mg/dL LAB CHEMISTRY METHOD 05/09/2024 5:32 PM [facility] BUN 15 5 - 25 mg/dL LAB CHEMISTRY METHOD 05/09/2024 5:32 PM [facility] Creatinine 0.80 0.70 - 1.30 mg/dL LAB CHEMISTRY METHOD 05/09/2024 5:32 PM [facility] eGFR 95 >=60 mL/min/1. 73m2 LAB CHEMISTRY METHOD 05/09/2024 5:32 PM [facility] Comment:Calculation based on the??Chronic Kidney Disease Epidemiology Collaboration (CKD-EPI) equation refit??without adjustment for race. BUN/Creatinine Ratio 18.8 LAB CHEMISTRY METHOD 05/09/2024 5:32 PM [facility] Calcium 8.8 8.5 - 10.5 mg/dL LAB CHEMISTRY METHOD 05/09/2024 5:32 PM [facility] AST (SGOT) 13 10 - 42 unit/L LAB CHEMISTRY METHOD 05/09/2024 5:32 PM [facility] ALT (SGPT) 16 10 - 60 unit/L LAB CHEMISTRY METHOD 05/09/2024 5:32 PM [facility] Alkaline Phosphatase 99 42 - 121 unit/L LAB CHEMISTRY METHOD 05/09/2024 5:32 PM [facility] Total Protein 6.4 6.0 - 8.0 g/dL LAB CHEMISTRY METHOD 05/09/2024 5:32 PM [facility] Albumin 3.5 3.2 - 5.0 g/dL LAB CHEMISTRY METHOD 05/09/2024 5:32 PM [facility] Total Bilirubin 0.4 0.0 - 1.4 mg/dL LAB CHEMISTRY METHOD 05/09/2024 5:32 PM [facility] Blood Venous blood specimen / Unknown Venipuncture / Unknown 05/09/2024 3:05 PM EST 05/09/2024 4:40 PM EST us Danyell Isidro DO LAB BLOOD ORDERABLES Final Result [facility] [address] [place] [address], from Last 3 Months Insurance MEDICARE [employer] [place] Advance Directives Documents on File Type Date Recorded 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
== END 2024-07-26 14:16 | disposition home or self-care (01) ==
LOC: HO.HUSH 13:23
PROVIDERS: PCP Physician Assistant; Visit Provider Urology
DX: M81.8 Other osteoporosis without current pathological fracture (principal); T38.7X5A Adverse effect of androgens and anabolic congeners, initial encounter; C61 Malignant neoplasm of prostate; C79.51 Secondary malignant neoplasm of bone
CPT/HCPCS: 99213; G2211

== ENCOUNTER → 2024-07-26 13:22 | Outpatient (BNVA) | payer MEDICARE, OTHER, SELFPAY | PROVIDERS: PCP Physician Assistant; Visit Provider Urology | DX: C61 Malignant neoplasm of prostate (principal); C79.51 Secondary malignant neoplasm of bone; M81.8 Other osteoporosis without current pathological fracture; T38.7X5A Adverse effect of androgens and anabolic congeners, initial encounter | CPT/HCPCS: 96372; 99212; J0897 ==

== ENCOUNTER 2024-08-23 13:23 | Outpatient (AMB) | payer MEDICARE, OTHER, SELFPAY ==
--- OUTSIDE RECORDS SUMMARY | 2024-08-23 13:28 | XMS_ITS | Clinical Summary ---
Author Organization [facility] Address [address] [place] [phone] Phone Care Team Providers Care Section Housekeeper Name Role Phone Celso Butterfield Primary Care [...] Prostate cancer metastatic t o multiple sites (CMS/[facility] V24, CMS/[facility] V28) 12/19/2021 Social History Tobacco Use Types Packs/Day [...] Description 09/12/2024 2:15 PM EDT Office Visit 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
--- NOTE | 2024-08-23 13:39 | AM.OFFVISNUR ---
Intake Visit Reasons: Xgeva Allergies Iodinated Contrast Media Allergy (Unknown, Verified 07/26/24 13:32) Unknown Lobster Allergy (Unknown, Verified 07/26/24 13:32) unknown Office Meds Xgeva 120 mg/1.7 mL (70 mg/mL) subcutaneous solution Performing Provider: Sammy Ortega MD Performing Location: [facility] [place] [facility] Administered by: Marisabel Conrad RN on 08/23/24 13:39 Dose Route Admin Location Dispensed Lot Number Expiration Date [facility] Signing Agent 120 mg subcut right upper arm 1.7 mL [id number] 11/27/26 [id number] [facility] Assessment & Plan Assessment & Plan Orders: Orders AMB Denosumab Injection Practice Supplied Today M81.8 - Other osteoporosis without current pathological fracture, T38.7X5A - Adverse effect of androgens and anabolic congeners, initial encounter Medications: New Xgeva (denosumab) 120 mg (1.7 mL) subcut ONCE 1.7 mL 0RF NS M81.8 - Other osteoporosis without current pathological fracture, T38.7X5A - Adverse effect of androgens and anabolic congeners, initial encounter Coding
== END 2024-08-23 13:56 | disposition home or self-care (01) ==
LOC: HO.HUSH 13:23
PROVIDERS: PCP Physician Assistant; Visit Provider Urology
DX: M81.8 Other osteoporosis without current pathological fracture (principal); T38.7X5A Adverse effect of androgens and anabolic congeners, initial encounter

== ENCOUNTER → 2024-08-23 13:23 | Outpatient (BNVA) | payer MEDICARE, OTHER, SELFPAY | PROVIDERS: PCP Physician Assistant; Visit Provider Urology | DX: M81.8 Other osteoporosis without current pathological fracture (principal); T38.7X5A Adverse effect of androgens and anabolic congeners, initial encounter; X58.XXXA Exposure to other specified factors, initial encounter; Y93.9 Activity, unspecified; Y92.9 Unspecified place or not applicable; Y99.9 Unspecified external cause status | CPT/HCPCS: 96372; J0897 ==

== ENCOUNTER 2024-09-21 15:04 | Outpatient (REF) | payer MEDICARE, OTHER, SELFPAY ==
[2024-09-21 16:07] LABS: Hematocrit 37.9 % (42.0-52.0); Hemoglobin 12.7 g/dl (14.0-18.0); Mean Corpuscular HGB Conc 33.5 g/dl (31.0-36.0); Mean Corpuscular Hemoglobin 30.5 pg (27.0-33.0); Mean Corpuscular Volume 91.1 fL (80.0-98.0); Platelet Count 240 X10*3/uL (160-400); Red Blood Count 4.16 X10*6/uL (4.60-5.80); Red Cell Distribution Width 14.8 % (11.0-16.0); White Blood Count 6.3 X10*3/uL (4.8-10.8)
[2024-09-21 16:22] LABS: Alanine Aminotransferase 14 U/L (0-40); Albumin Level 4.2 g/dL (3.5-5.0); Alkaline Phosphatase 81 U/L (39-117); Anion Gap 12 (12-20); Aspartate Amino Transferase 19 U/L (5-37); Bilirubin Total 0.7 mg/dL (0.0-1.0); Blood Urea Nitrogen 13 mg/dL (9-16); Calcium 8.7 mg/dL (8.4-10.2); Carbon Dioxide 26 mmol/L (22-29); Chloride 105 mmol/L (96-108); Cholesterol 217 mg/dL (<200); Estimated Glomerular Filt Rate > 60; Glucose Fasting 84 mg/dL (60-99); HDL Cholesterol 55 mg/dL (>40); LDL Cholesterol Calculated 129 mg/dL (<100); Potassium 3.9 mmol/L (3.3-5.1); Sodium 139 mmol/L (135-145); Total Protein 6.6 g/dL (6.5-8.0); Triglycerides 168 mg/dL (<150)
[2024-09-21 16:44] LABS: Prostate Specific Antigen 0.23 ng/mL (<0.05-4.0)
--- OUTSIDE RECORDS SUMMARY | 2024-09-21 17:59 | XMS_ITS | Clinical Summary ---
Author Organization [facility] Address [address] [place] [phone] Phone Care Team Providers Care Textile Stylist Name Role Phone Celso Butterfield Primary Care Provider [phone] Allergies Active Allergy Reactions Criticality Noted Date Comments Sulfa (Sulfonamide Antibiotics) 11/29 Medications abiraterone (ZYTIGA) 250 mg TAKE 4 TABLETS (1,000MG) BY MOUTH ONCE DAILY ON AN EMPTY STOMACH 1 HOUR BEFORE OR 2 HOURS AFTER A MEAL 2 Active abiraterone (ZYTIGA) 500 mg Take 2 tablets (1,000 mg total) by mouth daily Active apixaban (ELIQUIS) 5 mg tablet Take by mouth every 12 (twelve) hours. Active omeprazole (PriLOSEC) [address] capsule Take 1 capsule (20 mg total) by mouth every other day. Active predniSONE (DELTASONE) 5 mg tablet TAKE 1 TABLET BY MOUTH TWICE A DAY 3 Active FERROUS SULFATE ORAL Take by mouth. Active LEUPROLIDE ACETATE, 6 MONTH, IM Inject under the skin. Active metoprolol succinate (TOPROL-XL) 25 mg 24 hr tablet Take 1 tablet (25 mg total) by mouth 1 (one) time each day. 5 Active cyanocobalamin (VITAMIN B-12) 1,000 mcg tablet Take 1 tablet (1,000 mcg total) by mouth 1 (one) time each day. 5 Active cholecalcifero l (VITAMIN D-3) 25 mcg (1,000 unit) tablet Take 1 tablet (25 mcg total) by mouth daily. 09/13/19 25 Discontinued CALCIUM CARBONATE ORAL Take by mouth. 09/13/19 25 Discontinued Active Problems Problem Noted Date Diagnosed Date Prostate cancer metastatic t o multiple sites ([facility] V24, [facility] V28) 12/19/2021 Encounters Date Type Department Care Team Description 09/12/2024 2:15 PM EDT Office Visit [facility] Hematology Oncology [address] [place] [phone] Danyell Isidro DO Prostate cancer metastatic to multiple sites ([facility] V24, [facility] V28) (Primary Dx) from Last 3 Months [...] Sign Reading Time Taken Comments Blood Pressure 157/78 09/12/2024 2:27 PM EDT Pulse 57 09/12/2024 2:27 PM EDT Temperature 36.4 C (97.6 F) 09/12/2024 2:27 PM EDT Respiratory Rate - - Oxygen Saturation 97% 09/12/2024 2:27 PM EDT Inhaled Oxygen Concentration - - Weight 108 kg (238 lb 12.8 oz) 09/12/2024 2:27 P M EDT Height 177.8 cm (5' 10 ) 09/12/2024 2:27 PM EDT Body Mass Index 34.26 09/12/2024 2:27 PM EDT Plan of Treatment Upcoming Encounters Date Type Department Care Team (Late st Contact Info) Description 01/12/2025 2:15 PM EDT Office Visit [facility] Hematology Oncology [address] [place] [phone] Danyell Isidro DO [address] [place] [phone] Health Maintenance Due Date Last Done Comments [...] Procedure Name Priority Date/Time Associated Diagnosis Comments COMPREHENSIVE METABOLIC PANEL Routine 09/09/2024 2:41 PM EDT Anemia, unspecified Prostate cancer (CMS/HCC V24, CMS/HCC V28) Personal history of PE (pulmonary embolism) COMPLETE BLOOD COUNT Routine 09/09/2024 2:41 PM EDT Anemia, unspecified Prostate cancer ([facility] V24, [facility] V28) Personal history of PE (pulmonary embolism) LACTATE DEHYDROGENASE Routine 09/09/2024 2:41 PM EDT Anemia, unspecified Prostate cancer ([facility] V24, [facility] V28) Personal history of PE (pulmonary embolism) PROSTATE SPECIFIC ANTIGEN DIAGNOSTIC Routine 09/09/2024 2:41 PM EDT Anemia, unspecified Prostate cancer ([facility] V24, [facility] V28) Personal history of PE (pulmonary embolism) from Last 3 Months Results * Prostate specific antigen diagnostic (09/09/2024 2:41 PM EDT) Pathologist [facility] PSA 0.19 0.00 - 4.00 ng/mL LAB CHEMISTRY METHOD 09/09/2024 5:22 PM EDT [facility] Blood Venous blood specimen / Unknown Venipuncture / Unknown 09/09/2024 2:41 PM EDT 09/09/2024 4:33 PM EDT Narrative [facility] - 09/09/2024 5:22 PM EDT The Siemens Advia Centaur Chemiluminescent Immunoassay is used. Results obtained with different assay methods or kits cannot be used interchangeably. Results cannot be interpreted as absolute evidence of the presence or absence of malignant disease. us Danyell Isidro DO LAB BLOOD ORDERABLES Final Result [facility] [address] [place] [address], * (ABNORMAL) Complete blood count (09/09/2024 2:41 PM EDT) Pathologist [facility] WBC 5.5 4.8 - 10.8 K/mcL LAB HEMETOLOGY METHOD 09/09/2024 5:07 PM EDT [facility] RBC 3.90(L) 4.50 - 5.50 M/mcL LAB HEMETOLOGY METHOD 09/09[facility]24 [facility] Hemoglobin 11.8(L) 13.5 - 17.5 g/dL LAB HEMETOLOGY METHOD 09/09/2024 5:07 PM [facility] Hematocrit 36.7(L) 42.0 - 54.0 % LAB HEMETOLOGY METHOD 09/09/2024 5:07 PM [facility] MCV 94.3 79.0 - 98.0 FL LAB HEMETOLOGY METHOD 09/09/2024 5:07 PM [facility] MCH 30.3 27.0 - 32.0 pcg LAB HEMETOLOGY METHOD 09/09/2024 5:07 PM [facility] MCHC 32.2 32.0 - 37.0 g/dL LAB HEMETOLOGY METHOD 09/09/2024 5:07 PM [facility] RDW 15.7(H) 11.0 - 15.0 % LAB HEMETOLOGY METHOD 09/09/2024 5:07 PM [facility] Platelets 241 130 - 400 K/mcL LAB HEMETOLOGY METHOD 09/09/2024 5:07 PM [facility] MPV 9.4 7.0 - 11.0 FL LAB HEMETOLOGY METHOD 09/09/2024 5:07 PM [facility] NRBC 0.0 <1.0 % LAB HEMETOLOGY METHOD 09/09/2024 5:07 PM [facility] NRBC Absolute 0.00 <0.10 K/mcL LAB HEMETOLOGY METHOD 09/09/2024 5:07 PM [facility] Blood Venous blood specimen / Unknown Venipuncture / Unknown 09/09/2024 2:41 PM EDT 09/09/2024 4:33 PM EDT us Danyell Romeroie Sanna DO LAB BLOOD ORDERABLES Final Result [facility] [address] [place] [address], [place] [phone] * Lactate dehydrogenase (09/09/2024 2:41 PM EDT) LDH 150 120 - 246 unit/L LAB CHEMISTRY METHOD 09/09/2024 4:55 PM EDT [facility] Blood Venous blood specimen / Unknown Venipuncture / Unknown 09/09/2024 2:41 PM EDT 09/09/2024 4:33 PM EDT Danyell Barrientosuliffe DO LAB BLOOD ORDERABLES Final Result Performing Organization Address [facility]/ZIP Co de Phone Number [facility] [address] [place] [address], [place] [phone] * (ABNORMAL) Comprehensive metabolic panel (09/09/2024 2:41 PM EDT) Pathologist [facility] Sodium 141 133 - 145 mmol/L LAB CHEMISTRY METHOD 09/09/2024 4:55 PM EDT [facility] Potassium 4.3 3.5 - 5.5 mmol/L LAB CHEMISTRY METHOD 09/09/2024 4:55 PM EDT [facility] Chloride 106 96 - 110 mmol/L LAB CHEMISTRY METHOD 09/09/2024 4:55 PM EDT [facility] CO2 27 21 - 32 mmol/L LAB CHEMISTRY METHOD 09/09/2024 4:55 PM EDT [facility] Anion Gap 8 3 - 11 LAB CHEMISTRY METHOD 09/09/2024 4:55 PM EDT [facility] Glucose 102(H) 70 - 100 mg/dL LAB CHEMISTRY METHOD 09/09/2024 4:55 PM EDT [facility] BUN 15 5 - 25 mg/dL LAB CHEMISTRY METHOD 09/09/2024 4:55 PM [facility] Creatinine 0.78 0.70 - 1.30 mg/dL LAB CHEMISTRY METHOD 09/09/2024 4:55 PM [facility] eGFR 95 >=60 mL/min/1. 73m2 LAB CHEMISTRY METHOD 09/09/2024 4:55 PM [facility] Comment:Calculation based on the Chronic Kidney Disease Epidemiology Collaboration (CKD-EPI) equation refit without adjustment for race. BUN/Creatinine Ratio 19.2 LAB CHEMISTRY METHOD 09/09/2024 4:55 PM [facility] Calcium 7.9(L) 8.5 - 10.5 mg/dL LAB CHEMISTRY METHOD 09/09/2024 4:55 PM [facility] AST (SGOT) 15 10 - 42 unit/L LAB CHEMISTRY METHOD 09/09/2024 4:55 PM [facility] ALT (SGPT) 21 10 - 60 unit/L LAB CHEMISTRY METHOD 09/09/2024 4:55 PM [facility] Alkaline Phosphatase 98 42 - 121 unit/L LAB CHEMISTRY METHOD 09/09/2024 4:55 PM [facility] Total Protein 5.8(L) 6.0 - 8.0 g/dL LAB CHEMISTRY METHOD 09/09/2024 4:55 PM [facility] Albumin 3.2 3.2 - 5.0 g/dL LAB CHEMISTRY METHOD 09/09/2024 4:55 PM [facility] Total Bilirubin 0.4 0.0 - 1.4 mg/dL LAB CHEMISTRY METHOD 09/09/2024 4:55 PM [facility] Blood Venous blood specimen / Unknown Venipuncture / Unknown 09/09/2024 2:41 PM EDT 09/09/2024 4:33 PM EDT us Danyell Aj Sanna DO LAB BLOOD ORDERABLES Final Result [facility] [address] [place] [address], [place] [phone] from Last 3 Months Insurance [employer] Advance Directives Documents on File Type Date Recorded 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
[2024-10-03 13:08] LABS: Testosterone, Total <1 ng/dL (250-1100)
== END 2024-09-21 15:05 | disposition home or self-care (01) ==
LOC: HO.LAB 15:04
PROVIDERS: PCP Physician Assistant; Visit Provider Urology
DX: C61 Malignant neoplasm of prostate (principal); C79.51 Secondary malignant neoplasm of bone; R73.01 Impaired fasting glucose; E78.9 Disorder of lipoprotein metabolism, unspecified; Z12.5 Encounter for screening for malignant neoplasm of prostate
CPT/HCPCS: 36415; 80053; 80061; 84153; 84403; 85027

== ENCOUNTER 2024-09-23 13:26 | Outpatient (AMB) | payer MEDICARE, OTHER, SELFPAY ==
--- NOTE | 2024-09-23 13:29 | MHC.OFFVIS ---
Intake Visit Reasons: GnRH/Xgeva/2m/labs(labs?) Intake Note: Patient is present for GNRH/XGEVA/2M/LABS Urology Medication:PREDNISONE,VITAMIN B12 Antibiotic Allergy:NONE Blood Thinner:APIXABAN Hospice Art Therapist Required: No Allergies Iodinated Contrast Media Allergy (Unknown, Verified 09/23/24 13:31) Unknown Lobster Allergy (Unknown, Verified 09/23/24 13:31) unknown HPI Comments Details: Rohan godoy is a pleasant male. He is a patient Dr. Butterfield. He is seen for the following urologic conditions. 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 HbA1c 5.6 which is staying stable. Continues with abiraterone plus b.i.d. prednisone Bone scan shows stability 03/22 GNRH done dose 2 PSA 0.2 - good response 07/21 PSA 6 - restart GnRH plus abiraterone (2.5mg daily) plus xgeva Bone Scan - Recurrent metastatic tumor involvement of bone. There has been a significant but mild progression in the bone scan appearance since the most recent 06/19/2022 study 18 months since completed therapy 04/22 PSA 2.6 T 253 DEXA Osteroporosis 10/19 PET-CT no metabolically active lymph nodes, prostate active 06/19 GnRH P <0.1, T 7 Imagin. Interval development of subtle focal area of increased radiotracer activity is noted at the left frontal skull. 2. Interval development of mild increased radiotracer activity is noted at L4 to the left of the midline. 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 Diagnosis was reached by needle biopsy, for elevated PSA, PSA at diagnosis 19, size at TRUS 60cc. The [place] grade is October 2018 - 03/10 cores Gl , 4+4 = 8, 4+5 = 9, 60-90%, + PNI. TNM Classification of Malignant Tumours (TNM) T2b - palpable bilateral. The D'Amari (NCCN) risk category is High Risk (PSA > 20, Gl 8+, T3) - Group 5 on biopsy. Initial therapy included Primary treatment - bicalutamide, dutasteride, plan for GnRH 12/09/18 - GnRH 1xt dose given, stop bicalutamide in 7 days Recent labs included PSA 03/18 0.4 - T 03/18 <1 - 06/17 PSA .4, T <1, 12/18 PSA 0.3, T 6, 03/19 0.3, 06/18 0.2, 09/18 0.2, 12/19 0.15, 03/20 <0.1 Recent imaging included - 11/15 , a CT (computed tomography) scan - mild hydroureteronephrosis bilateral with 1cm sclerotic lesion in ileum, 1.5 cm iliac nodes, bladder wall thickening - 12/16 CT scan with bilateral mild to moderate hydroureteral nephrosis - 06/18 CT with minimal lymphadenopathy and resolution of majority of bone island sclerosis - 01/18 CT with no evidence of lymphadenopathy Dexa Scan - 06/16 NAD, 01/17 NAD Bone Scan - 12/16 , a bone scan sclerotic lesion on ileum and calvarium with scattered rib lesions - 12/17 bone scan. Improvement with sclerotic lesion on ileum and calvarium. Significant improvement compared to prior study. Renal ultrasound no evidence of calculus or bilateral hydronephrosis - 03/19 bone scan with overall relatively stable disease, question of subtle change on T1 - 12/19 bone scan with stable disease - 07/22 bone scan Mild bone activity in bilateral posterior ribs, left clavicle, calvarium is stable. There are no new areas of metabolic activity seen suggestive of progression. Associated conditions erectile dysfunction Yes hematuria No hot flashes Yes Therapeutic plan: Continue hormone therapy. 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 Lower Urinary Tract Symptoms: Doing well. Current visit is for further evaluation of, lower urinary tract symptoms, predominate obstructive symptoms. Prior treatments include 01/15 , procedure, laser procedure. Symptoms include 12/16 , nocturia (>2), weak stream, and are progressing. Prostate volume 50+gm. Treatment plan pvr each visit. 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 Daughter In good health Social History (Updated 06/15/24 @ 15:13 by Brittani Padron) Household Members: Spouse Housing: House Do you presently have visiting nurse or other home services: No Alcohol intake: current Alcohol intake frequency: a few times a week Patient Tobacco Use Status: Never used Tobacco e-Cigarette/Vaping Use: Never Used Substance Use Type: Marijuana service: No Current occupational status: retired Cognitive needs: No Hearing needs: No Vision needs: Yes (glasses ) Review of Systems Const Denies chills and Denies fever(s) Card Reports no additional complaints and Denies syncope Resp Denies cough GI Denies abdominal pain and Denies heartburn Reports as per HPI and Denies change in libido Neuro Denies syncope Psych Denies change in libido Endo Denies change in libido Physical Exam Const General: cooperative, healthy appearing, comfortable and no acute distress Orientation/consciousness: patient oriented x3 HEENT Face and sinus: Yes normal facial exam Mouth: moist mucous membranes Neck Neck: Yes normal visual inspection, Yes full ROM and Yes trachea midline Chest Chest palpation & inspection: normal inspection of the chest Resp Effort & Inspection: normal respiratory effort, able to speak in complete sentences and no respiratory distress GI Inspection: Yes normal to inspection Back/Spine/Pelvis Cervical Spine: normal cervical lordosis Thoracic/Lumbar Spine: thoracic and lumbar spine normal to inspection Skin General skin exam: no rashes or lesions noted Neuro General: patient oriented x3, gait normal, tone normal and moves all extremities Extrem General: Yes normal to inspection and Yes capillary refill normal Assessment & Plan Assessment & Plan (1) Prostate cancer metastatic to bone: Comment: Group 5 metastatic to bone October 2018 Code(s): C61 - Malignant neoplasm of prostate; C79.51 - Secondary malignant neoplasm of bone Category: Medical Plan Three-month follow-up lab work Orders: Orders Prostate Specific Antigen 3 Months C61 - Malignant neoplasm of prostate, C79.51 - Secondary malignant neoplasm of bone Testosterone, Total 3 Months C61 - Malignant neoplasm of prostate, C79.51 - Secondary malignant neoplasm of bone Patient Instructions: This note is constructed using voice recognition software. While every effort has been made to ensure accuracy medical laboratory technical officer errors may have been included. Imaging studies, laboratory and physical exam results were discussed and reviewed in detail. No major barriers to patient understanding were identified. An opportunity to ask questions regarding the treatment plan was provided. All questions were answered. The patient expressed understanding and agreement with the above treatment plan. The patient is aware they should contact our office by phone for worsening of their current condition or the appearance of new urologic symptoms. Compliance is encouraged with any medications and followup testing that is ordered. It is a privilege to participate in the urologic care of your patient. If you have any questions or concerns regarding treatment for the above conditions, or other urologic issues, please do not hesitate to contact me. The office telephone contact is [phone]. Sincerely, Dr Sammy Ortega MD, [facility] - Urology Compassionate Specialist Care for the Genitourinary System Coding Level of Care Code Est Pt Level 3 (97616) Complex EM visit Add On G2211 Diagnoses Prostate cancer metastatic to bone C61; C79.51
--- OUTSIDE RECORDS SUMMARY | 2024-09-23 13:55 | XMS_ITS | Clinical Summary ---
Author Organization [facility] Address [address] [place] [phone] Phone Care Team Providers Care Powder Blender And Pourer Name Role Phone Celso Butterfield Primary Care Provider [phone] Allergies Active Allergy Reactions Criticality Noted Date [...] Prostate cancer metastatic t o multiple sites ([facility] V24, [facility] V28) 12/19/2021 Encounters Date Type Department Care Team Description 09/12/2024 2:15 PM EDT Office Visit [facility] Hematology Oncology [address] [place] [phone] Danyell Isidro DO Prostate cancer metastatic to multiple sites ([facility] V24, [facility] V28) (Primary Dx) from Last 3 Months [...] Description 01/12/2025 2:15 PM EDT Office Visit [facility] Hematology Oncology [address] [place] [phone] Danyell Isidro DO [address] [place] [id number] Health Maintenance Due Date Last Done Comments [...] 2:41 PM EDT Anemia, unspecified Prostate cancer ([facility] V24, [facility] V28) Personal history of PE (pulmonary embolism) LACTATE DEHYDROGENASE Routine 09/09/2024 2:41 PM EDT Anemia, unspecified Prostate cancer ([facility] V24, [facility] V28) Personal history of PE (pulmonary embolism) PROSTATE SPECIFIC ANTIGEN DIAGNOSTIC Routine 09/09/2024 2:41 PM EDT Anemia, unspecified Prostate cancer ([facility] V24, [facility] V28) Personal history of PE (pulmonary embolism) from Last 3 Months Results * Prostate specific antigen diagnostic (09/09/2024 2:41 PM EDT) Pathologist [facility] PSA 0.19 0.00 - 4.00 ng/mL LAB CHEMISTRY METHOD 09/09/2024 5:[address] [facility] Blood Venous blood specimen / Unknown Venipuncture / Unknown 09/09/2024 2:41 PM EDT 09/09/2024 4:[address] [facility] - 09/09/2024 5:22 PM EDT The Siemens Advia Centaur Chemiluminescent Immunoassay is used. Results obtained with different assay methods or kits cannot be used interchangeably. Results cannot be interpreted as absolute evidence of the presence or absence of malignant disease. us Danyell Isidro DO LAB BLOOD ORDERABLES Final Result [facility] [address] [place] [address], * (ABNORMAL) Complete blood count (09/09/2024 2:41 PM EDT) Pathologist [facility] WBC 5.5 4.8 - 10.8 K/mcL LAB HEMETOLOGY METHOD 09/09/2024 5:[address] [facility] RBC 3.90(L) 4.50 - 5.50 M/mcL LAB HEMETOLOGY [facility] Hemoglobin 11.8(L) 13.5 - 17.5 g/dL LAB HEMETOLOGY METHOD 09/09/2024 5:07 PM [facility] Hematocrit 36.7(L) 42.0 - 54.0 % LAB HEMETOLOGY METHOD 09/09/2024 5:07 PM [facility] MCV 94.3 79.0 - 98.0 FL LAB HEMETOLOGY METHOD 09/09/2024 5:07 PM [facility] MCH 30.3 27.0 - 32.0 pcg LAB HEMETOLOGY METHOD 09/09/2024 5:07 PM [facility] MCHC 32.2 32.0 - 37.0 g/dL LAB HEMETOLOGY METHOD 09/09/2024 5:07 PM [facility] RDW 15.7(H) 11.0 - 15.0 % LAB HEMETOLOGY METHOD 09/09/2024 5:07 PM [facility] Platelets 241 130 - 400 K/mcL LAB HEMETOLOGY METHOD 09/09/2024 5:07 PM [facility] MPV 9.4 7.0 - 11.0 FL LAB HEMETOLOGY METHOD 09/09/2024 5:07 PM [facility] NRBC 0.0 <1.0 % LAB HEMETOLOGY METHOD 09/09/2024 5:07 PM [facility] NRBC Absolute 0.00 <0.10 K/mcL LAB HEMETOLOGY METHOD 09/09/2024 5:07 PM [facility] Blood Venous blood specimen / Unknown Venipuncture / Unknown 09/09/2024 2:41 PM EDT 09/09/2024 4:33 PM EDT us Danyell Romeroie Sanna DO LAB BLOOD ORDERABLES Final Result [facility] [address] [place] [address], [place] [phone] * Lactate dehydrogenase (09/09/2024 2:41 PM EDT) LDH 150 120 - 246 unit/L LAB CHEMISTRY METHOD 09/09/2024 4:[address] [facility] Blood Venous blood specimen / Unknown Venipuncture / Unknown 09/09/2024 2:41 PM EDT 09/09/2024 4:33 PM EDT Danyell Barrientosuliffe DO LAB BLOOD ORDERABLES Final Result Performing Organization Address [facility]/ZIP Co de Phone Number [facility] [address] [place] [address], [place] [phone] * (ABNORMAL) Comprehensive metabolic panel (09/09/2024 2:41 PM EDT) Pathologist [facility] Sodium 141 133 - 145 mmol/L LAB CHEMISTRY METHOD 09/09/2024 4:[address] [facility] Potassium 4.3 3.5 - 5.5 mmol/L LAB CHEMISTRY METHOD 09/09/2024 4:[address] [facility] Chloride 106 96 - 110 mmol/L LAB CHEMISTRY METHOD 09/09/2024 4:[address] [facility] CO2 27 21 - 32 mmol/L LAB CHEMISTRY METHOD 09/09/2024 4:[address] [facility] Anion Gap 8 3 - 11 LAB CHEMISTRY METHOD 09/09/2024 4:[address] [facility] Glucose 102(H) 70 - 100 mg/dL LAB CHEMISTRY METHOD 09/09/2024 4:[address] [facility] BUN 15 5 - 25 mg/dL LAB CHEMISTRY METHOD 09/09/2024 4:55 PM [facility] Creatinine 0.78 0.70 - 1.30 mg/dL LAB CHEMISTRY METHOD 09/09/2024 4:55 PM [facility] eGFR 95 >=60 mL/min/1. 73m2 LAB CHEMISTRY METHOD 09/09/2024 4:55 PM [facility] Comment:Calculation based on the Chronic Kidney Disease Epidemiology Collaboration (CKD-EPI) equation refit without adjustment for race. BUN/Creatinine Ratio 19.2 LAB CHEMISTRY METHOD 09/09/2024 4:55 PM [facility] Calcium 7.9(L) 8.5 - 10.5 mg/dL LAB CHEMISTRY METHOD 09/09/2024 4:55 PM [facility] AST (SGOT) 15 10 - 42 unit/L LAB CHEMISTRY METHOD 09/09/2024 4:55 PM [facility] ALT (SGPT) 21 10 - 60 unit/L LAB CHEMISTRY METHOD 09/09/2024 4:55 PM [facility] Alkaline Phosphatase 98 42 - 121 unit/L LAB CHEMISTRY METHOD 09/09/2024 4:55 PM [facility] Total Protein 5.8(L) 6.0 - 8.0 g/dL LAB CHEMISTRY METHOD 09/09/2024 4:55 PM [facility] Albumin 3.2 3.2 - 5.0 g/dL LAB CHEMISTRY METHOD 09/09/2024 4:55 PM [facility] Total Bilirubin 0.4 0.0 - 1.4 mg/dL LAB CHEMISTRY METHOD 09/09/2024 4:55 PM [facility] Blood Venous blood specimen / Unknown Venipuncture / Unknown 09/09/2024 2:41 PM EDT 09/09/2024 4:33 PM EDT us Danyell Aj Sanna DO LAB BLOOD ORDERABLES Final Result [facility] [address] [place] [address], [place] [phone] from Last 3 Months Insurance [employer] Advance Directives Documents on File Type Date Recorded 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
== END 2024-09-23 14:23 | disposition home or self-care (01) ==
LOC: HO.HUSH 13:27
PROVIDERS: PCP Physician Assistant; Visit Provider Urology
DX: M81.8 Other osteoporosis without current pathological fracture (principal); T38.7X5A Adverse effect of androgens and anabolic congeners, initial encounter; C61 Malignant neoplasm of prostate; C79.51 Secondary malignant neoplasm of bone
CPT/HCPCS: 99213; G2211

== ENCOUNTER → 2024-09-23 13:26 | Outpatient (BNVA) | payer MEDICARE, OTHER, SELFPAY | PROVIDERS: PCP Physician Assistant; Visit Provider Urology | DX: C61 Malignant neoplasm of prostate (principal); C79.51 Secondary malignant neoplasm of bone; M81.8 Other osteoporosis without current pathological fracture; T38.805A Adverse effect of unspecified hormones and synthetic substitutes, initial encounter | CPT/HCPCS: 96372; 96402; 99212; J0897; J9217 ==

== ENCOUNTER 2024-09-28 13:49 | Outpatient (AMB) | payer MEDICARE, OTHER, SELFPAY ==
--- NOTE | 2024-09-28 13:53 | A.OFFVIS_ITS ---
Vital Signs 09/28/24 13:54 Height 5 ft 10 in Weight 238 lb BMI 34.1 BP 128/78 Blood Pressure Location Lt brachial Position Sitting Pulse 88 Pulse Source Pulse Oximeter Intake Visit Reasons: new patient dx palpitations Allergies Iodinated Contrast Media Allergy (Unknown, Verified 09/23/24 13:31) Unknown Lobster Allergy (Unknown, Verified 09/23/24 13:31) unknown Medication List - Last Reconciled 09/28/24 by Elvin Gonzalez MD abiraterone 1,000 mg (4 x 250 mg) PO DAILY 30 days apixaban (Eliquis) 5 mg PO BID cyanocobalamin (vitamin B-12) (Vitamin B-12) 1,000 mcg PO DAILY diclofenac sodium 1% (Aspercreme Arthritis Pain) 2 grams topical QID PRN ferrous fumarate ER 65 mg PO DAILY metoprolol succinate ER 25 mg PO DAILY omeprazole 20 mg PO Q OTHER DAY prednisone 2.5 mg PO BID 30 days triamcinolone acetonide 0.1% 1 appl topical BID 30 days HPI Comments Details: The patient is a 73-year-old male presenting with an irregular heartbeat. He reports experiencing rapid heartbeat, but denies any history of heart attacks, pacemaker, or bypass surgery. The patient has been taking metoprolol, which has alleviated the symptoms, although he previously experienced episodes of palpitations significant enough to require sitting down in a supermarket. No other complaints like exertional angina. The patient has a history of metastatic prostate cancer, which has spread to the spine and bones. He has been living with this condition for six years and reports that it has been stable. The patient has a history of blood clots and is currently on Eliquis as a preventative measure. He experienced two blood clots five years ago and has been advised to continue Eliquis indefinitely. 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 Daughter In good health Social History (Updated 06/15/24 @ 15:13 by Brittani Padron) Household Members: Spouse Housing: House Do you presently have visiting nurse or other home services: No Alcohol intake: current Alcohol intake frequency: a few times a week Patient Tobacco Use Status: Never used Tobacco e-Cigarette/Vaping Use: Never Used Substance Use Type: Marijuana service: No Current occupational status: retired Cognitive needs: No Hearing needs: No Vision needs: Yes (glasses ) Review of Systems Const Denies weakness ENT Denies dizziness Card Denies chest pain, Denies chest pain with activity, Denies syncope, Denies rapid heart rate, Denies pedal edema, Denies edema, Denies leg edema, Denies lightheadedness, Reports palpitations, Reports dyspnea, Denies dyspnea on exertion and Denies orthopnea Resp Denies cough, Reports dyspnea and Denies dyspnea on exertion GI Denies hematochezia and Denies change in stool character Musc Denies abnormal gait, Denies muscle cramps, Denies muscle weakness, Denies numbness, Denies radiating pain into limb and Denies tingling Neuro Denies abnormal gait, Denies dizziness, Denies syncope, Denies numbness, Denies tingling and Denies weakness Endo Reports palpitations Physical Exam Vital Signs: Last Vital Signs Pulse 88 09/28/24 13:54 BP 128/78 09/28/24 13:54 BMI result Body Mass Index 34.1 Const General: comfortable and no acute distress Orientation/consciousness: patient oriented x3 HEENT Other: Unremarkable Head: Yes normal to inspection Neck Neck: Yes normal visual inspection Chest Chest palpation & inspection: normal inspection of the chest Resp Auscultation: clear to auscultation bilaterally Cardio Palpation: normal PMI Heart sounds: S1 normal heart sound present, S2 normal heart sound present, no gallops, no murmurs and no rubs GI Palpation (GI): Soft to palpation Back/Spine/Pelvis Other: unremarkable Skin General skin exam: no rashes or lesions noted Neuro General: patient oriented x3 Extrem General: Yes normal to inspection Psych Mental Status: mental status grossly normal Assessment & Plan Assessment & Plan (1) PVC (premature ventricular contraction): Code(s): I49.3 - Ventricular premature depolarization Category: Medical Plan Recent EKG with underlying sinus rhythm at 70/Min; in the 1st part of the EKG there are PVCs in a bigeminal pattern. In the Holter monitor, underlying rhythm is sinus with an average rate of 61/Min. Frequent ventricular ectopy with a burden of 5.1%. Rare couplets with bigeminy, trigeminy. Supraventricular ectopy with a burden of 1%. Findings discussed with patient and we also reviewed the EKGs strips. Recommend further workup with an echocardiogram and exercise stress perfusion imaging study. Based on the findings, can plan further care. Discussion Notes I discussed with the patient the nature of his irregular heartbeat and the importance of further diagnostic testing, including a stress test and ec hocardiogram, to evaluate cardiac function. The patient agreed to follow the recommended plan. Patient was informed and verbally consented to the use of an ambient scribe for clinic note documentation during this visit. Orders: Orders CA stress test Today I49.3 - Ventricular premature depolarization CA echo transthoracic complete Today I49.3 - Ventricular premature depolarization NM cardiolite stress test Today I49.3 - Ventricular premature depolarization Patient Instructions: - Schedule and complete the stress test and echocardiogram as discussed. - Monitor for any new or worsening symptoms and report them to your healthcare provider. Coding Level of Care Code New Pt Level 4 (95311) Complex EM visit Add On G2211 Diagnoses PVC (premature ventricular contraction) I49.3
[2024-09-28 13:54] VITALS: BP 128/78; PULSE 88; BMI 34.1
--- OUTSIDE RECORDS SUMMARY | 2024-09-28 14:21 | XMS_ITS | Clinical Summary ---
Author Organization [facility] Address [address] [place] [address] Care Team Providers Care Jazz Musician Name Role Phone Celso Butterfield Primary Care Provider [phone] Allergies Active Allergy Reactions Criticality Noted Date [...] 67 12/08/2023 2:04 PM EDT Temperature 36.6 C (97.9 F) 12/08/2023 2:04 PM EDT Respiratory Rate - - Oxygen Saturation 98% [...] of 2) 12/17/2022 10/23/19 23 Influenza Vaccine (Season Ended) 2024 04/30/19 20 RSV Adult > 60+ Yrs or Pregn ant (1 - 1-dose 75+ series) 12/22/2027 Hepatitis B Vaccines Aged Out No long er eligible based on patient's age to complete this topic RSV Ped < 20 months Aged Out No longe r eligible based on patient's age to complete this topic Care Teams Jazz Musician Relationship Specialty Start Date End Date Celso Butterfield PA [address] [facility] [place] [phone] PCP - General Physician Peritoneal Dialysis Registered Nurse 12/15/18 Morenita Vang MD [facility] Consulting Physician Medical Oncology 12/27/18
--- OUTSIDE RECORDS SUMMARY | 2024-09-28 14:21 | XMS_ITS | Clinical Summary ---
Author Organization [facility] Address [address] [place] [phone] Phone Care Team Providers Care Microfilm Camera Operator Name Role Phone Celso Butterfield Primary Care Provider [phone] Allergies Active Allergy Reactions Criticality Noted Date [...] Prostate cancer metastatic t o multiple sites ([facility] V24, [facility] V28) 12/19/2021 Encounters Date Type Department Care Team Description 09/12/2024 2:15 PM EDT Office Visit [facility] Hematology Oncology [address] [place] [phone] Danyell Isidro DO Prostate cancer metastatic to multiple sites ([facility] V24, [facility] V28) (Primary Dx) from Last [...] Description 01/12/2025 2:15 PM EDT Office Visit [facility] Hematology Oncology [address] [place] [phone] Danyell Isidro DO [address] [place] [phone] Health Maintenance Due Date Last Done Comments [...] 2:41 PM EDT Anemia, unspecified Prostate cancer ([facility] V24, [facility] V28) Personal history of PE (pulmonary embolism) LACTATE DEHYDROGENASE Routine 09/09/2024 2:41 PM EDT Anemia, unspecified Prostate cancer ([facility] V24, [facility] V28) Personal history of PE (pulmonary embolism) PROSTATE SPECIFIC ANTIGEN DIAGNOSTIC Routine 09/09/2024 2:41 PM EDT Anemia, unspecified Prostate cancer ([facility] V24, [facility] V28) Personal history of PE (pulmonary embolism) from Last 3 Months Results * Prostate specific antigen diagnostic (09/09/2024 2:41 PM EDT) Pathologist [facility] PSA 0.19 0.00 - 4.00 ng/mL LAB CHEMISTRY METHOD 09/09/2024 5:22 PM EDT [facility] Blood Venous blood specimen / Unknown Venipuncture / Unknown 09/09/2024 2:41 PM EDT 09/09/2024 4:33 PM EDT Narrative [facility] - 09/09/2024 5:22 PM EDT The Siemens Advia Centaur Chemiluminescent Immunoassay is used. Results obtained with different assay methods or kits cannot be used interchangeably. Results cannot be interpreted as absolute evidence of the presence or absence of malignant disease. us Danyell Isidro DO LAB BLOOD ORDERABLES Final Result [facility] [address] [place] [address], * (ABNORMAL) Complete blood count (09/09/2024 2:41 PM EDT) Pathologist [facility] WBC 5.5 4.8 - 10.8 K/mcL LAB HEMETOLOGY METHOD 09/09/2024 5:07 PM EDT [facility] RBC 3.90(L) 4.50 - 5.50 M/mcL LAB HEMETOLOGY [facility] Hemoglobin 11.8(L) 13.5 - 17.5 g/dL LAB HEMETOLOGY METHOD 09/09/2024 5:07 PM [facility] Hematocrit 36.7(L) 42.0 - 54.0 % LAB HEMETOLOGY METHOD 09/09/2024 5:07 PM [facility] MCV 94.3 79.0 - 98.0 FL LAB HEMETOLOGY METHOD 09/09/2024 5:07 PM [facility] MCH 30.3 27.0 - 32.0 pcg LAB HEMETOLOGY METHOD 09/09/2024 5:07 PM [facility] MCHC 32.2 32.0 - 37.0 g/dL LAB HEMETOLOGY METHOD 09/09/2024 5:07 PM [facility] RDW 15.7(H) 11.0 - 15.0 % LAB HEMETOLOGY METHOD 09/09/2024 5:07 PM [facility] Platelets 241 130 - 400 K/mcL LAB HEMETOLOGY METHOD 09/09/2024 5:07 PM [facility] MPV 9.4 7.0 - 11.0 FL LAB HEMETOLOGY METHOD 09/09/2024 5:07 PM [facility] NRBC 0.0 <1.0 % LAB HEMETOLOGY METHOD 09/09/2024 5:07 PM [facility] NRBC Absolute 0.00 <0.10 K/mcL LAB HEMETOLOGY METHOD 09/09/2024 5:07 PM [facility] Blood Venous blood specimen / Unknown Venipuncture / Unknown 09/09/2024 2:41 PM EDT 09/09/2024 4:33 PM EDT us Danyell Romeroie Sanna DO LAB BLOOD ORDERABLES Final Result [facility] [address] [place] [address], [place] [phone] * Lactate dehydrogenase (09/09/2024 2:41 PM EDT) LDH 150 120 - 246 unit/L LAB CHEMISTRY METHOD 09/09/2024 4:55 PM EDT [facility] Blood Venous blood specimen / Unknown Venipuncture / Unknown 09/09/2024 2:41 PM EDT 09/09/2024 4:33 PM EDT Danyell Barrientosuliffe DO LAB BLOOD ORDERABLES Final Result Performing Organization Address [facility]/ZIP Co de Phone Number [facility] [address] [place] [address], [place] [phone] * (ABNORMAL) Comprehensive metabolic panel (09/09/2024 2:41 PM EDT) Pathologist [facility] Sodium 141 133 - 145 mmol/L LAB CHEMISTRY METHOD 09/09/2024 4:55 PM EDT [facility] Potassium 4.3 3.5 - 5.5 mmol/L LAB CHEMISTRY METHOD 09/09/2024 4:55 PM EDT [facility] Chloride 106 96 - 110 mmol/L LAB CHEMISTRY METHOD 09/09/2024 4:55 PM EDT [facility] CO2 27 21 - 32 mmol/L LAB CHEMISTRY METHOD 09/09/2024 4:55 PM EDT [facility] Anion Gap 8 3 - 11 LAB CHEMISTRY METHOD 09/09/2024 4:55 PM EDT [facility] Glucose 102(H) 70 - 100 mg/dL LAB CHEMISTRY METHOD 09/09/2024 4:55 PM EDT [facility] BUN 15 5 - 25 mg/dL LAB CHEMISTRY METHOD 09/09/2024 4:55 PM [facility] Creatinine 0.78 0.70 - 1.30 mg/dL LAB CHEMISTRY METHOD 09/09/2024 4:55 PM [facility] eGFR 95 >=60 mL/min/1. 73m2 LAB CHEMISTRY METHOD 09/09/2024 4:55 PM [facility] Comment:Calculation based on the Chronic Kidney Disease Epidemiology Collaboration (CKD-EPI) equation refit without adjustment for race. BUN/Creatinine Ratio 19.2 LAB CHEMISTRY METHOD 09/09/2024 4:55 PM [facility] Calcium 7.9(L) 8.5 - 10.5 mg/dL LAB CHEMISTRY METHOD 09/09/2024 4:55 PM [facility] AST (SGOT) 15 10 - 42 unit/L LAB CHEMISTRY METHOD 09/09/2024 4:55 PM [facility] ALT (SGPT) 21 10 - 60 unit/L LAB CHEMISTRY METHOD 09/09/2024 4:55 PM [facility] Alkaline Phosphatase 98 42 - 121 unit/L LAB CHEMISTRY METHOD 09/09/2024 4:55 PM [facility] Total Protein 5.8(L) 6.0 - 8.0 g/dL LAB CHEMISTRY METHOD 09/09/2024 4:55 PM [facility] Albumin 3.2 3.2 - 5.0 g/dL LAB CHEMISTRY METHOD 09/09/2024 4:55 PM [facility] Total Bilirubin 0.4 0.0 - 1.4 mg/dL LAB CHEMISTRY METHOD 09/09/2024 4:55 PM [facility] Blood Venous blood specimen / Unknown Venipuncture / Unknown 09/09/2024 2:41 PM EDT 09/09/2024 4:33 PM EDT us Danyell Aj Sanna DO LAB BLOOD ORDERABLES Final Result [facility] [address] [place] [address], [place] [phone] from Last 3 Months Insurance [employer] Advance Directives Documents on File Type Date Recorded Patient It Network Administrator Expl anation Health Care Decision (hx) 06/30/2020 [...] (hx) 06/30/2020 AD WATKINS DIRECTIVE Care Teams Microfilm Camera Operator Relationship Specialty Start Date End Date Celso Butterfield PA [address] [place] [phone] PCP - General Internal Medicine 07/12/20
== END 2024-09-28 14:10 | disposition home or self-care (01) ==
LOC: HO.HCS 13:49
PROVIDERS: PCP Physician Assistant; Visit Provider Internal Medicine
DX: I49.3 Ventricular premature depolarization (principal)
CPT/HCPCS: 99214; G2211

== ENCOUNTER → 2024-09-28 13:49 | Outpatient (BNVA) | payer MEDICARE, OTHER, SELFPAY | PROVIDERS: PCP Physician Assistant; Visit Provider Internal Medicine | DX: I49.3 Ventricular premature depolarization (principal); Z79.01 Long term (current) use of anticoagulants | CPT/HCPCS: 99212 ==

== ENCOUNTER 2024-10-18 12:26 | Outpatient (AMB) | payer MEDICARE, OTHER, SELFPAY ==
--- NOTE | 2024-10-18 12:34 | MHC.OFFVIS ---
Vital Signs 10/18/24 12:38 Height 5 ft 10 in Weight 238 lb 1.588 oz BMI 34.2 BP 140/80 H Blood Pressure Location Lt brachial Position Sitting Pulse 49 L Pulse Source Pulse Oximeter Pulse Oximetry (%) 96 Oxygen Delivery Method Room Air Intake Visit Reasons: Knee OA Intake Note: Patient presents for Knee OA follow up. Allergies Iodinated Contrast Media Allergy (Unknown, Verified 10/18/24 12:38) Unknown Lobster Allergy (Unknown, Verified 10/18/24 12:38) unknown Medication List - Last Reconciled 10/18/24 by Danitza Womack MD abiraterone 1,000 mg (4 x 250 mg) PO DAILY 30 days apixaban (Eliquis) 5 mg PO BID cyanocobalamin (vitamin B-12) (Vitamin B-12) 1,000 mcg PO DAILY diclofenac sodium 1% (Aspercreme Arthritis Pain) 2 grams topical QID PRN ferrous fumarate ER 65 mg PO DAILY metoprolol succinate ER 25 mg PO DAILY omeprazole 20 mg PO Q OTHER DAY prednisone 2.5 mg PO BID 30 days triamcinolone acetonide 0.1% 1 appl topical BID 30 days HPI Comments Details: Patient is a 73 y.o. 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 Daughter In good health Social History Household Members: Spouse Housing: House Do you presently have visiting nurse or other home services: No Alcohol intake: current Alcohol intake frequency: a few times a week Patient Tobacco Use Status: Never used Tobacco e-Cigarette/Vaping Use: Never Used Substance Use Type: Marijuana service: No Current occupational status: retired Cognitive needs: No Hearing needs: No Vision needs: Yes (glasses ) Review of Systems Const Details: Review of Systems Constitutional: Denies fever, chills, weight loss ENT: Denies vision changes, eye pain or eye redness, dental caries, dry mouth GI: Denies nausea, vomiting, diarrhea, abdominal pain, change in BM Pulm: Denies SOB, RAHMAN, hemoptysis, wheezing Cards: Denies chest pain, palpitations Skin: Denies Raynaud's, rash, nail changes, photosensitivity, CONVEYOR FEEDER: Denies headaches, weakness, paresthesias, recurrent falls MSK: as per HPI All other systems reviewed and are unremarkable except noted above Physical Exam Exam Exam: Vital signs reviewed Physical Examination CONSTITUITIONAL Patient alert and cooperative. Well appearing and in no apparent painful distress MSK Hands: ?Good skin washer strength bilaterally. No deformities noted. ?No synovitis noted to the MCPs, PIPs or DIPs. ?No tenderness to palpation of these joints. Wrists: ?Full range of motion at the wrists without pain. ?No tenderness to palpation or synovitis noted to the wrists. Elbows: Full range of motion without pain. No tenderness, weakness, swelling, increased warmth or erythema. Shoulders: Full range of motion without pain. No tenderness, weakness, swelling, increased warmth or erythema. Hips: Full range of motion without pain. Knees: ?Full range of motion. ?No tenderness, swelling, increased warmth or erythema.? Bilateral crepitations right worse than left SKIN Skin intact without rashes. Vital Signs: Last Vital Signs Pulse 49 L 10/18/24 12:38 BP 140/80 H 10/18/24 12:38 Pulse Ox 96 10/18/24 12:38 Oxygen Delivery Method Room Air 10/18/24 12:38 BMI result Body Mass Index 34.2 Office Procedures AMB Joint Injection/Aspiration Joint Injection/Aspiration Details: Procedure was explained to the patient and informed consent was obtained. ? Risks associated with the procedure were discussed with the patient including but not limited to bleeding, infection, drug reactions and reactions to the topical anesthetic. Patient made aware of signs to look out for infectious complications. The area of interest was identified and confirmed with patient. ?This was subsequently cleaned with chlorhexidine x3. ? The area was then anesthetized using ethyl chloride spray. 40 mg Kenalog with 1 cc 1% lidocaine was injected without issue. ?Minimal to no bleeding. ?Patient tolerated procedure. Primary Site: right knee Prep: site was prepped using aseptic technique and ethochloride spray was applied Injected: 40 mg of, Kenalog, with 1 mL of and 1% plain lidocaine Approach Used: anterior Procedure: The patient tolerated the procedure well Coding 25632 - Large joint Procedure code (CPT) selection complete AMB Joint Injection/Aspiration Joint Injection/Aspiration Details: Procedure was explained to the patient and informed consent was obtained. ? Risks associated with the procedure were discussed with the patient including but not limited to bleeding, infection, drug reactions and reactions to the topical anesthetic. Patient made aware of signs to look out for infectious complications. The area of interest was identified and confirmed with patient. ?This was subsequently cleaned with chlorhexidine x3. ? The area was then anesthetized using ethyl chloride spray. 40 mg Kenalog with 1 cc 1% lidocaine was injected without issue. ?Minimal to no bleeding. ?Patient tolerated procedure. Primary Site: left knee Prep: site was prepped using aseptic technique and ethochloride spray was applied Injected: 40 mg of, Kenalog, with 1 mL of, 1% plain lidocaine and in the joint Approach Used: anterior Procedure: The patient tolerated the procedure well Coding 48525 - Large joint Procedure code (CPT) selection complete Office Meds lidocaine (PF) 10 mg/mL (1 %) injection solution Performing Provider: Danitza Womack MD Performing Location: [facility] Administered by: Danitza Womack MD on 10/18/24 13:16 Dose Route Admin Location Dispensed Lot Number Expiration Date [facility] Manager Zone 1 mL Infiltration right knee 2 mL [id number] 05/28/26 63426-950-03 [employer] Total Dispensed Waste 2 mL 50 % Kenalog 40 mg/mL suspension for injection Performing Provider: Danitza Womack MD Performing Location: [facility] Administered by: Danitza Womack MD on 10/18/24 13:16 Dose Route Admin Location Dispensed Lot Number Expiration Date [facility] Manager Zone 40 mg intra-articular right knee 1 mL [id number] 09/27/25 [address]-4 [employer] Total Dispensed Waste 1 mL 0 % lidocaine (PF) 10 mg/mL (1 %) injection solution Performing Provider: Danitza Womack MD Performing Location: [facility] Administered by: Danitza Womack MD on 10/18/24 13:16 Dose Route Admin Location Dispensed Lot Number Expiration Date [place] Manager Zone 1 mL Infiltration left knee 2 mL [id number] 05/28/26 21045-799-80 [employer] Total Dispensed Waste 2 mL 50 % Kenalog 40 mg/mL suspension for injection Performing Provider: Danitza Womack MD Performing Location: [facility] Administered by: Danitza Womack MD on 10/18/24 13:16 Dose Route Admin Location Dispensed Lot Number Expiration Date [facility] Manager Zone 40 mg intra-articular left knee 1 mL [id number] 09/27/25 [address]-7 [employer] Total Dispensed Waste 1 mL 0 % Results Reviewed Results Reviewed: Knee XR 03/2022 FINDINGS: Mild-moderate medial compartment joint space narrowing bilaterally. No acute fractures seen. No destructive bony lesion seen. Assessment & Plan Assessment & Plan (1) Osteoarthritis, knee: Comment: Bilateral Code(s): M17.9 - Osteoarthritis of knee, unspecified Category: Medical Qualifiers: Osteoarthritis type: primary Laterality: bilateral Qualified Code(s): M17.0 - Bilateral primary osteoarthritis of knee Plan: #Bilateral Knee OA Patient with bilateral knee OA that gets periodic steroid injection Last injection 09/2023 Bilateral knees injected with 40 mg Kenalog today Plan - RTC 4 months - Continue topical diclofenac 1% qid Plan I spent 20 minutes reviewing the record and labs, taking a history, examining the patient, discussing the treatment plan and documenting in the medical record Orders: Orders AMB Joint Injection/Aspiration Today M17.0 - Bilateral primary osteoarthritis of knee AMB Joint Injection/Aspiration Today M17.0 - Bilateral primary osteoarthritis of knee Coding Level of Care Code Est Pt Level 3 (32820) Diagnoses Primary osteoarthritis of both knees M17.0 Osteoarthritis type: primary Laterality: bilateral CPT Codes Coding - Large joint: 16260 - Large joint ([id number]) Coding - 05188 Large joint: 57541 - Large joint ([id number])
[2024-10-18 12:38] VITALS: BP 140/80; PULSE 49; O2SAT 96; BMI 34.2
--- OUTSIDE RECORDS SUMMARY | 2024-10-18 13:28 | XMS_ITS | Patient Health Record ---
Author Organization [facility] Address [address] [place] [address] Care Team Providers Care Scrap Worker Name Role Phone Celso Butterfield Primary Care Provider UnavailCullen Power Unavailable [phone] Allergies Allergen (clinical drug ingredient) Drug/Non Drug [...] Problem Status W/U Status Risk Notes Problem 367636526 Encounter for screening for malignant neoplasm of colon (Z12.11) Active confirmed Problem Iron deficiency anemia (D50.9) Active confirmed Problem 911570088814475 Preprocedural examination (Z01.818) Active confirmed Problem Gastroesophageal reflux disease (654095292) GERD (gastroesophagea l reflux disease) (K21.9) Active confirmed Plan Of Treatment Future Test Test Name Order Date COLONOSCOPY 12/28/2018 UPPER GI ENDOSCOPY 06/22/2020 COLONOSCOPY 06/22/2020 Insurance Providers Payer Name Payer Address Payer Phone Subscriber Number Group Number Insured Name Patient Relationship to Insured Coverage Start Date Coverage End Date MEDICARE OF [place] [address] [place] [address] [id number] AILYN GARSIA Self - patient is the insured [facility] [address] [place] [phone] [id number] AILYN GARSIA Self - patient is the insured Medical (General) History Medical History History ICD Code 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 Choi Denies NC,DM,CVA,Lung disease,renal dise ase Neg colonoscopy in 2006 Colonoscopy 02/2019 with 2 small tubular adenomas removed GERD COVID 04/2020 Surgical History Surgery Date(Month/Year) Cataract right eye 03/2019
--- OUTSIDE RECORDS SUMMARY | 2024-10-18 13:28 | XMS_ITS | Clinical Summary ---
Author Organization [facility] Address [address] [place] [address] Phone Care Team Providers Care Ethyl Blender Name Role Phone Celso Butterfield Primary Care Provider + Sammy Ortega MD Unavailable Jerrell Choi MD Unavailable [phone] Self-Referred, Patient Unavailable Unavailab Jt C[facility] Unavailable [phone] Danyell Isidro DO Unavailable Allergies Active Allergy Reactions Criticality Noted Date Comments Shellfish Containing Products 2018 Sulfa (Sulfonamide Antibiotics) 11/29 Medications ELIQUIS 5 mg tablet Take 5 mg by mouth 2 (two) times a day. 10/27/2021 Active leuprolide acetate, 6 month, (LUPRON DEPOT, 6 MONTH,) 45 mg SyKt IM injection syringe as directed. Active omeprazole (PRILOSEC) 20 MG capsule Take 20 mg by mouth every other day. Active Active Problems No known active problems Social History Tobacco Use Types Packs/Day Years Used Date Smoking Tobacco: Never Smokeless Tobacco: Never Child or Family Care Answer Date Record ed Do you have problems with on e of the following making it difficult for you to work, study, or receive health care? No 01/30/2023 Education Answer Date Recorded Are you interested in more education? Not on h[place] e 07/25/2022 Are you concerned about learning? Not on file 07/25/2022 No 07/25/2022 No 07/25/2022 Food Answer Date Recorded Within the past 6 months we worried whether our food would run out before we got money to buy more. Never True 01/30/2023 Within the past 6 months the food we bought just didn't last and we didn't have enough money to get more. Never True Residential Stability Answer Date Recor ded What is your housing situation today? I have gabe sing 01/30/2023 How many times have you move d in the past 12 months? Zero (I did not move) 01/30/2023 Paying for Meds Answer Date Recorded Do you have trouble paying for medicines? No 01/30/2023 Paying Utility Bills Answer Date Record ed Do you have trouble paying your heating or elect ricity bill? No 01/30/2023 Transportation Answer Date Recorded Has the lack of transportati on kept you from medical appointments or from getting medications? No 01/30/2023 Digital Access Answer Date Recorded No 08/23/2022 No 08/23/2022 Reliable internet access at home? Not on file 08/23/2022 Device with a working camera? Not on file Sex and Gender Information Value Date Recorded Sex Assigned at Not on file Legal Sex Male 3:39 PM EDT Gender Identity Not on file Sexual Orientation Not on file Last Filed Vital Signs Vital Sign Reading Time Taken Comments Blood Pressure 139/67 01/30/2023 2:50 PM EDT Pulse 52 01/30/2023 2:50 PM EDT Temperature 36.6 C (97.8 F) 01/30/2023 2:50 PM EDT Respiratory Rate 18 01/30/2023 2:50 PM EDT Oxygen Saturation 98% 01/30/2023 2:50 PM EDT Inhaled Oxygen Concentration - - Weight 108.9 kg (240 lb 1.3 oz) 01/30/2023 2:50 PM EDT Height 178 cm (5' 10.08 ) 01/30/2023 2:50 PM EDT Body Mass Index 34.37 01/30/2023 2:50 PM EDT Plan of Treatment Health Maintenance Due Date Last Done Comments Adult Td,Tdap Booster 1952 CREATININE LEVEL 1952 LIPID PANEL 1952 DEPRESSION SCREENING 1964 HEPATITIS C SCREENING 1970 COLOGUARD 1997 COLONOSCOPY 1997 COLORECTAL CANCER SCREENING 1997 FIT TEST 1997 FOBT 1997 SIGMOIDOSCOPY 1997 VIRTUAL COLONOSCOPY 1997 PNEUMOCOCCAL VACCINES (50+ years) (2 of 2 - PCV) 10/02/2021 10/02/2020 ZOSTER VACCINES (2 of 2) 12/17/2022 10/22/2022 COVID-19 VACCINE (5 - 2023- season) 2023 01/15/2022, 01/16/2021, 07/04/2020, Additional history exists RSV VACCINE (1 - 1-dose 75+ series) 12/22/2027 SMOKING STATUS SCREENING (Once After 26 Yrs) Completed 01/04/2022 HEPATITIS A VACCINES Aged Out No long er eligible based on patient's age to complete this topic HIB VACCINES Aged Out No longer eligi ble based on patient's age to complete this topic MENINGOCOCCAL VACCINES (ACWY) Aged Out No longer eligible based on patient's age to complete this topic MENINGOCOCCAL VACCINES (B) Aged Out N o longer eligible based on patient's age to complete this topic Medical Devices Not on file Insurance MEDICARE PART A & B [facility] MEDICARE SUPPLEMENT MEDICARE PART A & B Member Subscriber Plan / Payer ( fective 2018-) Name:Carson Neumann Member ID:[id number] Relation to Subscriber:Self Name:Carosn Neumann Subscriber ID:[id number] Payer ID:[id number] Group ID:Not on file Type:Medicare Address: [employer] [facility].[address] [address] [facility] MEDICARE SUPPLEMENT MEDICARE PART A & B MEDICARE SUPPLEMENT MEDICARE PART A & B MEDICARE SUPPLEMENT MEDICARE PART A & B MEDICARE SUPPLEMENT MEDICARE PART A & B MEDICARE SUPPLEMENT MEDICARE PART A & B MEDICARE SUPPLEMENT MEDICARE PART A & B MEDICARE SUPPLEMENT MEDICARE PART A & [place] [id number] [facility] MEDICARE SUPPLEMENT Care Teams Ethyl Blender Relationship Specialty Start Date End Date Celso Butterfield PA [address] [place] [phone] PCP - General 12/10/18 Sammy Ortega MD [address] [place] [phone] Referring Physician Urology 12/10/18 Jerrell Choi MD [address] [place] [phone] [email or web address] Medicine 12/27/18 Self-Referred, Patient 01/19/23 Jt Yeager [facility] [address] [place] [id number] [email or web address] 01/20/23 Danyell Isidro DO [address] [place] [address] Internal Medicine 01/30/23 Additional Source Comments The information contained in this document represents components of the legal health record. It is not the complete legal health record.[facility]
--- OUTSIDE RECORDS SUMMARY | 2024-10-18 13:28 | XMS_ITS | Clinical Summary ---
Author Organization [facility] Address [address] [place] [address] Care Team Providers Care Home Housekeeper Name Role Phone Celso Butterfield Primary [...] 2) 12/17/2022 10/23/19 23 Influenza Vaccine (#1) 2024 04/30/2019 RSV Adult > 60+ Yrs or Pregn ant (1 - 1-dose 75+ series) 12/22/2027 Hepatitis B Vaccines Aged Out No long er eligible based on patient's age to complete this topic RSV Ped < 20 months Aged Out No longe r eligible based on patient's age to complete this topic Care Teams Home Housekeeper Relationship Specialty Start Date End Date Celso Butterfield PA [address] [facility] LARISSA Obrien [phone] PCP - General Physician Pastry Assistant 12/15/18 Morenita Vang MD [facility] Cancer [place] Consulting Physician Medical Oncology 12/27/18
--- OUTSIDE RECORDS SUMMARY | 2024-10-18 13:28 | XMS_ITS | Clinical Summary ---
Author Organization [facility] Address [address] [place] [address] Phone Care Team Providers Care Supervisor Air Conditioning Installer Name Role Phone Celso Butterfield Primary Care [...] BY MOUTH TWICE A DAY 06/03/2022 Active FERROUS SULFATE ORAL Take by mouth. Active LEUPROLIDE ACETATE, 6 MONTH, IM Inject under the skin. Active metoprolol succinate (TOPROL-XL) 25 mg 24 hr tablet Take 1 tablet (25 mg total) by mouth 1 (one) time each day. 09/02/2024 Active cyanocobalamin (VITAMIN B-12) 1,000 mcg tablet Take 1 tablet (1,000 mcg total) by mouth 1 (one) time each day. 06/17/2024 Active Active Problems Problem Noted Date Diagnosed Date Prostate cancer metastatic t o multiple sites (CMS/HCC V24, CMS/[facility] V28) 12/19/2021 Encounters Date Type Department Care Team Description 09/12/2024 2:15 PM EDT Office Visit [facility] Hematology Oncology [address] [place] [address] [phone] Danyell Isidro DO Prostate cancer metastatic to multiple sites ([facility] V24, [facility] V28) (Primary Dx) from Last [...] Description 01/12/2025 2:15 PM EDT Office Visit [facility] Hematology Oncology [address] [place] [phone] Danyell Isidro DO [address] [place] [address] Health Maintenance Due Date Last Done Comments DTaP,Tdap,and Td Vaccines (1 - Tdap) 12/22/1971 RSV Immunization Adult Patients (1 - Risk 60-74 years 1-dose series) 2012 Pneumococcal Vaccine: 50+ Years (2 of 2 - PCV) 10/02/2021 10/02/2020 Cholesterol Screening (Lipid Panel) 03/06/2022 Colorectal Cancer Screening: Colonoscopy 03/06/2022 Falls Risk Assessment 03/06/2022 Hepatitis C Screening 03/06/2022 Social Influencers of Health Screening 03/06/2022 Medicare Annual Wellness Visit 10/04/2023 10/03/2022 Depression Screening 03/30/2024 COVID-19 Vaccine (7 - Pfizer risk season) 2024 02/01/2024, 02/24/2023, 01/15/2022, Additional history exists Influenza Vaccine (#1) 2024 , 02/24/2023, 01/15/2022, Additional history exists Zoster Vaccines Completed 02/11/2023, 10/22/2022 HIB Vaccines Aged Out No longer eligi [...] 2:41 PM EDT Anemia, unspecified Prostate cancer ([facility]/HCC V24, CMS/HCC V28) Personal history of PE (pulmonary embolism) PROSTATE SPECIFIC ANTIGEN DIAGNOSTIC Routine 09/09/2024 2:41 PM EDT Anemia, unspecified Prostate cancer (CMS/HCC V24, CMS/HCC V28) Personal history of PE (pulmonary embolism) from Last 3 Months Results * Prostate specific antigen diagnostic (09/09/2024 2:41 PM EDT) PSA 0.19 0.00 - 4.00 ng/mL LAB CHEMISTRY METHOD 09/09/2024 5:22 PM EDT [facility] Blood Venous blood specimen / Unknown Venipuncture / Unknown 09/09/2024 2:41 PM EDT 09/09/2024 4:33 PM EDT Narrative [facility] - 09/09/2024 5:22 PM EDT The Siemens Advia Centaur Chemiluminescent Immunoassay is used. Results obtained with different assay methods or kits cannot be used interchangeably. Results cannot be interpreted as absolute evidence of the presence or absence of malignant disease. us Danyell Isidro DO LAB BLOOD ORDERABLES Final Result [facility] [address] [place] [address], * (ABNORMAL) Complete blood count (09/09/2024 2:41 PM EDT) WBC 5.5 4.8 - 10.8 K/mcL LAB HEMETOLOGY METHOD 09/09/2024 5:07 PM EDT [facility] RBC 3.90(L) 4.50 - 5.50 M/mcL LAB HEMETOLOGY METHOD 09/09/2024 5:07 PM EDT [facility] Hemoglobin 11.8(L) 13.5 - 17.5 g/dL LAB HEMETOLOGY METHOD 09/09/2024 5:07 PM EDT [facility] Hematocrit 36.7(L) 42.0 - 54.0 % LAB HEMETOLOGY METHOD 09/09/2024 5:07 PM EDT [facility] MCV 94.3 79.0 - 98.0 FL LAB HEMETOLOGY METHOD 09/09/2024 5:07 PM EDT [facility] MCH 30.3 27.0 - 32.0 pcg LAB HEMETOLOGY METHOD 09/09/2024 5:07 PM EDT [facility] MCHC 32.2 32.0 - 37.0 g/dL LAB HEMETOLOGY METHOD 09/09/2024 5:07 PM EDT [facility] RDW 15.7(H) 11.0 - 15.0 % LAB HEMETOLOGY METHOD 09/09/2024 5:07 PM EDT [facility] Platelets 241 130 - 400 K/mcL LAB HEMETOLOGY METHOD 09/09/2024 5:07 PM EDT [facility] MPV 9.4 7.0 - 11.0 FL LAB HEMETOLOGY METHOD 09/09/2024 5:07 PM EDT [facility] NRBC 0.0 <1.0 % LAB HEMETOLOGY METHOD 09/09/2024 5:07 PM EDT [facility] NRBC Absolute 0.00 <0.10 K/mcL LAB HEMETOLOGY METHOD 09/09/2024 5:07 PM EDT [facility] Blood Venous blood specimen / Unknown Venipuncture / Unknown 09/09/2024 2:41 PM EDT 09/09/2024 4:33 PM EDT us Danyell Isidro DO LAB BLOOD ORDERABLES Final Result [facility] [address] [place] [address], [place] [phone] * Lactate dehydrogenase (09/09/2024 2:41 PM EDT) [facility] LDH 150 120 - 246 unit/L LAB CHEMISTRY METHOD 09/09/2024 4:55 PM EDT [facility] Blood Venous blood specimen / Unknown Venipuncture / Unknown 09/09/2024 2:41 PM EDT 09/09/2024 4:33 PM EDT Danyell Isidro DO LAB BLOOD ORDERABLES Final Result [facility] [address] [place] [address], [place] [phone] * (ABNORMAL) Comprehensive metabolic panel (09/09/2024 2:41 PM EDT) [facility] Sodium 141 133 - 145 mmol/L LAB CHEMISTRY METHOD 09/09/2024 4:55 PM T [facility] Potassium 4.3 3.5 - 5.5 mmol/L LAB CHEMISTRY METHOD 09/09/2024 4:55 PM T [facility] Chloride 106 96 - 110 mmol/L LAB CHEMISTRY METHOD 09/09/2024 4:55 PM T [facility] CO2 27 21 - 32 mmol/L LAB CHEMISTRY METHOD 09/09/2024 4:55 PM EDT [facility] Anion Gap 8 3 - 11 LAB CHEMISTRY METHOD 09/09/2024 4:55 PM [facility] Glucose 102(H) 70 - 100 mg/dL LAB CHEMISTRY METHOD 09/09/2024 4:55 PM [facility] BUN 15 5 - 25 mg/dL LAB CHEMISTRY METHOD 09/09/2024 4:55 PM EDT [facility] Creatinine 0.78 0.70 - 1.30 mg/dL LAB CHEMISTRY METHOD 09/09/2024 4:55 PM [facility] eGFR 95 >=60 mL/min/1. 73m2 LAB CHEMISTRY METHOD 09/09/2024 4:55 PM [facility] Comment:Calculation based on the Chronic Kidney Disease Epidemiology Collaboration (CKD-EPI) equation refit without adjustment for race. BUN/Creatinine Ratio 19.2 LAB CHEMISTRY METHOD 09/09/2024 4:55 PM [facility] Calcium 7.9(L) 8.5 - 10.5 mg/dL LAB CHEMISTRY METHOD 09/09/2024 4:55 PM [facility] AST (SGOT) 15 10 - 42 unit/L LAB CHEMISTRY METHOD 09/09/2024 4:55 PM [facility] ALT (SGPT) 21 10 - 60 unit/L LAB CHEMISTRY METHOD 09/09/2024 4:55 PM [facility] Alkaline Phosphatase 98 42 - 121 unit/L LAB CHEMISTRY METHOD 09/09/2024 4:55 PM [facility] Total Protein 5.8(L) 6.0 - 8.0 g/dL LAB CHEMISTRY METHOD 09/09/2024 4:55 PM [facility] Albumin 3.2 3.2 - 5.0 g/dL LAB CHEMISTRY METHOD 09/09/2024 4:55 PM [facility] Total Bilirubin 0.4 0.0 - 1.4 mg/dL LAB CHEMISTRY METHOD 09/09/2024 4:55 PM [facility] Blood Venous blood specimen / Unknown Venipuncture / Unknown 09/09/2024 2:41 PM EDT 09/09/2024 4:33 PM EDT us Danyell Isidro DO LAB BLOOD ORDERABLES Final Result [facility] [address] [place] [address], from Last 3 Months Insurance [employer]IC[employer] Advance Directives Documents on File Type Date Recorded Patient Laboratory Apparatus Glass Grinder Expl anation Health Care Decision (hx) 06/30/2020 [...] (hx) 06/30/2020 AD WATKINS DIRECTIVE Care Teams Supervisor Air Conditioning Installer Relationship Specialty Start Date End Date Celso Butterfield PA [address] [place] [address] [phone] PCP - General Internal Medicine 07/12/20
== END 2024-10-18 13:07 | disposition home or self-care (01) ==
LOC: HO.RHE 12:26
PROVIDERS: PCP Physician Assistant; Visit Provider Student in an Organized Health Care Education/Training Program
DX: M17.0 Bilateral primary osteoarthritis of knee (principal)
CPT/HCPCS: 20610; 99213

== ENCOUNTER → 2024-10-18 12:26 | Outpatient (BNVA) | payer MEDICARE, OTHER, SELFPAY | PROVIDERS: PCP Physician Assistant; Visit Provider Student in an Organized Health Care Education/Training Program | DX: Z00.00 Encounter for general adult medical examination without abnormal findings (principal); E78.9 Disorder of lipoprotein metabolism, unspecified; M17.0 Bilateral primary osteoarthritis of knee | CPT/HCPCS: 20610; 96127; 99212; J2003; J3300 ==

== ENCOUNTER 2024-10-18 15:06 | Outpatient (AMB) | payer MEDICARE, OTHER, SELFPAY ==
--- NOTE | 2024-10-18 15:12 | A.OFFVIS_ITS ---
Intake Vital Signs 10/18/24 15:17 Height 5 ft 10 in Weight 238 lb BMI 34.1 BP 130/82 Blood Pressure Location Lt brachial Position Sitting Pulse 61 Pulse Source Pulse Oximeter Temp 97.1 F Temp Source Temporal Artery Scan Pulse Oximetry (%) 97 Oxygen Delivery Method Room Air Intake Visit Reasons: SWV R/s from 10/13/24 Intake Note: Patient is here for an Annual Wellness Visit. Laboratory Apparatus Glass Blower Required: No Server Engineer: Server Engineer offered & declined Accompanied by: Self / Same As Patient Allergies Iodinated Contrast Media Allergy (Unknown, Verified 10/18/24 15:37) Unknown Lobster Allergy (Unknown, Verified 10/18/24 15:37) unknown Medication List - Last Reconciled 10/18/24 by Celso Butterfield PA-C abiraterone 1,000 mg (4 x 250 mg) PO DAILY 30 days apixaban (Eliquis) 5 mg PO BID cyanocobalamin (vitamin B-12) (Vitamin B-12) 1,000 mcg PO DAILY diclofenac sodium 1% (Aspercreme Arthritis Pain) 2 grams topical QID PRN ferrous fumarate ER 65 mg PO DAILY metoprolol succinate ER 25 mg PO DAILY omeprazole 20 mg PO Q OTHER DAY prednisone 2.5 mg PO BID 30 days triamcinolone acetonide 0.1% 1 appl topical BID 30 days HPI SWV R/s from 10/13/24 HPI Details Patient is a 73-year-old male here today for an annual wellness visit. Patient has a past medical history significant for borderline high total cholesterol, prostate cancer, obesity, history of diverticulitis, history of pulmonary embolism. Today we discussed patient's end of life planning and comprehensive care plan that was placed into patient's documents. Vaccines: Up-to-date with COVID vaccine, up-to-date with pneumonia vaccine. UTD with shingles Colonoscopy: Needs up-to-date colonoscopy Laboratory Tests 10/06/23 06/15/24 09/21/24 08:42 15:43 15:15 Hgb 10.5 L D 12.7 L D LDL Cholesterol, C alc 110 H 129 H Cholesterol 217 H HPI Comments History of Present Illness Details reviewed past medical history- yes reviewed surgical / hospitalization history- yes reviewed current medications- yes reviewed family history- yes home safety throw rugs? grab bars? raised toilet seat? working smoke detectors? activities of daily living difficulty bathing or showering? difficulty dressing? difficulty using the toilet? difficulty getting in and out of bed? difficulty walking? receives help from other person's with any of the above tasks? instrumental activities of daily living uses telephone - gets to place out of walking distance- go shopping for groceries- repairs own meals- does own minor home maintenance- does own laundry- does own housework- manages own money- currently takes medication- end of life planning discussed advanced directives- yes advanced directives on file? discussed wishes expressed in advanced directives. fall risk have you had any falls with injuries in the past year? have you had 2 or more falls in the past year? fall risk assessment: [facility] Medical History Eczema shelter systemic steroid user Tendinopathy of rotator cuff Anemia Pulmonary embolism Prostate cancer Surgical History History of cataract surgery History of colonoscopy History of endoscopy Family History Father Psoriatic arthritis CVD (cardiovascular disease) Heart problem Cancer Mother Hypertension Brother Prostate cancer Sister No problems noted. Daughter In good health Social History Household Members: Spouse Housing: House Do you presently have visiting nurse or other home services: No Alcohol intake: current Alcohol intake frequency: 0-2 drinks per day Patient Tobacco Use Status: Never used Tobacco e-Cigarette/Vaping Use: Never Used Substance Use Type: Marijuana service: No Current occupational status: retired Cognitive needs: No Hearing needs: No Vision needs: Yes (glasses ) Questionnaire Medicare Wellness Checkup What [age] What gender do you identify with?: male During the past 4 weeks, how much have you been bothered by emotional problems such as feeling anxious, depressed, irritable, sad or downhearted, and blue?: not at all During the past 4 weeks, has your physical & emotional health limited your social activities with family, friends, neighbors, or groups?: not at all During the past 4 weeks, how much bodily pain have you generally had?: mild pain During the past 4 weeks, was someone available to help you if you needed & wanted help?: yes, as much as I wanted During the past 4 weeks, what was the hardest physical activity you could do for at least 2 minutes?: moderate Can you get to places out of walking distance without help? (For eg., can you travel alone on buses, taxis or drive your car?): Yes Can you go shopping for groceries or clothes without someone's help?: Yes Can you prepare your own meals?: Yes Can you do your housework without help?: Yes Because of any health problems, do you need the help of another person with your personal care needs such as eating, bathing, dressing or getting around the house?: No Can you handle your own money without help?: Yes During the past 4 weeks, how would you rate your health in general?: good During the past 4 weeks how have things been going for you?: pretty well Are you having difficulties driving your car?: no Do you always fasten your seat belt when you are in a car?: yes, usually During past 4 weeks, have you been bothered by the following: never: Falling or dizzy when standing up, Trouble eating well?, Teeth or denture problems? and Problems using the telephone?, sometimes: Tiredness or fatigue? and always: Sexual problems? Have you fallen 2 or more times in the past year?: No Are you afraid of falling?: No Are you a smoker?: no During the past 4 weeks, how many drinks of wine, beer, or other alcoholic beverages did you have?: 10 or more per week Do you exercise for about 20 minutes 3 or more times a week?: no, I usually do not exercise this much Have you been given information to help with the following?: no: Hazards in your house that might hurt you? and no: Keeping track of your medications? How often do you have trouble taking medicines the way you have been told to take them?: I always take medicine as prescribed How confident are you that you can control & manage most of your health problems?: very confident What is your race?: White Activity of Daily Living Bathing - sponge bath, tub bath or shower: receives no assistance (gets in/out by self, if usual bathing means Dressing - getting clothes from closets & drawers, including inner/outer garments & fasteners.: gets clothes & gets completely dressed without help Toileting - going to the 'toilet room' for urine/bowel elimination & cleaning self/arranging clothes: goes to toilet room, cleans self, arranges clothes without help Transfer: moves in & out of bed and chair without help (may use support object) Continence: controls urination/bowel movements completely by self Feeding: feeds self without help Total Score: 0 Information obtained from: patient Using telephone: independent Traveling: independent Shopping: independent Preparing meals: independent Housework: independent Taking medicine: independent Managing money: independent PHQ-9 Over the last 2 weeks, how often have you been bothered by any of the following problems? 1. Little interest or pleasure in doing things: not at all 2. Feeling down, depressed, or hopeless: not at all 3. Trouble falling or staying asleep, or sleeping too much: not at all 4. Feeling tired or having little energy: not at all 5. Poor appetite or overeating: not at all 6. Feeling bad about yourself - or that you are a failure or have let yourself or your family down: not at all 7. Trouble concentrating on things, such as reading the newspaper or watching television: not at all 8. Moving or speaking so slowly that other people could have noticed. Or the opposite - being so fidgety or restless that you have been moving around a lot more than usual: not at all 9. Thoughts that you would be better off or of hurting yourself in some way: not at all Total score: 0 Depression Screening Interpretation: Negative Depression Screening Done: Yes 35326 - PHQ-9 Billing: Yes Source: Developed by Drs. Cullen Carlos, Primo Cleveland and colleagues, with an educational tarsha from [employer]. Thrive Questionnaire Date Thrive assessed: 04/13/24 TAMIR-7 AMB Questionnaire TAMIR-7 Date TAMIR - 7 assessed: 04/13/24 Source: Developed by Drs. Cullen Carlos, Primo Cleveland and colleagues, with an educational tarsha from [employer]. Physical Exam Vital Signs: Last Vital Signs Temp 97.1 F 07/22/25 15:17 Pulse 61 10/18/24 15:17 BP 130/82 10/18/24 15:17 Pulse Ox 97 10/18/24 15:17 Oxygen Delivery Method Room Air 10/18/24 15:17 BMI result Body Mass Index 34.1 HEENT Other: hearing screening whisper test- pass Eyes Other: vision screening- 20 20 OS OD OU Other: urinary incontinence? no Neuro Other: balance Romberg- normal tandem walk test- able walk-in turned test- able rise from sit to stand- within 2 seconds Assessment & Plan Assessment & Plan (1) Medicare annual wellness visit, subsequent: Code(s): Z00.00 - Encounter for general adult medical examination without abnormal findings Plan: As per [facility] Orders: Orders Comprehensive [place]. Panel Fast 10/18/24 Z13.1 - Encounter for screening for diabetes mellitus Lipid Panel 10/18/24 E78.9 - Disorder of lipoprotein metabolism, unspecified Complete Blood Count no Diff 10/18/24 Z13.1 - Encounter for screening for diabetes mellitus Quality Reporting (2019) Depression/Bipolar (159/160/161/177) PHQ-9: Total score: 0 Coding Level of Care Code Medicare Subsequent (G0439) Diagnoses Medicare annual wellness visit, subsequent Z00.00 CPT Codes Advance Care Planning - Time spent: 1-15 minutes, not on file ([id number]) Additional Codes PHQ-9 - 77768 - PHQ-9 Billing: Yes ([id number]) Advance Care Planning Advance Care Planning discussion: Exists, not on file Date of discussion: 10/18/24 Forms completed: MOLST Time spent: 1-15 minutes, not on file Actual minutes spent: 2
[2024-10-18 15:17] VITALS: BP 130/82; PULSE 61; TEMP 36.2; O2SAT 97; BMI 34.1
--- OUTSIDE RECORDS SUMMARY | 2024-10-18 16:10 | XMS_ITS ---
Author Name [facility] Organization Unknown Care Team Organization Name Specialty Phone Email Start Date End Da te [facility] Jerrell Choi Primary Care 02/04/2022 024
== END 2024-10-18 15:53 | disposition home or self-care (01) ==
LOC: HO.HMCH 15:06
PROVIDERS: PCP Physician Assistant; Visit Provider Physician Assistant
DX: Z00.00 Encounter for general adult medical examination without abnormal findings (principal)

== ENCOUNTER 2024-10-27 13:36 | Outpatient (AMB) | payer MEDICARE, OTHER, SELFPAY ==
--- NOTE | 2024-10-27 13:36 | AM.OFFVISNUR ---
Intake Visit Reasons: Xgeva Allergies Iodinated Contrast Media Allergy (Unknown, Verified 10/18/24 15:37) Unknown Lobster Allergy (Unknown, Verified 10/18/24 15:37) unknown Office Meds Xgeva 120 mg/1.7 mL (70 mg/mL) subcutaneous solution Performing Provider: Sammy Ortega MD [facility] Administered by: Karl Crabtree LPN on 10/27/24 13:37 Dose Route Admin Location Dispensed Lot Number Expiration Date [facility] Billet Heater 120 mg subcut right arm 1.7 mL [id number] 02/26/27 97822-165-83 AMGEN Total Dispensed Waste 1.7 mL 0 % Assessment & Plan Assessment & Plan Orders: Orders AMB Denosumab Injection Practice Supplied Today C61 - Malignant neoplasm of prostate, C79.51 - Secondary malignant neoplasm of bone, M81.8 - Other osteoporosis without current pathological fracture, T38.7X5A - Adverse effect of androgens and anabolic congeners, initial encounter Coding
--- OUTSIDE RECORDS SUMMARY | 2024-10-27 13:50 | XMS_ITS | Clinical Summary ---
Author Organization [facility] Address [address] [place] [address] Phone Care Team Providers Care Mold Mechanic Name Role Phone Celso Butterfield Primary Care Provider + Sammy Ortega MD Unavailable [phone] Jerrell Choi MD Unavailable [phone] Self-Referred, Patient Unavailable Unavailab Jt Cui [facility] Unavailable [phone] Danyell Isidro DO Unavailable Allergies Active Allergy [...] file Insurance MEDICARE PART A & B [facility] MEDICARE SUPPLEMENT MEDICARE PART A & B Member Subscriber Plan / Payer ( fective 2018-) Name:Carson Neumann Member ID:[id number] Relation to Subscriber:Self Name:Carson Neumann Subscriber ID:[id number] Payer ID:[id number] Group ID:Not on file Type:Medicare Address: [employer] [facility].[address] [address] [facility] MEDICARE SUPPLEMENT MEDICARE PART A & B MEDICARE SUPPLEMENT Member Subscriber Plan / Payer ( [facility]Present[facility] Name:Carson Neumann Relation to Subscriber:Self Name:Thien Carson Payer ID:Not on file Type:Indemnity Address: ONE [address] [address] MEDICARE PART A & B MEDICARE SUPPLEMENT MEDICARE PART A & B MEDICARE SUPPLEMENT MEDICARE PART A & B MEDICARE SUPPLEMENT MEDICARE PART A & B MEDICARE SUPPLEMENT MEDICARE PART A & B MEDICARE SUPP[place] [id number] [facility] MEDICARE SUPPLEMENT Care Teams Mold Mechanic Relationship Specialty Start Date End Date Celso Butterfield PA [address] [place] [phone] PCP - General 12/10/18 Sammy Ortega MD [address] [place] [phone] Referring Physician Urology 12/10/18 Jerrell Choi MD [address] [place] [phone] [email or web address] Internal Medicine 12/27/18 Self-Referred, Patient 01/19/23 [facility] [address] [place] [id number] [email or web address] 01/20/23 Danyell Isidro DO [address] [place] [address] Internal Medicine 01/30/23 Additional Source Comments The information contained in this document represents components of the legal health record. It is not the complete legal health record.[facility]
--- OUTSIDE RECORDS SUMMARY | 2024-10-27 13:51 | XMS_ITS | Clinical Summary ---
Author Organization [facility] Address [address] [place] [address] Care Team Providers Care Engineering Illustrator Name Role Phone Celso Butterfield Primary Care [...] age to complete this topic Care Teams Engineering Illustrator Relationship Specialty Start Date End Date Celso Butterfield PA [address] [facility] LARISSA Obrien [phone] PCP - General Physician Machine Rope Maker 12/15/18 Morenita Vang MD [facility] [place] Consulting Physician Medical Oncology 12/27/18
--- OUTSIDE RECORDS SUMMARY | 2024-10-27 13:51 | XMS_ITS | Patient Health Record ---
Author Organization [facility] Address [address] [place] [address] Care Team Providers Care Director Of Cardiology Service Line Name Role Phone Ceslo Butterfield Primary Care Provider UnavailCullen Power Unavailable [phone] Allergies Allergen (clinical drug ingredient) Drug/Non Drug [...] Problem Status W/U Status Risk Notes Problem [id number] Encounter for screening for malignant neoplasm of colon (Z12.11) Active confirmed Problem Iron deficiency anemia (32255552) Iron deficiency anemia (D50.9) Active confirmed Problem [id number] Preprocedural examination (Z01.818) Active confirmed Problem Gastroesophageal reflux disease (467634724) GERD (gastroesophagea l reflux disease) (K21.9) Active confirmed Plan Of Treatment Future Test Test Name Order Date COLONOSCOPY 12/28/2018 UPPER GI ENDOSCOPY 06/22/2020 COLONOSCOPY 06/22/2020 Insurance Providers Payer Name Payer Address Payer Phone Subscriber Number Group Number Insured Name Patient Relationship to Insured Coverage Start Date Coverage End Date MEDICARE OF [place] [address] [facility] [place] [address] [id number] AILYN GARSIA Self - patient is the insured [facility] [address] [place] [address] [id number] AILYN GARSIA Self - patient is the insured Medical (General) History Medical History History ICD Code 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 Jimbo Montes De Oca [place],DM,CVA,Lung disease,renal dise ase Neg colonoscopy in 2006 Colonoscopy 02/2019 with 2 small tubular adenomas removed GERD COVID 04/2020 Surgical History Surgery Date(Month/Year) Cataract right eye 03/2019
--- OUTSIDE RECORDS SUMMARY | 2024-10-27 13:51 | XMS_ITS | Clinical Summary ---
Author Organization [facility] Address [address] [place] [phone] Phone Care Team Providers Care Book Cutter Name Role Phone Celso Butterfield Primary Care [...] metastatic t o multiple sites (CMS/HCC V24, CMS/[facility] V28) 12/19/2021 Encounters Date Type Department Care Team Description 09/12/2024 2:15 PM EDT Office Visit [facility] Hematology Oncology [address] [place] [phone] Danyell Isidro DO Prostate cancer metastatic to multiple sites ([facility] V24, [facility] V28) (Primary Dx) from Last 3 Months [...] Description 01/12/2025 2:15 PM EDT Office Visit [facility] Hematology Oncology [address] [place] [phone] Danyell Isidro DO [address] [place] [address] Health Maintenance Due Date Last Done Comments [...] 2:41 PM EDT Anemia, unspecified Prostate cancer ([facility]/HCC V24, CMS/HCC V28) Personal history of PE (pulmonary embolism) PROSTATE SPECIFIC ANTIGEN DIAGNOSTIC Routine 09/09/2024 2:41 PM EDT Anemia, unspecified Prostate cancer (CMS/HCC V24, CMS/HCC V28) Personal history of PE (pulmonary embolism) from Last 3 Months Results * Prostate specific antigen diagnostic (09/09/2024 2:41 PM EDT) PSA 0.19 0.00 - 4.00 ng/mL LAB CHEMISTRY METHOD 09/09/2024 5:22 PM EDT [facility] Blood Venous blood specimen / Unknown Venipuncture / Unknown 09/09/2024 2:41 PM EDT 09/09/2024 4:33 PM EDT Narrative [facility] - 09/09/2024 5:22 PM EDT The Siemens Advia Centaur Chemiluminescent Immunoassay is used. Results obtained with different assay methods or kits cannot be used interchangeably. Results cannot be interpreted as absolute evidence of the presence or absence of malignant disease. us Danyell Isidro DO LAB BLOOD ORDERABLES Final Result [facility] [address] [place] [address], * (ABNORMAL) Complete blood count (09/09/2024 2:41 PM EDT) WBC 5.5 4.8 - 10.8 K/mcL LAB HEMETOLOGY METHOD 09/09/2024 5:07 PM EDT [facility] RBC 3.90(L) 4.50 - 5.50 M/mcL LAB HEMETOLOGY METHOD 09/09/2024 5:07 PM EDT [facility] Hemoglobin 11.8(L) 13.5 - 17.5 g/dL LAB HEMETOLOGY METHOD 09/09/2024 5:07 PM EDT [facility] Hematocrit 36.7(L) 42.0 - 54.0 % LAB HEMETOLOGY METHOD 09/09/2024 5:07 PM EDT [facility] MCV 94.3 79.0 - 98.0 FL LAB HEMETOLOGY METHOD 09/09/2024 5:07 PM EDT [facility] MCH 30.3 27.0 - 32.0 pcg LAB HEMETOLOGY METHOD 09/09/2024 5:07 PM EDT [facility] MCHC 32.2 32.0 - 37.0 g/dL LAB HEMETOLOGY METHOD 09/09/2024 5:07 PM EDT [facility] RDW 15.7(H) 11.0 - 15.0 % LAB HEMETOLOGY METHOD 09/09/2024 5:07 PM EDT [facility] Platelets 241 130 - 400 K/mcL LAB HEMETOLOGY METHOD 09/09/2024 5:07 PM EDT [facility] MPV 9.4 7.0 - 11.0 FL LAB HEMETOLOGY METHOD 09/09/2024 5:07 PM EDT [facility] NRBC 0.0 <1.0 % LAB HEMETOLOGY METHOD 09/09/2024 5:07 PM EDT [facility] NRBC Absolute 0.00 <0.10 K/mcL LAB HEMETOLOGY METHOD 09/09/2024 5:07 PM EDT [facility] Blood Venous blood specimen / Unknown Venipuncture / Unknown 09/09/2024 2:41 PM EDT 09/09/2024 4:33 PM EDT us Danyell Isidro DO LAB BLOOD ORDERABLES Final Result [facility] [address] [place] [address], [place] [phone] * Lactate dehydrogenase (09/09/2024 2:41 PM EDT) [facility] LDH 150 120 - 246 unit/L LAB CHEMISTRY METHOD 09/09/2024 4:55 PM EDT [facility] Blood Venous blood specimen / Unknown Venipuncture / Unknown 09/09/2024 2:41 PM EDT 09/09/2024 4:33 PM EDT Danyell Isidro DO LAB BLOOD ORDERABLES Final Result [facility] [address] [place] [address], [place] [phone] * (ABNORMAL) Comprehensive metabolic panel (09/09/2024 2:41 PM EDT) [facility] Sodium 141 133 - 145 mmol/L LAB CHEMISTRY METHOD 09/09/2024 4:55 PM T [facility] Potassium 4.3 3.5 - 5.5 mmol/L LAB CHEMISTRY METHOD 09/09/2024 4:55 PM T [facility] Chloride 106 96 - 110 mmol/L LAB CHEMISTRY METHOD 09/09/2024 4:55 PM T [facility] CO2 27 21 - 32 mmol/L LAB CHEMISTRY METHOD 09/09/2024 4:55 PM EDT [facility] Anion Gap 8 3 - 11 LAB CHEMISTRY METHOD 09/09/2024 4:55 PM [facility] Glucose 102(H) 70 - 100 mg/dL LAB CHEMISTRY METHOD 09/09/2024 4:55 PM [facility] BUN 15 5 - 25 mg/dL LAB CHEMISTRY METHOD 09/09/2024 4:55 PM EDT [facility] Creatinine 0.78 0.70 - 1.30 mg/dL LAB CHEMISTRY METHOD 09/09/2024 4:55 PM [facility] eGFR 95 >=60 mL/min/1. 73m2 LAB CHEMISTRY METHOD 09/09/2024 4:55 PM [facility] Comment:Calculation based on the Chronic Kidney Disease Epidemiology Collaboration (CKD-EPI) equation refit without adjustment for race. BUN/Creatinine Ratio 19.2 LAB CHEMISTRY METHOD 09/09/2024 4:55 PM [facility] Calcium 7.9(L) 8.5 - 10.5 mg/dL LAB CHEMISTRY METHOD 09/09/2024 4:55 PM [facility] AST (SGOT) 15 10 - 42 unit/L LAB CHEMISTRY METHOD 09/09/2024 4:55 PM [facility] ALT (SGPT) 21 10 - 60 unit/L LAB CHEMISTRY METHOD 09/09/2024 4:55 PM [facility] Alkaline Phosphatase 98 42 - 121 unit/L LAB CHEMISTRY METHOD 09/09/2024 4:55 PM [facility] Total Protein 5.8(L) 6.0 - 8.0 g/dL LAB CHEMISTRY METHOD 09/09/2024 4:55 PM [facility] Albumin 3.2 3.2 - 5.0 g/dL LAB CHEMISTRY METHOD 09/09/2024 4:55 PM [facility] Total Bilirubin 0.4 0.0 - 1.4 mg/dL LAB CHEMISTRY METHOD 09/09/2024 4:55 PM [facility] Blood Venous blood specimen / Unknown Venipuncture / Unknown 09/09/2024 2:41 PM EDT 09/09/2024 4:33 PM EDT us Danyell Isidro DO LAB BLOOD ORDERABLES Final Result [facility] [address] [place] [address], [place] [phone] from Last 3 Months Insurance MEDICARE [facility] Advance Directives Documents on File Type Date Recorded Patient Timers Inspector Expl anation Health Care Decision (hx) 06/30/2020 AD WATKINS DIRECTIVE Health Care Decision (hx) 06/30/2020 AD WATKINS DIRECTIVE Health Care Decision (hx) 06/30/2020 AD WATKINS DIRECTIVE Health Care Decision (hx) 06/30/2020 AD WATKINS DIRECTIVE Health Care Decision (hx) 06/30/2020 AD WATKINS DIRECTIVE Health Care Decision (hx) 06/30/2020 AD WATKINS DIRECTIVE Health Care Decision (hx) 06/30/2020 AD WATKNIS DIRECTIVE Health Care Decision (hx) 06/30/2020 AD WATKINS DIRECTIVE Health Care Decision (hx) 06/30/2020 AD WATKINS DIRECTIVE Health Care Decision (hx) 06/30/2020 AD WATKINS DIRECTIVE Health Care Decision (hx) 06/30/2020 AD WATKINS DIRECTIVE Health Care Decision (hx) 06/30/2020 AD WATKINS DIRECTIVE Health Care Decision (hx) 06/30/2020 AD WATKINS DIRECTIVE Health Care Decision (hx) 06/30/2020 AD WATKINS DIRECTIVE Care Teams Book Cutter Relationship Specialty Start Date End Date Celso Butterfield PA [address] [place] [phone] PCP - General Internal Medicine 07/12/20
== END 2024-10-27 14:06 | disposition home or self-care (01) ==
LOC: HO.HUSH 13:37
PROVIDERS: PCP Physician Assistant; Visit Provider Urology
DX: M81.8 Other osteoporosis without current pathological fracture (principal); T38.7X5A Adverse effect of androgens and anabolic congeners, initial encounter; C61 Malignant neoplasm of prostate; C79.51 Secondary malignant neoplasm of bone

== ENCOUNTER → 2024-10-27 13:36 | Outpatient (BNVA) | payer MEDICARE, OTHER, SELFPAY | PROVIDERS: PCP Physician Assistant; Visit Provider Urology | DX: M81.8 Other osteoporosis without current pathological fracture (principal); T38.7X5A Adverse effect of androgens and anabolic congeners, initial encounter; C61 Malignant neoplasm of prostate; C79.51 Secondary malignant neoplasm of bone | CPT/HCPCS: 96372; J0897 ==

== ENCOUNTER → 2024-11-08 14:53 | Outpatient (REF) | payer MEDICARE, OTHER, SELFPAY ==
--- NOTE | 2024-11-08 14:57 | CA_ITS ---
Transthoracic Echocardiogram Patient (Last, First, Middle): Carson Neumann B Gender: Male Date of : 1950 Age: 73 Procedure Date: 11/08/2024 Procedure Type: Transthoracic Echocardiogram Location: OP Height: 177.8 cm Weight: 107.96 kg BSA: 2.25 m2 Heart Rate: bpm BP: 130 / 82 mmHg Digital Data Analyst: IGOR Referring MD: Elvin Gonzalez MD Symptoms: I49.3 - Ventricular premature depolarization Study Quality: Technically Difficult, contrast ECG Rhythm: Sinus Conclusions: - The left ventricular systolic function is normal. The calculated ejection fraction is 62% by biplane method. - No obvious valvular pathology seen on this study. Findings Procedure Information Contrast agent, definity, is being given per protocol without apparent complications. Left Ventricle Normal left ventricular cavity size. The left ventricular systolic function is normal. The calculated ejection fraction is 62% by biplane method. There is no evidence of regional wall motion abnormalities. Diastolic function is normal for age. There is mild septal asymmetric hypertrophy. Right Ventricle Normal right ventricular cavity size. There is normal right ventricular systolic function. Atria Moderate biatrial enlargement. Aortic Valve There is a normal trileaflet aortic valve. There is mild calcification of the aortic valve. There is no aortic valve stenosis. There is no aortic valve regurgitation. Mitral Valve The mitral valve appears normal. There is no mitral valve regurgitation. There is no mitral valve stenosis. Pulmonic Valve The pulmonic valve is likely normal. Tricuspid Valve There is trace tricuspid valve regurgitation. There is no evidence of pulmonary hypertension. Great Vessels The asc aorta is normal in size. Venous The inferior vena cava is normal in size and collapses greater than 50% with inspiration. Pericardium/Pleural There is no evidence of pericardial effusion. Prior Study Comparison No prior study available for comparison. Recommendations, Care & Conclusions No obvious valvular pathology seen on this study. Measurements 2D Linear Measurements IVSd: 1.08 0.6-0.9/0.6-1.0 cm LVIDd: 5.26 3.9-5.3/4.2-5.9 cm LVIDd Index: 2.34 2.4-3.2/2.2-3.1 cm/m2 LVIDs: 3.17 2.0-3.6 cm LVPWd: 1.00 0.7-1.1 cm LA Diam: 4.00 2.7-3.8/3.0-4.0 cm LAIDs Index: 1.78 1.5-2.3 cm/m2 LV Mass: 259.41 67-162/88-224 g LV Mass Index: 115.29 43-95/49-115 g/m2 LVOT Diam: 2.30 3.0+(-)1.3 cm 2D Systolic Function EF 4C: 67.50 >55% EF 2C: 60.70 >55% EF BiP: 62.30 >55% Mitral Valve MV Pk E: 0.48 MV PK A: 0.58 MV Decel Time: 277.00 E/A: 0.80 E'Lateral: 9.03 E'Medial: 7.51 E/E' Med: 6.40 E/E' Lat: 5.40 PHT: 81.00 MVA PHT: 2.72 Decel Wirt: 1.75 Aortic Valve AoV Pk Aldo: 1.23 AoV Mn Aldo: 0.82 AoV VTI: 0.31 AoV Pk Grad: 6.00 Aov Mn Grad: 3.00 JOHNATHON Cont.VTI: 3.03 LVOT LVOT Pk Aldo: 0.84 LVOT Mn Aldo: 0.49 LVOT VTI: 0.23 LVOT Pk Grad: 3.00 LVOT Mn Grad: 1.00 LVOT Diam: 2.30 LVOT Area: 4.15 Diastolic Function MV Pk E: 0.48 MV Pk A: 0.58 E/A: 0.80 E'Medial: 7.51 E/E' Med: 6.40 E' Laterial: 9.03 E/E' Lat: 5.40 Right Ventricle TAPSE (mm): 25.90 TVS' Aldo: 13.10 Tricuspid Valve TR Pk Aldo: 1.66 TR Pk Grad: 11.00 RA Press: 3.00 RVSP: 14.00 Great Vessels Aorta Sinus of Valsalva: 3.68 2.0-3.5 cm Ao Asc: 3.70 2.1-3.4 cm Updated in Other Vendor System with Status of Final Elvin Gonzalez MD electronically signed on 11/10/2024 2:20:40 PM with status of Final
--- OUTSIDE RECORDS SUMMARY | 2024-11-08 15:45 | XMS_ITS | Clinical Summary ---
Author Organization [facility] Address [address] [place] [address] Care Team Providers Care Drive In Waiter/Waitress Name Role Phone Celso Butterfield Primary Care [...] age to complete this topic Care Teams Drive In Waiter/Waitress Relationship Specialty Start Date End Date Celso Butterfield PA [address] [facility] [place] [phone] PCP - General Physician Applications Manager 12/15/18 Morenita Vang MD [facility] Cancer [place] Consulting Physician Medical Oncology 12/27/18
--- OUTSIDE RECORDS SUMMARY | 2024-11-08 15:45 | XMS_ITS | Clinical Summary ---
Author Organization [facility] Address [address] [place] [address] Phone Care Team Providers Care Storage Brine Worker Name Role Phone Celso Butterfield Primary Care Provider + Sammy Ortega MD Unavailable Jerrell Choi MD Unavailable [phone] Self-Referred, Patient Unavailable Unavailab Jt Cui [facility] Unavailable [phone] Danyell Isidro DO Unavailable Allergies Active Allergy [...] file Insurance MEDICARE PART A & B [facility] MEDICARE SUPPLEMENT MEDICARE PART A & B Member Subscriber Plan / Payer ( fective 2018-) Name:Carson Neumann Member ID:[id number] Relation to Subscriber:Self Name:Carson Neumann Subscriber ID:[id number] Payer ID:[id number] Group ID:Not on file Type:Medicare Address: [employer] [facility].[address] [address] [facility] MEDICARE SUPPLEMENT MEDICARE PART A & B MEDICARE SUPPLEMENT MEDICARE PART A & B MEDICARE SUPPLEMENT MEDICARE PART A & B MEDICARE SUPPLEMENT MEDICARE PART A & B MEDICARE SUPPLEMENT MEDICARE PART A & B MEDICARE SUPPLEMENT MEDICARE PART A & B MEDICARE SUPPLEMENT MEDICARE PART [place] [phone] [facility] MEDICARE SUPPLEMENT Care Teams Storage Brine Worker Relationship Specialty Start Date End Date Celso Butterfield PA [address] [place] [phone] PCP - General 12/10/18 Sammy Ortega MD [address] [place] [phone] Referring Physician Urology 12/10/18 Jerrell Choi MD [address] [place] [id number] [email or web address] Internal Medicine 12/27/18 Self-Referred, Patient 01/19/23 [facility] [address] [place] [id number] [email or web address] Oncology 01/20/23 Danyell Isidro DO [address] [place] [address] Internal Medicine 01/30/23 Additional Source Comments The information contained in this document represents components of the legal health record. It is not the complete legal health record.[facility]
--- OUTSIDE RECORDS SUMMARY | 2024-11-08 15:45 | XMS_ITS | Patient Health Record ---
Author Organization [facility] Address [address] [place] [address] Care Team Providers Care Entrance Guard Name Role Phone Celso Butterfield Primary Care Provider UnavailCullen Power Unavailable [phone] Allergies Allergen (clinical drug ingredient) Drug/Non Drug [...] Problem Status W/U Status Risk Notes Problem [id number] Encounter for screening for malignant neoplasm of colon (Z12.11) Active confirmed Problem Iron deficiency anemia (32668128) Iron deficiency anemia (D50.9) Active confirmed Problem [id number] Preprocedural examination (Z01.818) Active confirmed Problem Gastroesophageal reflux disease (416431202) GERD (gastroesophagea l reflux disease) (K21.9) Active confirmed Plan Of Treatment Future Test Test Name Order Date COLONOSCOPY 12/28/2018 UPPER GI ENDOSCOPY 06/22/2020 COLONOSCOPY 06/22/2020 Insurance Providers Payer Name Payer Address Payer Phone Subscriber Number Group Number Insured Name Patient Relationship to Insured Coverage Start Date Coverage End Date MEDICARE OF [place] [address] [facility] [place] [address] [id number] AILYN GARSIA Self - patient is the insured [facility] [address] [place] [address] [phone] [id number] AILYN GARSIA Self - patient is the insured Medical (General) History Medical History History ICD Code 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 Jimbo Montes De Oca [place],DM,CVA,Lung disease,renal dise ase Neg colonoscopy in 2006 Colonoscopy 02/2019 with 2 small tubular adenomas removed GERD COVID 04/2020 Surgical History Surgery Date(Month/Year) Cataract right eye 03/2019
--- OUTSIDE RECORDS SUMMARY | 2024-11-08 15:45 | XMS_ITS | Clinical Summary ---
Author Organization [facility] Address [address] [place] [phone] Phone Care Team Providers Care Elder Assistant Name Role Phone Celso Butterfield Primary Care [...] metastatic t o multiple sites (CMS/HCC V24, CMS/[facility] V28) 12/19/2021 Encounters Date Type Department Care Team Description 09/12/2024 2:15 PM EDT Office Visit [facility] Hematology Oncology [address] [place] [phone] Danyell Isidro DO Prostate cancer metastatic to multiple sites ([facility] V24, [facility] V28) (Primary Dx) from Last 3 [...] Description 01/12/2025 2:15 PM EDT Office Visit [facility] Hematology Oncology [address] [place] [phone] Danyell Isidro DO [address] [place] [address] Health Maintenance Due Date Last Done Comments [...] 2:41 PM EDT Anemia, unspecified Prostate cancer ([facility]/HCC V24, CMS/HCC V28) Personal history of PE (pulmonary embolism) PROSTATE SPECIFIC ANTIGEN DIAGNOSTIC Routine 09/09/2024 2:41 PM EDT Anemia, unspecified Prostate cancer (CMS/HCC V24, CMS/HCC V28) Personal history of PE (pulmonary embolism) from Last 3 Months Results * Prostate specific antigen diagnostic (09/09/2024 2:41 PM EDT) PSA 0.19 0.00 - 4.00 ng/mL LAB CHEMISTRY METHOD 09/09/2024 5:22 PM EDT [facility] Blood Venous blood specimen / Unknown Venipuncture / Unknown 09/09/2024 2:41 PM EDT 09/09/2024 4:33 PM EDT Narrative [facility] - 09/09/2024 5:22 PM EDT The Siemens Advia Centaur Chemiluminescent Immunoassay is used. Results obtained with different assay methods or kits cannot be used interchangeably. Results cannot be interpreted as absolute evidence of the presence or absence of malignant disease. us Danyell Isidro DO LAB BLOOD ORDERABLES Final Result [facility] [address] [place] [address], * (ABNORMAL) Complete blood count (09/09/2024 2:41 PM EDT) WBC 5.5 4.8 - 10.8 K/mcL LAB HEMETOLOGY METHOD 09/09/2024 5:07 PM EDT [facility] RBC 3.90(L) 4.50 - 5.50 M/mcL LAB HEMETOLOGY METHOD 09/09/2024 5:07 PM EDT [facility] Hemoglobin 11.8(L) 13.5 - 17.5 g/dL LAB HEMETOLOGY METHOD 09/09/2024 5:07 PM EDT [facility] Hematocrit 36.7(L) 42.0 - 54.0 % LAB HEMETOLOGY METHOD 09/09/2024 5:07 PM EDT [facility] MCV 94.3 79.0 - 98.0 FL LAB HEMETOLOGY METHOD 09/09/2024 5:07 PM EDT [facility] MCH 30.3 27.0 - 32.0 pcg LAB HEMETOLOGY METHOD 09/09/2024 5:07 PM EDT [facility] MCHC 32.2 32.0 - 37.0 g/dL LAB HEMETOLOGY METHOD 09/09/2024 5:07 PM EDT [facility] RDW 15.7(H) 11.0 - 15.0 % LAB HEMETOLOGY METHOD 09/09/2024 5:07 PM EDT [facility] Platelets 241 130 - 400 K/mcL LAB HEMETOLOGY METHOD 09/09/2024 5:07 PM EDT [facility] MPV 9.4 7.0 - 11.0 FL LAB HEMETOLOGY METHOD 09/09/2024 5:07 PM EDT [facility] NRBC 0.0 <1.0 % LAB HEMETOLOGY METHOD 09/09/2024 5:07 PM EDT [facility] NRBC Absolute 0.00 <0.10 K/mcL LAB HEMETOLOGY METHOD 09/09/2024 5:07 PM EDT [facility] Blood Venous blood specimen / Unknown Venipuncture / Unknown 09/09/2024 2:41 PM EDT 09/09/2024 4:33 PM EDT us Danyell Isidro DO LAB BLOOD ORDERABLES Final Result [facility] [address] [place] [address], [place] [phone] * Lactate dehydrogenase (09/09/2024 2:41 PM EDT) [facility] LDH 150 120 - 246 unit/L LAB CHEMISTRY METHOD 09/09/2024 4:55 PM EDT [facility] Blood Venous blood specimen / Unknown Venipuncture / Unknown 09/09/2024 2:41 PM EDT 09/09/2024 4:33 PM EDT Danyell Isidro DO LAB BLOOD ORDERABLES Final Result [facility] [address] [place] [address], [place] [phone] * (ABNORMAL) Comprehensive metabolic panel (09/09/2024 2:41 PM EDT) [facility] Sodium 141 133 - 145 mmol/L LAB CHEMISTRY METHOD 09/09/2024 4:55 PM T [facility] Potassium 4.3 3.5 - 5.5 mmol/L LAB CHEMISTRY METHOD 09/09/2024 4:55 PM T [facility] Chloride 106 96 - 110 mmol/L LAB CHEMISTRY METHOD 09/09/2024 4:55 PM T [facility] CO2 27 21 - 32 mmol/L LAB CHEMISTRY METHOD 09/09/2024 4:55 PM EDT [facility] Anion Gap 8 3 - 11 LAB CHEMISTRY METHOD 09/09/2024 4:55 PM [facility] Glucose 102(H) 70 - 100 mg/dL LAB CHEMISTRY METHOD 09/09/2024 4:55 PM [facility] BUN 15 5 - 25 mg/dL LAB CHEMISTRY METHOD 09/09/2024 4:55 PM EDT [facility] Creatinine 0.78 0.70 - 1.30 mg/dL LAB CHEMISTRY METHOD 09/09/2024 4:55 PM [facility] eGFR 95 >=60 mL/min/1. 73m2 LAB CHEMISTRY METHOD 09/09/2024 4:55 PM [facility] Comment:Calculation based on the Chronic Kidney Disease Epidemiology Collaboration (CKD-EPI) equation refit without adjustment for race. BUN/Creatinine Ratio 19.2 LAB CHEMISTRY METHOD 09/09/2024 4:55 PM [facility] Calcium 7.9(L) 8.5 - 10.5 mg/dL LAB CHEMISTRY METHOD 09/09/2024 4:55 PM [facility] AST (SGOT) 15 10 - 42 unit/L LAB CHEMISTRY METHOD 09/09/2024 4:55 PM [facility] ALT (SGPT) 21 10 - 60 unit/L LAB CHEMISTRY METHOD 09/09/2024 4:55 PM [facility] Alkaline Phosphatase 98 42 - 121 unit/L LAB CHEMISTRY METHOD 09/09/2024 4:55 PM [facility] Total Protein 5.8(L) 6.0 - 8.0 g/dL LAB CHEMISTRY METHOD 09/09/2024 4:55 PM [facility] Albumin 3.2 3.2 - 5.0 g/dL LAB CHEMISTRY METHOD 09/09/2024 4:55 PM [facility] Total Bilirubin 0.4 0.0 - 1.4 mg/dL LAB CHEMISTRY METHOD 09/09/2024 4:55 PM [facility] Blood Venous blood specimen / Unknown Venipuncture / Unknown 09/09/2024 2:41 PM EDT 09/09/2024 4:33 PM EDT us Danyell Isidro DO LAB BLOOD ORDERABLES Final Result [facility] [address] [place] [address], [place] [phone] from Last 3 Months Insurance MEDICARE [facility] Advance Directives Documents on File Type Date Recorded Patient Director Digital Advertising Expl anation Health Care Decision (hx) 06/30/2020 [...] (hx) 06/30/2020 AD WATKINS DIRECTIVE Care Teams Elder Assistant Relationship Specialty Start Date End Date Celso Butterfield PA [address] [place] [phone] PCP - General Internal Medicine 07/12/20
== END ==
LOC: HO.CARD 14:53
PROVIDERS: PCP Physician Assistant; Visit Provider Internal Medicine
DX: I49.3 Ventricular premature depolarization (principal)
CPT/HCPCS: 93306; Q9957

== ENCOUNTER → 2024-11-08 14:57 | Outpatient (BNV) | payer MEDICARE, OTHER, SELFPAY | PROVIDERS: PCP Physician Assistant; Visit Provider Internal Medicine | DX: I42.2 Other hypertrophic cardiomyopathy (principal); I51.7 Cardiomegaly; I35.8 Other nonrheumatic aortic valve disorders | CPT/HCPCS: 93306 ==

== ENCOUNTER → 2024-11-22 07:59 | Outpatient (REF) | payer MEDICARE, OTHER, SELFPAY ==
--- NOTE | ~2024-11-22 | NM_ITS ---
EXERCISE MYOCARDIAL PERFUSION STUDY INDICATION: Abnormal EKG, palpitations TECHNIQUE: The patient was brought in for an exercise perfusion study on 11/22/2024. Patient performed exercise as per Vish protocol and was injected 40 mCi of sestamibi once target heart rate was achieved. Images were obtained using the SPECT gamma camera interlaced with the gating device. Images were obtained in supine position. Resting perfusion study was performed on 11/23/2024. Patient was administered 40 mCi of sestamibi intravenously at rest. Images were then obtained in supine position. Total DLP 121 mGy-cm. Images were processed with the software and compared side to side in short axis, horizontal long axis and vertical long axis views. FINDINGS: Raw aquisition reviewed. The stress perfusion study showed no significant perfusion abnormality. Both uncorrected as well as CT attenuation corrected images were reviewed. The gated study shows normal LV systolic function with calculated LVEF of 54%. LV cavity is normal in size. The gated study shows normal wall thickening and contraction of segments. Resting study shows no significant perfusion abnormality. Gating at rest reveals normal wall motion with ejection fraction at 49%. The findings are consistent with no clear reversible or fixed perfusion abnormality. NM/NM cardiolite stress test IMPRESSION: 1. Myocardial perfusion imaging study shows probably normal myocardial perfusion. 2. Gated LVEF is 54% during stress and 49% during rest. Correlate with echocardiogram. 3. Transient ischemic dilatation not present. EKG component of the test reported separately. Electronically signed by: Elvin Gonzalez MD 11/24/2024 04:08 PM EDT
--- NOTE | 2024-11-22 08:01 | CA_ITS ---
Acquisition Time: 2024-11-22 08:15:39 Total Exercise Time: 00:05:20 Test Indications: Abnormal ECG,Palpitations Medications: ABIRATERONE ELIQUIS METOPROLOL OMEPRAZOLE IRON DICLOFENAC Protocol: REEMA Max HR: 134 BPM 89% of Pred: 149 BPM Max BP: 184/80 mmHG Max Work Load: 7.0 METS Exericse stress test with exercise 5 mins 20 secs of Reema Protocol, achieving 89% MPHR, with reports of SOB, no chest pain, with isolated PACs and frequent PVCs, bigeminy in recovery, with normotensive response to exercise. Without any EKG changes meeting criteria for ischemia. In recovery, breathing returned to baseline. Nuclear images pending. Test reviewed with Dr. Gonzalez. Referred By: Elvin Gonzalez Electronically Signed By: Ander Dos Santos
--- OUTSIDE RECORDS SUMMARY | 2024-11-22 08:03 | XMS_ITS | Patient Health Record ---
Author Organization [facility] Address [address] [place] [address] Care Team Providers Care Deburring Technician Name Role Phone Celso Butterfield Primary Care Provider UnavailCullen Power Unavailable [phone] Allergies Allergen (clinical drug ingredient) Drug/Non Drug [...] Problem Status W/U Status Risk Notes Problem 605142482 Encounter for screening for malignant neoplasm of colon (Z12.11) Active confirmed Problem Iron deficiency anemia (67659056) Iron deficiency anemia (D50.9) Active confirmed Problem 300898314598088 Preprocedural examination (Z01.818) Active confirmed Problem Gastroesophageal reflux disease (152131337) GERD (gastroesophagea l reflux disease) (K21.9) Active confirmed Plan Of Treatment Future Test Test Name Order Date COLONOSCOPY 12/28/2018 UPPER GI ENDOSCOPY 06/22/2020 COLONOSCOPY 06/22/2020 Insurance Providers Payer Name Payer Address Payer Phone Subscriber Number Group Number Insured Name Patient Relationship to Insured Coverage Start Date Coverage End Date MEDICARE OF [place] [address] [facility] [place] [address] [phone] [id number] AILYN GARSIA Self - patient is the insured [facility] [address] [place] [phone] [id number] AILYN GARSIA Self - patient is the insured Medical (General) History Medical History History ICD Code 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 Jimbo Montes De Oca PA,DM,CVA,Lung disease,renal dise ase Neg colonoscopy in 2006 Colonoscopy 02/2019 with 2 small tubular adenomas removed GERD COVID 04/2020 Surgical History Surgery Date(Month/Year) Cataract right eye 03/2019
--- OUTSIDE RECORDS SUMMARY | 2024-11-22 08:03 | XMS_ITS | Clinical Summary ---
Author Organization [facility] Address [address] [place] [address] Phone Care Team Providers Care Wrapper Opener Name Role Phone Celso Butterfield Primary Care Provider + Sammy Ortega MD Unavailable Jerrell Choi MD Unavailable [phone] Self-Referred, Patient Unavailable Unavailab Jt Cui [facility] Unavailable [phone] Danyell Isidro DO Unavailable Allergies Active Allergy [...] file Insurance MEDICARE PART A & B [facility] MEDICARE SUPPLEMENT MEDICARE PART A & B Member Subscriber Plan / Payer ( fective 2018-) Name:Crason Neumann Member ID:[id number] Relation to Subscriber:Self Name:Carson Neumann Subscriber ID:[id number] Payer ID:[id number] Group ID:Not on file Type:Medicare Address: [employer] [facility] [address] [facility] MEDICARE SUPPLEMENT MEDICARE PART A & B MEDICARE SUPPLEMENT MEDICARE PART A & B MEDICARE SUPPLEMENT MEDICARE PART A & B MEDICARE SUPPLEMENT MEDICARE PART A & B MEDICARE SUPPLEMENT MEDICARE PART A & B MEDICARE SUPPLEMENT MEDICARE PART A & B MEDICARE SUPPLE[place] MED[place] PART [place] [id number] [facility] MEDICARE SUPPLEMENT Care Teams Wrapper Opener Relationship Specialty Start Date End Date Celso Butterfield PA [address] [place] [phone] PCP - General 12/10/18 Sammy Ortega MD [address] [place] [address] Referring Physician Urology 12/10/18 Jerrell Choi MD [address] [place] [address] [email or web address] Internal Medicine 12/27/18 Self-Referred, Patient 01/19/23 [facility] [address] [place] [phone] [email or web address] Oncology 01/20/23 Danyell Isidro DO [address] [place] [address] Internal Medicine 01/30/23 Additional Source Comments The information contained in this document represents components of the legal health record. It is not the complete legal health record.[facility]
--- OUTSIDE RECORDS SUMMARY | 2024-11-22 08:03 | XMS_ITS | Clinical Summary ---
Author Organization [facility] Address [address] [place] [address] Care Team Providers Care Automotive Worker Foreman Name Role Phone Celso Butterfield Primary Care [...] age to complete this topic Care Teams Automotive Worker Foreman Relationship Specialty Start Date End Date Celso Butterfield PA [address] [facility] [place] [phone] PCP - General Physician Sustainability Consultant 12/15/18 Morenita Vang MD [facility] [place] Consulting Physician Medical Oncology 12/27/18
--- OUTSIDE RECORDS SUMMARY | 2024-11-22 08:03 | XMS_ITS | Clinical Summary ---
Author Organization [facility] Address [address] [place] [phone] Phone Care Team Providers Care Burlap Bag Sewer Name Role Phone Celso Butterfield Primary Care [...] metastatic t o multiple sites (CMS/HCC V24, CMS/[facility] V28) 12/19/2021 Encounters Date Type Department Care Team Description 09/12/2024 2:15 PM EDT Office Visit [facility] Hematology Oncology [address] [place] [phone] Danyell Isidro DO Prostate cancer metastatic to multiple sites ([facility] V24, [facility] V28) (Primary Dx) from Last 3 [...] Description 01/12/2025 2:15 PM EDT Office Visit [facility] Hematology Oncology [address] [place] [phone] Danyell Isidro DO [address] [place] [address] Health Maintenance Due Date Last Done Comments [...] 2:41 PM EDT Anemia, unspecified Prostate cancer ([facility]/HCC V24, CMS/HCC V28) Personal history of PE (pulmonary embolism) PROSTATE SPECIFIC ANTIGEN DIAGNOSTIC Routine 09/09/2024 2:41 PM EDT Anemia, unspecified Prostate cancer (CMS/HCC V24, CMS/HCC V28) Personal history of PE (pulmonary embolism) from Last 3 Months Results * Prostate specific antigen diagnostic (09/09/2024 2:41 PM EDT) PSA 0.19 0.00 - 4.00 ng/mL LAB CHEMISTRY METHOD 09/09/2024 5:22 PM EDT [facility] Blood Venous blood specimen / Unknown Venipuncture / Unknown 09/09/2024 2:41 PM EDT 09/09/2024 4:33 PM EDT Narrative [facility] - 09/09/2024 5:22 PM EDT The Siemens Advia Centaur Chemiluminescent Immunoassay is used. Results obtained with different assay methods or kits cannot be used interchangeably. Results cannot be interpreted as absolute evidence of the presence or absence of malignant disease. us Danyell Isidro DO LAB BLOOD ORDERABLES Final Result [facility] [address] [place] [address], * (ABNORMAL) Complete blood count (09/09/2024 2:41 PM EDT) WBC 5.5 4.8 - 10.8 K/mcL LAB HEMETOLOGY METHOD 09/09/2024 5:07 PM EDT [facility] RBC 3.90(L) 4.50 - 5.50 M/mcL LAB HEMETOLOGY METHOD 09/09/2024 5:07 PM EDT [facility] Hemoglobin 11.8(L) 13.5 - 17.5 g/dL LAB HEMETOLOGY METHOD 09/09/2024 5:07 PM EDT [facility] Hematocrit 36.7(L) 42.0 - 54.0 % LAB HEMETOLOGY METHOD 09/09/2024 5:07 PM EDT [facility] MCV 94.3 79.0 - 98.0 FL LAB HEMETOLOGY METHOD 09/09/2024 5:07 PM EDT [facility] MCH 30.3 27.0 - 32.0 pcg LAB HEMETOLOGY METHOD 09/09/2024 5:07 PM EDT [facility] MCHC 32.2 32.0 - 37.0 g/dL LAB HEMETOLOGY METHOD 09/09/2024 5:07 PM EDT [facility] RDW 15.7(H) 11.0 - 15.0 % LAB HEMETOLOGY METHOD 09/09/2024 5:07 PM EDT [facility] Platelets 241 130 - 400 K/mcL LAB HEMETOLOGY METHOD 09/09/2024 5:07 PM EDT [facility] MPV 9.4 7.0 - 11.0 FL LAB HEMETOLOGY METHOD 09/09/2024 5:07 PM EDT [facility] NRBC 0.0 <1.0 % LAB HEMETOLOGY METHOD 09/09/2024 5:07 PM EDT [facility] NRBC Absolute 0.00 <0.10 K/mcL LAB HEMETOLOGY METHOD 09/09/2024 5:07 PM EDT [facility] Blood Venous blood specimen / Unknown Venipuncture / Unknown 09/09/2024 2:41 PM EDT 09/09/2024 4:33 PM EDT us Danyell Isidro DO LAB BLOOD ORDERABLES Final Result [facility] [address] [place] [address], [place] [phone] * Lactate dehydrogenase (09/09/2024 2:41 PM EDT) [facility] LDH 150 120 - 246 unit/L LAB CHEMISTRY METHOD 09/09/2024 4:55 PM EDT [facility] Blood Venous blood specimen / Unknown Venipuncture / Unknown 09/09/2024 2:41 PM EDT 09/09/2024 4:33 PM EDT Danyell Isidro DO LAB BLOOD ORDERABLES Final Result [facility] [address] [place] [address], [place] [phone] * (ABNORMAL) Comprehensive metabolic panel (09/09/2024 2:41 PM EDT) [facility] Sodium 141 133 - 145 mmol/L LAB CHEMISTRY METHOD 09/09/2024 4:55 PM T [facility] Potassium 4.3 3.5 - 5.5 mmol/L LAB CHEMISTRY METHOD 09/09/2024 4:55 PM T [facility] Chloride 106 96 - 110 mmol/L LAB CHEMISTRY METHOD 09/09/2024 4:55 PM T [facility] CO2 27 21 - 32 mmol/L LAB CHEMISTRY METHOD 09/09/2024 4:55 PM EDT [facility] Anion Gap 8 3 - 11 LAB CHEMISTRY METHOD 09/09/2024 4:55 PM [facility] Glucose 102(H) 70 - 100 mg/dL LAB CHEMISTRY METHOD 09/09/2024 4:55 PM [facility] BUN 15 5 - 25 mg/dL LAB CHEMISTRY METHOD 09/09/2024 4:55 PM EDT [facility] Creatinine 0.78 0.70 - 1.30 mg/dL LAB CHEMISTRY METHOD 09/09/2024 4:55 PM [facility] eGFR 95 >=60 mL/min/1. 73m2 LAB CHEMISTRY METHOD 09/09/2024 4:55 PM [facility] Comment:Calculation based on the Chronic Kidney Disease Epidemiology Collaboration (CKD-EPI) equation refit without adjustment for race. BUN/Creatinine Ratio 19.2 LAB CHEMISTRY METHOD 09/09/2024 4:55 PM [facility] Calcium 7.9(L) 8.5 - 10.5 mg/dL LAB CHEMISTRY METHOD 09/09/2024 4:55 PM [facility] AST (SGOT) 15 10 - 42 unit/L LAB CHEMISTRY METHOD 09/09/2024 4:55 PM [facility] ALT (SGPT) 21 10 - 60 unit/L LAB CHEMISTRY METHOD 09/09/2024 4:55 PM [facility] Alkaline Phosphatase 98 42 - 121 unit/L LAB CHEMISTRY METHOD 09/09/2024 4:55 PM [facility] Total Protein 5.8(L) 6.0 - 8.0 g/dL LAB CHEMISTRY METHOD 09/09/2024 4:55 PM [facility] Albumin 3.2 3.2 - 5.0 g/dL LAB CHEMISTRY METHOD 09/09/2024 4:55 PM [facility] Total Bilirubin 0.4 0.0 - 1.4 mg/dL LAB CHEMISTRY METHOD 09/09/2024 4:55 PM [facility] Blood Venous blood specimen / Unknown Venipuncture / Unknown 09/09/2024 2:41 PM EDT 09/09/2024 4:33 PM EDT us Danyell Isidro DO LAB BLOOD ORDERABLES Final Result [facility] [address] [place] [address], [place] [phone] from Last [address] [facility] Advance Directives Documents on File Type Date Recorded Patient Objective C Developer Expl anation Health Care Decision (hx) 06/30/2020 [...] (hx) 06/30/2020 AD WATKINS DIRECTIVE Care Teams Burlap Bag Sewer Relationship Specialty Start Date End Date Celso Butterfield PA [address] [place] [phone] PCP - General Internal Medicine 07/12/20
== END ==
LOC: HO.CARD 07:59
PROVIDERS: PCP Physician Assistant; Visit Provider Internal Medicine
DX: I49.3 Ventricular premature depolarization (principal); R94.31 Abnormal electrocardiogram [ECG] [EKG]; R00.2 Palpitations
CPT/HCPCS: 78452; 93017; A9500; J0280; J2785

== ENCOUNTER → 2024-11-22 08:01 | Outpatient (BNV) | payer MEDICARE, OTHER, SELFPAY | PROVIDERS: PCP Physician Assistant | DX: I49.1 Atrial premature depolarization (principal); I49.3 Ventricular premature depolarization; R06.02 Shortness of breath | CPT/HCPCS: 78452; 93016; 93018 ==

== ENCOUNTER 2024-11-24 14:11 | Outpatient (AMB) | payer MEDICARE, OTHER, SELFPAY ==
--- NOTE | 2024-11-24 14:32 | AM.OFFVISNUR ---
Intake Visit Reasons: Xgeva Allergies Iodinated Contrast Media Allergy (Unknown, Verified 10/18/24 15:37) Unknown Lobster Allergy (Unknown, Verified 10/18/24 15:37) unknown Office Meds Xgeva 120 mg/1.7 mL (70 mg/mL) subcutaneous solution Performing Provider: Sammy Ortega MD [facility] Administered by: Marisabel Conrad RN on 11/24/24 14:32 Dose Route Admin Location Dispensed Lot Number Expiration Date [facility] Nursery Manager 120 mg subcut right upper arm 1.7 mL [id number] 02/26/27 27469-228-53 AMGEN Total Dispensed Waste 1.7 mL 0 % Assessment & Plan Assessment & Plan Orders: Orders AMB Denosumab Injection Practice Supplied Today M81.8 - Other osteoporosis without current pathological fracture, T38.7X5A - Adverse effect of androgens and anabolic congeners, initial encounter Coding
--- OUTSIDE RECORDS SUMMARY | 2024-11-24 14:56 | XMS_ITS | Clinical Summary ---
Author Organization [facility] Address [address] [place] [address] Care Team Providers Care Rougher Merchant Mill Name Role Phone Celso Butterfield Primary Care [...] age to complete this topic Care Teams Rougher Merchant Mill Relationship Specialty Start Date End Date Celso Butterfield PA [address] [facility] [place] [phone] PCP - General Physician Long Chain Quiller Tender 12/15/18 Morenita Vang MD [facility] [place] Consulting Physician Medical Oncology 12/27/18
--- OUTSIDE RECORDS SUMMARY | 2024-11-24 14:56 | XMS_ITS | Clinical Summary ---
Author Organization [facility] Address [address] [place] [phone] Phone Care Team Providers Care String Winding Machine Operator Name Role Phone Celso Butterfield Primary [...] metastatic t o multiple sites (CMS/HCC V24, CMS/[facility] V28) 12/19/2021 Encounters Date Type Department Care Team Description 09/12/2024 2:15 PM EDT Office Visit [facility] Hematology Oncology [address] [place] [phone] Danyell Isidro DO Prostate cancer metastatic to multiple sites ([facility] V24, [facility] V28) (Primary Dx) from Last 3 [...] Description 01/12/2025 2:15 PM EDT Office Visit [facility] Hematology Oncology [address] [place] [phone] Danyell Isidro DO [address] [place] [address] Health Maintenance Due Date Last Done Comments [...] 2:41 PM EDT Anemia, unspecified Prostate cancer ([facility]/HCC V24, CMS/HCC V28) Personal history of PE (pulmonary embolism) PROSTATE SPECIFIC ANTIGEN DIAGNOSTIC Routine 09/09/2024 2:41 PM EDT Anemia, unspecified Prostate cancer (CMS/HCC V24, CMS/HCC V28) Personal history of PE (pulmonary embolism) from Last 3 Months Results * Prostate specific antigen diagnostic (09/09/2024 2:41 PM EDT) PSA 0.19 0.00 - 4.00 ng/mL LAB CHEMISTRY METHOD 09/09/2024 5:22 PM EDT [facility] Blood Venous blood specimen / Unknown Venipuncture / Unknown 09/09/2024 2:41 PM EDT 09/09/2024 4:33 PM EDT Narrative [facility] - 09/09/2024 5:22 PM EDT The Siemens Advia Centaur Chemiluminescent Immunoassay is used. Results obtained with different assay methods or kits cannot be used interchangeably. Results cannot be interpreted as absolute evidence of the presence or absence of malignant disease. us Danyell Isidro DO LAB BLOOD ORDERABLES Final Result [facility] [address] [place] [address], * (ABNORMAL) Complete blood count (09/09/2024 2:41 PM EDT) WBC 5.5 4.8 - 10.8 K/mcL LAB HEMETOLOGY METHOD 09/09/2024 5:07 PM EDT [facility] RBC 3.90(L) 4.50 - 5.50 M/mcL LAB HEMETOLOGY METHOD 09/09/2024 5:07 PM EDT [facility] Hemoglobin 11.8(L) 13.5 - 17.5 g/dL LAB HEMETOLOGY METHOD 09/09/2024 5:07 PM EDT [facility] Hematocrit 36.7(L) 42.0 - 54.0 % LAB HEMETOLOGY METHOD 09/09/2024 5:07 PM EDT [facility] MCV 94.3 79.0 - 98.0 FL LAB HEMETOLOGY METHOD 09/09/2024 5:07 PM EDT [facility] MCH 30.3 27.0 - 32.0 pcg LAB HEMETOLOGY METHOD 09/09/2024 5:07 PM EDT [facility] MCHC 32.2 32.0 - 37.0 g/dL LAB HEMETOLOGY METHOD 09/09/2024 5:07 PM EDT [facility] RDW 15.7(H) 11.0 - 15.0 % LAB HEMETOLOGY METHOD 09/09/2024 5:07 PM EDT [facility] Platelets 241 130 - 400 K/mcL LAB HEMETOLOGY METHOD 09/09/2024 5:07 PM EDT [facility] MPV 9.4 7.0 - 11.0 FL LAB HEMETOLOGY METHOD 09/09/2024 5:07 PM EDT [facility] NRBC 0.0 <1.0 % LAB HEMETOLOGY METHOD 09/09/2024 5:07 PM EDT [facility] NRBC Absolute 0.00 <0.10 K/mcL LAB HEMETOLOGY METHOD 09/09/2024 5:07 PM EDT [facility] Blood Venous blood specimen / Unknown Venipuncture / Unknown 09/09/2024 2:41 PM EDT 09/09/2024 4:33 PM EDT us Danyell Isidro DO LAB BLOOD ORDERABLES Final Result [facility] [address] [place] [address], [place] [phone] * Lactate dehydrogenase (09/09/2024 2:41 PM EDT) [facility] LDH 150 120 - 246 unit/L LAB CHEMISTRY METHOD 09/09/2024 4:55 PM EDT [facility] Blood Venous blood specimen / Unknown Venipuncture / Unknown 09/09/2024 2:41 PM EDT 09/09/2024 4:33 PM EDT Danyell Isidro DO LAB BLOOD ORDERABLES Final Result [facility] [address] [place] [address], [place] [phone] * (ABNORMAL) Comprehensive metabolic panel (09/09/2024 2:41 PM EDT) [facility] Sodium 141 133 - 145 mmol/L LAB CHEMISTRY METHOD 09/09/2024 4:55 PM T [facility] Potassium 4.3 3.5 - 5.5 mmol/L LAB CHEMISTRY METHOD 09/09/2024 4:55 PM T [facility] Chloride 106 96 - 110 mmol/L LAB CHEMISTRY METHOD 09/09/2024 4:55 PM T [facility] CO2 27 21 - 32 mmol/L LAB CHEMISTRY METHOD 09/09/2024 4:55 PM EDT [facility] Anion Gap 8 3 - 11 LAB CHEMISTRY METHOD 09/09/2024 4:55 PM [facility] Glucose 102(H) 70 - 100 mg/dL LAB CHEMISTRY METHOD 09/09/2024 4:55 PM [facility] BUN 15 5 - 25 mg/dL LAB CHEMISTRY METHOD 09/09/2024 4:55 PM EDT [facility] Creatinine 0.78 0.70 - [...] Isidro DO LAB BLOOD ORDERABLES Final Result [facility] [address] [place] [address], [place] [phone] from Last 3 Months Insurance MEDICARE [facility] Advance Directives Documents on File Type Date Recorded Patient Dry Cleaning Counter Clerk Expl anation Health Care Decision (hx) 06/30/2020 [...] (hx) 06/30/2020 AD WATKINS DIRECTIVE Care Teams String Winding Machine Operator Relationship Specialty Start Date End Date Celso Butterfield PA [address] [place] [phone] PCP - General Internal Medicine 07/12/20
--- OUTSIDE RECORDS SUMMARY | 2024-11-24 14:56 | XMS_ITS | Clinical Summary ---
Author Organization [facility] Address [address] [place] [address] Phone Care Team Providers Care Electric Engine Mechanic Name Role Phone Celso Butterfield Primary Care Provider + Sammy Ortega MD Unavailable Jerrell Choi MD Unavailable [phone] Self-Referred, Patient Unavailable Unavailab Jt Cui [facility] Unavailable [phone] Danyell Isidro DO Unavailable Allergies Active Allergy [...] 2023 01/15/2022, 01/16/2021, 07/04/2020, Additional history exists INFLUENZA VACCINE (#1) 2024 01/15/2022, 2019 RSV VACCINE (1 - 1-dose 75+ series) [...] Insurance MEDICARE PART A & B [facility] MEDICARE SUPPLEMENT MEDICARE PART A & B [facility] MEDICARE SUPPLEMENT MEDICARE PART A & B Member Subscriber Plan / Payer ( fective 2018-Present) Name:Carson Neumann Member ID:[id number] Relation to Subscriber:Self Name:Carson Neumann Subscriber ID:[id number] Payer ID:[id number] Group ID:Not on file Type:Medicare Address: [employer] [address] MEDICARE SUPPLEMENT MEDICARE PART A & B MEDICARE SUPPLEMENT MEDICARE PART A & B MEDICARE SUPPLEMENT MEDICARE PART A & B MEDICARE SUPPLEMENT MEDICARE PART A & B MEDICARE SUPPLEMENT MEDICARE PART A & B [facility] MEDICARE SUPPLEMENT MEDICARE PART A & B [facility] MEDICARE SUPPLEMENT Care Teams Electric Engine Mechanic Relationship Specialty Start Date End Date Celso Butterfield PA [address] [place] [phone] PCP - General 12/10/18 Sammy Ortega MD [address] [place] [phone] Referring Physician Urology 12/10/18 Jerrell Choi MD [address] [place] [address] [email or web address] Internal Medicine 12/27/18 Self-Referred, Patient 01/19/23 Jt Yeager, [facility] [address] [place] [phone] [email or web address] Medical Oncology 01/20/23 Danyell Isidro DO [address] [place] [phone] Internal Medicine 01/30/23 Additional Source Comments The information contained in this document represents components of the legal health record. It is not the complete legal health record.[facility]
--- OUTSIDE RECORDS SUMMARY | 2024-11-24 14:57 | XMS_ITS | Patient Health Record ---
Author Organization [facility] Address [address] [place] [address] Care Team Providers Care Airport Guide Name Role Phone Celso Butterfield Primary Care Provider UnavailCullen Power Unavailable [phone] Allergies Allergen (clinical drug ingredient) Drug/Non Drug [...] Problem Status W/U Status Risk Notes Problem [id number] Encounter for screening for malignant neoplasm of colon (Z12.11) Active confirmed Problem Iron deficiency anemia (68565149) Iron deficiency anemia (D50.9) Active confirmed Problem [id number] Preprocedural examination (Z01.818) Active confirmed Problem Gastroesophageal reflux disease (790288689) GERD (gastroesophagea l reflux disease) (K21.9) Active confirmed Plan Of Treatment Future Test Test Name Order Date COLONOSCOPY 12/28/2018 UPPER GI ENDOSCOPY 06/22/2020 COLONOSCOPY 06/22/2020 Insurance Providers Payer Name Payer Address Payer Phone Subscriber Number Group Number Insured Name Patient Relationship to Insured Coverage Start Date Coverage End Date MEDICARE OF [place] [address] [facility] [place] [address] [id number] AILYN GARSIA Self - patient is the insured [facility] [address] [place] [address] [phone] [id number] AILYN GARSIA Self - patient is the insured Medical (General) History Medical History History ICD Code 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 Jimbo Montes De Oca [place],DM,CVA,Lung disease,renal dise ase Neg colonoscopy in 2006 Colonoscopy 02/2019 with 2 small tubular adenomas removed GERD COVID 04/2020 Surgical History Surgery Date(Month/Year) Cataract right eye 03/2019
== END 2024-11-24 14:35 | disposition home or self-care (01) ==
LOC: HO.HUSH 14:11
PROVIDERS: PCP Physician Assistant; Visit Provider Urology
DX: M81.8 Other osteoporosis without current pathological fracture (principal); T38.7X5A Adverse effect of androgens and anabolic congeners, initial encounter

== ENCOUNTER → 2024-11-24 14:11 | Outpatient (BNVA) | payer MEDICARE, OTHER, SELFPAY | PROVIDERS: PCP Physician Assistant; Visit Provider Urology | DX: M81.8 Other osteoporosis without current pathological fracture (principal); T38.7X5D Adverse effect of androgens and anabolic congeners, subsequent encounter | CPT/HCPCS: 96372; J0897 ==

== ENCOUNTER 2024-12-16 10:37 | Outpatient (REF) | payer MEDICARE, OTHER, SELFPAY ==
--- OUTSIDE RECORDS SUMMARY | 2024-12-16 11:16 | XMS_ITS | Clinical Summary ---
Author Organization [facility] Address [address] [place] [address] Care Team Providers Care Psychiatric Nurse Name Role Phone Celso Butterfield Primary Care [...] age to complete this topic Care Teams Psychiatric Nurse Relationship Specialty Start Date End Date Celso Butterfield PA [address] [facility] [place] [phone] PCP - General Physician Forest Fire Lookout 12/15/18 Morenita Vang MD [facility] [place] Consulting Physician Medical Oncology 12/27/18
--- OUTSIDE RECORDS SUMMARY | 2024-12-16 11:16 | XMS_ITS | Clinical Summary ---
Author Organization [facility] Address [address] [place] [address] Phone Care Team Providers Care Supervisor Filtration Name Role Phone Celso Butterfield Primary Care [...] t o multiple sites (CMS/HCC V24, CMS/[facility] V28) 12/19/2021 Social History Tobacco Use Types [...] Description 01/12/2025 2:15 PM EDT Office Visit [facility] Hematology Oncology [address] [place] [phone] Danyell Isidro, DO [address] [place] [address] Health Maintenance Due Date Last Done Comments [...] 03/30/2024 COVID-19 Vaccine (7 - Pfizer risk 2023- [...] patient's age to complete this topic Insurance MEDICARE [facility] Advance Directives Documents on File Type Date Recorded Patient Finish Photographer Expl anation Health Care Decision (hx) 06/30/2020 [...] 06/30/2020 AD WATKINS DIRECTIVE Care Teams Supervisor Filtration Relationship Specialty Start Date End Date Celso Butterfield PA [address] [place] [phone] PCP - General Internal Medicine 07/12/20
--- OUTSIDE RECORDS SUMMARY | 2024-12-16 11:16 | XMS_ITS | Clinical Summary ---
Author Organization [facility] Address [address] [place] [address] Phone Care Team Providers Care Coin Rolling Machine Operator Name Role Phone Celso Butterfield Primary Care Provider + Sammy Ortega MD Unavailable Jerrell Choi MD Unavailable [phone] Self-Referred, Patient Unavailable Unavailab Jt Cui [facility] Unavailable [phone] Danyell Isidro DO Unavailable Allergies Active Allergy [...] ZOSTER VACCINES (2 of 2) 12/17/2022 10/22/2022 INFLUENZA VACCINE (#1) 2024 01/15/2022, 2019 COVID-19 VACCINE (5 - 2024- season) 2024 01/15/2022, 01/16/2021, 07/04/2020, Additional history exists RSV [...] file Insurance MEDICARE PART A & B [facility] MEDICARE SUPPLEMENT MEDICARE PART A & B [facility] MEDICARE SUPPLEMENT MEDICARE PART A & B Member Subscriber Plan / Payer ( fective 2018-Present) Name:Carson Neumann Member ID:[id number] Relation to Subscriber:Self Name:Carson Neumann Subscriber ID:[id number] Payer ID:[id number] Group ID:Not on file Type:Medicare Address: [employer] [address] MEDICARE SUPPLEMENT MEDICARE PART A & B MEDICARE SUPPLEMENT MEDICARE PART A & B MEDICARE SUPPLEMENT MEDICARE PART A & B MEDICARE SUPPLEMENT MEDICARE PART A & B MEDICARE SUPPLEMENT MEDICARE PART A & B [facility] MEDICARE SUPPLEMENT MEDICARE PART A & B [facility] MEDICARE SUPPLEMENT Care Teams Coin Rolling Machine Operator Relationship Specialty Start Date End Date Celso Butterfield PA [address] [place] [phone] PCP - General 12/10/18 Sammy Ortega MD [address] [place] [address] Referring Physician Urology 12/10/18 Jerrell Choi MD [address] [place] [address] [email or web address] Internal Medicine 12/27/18 Self-Referred, Patient 01/19/23 Jt Yeager, [facility] [address] [place] [id number] [email or web address] 01/20/23 Danyell Isidro DO [address] [place] [id number] Internal Medicine 01/30/23 Additional Source Comments The information contained in this document represents components of the legal health record. It is not the complete legal health record.[facility]
[2024-12-16 12:50] LABS: Prostate Specific Antigen 0.28 ng/mL (<0.05-4.0)
== END 2024-12-16 10:38 | disposition home or self-care (01) ==
LOC: HO.LAB 10:37
PROVIDERS: PCP Physician Assistant; Visit Provider Urology
DX: Z12.5 Encounter for screening for malignant neoplasm of prostate (principal); C61 Malignant neoplasm of prostate; C79.51 Secondary malignant neoplasm of bone
CPT/HCPCS: 36415; 84153; 84403

== ENCOUNTER 2024-12-22 14:01 | Outpatient (AMB) | payer MEDICARE, OTHER, SELFPAY ==
[2024-12-22 14:22] VITALS: BP 124/62; PULSE 48; BMI 34.5
--- NOTE | 2024-12-22 14:22 | MHC.OFFVIS ---
Vital Signs 12/22/24 14:22 Height 5 ft 10 in Weight 240 lb 4.862 oz BMI 34.5 BP 124/62 Blood Pressure Location Lt brachial Position Sitting Pulse 48 L Pulse Source Pulse Oximeter Intake Visit Reasons: follow up/ stress test/ echo Data Reduction Technician Required: No Allergies Iodinated Contrast Media Allergy (Unknown, Verified 12/22/24 14:24) Unknown Lobster Allergy (Unknown, Verified 12/22/24 14:24) unknown Medication List - Last Reconciled 12/22/24 by Rohini Gudino NP-C abiraterone 1,000 mg (4 x 250 mg) PO DAILY 30 days apixaban (Eliquis) 5 mg PO BID cyanocobalamin (vitamin B-12) (Vitamin B-12) 1,000 mcg PO DAILY diclofenac sodium 1% (Aspercreme Arthritis Pain) 2 grams topical QID PRN ferrous fumarate ER 65 mg PO DAILY metoprolol succinate ER 25 mg PO DAILY omeprazole 20 mg PO Q OTHER DAY prednisone 2.5 mg PO BID 30 days triamcinolone acetonide 0.1% 1 appl topical BID 30 days HPI HPI follow up/ stress test/ echo: Details: Carson is a 74-year-old male with past medical history of prostate CA, clotting history and on Eliquis, heart palpitations with findings of brief atrial tachycardia and frequent PVCs who presents for follow-up after recent echocardiogram and nuclear stress test. Today he reports he has been feeling much better since the start of metoprolol. He is no longer noticing any heart palpitations. He denies having fatigue, lightheadedness, decreased energy. He has no chest discomfort at rest or with activity. He denies shortness of breath, PND, orthopnea. 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 No presyncope, syncope, falls. No bleeding issues reported. Taking meds as directed. Admits to being mostly sedentary. [facility] Medical History Eczema correction systemic steroid user Tendinopathy of rotator cuff Anemia Pulmonary embolism Prostate cancer Surgical History History of cataract surgery History of colonoscopy History of endoscopy Family History Father Psoriatic arthritis CVD (cardiovascular disease) Heart problem Cancer Mother Hypertension Brother Prostate cancer Sister No problems noted. Daughter In good health Social History Household Members: Spouse Housing: House Do you presently have visiting nurse or other home services: No Alcohol intake: current Alcohol intake frequency: 0-2 drinks per day Patient Tobacco Use Status: Never used Tobacco e-Cigarette/Vaping Use: Never Used Substance Use Type: Marijuana service: No Current occupational status: retired Cognitive needs: No Hearing needs: No Vision needs: Yes (glasses ) Review of Systems Const All systems reviewed & are unremarkable except as noted in HPI and below ENT Denies dizziness Card Denies chest pain, Denies chest pain at rest, Denies chest pain with activity, Denies rapid heart rate, Denies pedal edema, Denies edema, Denies leg edema, Denies lightheadedness, Denies palpitations, Denies dyspnea, Denies dyspnea on exertion and Denies orthopnea Resp Denies cough, Denies dyspnea and Denies dyspnea on exertion GI Denies hematochezia and Denies change in stool character Musc Denies abnormal gait, Denies limited range of motion, Denies muscle cramps, Denies muscle weakness, Denies numbness, Denies radiating pain into limb, Denies stiffness and Denies tingling Neuro Denies abnormal gait, Denies dizziness, Denies numbness and Denies tingling Endo Denies palpitations Physical Exam Vital Signs: Last Vital Signs Pulse 48 L 12/22/24 14:22 BP 124/62 12/22/24 14:22 BMI result Body Mass Index 34.5 Const General: cooperative, healthy appearing, comfortable and no acute distress Orientation/consciousness: patient oriented x3 Neck Neck: Yes normal visual inspection Resp Effort & Inspection: normal respiratory effort Auscultation: clear to auscultation bilaterally, no crackles, no rales, no rhonchi and no wheezes Cardio Rate: regular rate Rhythm: regular rhythm Heart sounds: S1 normal heart sound present, S2 normal heart sound present, no gallops, no murmurs and no rubs Neuro General: patient oriented x3 Extrem General: Yes normal to inspection and No no pedal edema Psych Appearance: grossly normal Mental Status: mental status grossly normal Speech and movement: Normal speech and movement present Office Procedures EKG Details: Today, read by me, sinus bradycardia, left anterior fascicular block, can not exclude prior anterior infarct, T-wave abnormality anterior lateral leads, rate 48, QTC 382 milliseconds [id number], Complete Assessment & Plan Assessment & Plan (1) Heart palpitations: Code(s): R00.2 - Palpitations Category: Medical Plan: Prior reports of heart palpitations. Holter monitor done 05/24/2024 showed sinus rhythm with average heart rate 61, SVE 1% with short runs, longest 29 beats, ventricular ectopy 5.1%. He was put on metoprolol following this result. He did undergo echocardiogram 11/08/2024 showing EF 62%, no valve abnormalities. Exercise nuclear stress test 11/22/2024 with exercise 5 minutes 20 seconds with frequent PVCs, no EKG changes of ischemia and normal myocardial perfusion imaging. EKG done today showing sinus bradycardia, rate 48. Ambulated in the hallway with use of sat monitor, resting heart rate 52, easily johnny to 73 with ambulation. Will continue metoprolol XL 25 mg daily. Instructed to call this office if he is having any concerning symptoms. Will check Holter monitor prior to next visit. Cardiology follow-up 6 months, sooner if needed. (2) PVC (premature ventricular contraction): Code(s): I49.3 - Ventricular premature depolarization Category: Medical Plan: As above (3) Atrial tachycardia: Code(s): I47.19 - Other supraventricular tachycardia Category: Medical Plan: As above (4) Pulmonary embolism: Code(s): I26.99 - Other pulmonary embolism without acute cor pulmonale Category: Medical Qualifiers: Pulmonary embolism type: unspecified Chronicity: acute Acute cor pulmonale presence: without acute cor pulmonale Qualified Code(s): I26.99 - Other pulmonary embolism without acute cor pulmonale Plan: History of pulmonary embolism in setting of prostate CA. He is on Eliquis for this reason. Plan Time spent on chart review, documentation, intterview assessment Orders: Orders ECG 3 day holter monitor 5 Months I47.19 - Other supraventricular tachycardia, I49.3 - Ventricular premature depolarization, R00.2 - Palpitations Coding Level of Care Code Est Pt Level 4 (91002) Inspire Program cplx 4 or more Diagnoses Heart palpitations R00.2 PVC (premature ventricular contraction) I49.3 Atrial tachycardia I47.19 Acute pulmonary embolism without acute cor pulmonale, unspecified pulmonary embolism type I26.99 Pulmonary embolism type: unspecified Chronicity: acute Acute cor pulmonale presence: without acute cor pulmonale CPT Codes EKG - CPT: 89868-Iomwnqptripovubug, Complete ([id number])
--- OUTSIDE RECORDS SUMMARY | 2024-12-22 18:31 | XMS_ITS | Clinical Summary ---
Author Organization [facility] Address [address] [place] [address] Care Team Providers Care Rabies Inspector Name Role Phone Celso Butterfield Primary Care [...] age to complete this topic Care Teams Rabies Inspector Relationship Specialty Start Date End Date Celso Butterfield PA [address] [facility] [place] [phone] PCP - General Physician Botanical Technical Officer 12/15/18 Morenita Vang MD [facility] for Genitourinary On[facility] [place] Consulting Physician Medical Oncology 12/27/18
--- OUTSIDE RECORDS SUMMARY | 2024-12-22 18:31 | XMS_ITS | Clinical Summary ---
Author Organization [facility] Address [address] [place] [address] Phone Care Team Providers Care Asset Administrator Name Role Phone Celso Butterfield Primary Care Provider + Sammy Ortega MD Unavailable [phone] Jerrell Choi MD Unavailable [phone] Self-Referred, Patient Unavailable Unavailab Jt Cui [facility] Unavailable [phone] Danyell Isidro DO Unavailable Allergies Active Allergy [...] file Insurance MEDICARE PART A & B [facility] MEDICARE SUPPLEMENT MEDICARE PART A & B [facility] MEDICARE SUPPLEMENT MEDICARE PART A & B Member Subscriber Plan / Payer ( fective 2018-Present) Name:Carson Neumann Member ID:[id number] Relation to Subscriber:Self Name:Carson Neumann Subscriber ID:[id number] Payer ID:[id number] Group ID:Not on file Type:Medicare Address: [employer] [address] MEDICARE SUPPLEMENT MEDICARE PART A & B MEDICARE SUPPLEMENT MEDICARE PART A & B MEDICARE SUPPLEMENT MEDICARE PART A & B MEDICARE SUPPLEMENT MEDICARE PART A & B MEDICARE SUPPLEMENT MEDICARE PART A & B [facility] MEDICARE SUPPLEMENT MEDICARE PART A & B [facility] MEDICARE SUPPLEMENT Care Teams Asset Administrator Relationship Specialty Start Date End Date Celso Butterfield PA [address] [place] [address] PCP - General 12/10/18 Sammy Ortega MD [address] [place] [address] Referring Physician Urology 12/10/18 Jerrell Choi MD [address] [place] [address] [email or web address] Internal Medicine 12/27/18 Self-Referred, Patient 01/19/23 Jt Yeager, [facility] [address] [place] [phone] [email or web address] Medical Oncology 01/20/23 Danyell Isidro DO [address] [place] [address] Internal Medicine 01/30/23 Additional Source Comments The information contained in this document represents components of the legal health record. It is not the complete legal health record.[facility]
--- OUTSIDE RECORDS SUMMARY | 2024-12-22 18:31 | XMS_ITS | Patient Health Record ---
Author Organization [facility] Address [address] [place] [address] Care Team Providers Care Postal Supervisor Name Role Phone Celso Butterfield Primary Care Provider UnavailCullen Power Unavailable [phone] Allergies Allergen (clinical drug ingredient) Drug/Non Drug [...] Problem Status W/U Status Risk Notes Problem [id number] Encounter for screening for malignant neoplasm of colon (Z12.11) Active confirmed Problem Iron deficiency anemia (70932094) Iron deficiency anemia (D50.9) Active confirmed Problem 836554666750554 Preprocedural examination (Z01.818) Active confirmed Problem Gastroesophageal reflux disease (017828962) GERD (gastroesophagea l reflux disease) (K21.9) Active confirmed Plan Of Treatment Future Test Test Name Order Date COLONOSCOPY 12/28/2018 UPPER GI ENDOSCOPY 06/22/2020 COLONOSCOPY 06/22/2020 Insurance Providers Payer Name Payer Address Payer Phone Subscriber Number Group Number Insured Name Patient Relationship to Insured Coverage Start Date Coverage End Date MEDICARE OF [place] [address] [facility] [place] [address] [phone] [id number] AILYN GARSIA Self - patient is the insured [facility] [address] [place] [address] [id number] AILYN GARSIA Self - patient is the insured Medical (General) History Medical History History ICD Code 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 Jimbo Montes De Oca [place],DM,CVA,Lung disease,renal dise ase Neg colonoscopy in 2006 Colonoscopy 02/2019 with 2 small tubular adenomas removed GERD COVID 04/2020 Surgical History Surgery Date(Month/Year) Cataract right eye 03/2019
== END 2024-12-22 14:47 | disposition home or self-care (01) ==
LOC: HO.HCS 14:02
PROVIDERS: PCP Physician Assistant; Visit Provider Nurse Practitioner Family
DX: R00.2 Palpitations (principal); I49.3 Ventricular premature depolarization; I47.19 Other supraventricular tachycardia; I26.99 Other pulmonary embolism without acute cor pulmonale
CPT/HCPCS: 93010; 99214

== ENCOUNTER → 2024-12-22 14:01 | Outpatient (BNVA) | payer MEDICARE, OTHER, SELFPAY | PROVIDERS: PCP Physician Assistant; Visit Provider Nurse Practitioner Family | DX: I49.3 Ventricular premature depolarization (principal); I47.19 Other supraventricular tachycardia; R00.2 Palpitations; I26.99 Other pulmonary embolism without acute cor pulmonale; Z79.01 Long term (current) use of anticoagulants | CPT/HCPCS: 93005; 99212 ==

== ENCOUNTER 2024-12-26 13:49 | Outpatient (AMB) | payer MEDICARE, OTHER, SELFPAY ==
--- NOTE | 2024-12-26 14:09 | AM.OFFVISNUR ---
Intake Visit Reasons: Xgeva Allergies Iodinated Contrast Media Allergy (Unknown, Verified 12/22/24 14:24) Unknown Lobster Allergy (Unknown, Verified 12/22/24 14:24) unknown Office Meds Xgeva 120 mg/1.7 mL (70 mg/mL) subcutaneous solution Performing Provider: Sammy Ortega MD [facility] Administered by: Marisabel [place] RN on 12/26/24 14:09 Dose Route Admin Location Dispensed Lot Number Expiration Date [facility] [employer] Supervisor 120 mg subcut Left Upper Arm 1.7 mL [id number] 02/26/27 40041-038-64 [employer] Total Dispensed Waste 1.7 mL 0 % Assessment & Plan Assessment & Plan Orders: Orders AMB Denosumab Injection Practice Supplied Today C61 - Malignant neoplasm of prostate, C79.51 - Secondary malignant neoplasm of bone Coding
--- OUTSIDE RECORDS SUMMARY | 2024-12-26 15:30 | XMS_ITS | Patient Health Record ---
Author Organization [facility] Address [address] [place] [address] Care Team Providers Care Head Kiln Operator Name Role Phone Celso Butterfield Primary Care Provider UnavailCullen Power Unavailable [phone] Allergies Allergen (clinical drug ingredient) Drug/Non Drug [...] Problem Status W/U Status Risk Notes Problem [id number] Encounter for screening for malignant neoplasm of colon (Z12.11) Active confirmed Problem Iron deficiency anemia (04698511) Iron deficiency anemia (D50.9) Active confirmed Problem [id number] Preprocedural examination (Z01.818) Active confirmed Problem Gastroesophageal reflux disease (098230469) GERD (gastroesophagea l reflux disease) (K21.9) Active confirmed Plan Of Treatment Future Test Test Name Order Date COLONOSCOPY 12/28/2018 UPPER GI ENDOSCOPY 06/22/2020 COLONOSCOPY 06/22/2020 Insurance Providers Payer Name Payer Address Payer Phone Subscriber Number Group Number Insured Name Patient Relationship to Insured Coverage Start Date Coverage End Date MEDICARE OF [place] [address] [facility] 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 Jimbo Montes De Oca [place],DM,CVA,Lung disease,renal dise ase Neg colonoscopy in 2006 Colonoscopy 02/2019 with 2 small tubular adenomas removed GERD COVID 04/2020 Surgical History Surgery Date(Month/Year) Cataract right eye 03/2019
--- OUTSIDE RECORDS SUMMARY | 2024-12-26 15:30 | XMS_ITS | Clinical Summary ---
Author Organization [facility] Address [address] [place] [address] Care Team Providers Care Supervisor Train Operations Name Role Phone Celso Butterfield Primary Care Provider [phone] Allergies Active Allergy Reactions Criticality Noted Date [...] age to complete this topic Care Teams Supervisor Train Operations Relationship Specialty Start Date End Date Celso Butterfield PA [address] [facility] [place] [phone] PCP - General Physician International Freight Forwarder 12/15/18 Morenita Vang MD [facility] for Genitourinary Oncology [facility] [place] Consulting Physician Medical Oncology 12/27/18
--- OUTSIDE RECORDS SUMMARY | 2024-12-26 15:30 | XMS_ITS | Clinical Summary ---
Author Organization [facility] Address [address] [place] [address] Phone Care Team Providers Care Bander Hand Name Role Phone Celso Butterfield Primary Care [...] metastatic t o multiple sites (CMS/HCC V24, CMS/[facility] V28) 12/19/2021 Social History Tobacco Use Types [...] Description 01/12/2025 2:15 PM EDT Office Visit [facility] Hematology Oncology [address] [place] [phone] Danyell Isidro, DO [address] [place] [address] Health Maintenance Due Date Last Done Comments [...] age to complete this topic Insurance MEDICARE [facility] Advance Directives Documents on File Type Date Recorded Patient Mineral Mixer Expl anation Health Care Decision (hx) [...] (hx) 06/30/2020 AD WATKINS DIRECTIVE Care Teams Bander Hand Relationship Specialty Start Date End Date Celso Butterfield PA [address] [place] [phone] PCP - General Internal Medicine 07/12/20
--- OUTSIDE RECORDS SUMMARY | 2024-12-26 15:30 | XMS_ITS | Clinical Summary ---
Author Organization [facility] Address [address] [place] [address] Phone Care Team Providers Care Assistant Activities Director Name Role Phone Celso Butterfield Primary Care Provider + Sammy Ortega MD Unavailable [phone] Jerrell Choi MD Unavailable [phone] Self-Referred, Patient Unavailable Unavailab Jt Cui [facility] Unavailable [phone] Danyell Isidro DO Unavailable Allergies Active Allergy [...] MEDICARE PART A & B [facility] MEDICARE SUPPLEMENT MEDICARE PART A & B [facility] MEDICARE SUPPLEMENT MEDICARE PART A & B Member Subscriber Plan / Payer ( fective 2018-Present) Name:Carson Neumann Member ID:[id number] Relation to Subscriber:Self Name:Carson Neumann Subscriber ID:[id number] Payer ID:[id number] Group ID:Not on file Type:Medicare Address: [employer] [address] MEDICARE SUPPLEMENT MEDICARE PART A & B MEDICARE SUPPLEMENT MEDICARE PART A & B MEDICARE SUPPLEMENT MEDICARE PART A & B MEDICARE SUPPLEMENT MEDICARE PART A & B MEDICARE SUPPLEMENT MEDICARE PART A & B [facility] MEDICARE SUPPLEMENT MEDICARE PART A & B [facility] MEDICARE SUPPLEMENT Care Teams Assistant Activities Director Relationship Specialty Start Date End Date Celso Butterfield PA [address] [place] [address] PCP - General 12/10/18 Sammy Ortega MD [address] [place] [address] Referring Physician Urology 12/10/18 Jerrell Choi MD [address] [place] [address] [email or web address] Internal Medicine 12/27/18 Self-Referred, Patient 01/19/23 Jt Yeager, [facility] [address] [place] [address] [email or web address] Medical Oncology 01/20/23 Danyell Isidro DO [address] [place] [address] Internal Medicine 01/30/23 Additional Source Comments The information contained in this document represents components of the legal health record. It is not the complete legal health record.[facility]
== END 2024-12-26 14:09 | disposition home or self-care (01) ==
LOC: HO.HUSH 13:50
PROVIDERS: PCP Physician Assistant; Visit Provider Urology
DX: C61 Malignant neoplasm of prostate (principal); C79.51 Secondary malignant neoplasm of bone

== ENCOUNTER → 2024-12-26 13:49 | Outpatient (BNVA) | payer MEDICARE, OTHER, SELFPAY | PROVIDERS: PCP Physician Assistant; Visit Provider Urology | DX: C79.51 Secondary malignant neoplasm of bone (principal); C61 Malignant neoplasm of prostate | CPT/HCPCS: 96372; J0897 ==

== ENCOUNTER 2024-12-30 13:53 | Outpatient (AMB) | payer MEDICARE, OTHER, SELFPAY ==
--- NOTE | 2024-12-30 13:52 | MHC.OFFVIS ---
Intake Visit Reasons: 3m/PSA/Testo Intake Note: Patient is present for 3 mo follow up Urology Medication:Abireterone Antibiotic Allergy:NONE Blood Thinner:APIXABAN Labs done 12/15/24 :PSA 2.76, Total testosterone :1 Octave Board Assembler Required: No Accompanied by: Self / Same As Patient Allergies Iodinated Contrast Media Allergy (Unknown, Verified 12/30/24 13:54) Unknown Lobster Allergy (Unknown, Verified 12/30/24 13:54) unknown HPI Comments Details: Rohan godoy is a pleasant male. He is a patient Dr. Butterfield. He is seen for the following urologic conditions. 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 Consider dose deescalation if continue good response. 12/22 0.28 09/21 PSA 0.23 - GNRH and Xgeva today with abiraterone and prednisone - dose 3 07/22 plan for Xgeva today. HbA1c 5.6 which is staying stable. Continues with abiraterone plus b.i.d. prednisone - Bone scan shows stability 03/22 GNRH dose 2 -PSA 0.2 - good response 07/21 PSA 6 - restart GnRH plus abiraterone (2.5mg daily) plus xgeva Bone Scan - Recurrent metastatic tumor involvement of bone. There has been a significant but mild progression in the bone scan appearance since the most recent 06/19/2022 study 18 months since completed therapy 04/22 PSA 2.6 T 253 - DEXA Osteroporosis 10/19 PET-CT no metabolically active lymph nodes, prostate active 06/19 GnRH P <0.1, T 7 Imagin. Interval development of subtle focal area of increased radiotracer activity is noted at the left frontal skull. 2. Interval development of mild increased radiotracer activity is noted at L4 to the left of the midline. 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 Diagnosis was reached by needle biopsy, for elevated PSA, PSA at diagnosis 19, size at TRUS 60cc. The Tiffany grade is October 2018 - 03/10 cores Gl , 4+4 = 8, 4+5 = 9, 60-90%, + PNI. TNM Classification of Malignant Tumours (TNM) T2b - palpable bilateral. The D'Amari (NCCN) risk category is High Risk (PSA > 20, Gl 8+, T3) - Group 5 on biopsy. Initial therapy included Primary treatment - bicalutamide, dutasteride, plan for GnRH 12/09/18 - GnRH 1xt dose given, stop bicalutamide in 7 days Recent labs included PSA 03/18 0.4 - T 03/18 <1 - 06/17 PSA .4, T <1, 12/18 PSA 0.3, T 6, 03/19 0.3, 06/18 0.2, 09/18 0.2, 12/19 0.15, 03/20 <0.1 Recent imaging included - 11/15 , a CT (computed tomography) scan - mild hydroureteronephrosis bilateral with 1cm sclerotic lesion in ileum, 1.5 cm iliac nodes, bladder wall thickening - 12/16 CT scan with bilateral mild to moderate hydroureteral nephrosis - 06/18 CT with minimal lymphadenopathy and resolution of majority of bone island sclerosis - 01/18 CT with no evidence of lymphadenopathy Dexa Scan - 06/16 NAD, 01/17 NAD Bone Scan - 12/16 , a bone scan sclerotic lesion on ileum and calvarium with scattered rib lesions - 12/17 bone scan. Improvement with sclerotic lesion on ileum and calvarium. Significant improvement compared to prior study. Renal ultrasound no evidence of calculus or bilateral hydronephrosis - 03/19 bone scan with overall relatively stable disease, question of subtle change on T1 - 12/19 bone scan with stable disease - 07/22 bone scan Mild bone activity in bilateral posterior ribs, left clavicle, calvarium is stable. There are no new areas of metabolic activity seen suggestive of progression. Associated conditions erectile dysfunction Yes hematuria No hot flashes Yes Therapeutic plan: Continue hormone therapy. 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 Lower Urinary Tract Symptoms: Doing well. Current visit is for further evaluation of, lower urinary tract symptoms, predominate obstructive symptoms. Prior treatments include 01/15 , procedure, laser procedure. Symptoms include 12/16 , nocturia (>2), weak stream, and are progressing. Prostate volume 50+gm. Treatment plan pvr each visit. 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 Daughter In good health Social History Household Members: Spouse Housing: House Do you presently have visiting nurse or other home services: No Alcohol intake: current Alcohol intake frequency: 0-2 drinks per day Patient Tobacco Use Status: Never used Tobacco e-Cigarette/Vaping Use: Never Used Substance Use Type: Marijuana service: No Current occupational status: retired Cognitive needs: No Hearing needs: No Vision needs: Yes (glasses ) Review of Systems Const Denies chills and Denies fever(s) Card Reports no additional complaints and Denies syncope Resp Denies cough GI Denies abdominal pain and Denies heartburn Reports as per HPI and Denies change in libido Neuro Denies syncope Psych Denies change in libido Endo Denies change in libido Physical Exam Const General: cooperative, healthy appearing, comfortable and no acute distress Orientation/consciousness: patient oriented x3 HEENT Face and sinus: Yes normal facial exam Mouth: moist mucous membranes Neck Neck: Yes normal visual inspection, Yes full ROM and Yes trachea midline Chest Chest palpation & inspection: normal inspection of the chest Resp Effort & Inspection: normal respiratory effort, able to speak in complete sentences and no respiratory distress GI Inspection: Yes normal to inspection Back/Spine/Pelvis Cervical Spine: normal cervical lordosis Thoracic/Lumbar Spine: thoracic and lumbar spine normal to inspection Skin General skin exam: no rashes or lesions noted Neuro General: patient oriented x3, gait normal, tone normal and moves all extremities Extrem General: Yes normal to inspection and Yes capillary refill normal Assessment & Plan Assessment & Plan (1) Prostate cancer metastatic to bone: Comment: Group 5 metastatic to bone October 2018 Code(s): C61 - Malignant neoplasm of prostate; C79.51 - Secondary malignant neoplasm of bone Category: Medical Plan Three-month follow-up Orders: Orders Testosterone, Total 3 Months C61 - Malignant neoplasm of prostate, C79.51 - Secondary malignant neoplasm of bone Prostate Specific Antigen 3 Months C61 - Malignant neoplasm of prostate, C79.51 - Secondary malignant neoplasm of bone Patient Instructions: This note is constructed using voice recognition software. While every effort has been made to ensure accuracy lead applier errors may have been included. Imaging studies, laboratory and physical exam results were discussed and reviewed in detail. No major barriers to patient understanding were identified. An opportunity to ask questions regarding the treatment plan was provided. All questions were answered. The patient expressed understanding and agreement with the above treatment plan. The patient is aware they should contact our office by phone for worsening of their current condition or the appearance of new urologic symptoms. Compliance is encouraged with any medications and followup testing that is ordered. It is a privilege to participate in the urologic care of your patient. If you have any questions or concerns regarding treatment for the above conditions, or other urologic issues, please do not hesitate to contact me. The office telephone contact is [phone]. Sincerely, Dr Sammy Ortega MD, [facility] - Urology Compassionate Specialist Care for the Genitourinary System Coding Level of Care Code Est Pt Level 3 (07870) Complex EM visit Add On G2211 Diagnoses Prostate cancer metastatic to bone C61; C79.51
--- OUTSIDE RECORDS SUMMARY | 2024-12-30 14:01 | XMS_ITS | Clinical Summary ---
Author Organization [facility] Address [address] [place] [address] Care Team Providers Care Tester Equipment Name Role Phone Celso Butterfield Primary Care Provider [phone] Allergies Active Allergy Reactions Criticality Noted Date [...] age to complete this topic Care Teams Tester Equipment Relationship Specialty Start Date End Date Celso Butterfield PA [address] [facility] [place] [phone] PCP - General Physician Senior Tableau Developer 12/15/18 Morenita Vang MD [facility] On[facility] [place] Consulting Physician Medical Oncology 12/27/18
--- OUTSIDE RECORDS SUMMARY | 2024-12-30 14:01 | XMS_ITS | Clinical Summary ---
Author Organization [facility] Address [address] [place] [address] Phone Care Team Providers Care Home School Liaison Officer Name Role Phone Celso Butterfield Primary Care Provider + Sammy Ortega MD Unavailable [phone] Jerrell Choi MD Unavailable [phone] Self-Referred, Patient Unavailable Unavailab Jt Cui [facility] Unavailable [phone] Danyell Isidro DO Unavailable Allergies Active Allergy [...] Insurance MEDICARE PART A & B [facility] MEDICARE SUPPLEMENT MEDICARE PART A & B [facility] MEDICARE SUPPLEMENT MEDICARE PART A & B Member Subscriber Plan / Payer ( fective 2018-Present) Name:Carson Neumann Member ID:[id number] Relation to Subscriber:Self Name:Carson Neumann Subscriber ID:[id number] Payer ID:[id number] Group ID:Not on file Type:Medicare Address: [email or web address] [address] MEDICARE SUPPLEMENT MEDICARE PART A & B MEDICARE SUPPLEMENT MEDICARE PART A & B MEDICARE SUPPLEMENT MEDICARE PART A & B MEDICARE SUPPLEMENT MEDICARE PART A & B MEDICARE SUPPLEMENT MEDICARE PART A & B [facility] MEDICARE SUPPLEMENT MEDICARE PART A & B [facility] MEDICARE SUPPLEMENT Care Teams Home School Liaison Officer Relationship Specialty Start Date End Date Celso Butterfield PA [address] [place] [address] PCP - General 12/10/18 Sammy Ortega MD [address] [place] [address] Referring Physician Urology 12/10/18 Jerrell Choi MD [address] [place] [address] [email or web address] Internal Medicine 12/27/18 Self-Referred, Patient 01/19/23 Jt Yeager, [facility] [address] [place] [address] [email or web address] Medical Oncology 01/20/23 Danyell Isidro DO [address] [place] [address] Internal Medicine 01/30/23 Additional Source Comments The information contained in this document represents components of the legal health record. It is not the complete legal health record.[facility]
--- OUTSIDE RECORDS SUMMARY | 2024-12-30 14:01 | XMS_ITS | Patient Health Record ---
Author Organization [facility] Address [address] [place] [address] Care Team Providers Care Magnesium Mill Operator Name Role Phone Celso Butterfield Primary Care Provider UnavailCullen Power Unavailable [phone] Allergies Allergen (clinical drug ingredient) Drug/Non Drug [...] Problem Status W/U Status Risk Notes Problem 017970372 Encounter for screening for malignant neoplasm of colon (Z12.11) Active confirmed Problem Iron deficiency anemia (28594023) Iron deficiency anemia (D50.9) Active confirmed Problem 904060995349467 Preprocedural examination (Z01.818) Active confirmed Problem Gastroesophageal reflux disease (253721216) GERD (gastroesophagea l reflux disease) (K21.9) Active confirmed Plan Of Treatment Future Test Test Name Order Date COLONOSCOPY 12/28/2018 UPPER GI ENDOSCOPY 06/22/2020 COLONOSCOPY 06/22/2020 Insurance Providers Payer Name Payer Address Payer Phone Subscriber Number Group Number Insured Name Patient Relationship to Insured Coverage Start Date Coverage End Date MEDICARE OF [place] [address] [facility] [place] [address] [id number] AILYN GARSIA Self - patient is the insured [facility] [address] [place] [phone] [id number] AILYN GARSIA Self - patient is the [...]
--- OUTSIDE RECORDS SUMMARY | 2024-12-30 14:01 | XMS_ITS | Clinical Summary ---
Author Organization [facility] Address [address] [place] [address] Phone Care Team Providers Care Binder Operator Name Role Phone Celso Butterfield Primary [...] multiple sites (CMS/HCC V24, CMS/[facility] V28) 12/19/2021 Social History Tobacco Use [...] Description 01/12/2025 2:15 PM EDT Office Visit [facility] Hematology Oncology [address] [place] [phone] Danyell Isidro, DO [address] [place] [address] Health Maintenance Due Date Last Done Comments Colorectal Cancer Screening: Colonoscopy 1950 DTaP,Tdap,and Td Vaccines (1 - Tdap) 12/22/1971 RSV Immunization Adult Patients (1 - Risk 60-74 years 1-dose series) 2012 Pneumococcal Vaccine: 50+ Years (2 of 2 - PCV) 10/02/2021 10/02/2020 Cholesterol Screening (Lipid Panel) 03/06/2022 Falls Risk Assessment 03/06/2022 Hepatitis C [...] age to complete this topic Insurance MEDICARE [facility] Advance Directives Documents on File Type Date Recorded 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
== END 2024-12-30 14:11 | disposition home or self-care (01) ==
LOC: HO.HUSH 13:54
PROVIDERS: PCP Physician Assistant; Visit Provider Urology
DX: C61 Malignant neoplasm of prostate (principal); C79.51 Secondary malignant neoplasm of bone
CPT/HCPCS: 99213; G2211

== ENCOUNTER → 2024-12-30 13:53 | Outpatient (BNVA) | payer MEDICARE, OTHER, SELFPAY | PROVIDERS: PCP Physician Assistant; Visit Provider Urology | DX: C61 Malignant neoplasm of prostate (principal); C79.51 Secondary malignant neoplasm of bone | CPT/HCPCS: 99212 ==

== ENCOUNTER 2025-02-01 14:06 | Outpatient (AMB) | payer MEDICARE, OTHER, SELFPAY ==
--- NOTE | 2025-02-01 14:25 | AM.OFFVISNUR ---
Intake Visit Reasons: Xgeva inj Allergies Iodinated Contrast Media Allergy (Unknown, Verified 12/30/24 13:54) Unknown Lobster Allergy (Unknown, Verified 12/30/24 13:54) unknown Office Meds Xgeva 120 mg/1.7 mL (70 mg/mL) subcutaneous solution Performing Provider: Sammy Ortega MD [facility] Administered by: Karl Crabtree LPN on 02/01/25 14:25 Dose Route Admin Location Dispensed Lot Number Expiration Date [facility] [employer] 120 mg subcut right arm 1.7 mL [id number] 03/29/27 18951-287-18 [employer] Total Dispensed Waste 1.7 mL 0 % Assessment & Plan Assessment & Plan Orders: Orders AMB Denosumab Injection Practice Supplied Today C61 - Malignant neoplasm of prostate, C79.51 - Secondary malignant neoplasm of bone Coding
--- OUTSIDE RECORDS SUMMARY | 2025-02-01 17:16 | XMS_ITS | Patient Health Record ---
Author Organization [facility] Address [address] [place] [address] Care Team Providers Care Record Clerk Name Role Phone Celso Butterfield Primary Care Provider UnavailCullen Power Unavailable [phone] Allergies Allergen (clinical drug ingredient) Drug/Non Drug [...] Problem Status W/U Status Risk Notes Problem Screening for malignant neoplasm of colon (639232170) Encounter for screening for malignant neoplasm of colon (Z12.11) Active confirmed Problem Iron deficiency anemia (55156548) Iron deficiency anemia (D50.9) Active confirmed Problem Preprocedural examination (561951557296664) Preprocedural examination (Z01.818) Active confirmed Problem Gastroesophageal reflux disease (731733035) GERD (gastroesophagea l reflux disease) (K21.9) Active confirmed Plan Of Treatment Future Test Test Name Order Date COLONOSCOPY 12/28/2018 UPPER GI ENDOSCOPY 06/22/2020 COLONOSCOPY 06/22/2020 Insurance Providers Payer Name Payer Address Payer Phone Subscriber Number Group Number Insured Name Patient Relationship to Insured Coverage Start Date Coverage End Date MEDICARE OF [place] [address] [place] [address] [phone] [id number] AILYN GARSIA Self - patient is the insured [facility] [address] [place] [id number] AILYN GARSIA Self - patient is the insured Medical (General) History Medical History History ICD Code 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 Jimbo Martinezies ND,DM,CVA,Lung disease,renal dise ase Neg colonoscopy in 2006 Colonoscopy 02/2019 with 2 small tubular adenomas removed GERD COVID 04/2020 Surgical History Surgery Date(Month/Year) Cataract right eye 03/2019
--- OUTSIDE RECORDS SUMMARY | 2025-02-01 17:16 | XMS_ITS | Clinical Summary ---
Author Organization [facility] Address [address] [place] [address] Phone Care Team Providers Care Business Segment Manager Name Role Phone Celso Butterfield Primary Care Provider + Sammy Ortega MD Unavailable [phone] Jerrell Choi MD Unavailable [phone] Self-Referred, Patient Unavailable Unavailab Jt Cui [facility] Unavailable [phone] Danyell Isidro DO Unavailable [phone] Allergies Active Allergy Reactions Criticality Noted Date [...] file Insurance MEDICARE PART A & B [facility] MEDICARE SUPPLEMENT MEDICARE PART A & B [facility] MEDICARE SUPPLEMENT MEDICARE PART A & B Member Subscriber Plan / Payer ( fective 2018-Present) Name:Carson Neumann Member ID:[id number] Relation to Subscriber:Self Name:Carson Neumann Subscriber ID:[id number] Payer ID:[id number] Group ID:Not on file Type:Medicare Address: [employer] [address] MEDICARE SUPPLEMENT MEDICARE PART A & B MEDICARE SUPPLEMENT MEDICARE PART A & B MEDICARE SUPPLEMENT MEDICARE PART A & B MEDICARE SUPPLEMENT MEDICARE PART A & B MEDICARE SUPPLEMENT MEDICARE PART A & B [facility] MEDICARE SUPPLEMENT MEDICARE PART A & B [facility] MEDICARE SUPPLEMENT Care Teams Business Segment Manager Relationship Specialty Start Date End Date Celso Butterfield PA [address] [place] [address] PCP - General 12/10/18 Sammy Ortega MD [address] [place] [address] Referring Physician Urology 12/10/18 Jerrell Choi MD [address] [place] [address] [email or web address] Internal Medicine 12/27/18 Self-Referred, Patient 01/19/23 tJ Yeager, [facility] [address] [place] [address] [email or web address] Medical Oncology 01/20/23 Danyell Isidro DO [address] [place] [address] Internal Medicine 01/30/23 Additional Source Comments The information contained in this document represents components of the legal health record. It is not the complete legal health record.[facility]
--- OUTSIDE RECORDS SUMMARY | 2025-02-01 17:16 | XMS_ITS | Clinical Summary ---
Author Organization [facility] Address [address] [place] [address] Care Team Providers Care Crime Scene Investigator Name Role Phone Celso Butterfield Primary Care [...] age to complete this topic Care Teams Crime Scene Investigator Relationship Specialty Start Date End Date Celso Butterfield PA [address] [facility] [place] [phone] PCP - General Physician Bioinformaticist 12/15/18 Morenita Vang MD [facility] Gen[facility] On[facility] [place] Consulting Physician Medical Oncology 12/27/18
== END 2025-02-01 14:43 | disposition home or self-care (01) ==
LOC: HO.HUSH 14:07
PROVIDERS: PCP Physician Assistant; Visit Provider Urology
DX: C61 Malignant neoplasm of prostate (principal); C79.51 Secondary malignant neoplasm of bone

== ENCOUNTER → 2025-02-01 14:06 | Outpatient (BNVA) | payer MEDICARE, OTHER, SELFPAY | PROVIDERS: PCP Physician Assistant; Visit Provider Urology | DX: C79.51 Secondary malignant neoplasm of bone (principal); C61 Malignant neoplasm of prostate | CPT/HCPCS: 96372; J0897 ==

== ENCOUNTER 2025-02-16 12:10 | Outpatient (AMB) | payer MEDICARE, OTHER, SELFPAY ==
--- NOTE | 2025-02-16 12:36 | MHC.OFFVIS ---
Vital Signs 02/16/25 12:55 Height 5 ft 10 in Weight 240 lb 4.862 oz BMI 34.5 BP 142/94 H Blood Pressure Location Lt brachial Position Sitting Pulse 50 Pulse Source Pulse Oximeter Pulse Oximetry (%) 96 Oxygen Delivery Method Room Air Intake Visit Reasons: Knee OA Intake Note: Patient presents for knee OA follow up. Allergies Iodinated Contrast Media Allergy (Unknown, Verified 02/16/25 12:54) Unknown Lobster Allergy (Unknown, Verified 02/16/25 12:54) unknown HPI Comments Details: Patient is a 74 y.o. male with prostate cancer on hormonal treatment and prednisone who is here today for follow up for bilateral knee osteoarthritis Interval History: Patient last seen 10/18/24 with tx - not on any rheum meds - received bilateral knee injections for his OA - Injections did great but wore off at month 3 - Here today for his scheduled injections Today - not on any rheum meds - received bilateral knee injections for his OA - Injections did great but wore off at month 3 - Here today for his scheduled injections Rheumatologic History: Knee osteoarthritis Receives periodic knee injections Current Rheumatology Medication(s): [facility] Medical History Eczema MCC systemic steroid user Tendinopathy of rotator cuff Anemia Pulmonary embolism Prostate cancer Surgical History History of cataract surgery History of colonoscopy History of endoscopy Family History Father Psoriatic arthritis CVD (cardiovascular disease) Heart problem Cancer Mother Hypertension Brother Prostate cancer Sister No problems noted. Daughter In good health Social History Household Members: Spouse Housing: House Do you presently have visiting nurse or other home services: No Alcohol intake: current Alcohol intake frequency: 0-2 drinks per day Patient Tobacco Use Status: Never used Tobacco e-Cigarette/Vaping Use: Never Used Substance Use Type: Marijuana service: No Current occupational status: retired Cognitive needs: No Hearing needs: No Vision needs: Yes (glasses ) Review of Systems Narrative Review of Systems Constitutional: Denies fever, chills, weight loss ENT: Denies vision changes, eye pain or eye redness, dental caries, dry mouth GI: Denies nausea, vomiting, diarrhea, abdominal pain, change in BM Pulm: Denies SOB, RAHMAN, hemoptysis, wheezing Cards: Denies chest pain, palpitations Skin: Denies Raynaud's, rash, nail changes, photosensitivity, 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 Well appearing and in no apparent painful distress MSK Knees Right knee: Good ROM. No swelling noted. No TTP of the knee joint line. No TTP of pes anserine bursa Left knee: Good ROM. No swelling noted. No TTP of the knee joint line. No TTP of pes anserine bursa. Crepitations felt bilaterally Vital Signs: Last Vital Signs Pulse 50 02/16/25 12:55 BP 142/94 H 02/16/25 12:55 Pulse Ox 96 02/16/25 12:55 Oxygen Delivery Method Room Air 02/16/25 12:55 BMI result Body Mass Index 34.5 Office Procedures AMB Joint Injection/Aspiration Joint Injection/Aspiration Details: Procedure was explained to the patient and informed consent was obtained. ? Risks associated with the procedure were discussed with the patient including but not limited to bleeding, infection, drug reactions and reactions to the topical anesthetic. Patient made aware of signs to look out for infectious complications. The area of interest was identified and confirmed with patient. ?This was subsequently cleaned with chlorhexidine x 2. ? The area was then anesthetized using ethyl chloride spray. 40 mg Kenalog with 1 cc 1% lidocaine was injected without issue. ?Minimal to no bleeding. ?Patient tolerated procedure. Primary Site: Left Knee Prep: site was prepped using aseptic technique and ethochloride spray was applied Injected: 40 mg of, Kenalog, with 1 mL of, 1% plain Lidocaine and in the joint Approach Used: anterior Procedure: The patient tolerated the procedure well Coding 00029 - Large joint Procedure code (CPT) selection complete AMB Joint Injection/Aspiration Joint Injection/Aspiration Details: Procedure was explained to the patient and informed consent was obtained. ? Risks associated with the procedure were discussed with the patient including but not limited to bleeding, infection, drug reactions and reactions to the topical anesthetic. Patient made aware of signs to look out for infectious complications. The area of interest was identified and confirmed with patient. ?This was subsequently cleaned with chlorhexidine x 2. ? The area was then anesthetized using ethyl chloride spray. 40 mg Kenalog with 1 cc 1% lidocaine was injected without issue. ?Minimal to no bleeding. ?Patient tolerated procedure. Primary Site: Right Knee Prep: site was prepped using aseptic technique and ethochloride spray was applied Injected: 40 mg of, Kenalog, with 1 mL of, 1% plain Lidocaine and in the joint Approach Used: anterior Procedure: The patient tolerated the procedure well Coding 56936 - Large joint Procedure code (CPT) selection complete Office Meds lidocaine (PF) 10 mg/mL (1 %) injection solution Performing Provider: Danitza Womack MD Performing Location: [facility] Administered by: Danitza Womack MD on 02/16/25 13:01 Dose Route Admin Location Dispensed Lot Number Expiration Date FORMERLY NAMED [facility] Cleat Maker 1 mL Infiltration left knee 2 mL [id number] 08/27/26 37441-396-15 [employer] Total Dispensed Waste 2 mL 50 % Kenalog 40 mg/mL suspension for injection Performing Provider: Danitza Womack MD Performing Location: [facility] Administered by: Danitza Womack MD on 02/16/25 13:01 Dose Route Admin Location Dispensed Lot Number Expiration Date FORMERLY NAMED [facility] Cle[employer] Maker 40 mg intra-articular left knee 1 mL [id number] 09/26/26 [address]-2 [employer] Total Dispensed Waste 1 mL 0 % lidocaine (PF) 10 mg/mL (1 %) injection solution Performing Provider: Danitza Womack MD Performing Location: [facility] Administered by: Danitza Womack MD on 02/16/25 13:01 Dose Route Admin Location Dispensed Lot Number Expiration Date FORMERLY NAMED [facility] Cleat Maker 1 mL Infiltration right knee 2 mL [id number] 08/27/26 57199-908-90 [employer] Total Dispensed Waste 2 mL 50 % Kenalog 40 mg/mL suspension for injection Performing Provider: Danitza Womack MD Performing Location: [facility] Administered by: Danitza Womack MD on 02/16/25 13:01 Dose Route Admin Location Dispensed Lot Number Expiration Date FORMERLY NAMED [facility] Cle[employer] 40 mg intra-articular right knee 1 mL [id number] 09/26/26 [address]-6 [employer] Total Dispensed Waste 1 mL 0 % Results Reviewed Results Reviewed: DEXA 12/2022 FINDINGS: LEFT FEMUR, NECK: Current: BMD 0.865 g/cm2, Z-score -0.8, T-score -1.6, osteopenia. Prior: BMD 0.942 g/cm2. Baseline: BMD 0.982 g/cm2. LEFT FEMUR, TOTAL: Current: BMD 0.903 g/cm2, Z-score -1.1, T-score -1.4, osteopenia, 10.1% decrease from previous, 15.4% decrease from baseline (<5% change is not significant). Prior: BMD 1.004 g/cm2. Baseline: BMD 1.067 g/cm2. AP SPINE L1-L3 (excluding L4): The data of L1-L4 has been changed to exclude the L4 vertebral body, because degenerative sclerosis at this level may cause overestimation of lumbar spine density. Current: BMD 0.908 g/cm2, Z-score -2.7, T-score -2.5, osteoporosis, 24.1% decrease from previous, 29.7% decrease from baseline (<5% change is not significant). Prior: BMD 1.196 g/cm2. Baseline: BMD 1.292 g/cm2. Assessment & Plan Assessment & Plan (1) Osteoarthritis, knee: Comment: Bilateral knee OA 09/2023, 03/2024, 09/2024, 01/2025 Code(s): M17.9 - Osteoarthritis of knee, unspecified Category: Medical Qualifiers: Laterality: bilateral Osteoarthritis type: primary Qualified Code(s): M17.0 - Bilateral primary osteoarthritis of knee Plan: #Bilateral Knee OA Patient is a 74-year-old male with bilateral knee OA that gets periodic steroid injection Last injection 09/2024 Bilateral knees injected with 40 mg Kenalog today Plan - RTC 4 months - Continue topical diclofenac 1% qid (2) Osteoporosis due to androgen therapy: Code(s): M81.8 - Other osteoporosis without current pathological fracture; T38.7X5A - Adverse effect of androgens and anabolic congeners, initial encounter Category: Medical Plan: #Osteoporosis Patient with osteoporosis not on therapy. Need to check bone density Plan - DEXA Scan due Plan I spent 20 minutes reviewing the record and labs, taking a history, examining the patient, discussing the treatment plan and documenting in the medical record Orders: Orders AMB Joint Injection/Aspiration Today M17.0 - Bilateral primary osteoarthritis of knee XR DEXA axial skeleton Today M81.8 - Other osteoporosis without current pathological fracture, T38.7X5A - Adverse effect of androgens and anabolic congeners, initial encounter AMB Joint Injection/Aspiration Today M17.0 - Bilateral primary osteoarthritis of knee Coding Level of Care Code Est Pt Level 3 (28737) Complex EM visit Add On G2211 Diagnoses Primary osteoarthritis of both knees M17.0 Laterality: bilateral Osteoarthritis type: primary Osteoporosis due to androgen therapy M81.8; T38.7X5A CPT Codes Coding - 53971 Large joint: 90614 - Large joint ([id number]) Coding - 54338 Large joint: 77034 - Large joint ([id number])
[2025-02-16 12:55] VITALS: BP 142/94; PULSE 50; O2SAT 96; BMI 34.5
== END 2025-02-16 13:07 | disposition home or self-care (01) ==
LOC: HO.RHES 12:11
PROVIDERS: PCP Physician Assistant; Visit Provider Student in an Organized Health Care Education/Training Program
DX: M17.0 Bilateral primary osteoarthritis of knee (principal); M81.8 Other osteoporosis without current pathological fracture; T38.7X5A Adverse effect of androgens and anabolic congeners, initial encounter
CPT/HCPCS: 20610; 99213

== ENCOUNTER → 2025-02-16 12:10 | Outpatient (BNVA) | payer MEDICARE, OTHER, SELFPAY | PROVIDERS: PCP Physician Assistant; Visit Provider Student in an Organized Health Care Education/Training Program | DX: M17.0 Bilateral primary osteoarthritis of knee (principal); C61 Malignant neoplasm of prostate; M81.8 Other osteoporosis without current pathological fracture; T38.7X5A Adverse effect of androgens and anabolic congeners, initial encounter; Z79.890 Hormone replacement therapy | CPT/HCPCS: 20610; 99212; J2003; J3301 ==

== ENCOUNTER 2025-03-02 13:23 | Outpatient (AMB) | payer MEDICARE, OTHER, SELFPAY ==
--- NOTE | 2025-03-02 13:31 | AM.OFFVISNUR ---
Intake Visit Reasons: Xgeva Allergies Iodinated Contrast Media Allergy (Unknown, Verified 02/16/25 12:54) Unknown Lobster Allergy (Unknown, Verified 02/16/25 12:54) unknown Office Meds Xgeva 120 mg/1.7 mL (70 mg/mL) subcutaneous solution Performing Provider: Sammy Ortega MD [facility] Administered by: Karl Crabtree LPN on 03/02/25 13:31 Dose Route Admin Location Dispensed Lot Number Expiration Date [facility] [employer] 120 mg subcut left arm 1.7 mL [id number] 03/29/27 02969-328-17 [employer] Total Dispensed Waste 1.7 mL 0 % Assessment & Plan Assessment & Plan Orders: Orders AMB Denosumab Injection Practice Supplied Today C61 - Malignant neoplasm of prostate, C79.51 - Secondary malignant neoplasm of bone Coding
== END 2025-03-02 14:07 | disposition home or self-care (01) ==
LOC: HO.HUSH 13:24
PROVIDERS: PCP Physician Assistant; Visit Provider Urology
DX: C61 Malignant neoplasm of prostate (principal); C79.51 Secondary malignant neoplasm of bone

== ENCOUNTER → 2025-03-02 13:23 | Outpatient (BNVA) | payer MEDICARE, OTHER, SELFPAY | PROVIDERS: PCP Physician Assistant; Visit Provider Urology | DX: C61 Malignant neoplasm of prostate (principal); C79.71 Secondary malignant neoplasm of right adrenal gland | CPT/HCPCS: 96372; J0897 ==